=== PATIENT | female | born 1995 | race Hispanic/Latino ===

== ENCOUNTER 2017-05-10 18:48 | Emergency (ER) | payer BC, OTHER, SELFPAY ==
[2017-05-10] MEDS ORDERED: AMOX/K CLAV 875 MG TAB ONE (21:08)
[2017-05-10] MEDS ORDERED: TETANUS & DIPHTHERIA TOX,ADULT 0.5 ML VIAL ONE (21:08)
--- NOTE | 2017-05-10 21:23 | EDPHYS ---
Physician Documentation [facility] Name: Suzanne Sanchez Age: 22 yrs Sex: Female : 1995 Arrival Date: 05/10/2017 Time: 18:49 Bed 25 Private MD: ED Physician Surjit Jara HPI: 05/10 19:52 This 22 yrs old Female presents to ER via Ambulatory with complaints of Dog tw4 Bite. 19:52 The patient was bitten on the palmar aspect of right forearm, by a dog, as a result of tw4 being attacked by the animal, at home. Onset: The symptoms/episode began/occurred yesterday. Animal information: Patient/Caregiver unable to provide information related to the animal. Secondary to the bite the patient reports multiple lacerations, that are superficial, a puncture wound, that is superficial. Severity of symptoms: At their worst the symptoms were moderate, in the emergency department the symptoms are unchanged. The patient has not experienced similar symptoms in the past. 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 - Social history:: Smoking status: Patient/guardian denies using tobacco. ROS: 19:52 Constitutional: Negative for fever, chills, and weight loss, Eyes: Negative for injury, tw4 pain, redness, and discharge, Cardiovascular: Negative for chest pain, palpitations, and edema, Respiratory: Negative for shortness of breath, cough, wheezing, and pleuritic chest pain, Abdomen/GI: Negative for abdominal pain, nausea, vomiting, diarrhea, and constipation, Back: Negative for injury and pain. 19:52 MS/extremity: Positive for injury or acute deformity, puncture, Negative for abrasion, ecchymosis, erythema, laceration, rash. Exam: 19:52 Constitutional: This is a well developed, well nourished patient who is awake, alert, tw4 and in no acute distress. Head/Face: Normocephalic, atraumatic. Chest/axilla: Normal chest wall appearance and motion. Nontender with no deformity. No lesions are appreciated. Cardiovascular: Regular rate and rhythm with a normal S1 and S2. No gallops, murmurs, or rubs. Normal PMI, no JVD. No pulse deficits. Respiratory: Lungs have equal breath sounds bilaterally, clear to auscultation and percussion. No rales, rhonchi or wheezes noted. No increased work of breathing, no retractions or nasal flaring. 19:52 Musculoskeletal/extremity: Extremities: all appear grossly normal, with no appreciated pain with palpation, noted in the palmar aspect of right forearm: laceration, puncture. Vital Signs: 19:23 BP 142 / 81; Pulse 85; Resp 16; Temp 98.2; Pulse Ox 100% on R/A; Weight 104.33 kg; aj Height 5 ft. 5 in. (165.10 cm); Pain 3/10; 21:37 BP 138 / 80; Pulse 84; Resp 16; Pulse Ox 100% on R/A; kr2 19:23 Body Mass Index 38.27 (104.33 kg, 165.10 cm) aj MDM: 20:49 Patient medically screened. tw4 21:23 Differential diagnosis: tendon injury, rabies, cellulitis. Data reviewed: vital signs, tw4 nurses notes. Special discussion: I discussed with the patient/guardian in detail that at this point there is no indication for admission to the hospital. It is understood, however, that if the symptoms persist or worsen the patient needs to return immediately for re-evaluation. 05/10 19:54 Order name: Dressing - Wound; Complete Time: 21:34 tw4 Administered Medications: 20:53 Drug: Tetanus-Diphtheria Toxoid Adult 0.5 ml {[employer]: [employer]. Exp: kr2 09/10/2019. Lot #: [id number]. } Route: IM; Site: right deltoid; 21:34 Follow up: Response: No adverse reaction kr2 20:54 Drug: Augmentin 875 mg Route: PO; kr2 21:35 Follow up: Response: No adverse reaction kr2 Disposition: 05/10/17 21:22 Discharged to Home. Impression: Bitten by dog. - Condition is Stable. - Discharge Instructions: Animal Bite. - Prescriptions for Augmentin 875- 125 mg Oral Tablet - take 1 tablet by ORAL route every 12 hours for 10 days; 20 tablet. Ibuprofen 800 mg Oral Tablet - take 1 tablet by ORAL route every 8 hours As needed take with food; 30 tablet. - Medication Reconciliation Form, Thank You Letter, Antibiotic Education, Prescription Opioid Use form. - Follow up: Private Physician; When: As needed; Reason: Recheck today's complaints, Continuance of care, Re-evaluation by your physician. - Problem is new. - Symptoms have improved. Signatures: Zena Lewis RN RN aj Aissatou Marinelli RN RN kr2 Surjit Jara MD MD tw4
--- NOTE | 2017-05-10 21:23 | ER ---
Nurse's Notes [facility] Name: Suzanne Sanchez Age: 22 yrs Sex: Female : 1995 Arrival Date: 05/10/2017 Time: 18:49 Bed 25 Private MD: Diagnosis: Bitten by dog Presentation: 05/10 19:21 Presenting complaint: Patient states: Bit by friend's dog at 0200 this AM. Patient has aj puncture wounds to right posterior forearm. Swelling noted at this time. No bleeding. Transition of care: patient was not received from another setting of care. Onset of symptoms was May 10, 2017. Care prior to arrival: None. 19:21 Method Of Arrival: Ambulatory aj 19:21 Acuity: MAGUE 3 aj 20:03 Note [place] police notified of dog bite. Triage Assessment: 19:23 Bite description: bite sustained to palmar aspect of right forearm is full thickness, aj was sustained 12-24 hours ago. by a dog, animal information: Appearance: appeared well, is full thickness, vaccination(s) is unknown, was sustained 12-24 hours ago. Animal status: unknown but captured. General: Appears in no apparent distress. comfortable, Behavior is calm, cooperative, appropriate for age. Pain: Complains of pain in palmar aspect of right forearm. Neuro: Level of Consciousness is awake, alert, obeys commands, Oriented to person, place, time, situation. Respiratory: Airway is patent Respiratory effort is even, unlabored, Respiratory pattern is regular, symmetrical. Derm: Skin is intact, is healthy with good turgor, Skin is pink, warm \T\ dry. normal. 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 - Social history:: Smoking status: Patient/guardian denies using tobacco. Screenin:07 Abuse screen: Denies threats or abuse. Denies injuries from another. Nutritional kr2 screening: No deficits noted. Tuberculosis screening: No symptoms or risk factors identified. Fall Risk None identified. Assessment: 21:01 General: Appears in no apparent distress. comfortable, well groomed, well developed, kr2 well nourished, Behavior is calm, cooperative, appropriate for age. Pain: Complains of pain in palmar aspect of right forearm Pain radiates to right arm Pain currently is 4 out of 10 on a pain scale. Quality of pain is described as aching, tender, Pain began gradually, Is continuous. Neuro: Level of Consciousness is awake, alert, obeys commands, Oriented to person, place, time, situation. Cardiovascular: Capillary refill < 3 seconds in bilateral fingers Patient's skin is warm and dry. Respiratory: Airway is patent Respiratory effort is even, unlabored, Respiratory pattern is regular, symmetrical. GI: Abdomen is non-distended. : No signs and/or symptoms were reported regarding the genitourinary system. EENT: Oral mucosa is moist. Derm: Skin is healthy with good turgor, Wound noted palmar aspect of right forearm Wound is from a dog bite. 2 puncture wounds, redness and small amount of swelling noted. Musculoskeletal: Circulation, motion, and sensation intact. Range of motion: intact in all extremities. Injury Description: Bite sustained to palmar aspect of right forearm caused by a dog, is full thickness, was sustained 12-24 hours ago. 21:35 Reassessment: Patient appears in no apparent distress at this time. Patient is alert, kr2 oriented x 3, equal unlabored respirations, skin warm/dry/pink. Wound cleansed with chlorhexidine, rinsed with saline, antibiotic ointment applied, covered with non-stick dressing, wrapped with kerlix and secured with tape. Tolerated well. Vital Signs: 19:23 BP 142 / 81; Pulse 85; Resp 16; Temp 98.2; Pulse Ox 100% on R/A; Weight 104.33 kg; aj Height 5 ft. 5 in. (165.10 cm); Pain 3/10; 21:37 BP 138 / 80; Pulse 84; Resp 16; Pulse Ox 100% on R/A; kr2 19:23 Body Mass Index 38.27 (104.33 kg, 165.10 cm) aj ED Course: 18:49 Patient arrived in ED. as 19:22 Triage completed. aj 19:23 Arm band placed on right wrist. Patient placed in waiting room, Patient notified of aj wait time. 19:52 Estefani, Surjit, MD is Attending Physician. tw4 20:43 Aissatou Marinelli, RN is Primary Nurse. kr2 21:07 Patient has correct armband on for positive identification. Bed in low position. Call kr2 light in reach. Side rails up X2. Pulse ox on. NIBP on. Door closed. Warm blanket given. Head of bed elevated. 21:36 No provider procedures requiring assistance completed. Patient did not have IV access kr2 during this emergency room visit. Administered Medications: 20:53 Drug: Tetanus-Diphtheria Toxoid Adult 0.5 ml {[employer] Super[employer]: [employer]. Exp: kr2 09/10/2019. Lot #: [id number]. } Route: IM; Site: right deltoid; 21:34 Follow up: Response: No adverse reaction kr2 20:54 Drug: Augmentin 875 mg Route: PO; kr2 21:35 Follow up: Response: No adverse reaction kr2 Outcome: 21:22 Discharge ordered by . tw4 21:37 Discharged to home ambulatory, with friend. kr2 21:37 Condition: good 21:37 Discharge instructions given to patient, Instructed on discharge instructions, follow up and referral plans. medication usage, wound care, Demonstrated understanding of instructions, follow-up care, medications, wound care, Prescriptions given X 2. 21:38 Patient left the ED. kr2 Signatures: Zena Lewis, RN Yanira Thompson as Aissatou Marinelli, RN RN kr2 Surjit Jara MD MD tw
[2017-05-10 22:02] VITALS: TEMP 98.2; O2SAT 100
[2017-05-10 22:04] VITALS: BP 138/80
== END 2017-05-10 21:38 | disposition home or self-care (01) ==
LOC: ER 18:48
DX: S50.871A Other superficial bite of right forearm, initial encounter (principal); W54.0XXA Bitten by dog, initial encounter; Y93.9 Activity, unspecified; Y92.009 Unspecified place in unspecified non-institutional (private) residence as the place of occurrence of the external cause; Z23 Encounter for immunization; E11.9 Type 2 diabetes mellitus without complications; E03.9 Hypothyroidism, unspecified
CPT/HCPCS: 90714; 99283

== ENCOUNTER → 2023-04-16 | Emergency (ER) | payer BC, SELFPAY ==
[~2023-04-16] MED LIST: IBUPROFEN 400 MG TAB ONE
--- OUTSIDE RECORDS SUMMARY | 2023-04-16 09:33 | XMS REPORT | Continuity of Care Document ---
Author Name Unknown Address [address] [facility] [address] [place] [address] [facility] thconnect Address [address] [facility] 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 Role Phone MARLENY CARD Primary Care Physician Unav Lorelei Quinn MA Attending Clinician UnavailLANA Scott Attending Clinician Unavailable Lana Manzano PA-C Attending Clinician [phone] Unknown, Attending Attending Clinician Unavailab le Doctor Unassigned, [place] Attending Clinician U ruth Garsia RN, Yas Cunningham Attending Clinician UnavailJOLLY Willis Attending Clinician Unavailable Only, En Db Test Attending Clinician UnavailJolly Benitez Attending Clinician [phone] Terry Reynaga DO Attending Clinician [phone] Marleny Childers Attending Clinician + MARLENY CARD Attending Clinician Unavail Cristin Ovalle MD Attending Clinician [phone] Ultrasound, Ang-m Attending Clinician Unavailelvira Malone MD, Arthur Ahmadi Attending Clinician [phone] Penelope Bailon MD Attending Clinician [phone] ARTHUR MALONE Attending Clinician Unavailable 1, [facility] Attending Clinician UnavailShawn Adam MD Attending Clinician [phone] Provider, [facility] Attending Clinician Un available AneJulianna Wyattthia Attending Clinician [phone] ROYA DURAN Attending Clinician Unavailable Faculty, [facility] [place] Attending Clinician Tal Bishop MD, Audrey Attending Clinician + Lab, [facility] Attending Clinician Unavailable Slime CHAN, Collin Santoyo Attending Clinician [phone] Pcp, Patient Does Not Have A Attending Clinician Visit[facility]ending [facility] Unamanuel [place] Lab, [facility] Attending Clinician Unavailable 3, [facility] Attending Clinician Unavaila zoya PIERCEP, Judy Attending Clinician [phone] CRISTIN FOURNIER Admitting Clinician Unavailable Cristin Fournier MD Admitting Clinician [phone] Payers Payer Name Policy Type Policy Number Effective Date Expirati on Date Source [facility] [id number] 00:00:00 Problems Condition Name Condition Details Condition Category Status Onset Date Resolution Date Last Treatment Date Treating Clinician Comments Source Well woman exam Well woman exam Disease Active -12 00:00: 00 [facility] Routine follow-up Routine follow-up Disease Active 03-01 00:00: 00 [facility] History of tubal ligation History of tubal ligation Disease Active 02-09 00:00: 00 [facility] delivery, delivered delivery, delivered Disease Active 02-09 00:00: 00 [facility] (spontaneo us vaginal delivery) (spontaneo us vaginal delivery) Disease Active 02-09 00:00: 00 [facility] Single liveborn Single liveborn Disease Active 02-09 00:00: 00 [facility] anemia anemia Disease Active 02-09 00:00: 00 [facility] 33 weeks gestation of 33 weeks gestation of Disease Active 2019-02 2-31 00:00: 00 [facility] premature rupture of membranes (PPROM) with unknown onset of labor premature rupture of membranes (PPROM) with unknown onset of labor Disease Active 2019-02 00:00: 00 [facility] Labor and delivery, indication for care Labor and delivery, indication for care Disease Active 2019-02 00:00: 00 [facility] UTI in UTI in Disease Active 2019-02 00:00: 00 [facility] Morbid obesity with body mass index of 40.0-49.9 Morbid obesity with body mass index of 40.0-49.9 Disease Active 2019-02 00:00: 00 [facility] Obesity (BMI 30-39.9) Obesity (BMI 30-39.9) Disease Active 2019-02 00:00: 00 [facility] Vaginal bleeding during Vaginal bleeding during Disease Active 10-18 00:00: 00 [facility] Cervical Papanicola ou smear negative within last 12 months Cervical Papanicola ou smear negative within last 12 months Disease Active 10-03 00:00: 00 Overview: Formattin g of this note might be different from the original. NIL pap 08/2019 see scanned records [facility] Abnormal maternal glucose tolerance, antepartum Abnormal maternal glucose tolerance, antepartum Disease Active 10-03 00:00: 00 Overview: Failed 1hr gtt, passed 3hr gtt, [facility] Rh negative state in antepartum period Rh negative state in antepartum period Disease Active 09-19 00:00: 00 Overview: Address at 28 weeks [facility] Rubella non-immune status, antepartum Rubella non-immune status, antepartum Disease Active 09-19 00:00: 00 [facility] Susceptibl e to varicella (non-immun e), currently Susceptibl e to varicella (non-immun e), currently Disease Active 09-19 00:00: 00 Overview: Address pp [facility] Supervisio n of high-risk Supervisio n of high-risk Disease Active 09-17 00:00: 00 Overview: See chart review for labs [facility] Multiparit y Multiparit y Disease Active 8- 00:00: 00 [facility] Obesity in Obesity in Disease Active 8 00:00: 00 [facility] Hypothyroi dism in Hypothyroi dism in Disease Active 8- 00:00: 00 [facility] Asthma during Asthma during Disease Active 8- 00:00: 00 Overview: Reports has rescue inhaler [facility] Asthma during Asthma during Disease Active 8 00:00: 00 Overview: Formattin g of this note might be different from the original. Reports has rescue inhaler [facility] Velamentou s insertion of umbilical cord Velamentou s insertion of umbilical cord Disease Active 8 00:00: 00 Overview: Noted on usg report [facility] Hypothyroi dism Hypothyroi dism Disease Active 09-17 00:00: 00 [facility] Allergies, Adverse Reactions, Alerts Allergy Name Allergy Type Status Severity Reaction(s) Onset Date Inactive Date Treating Clinician Comments Source NO KNOWN ALLERGIE S Drug Class Active [facility] Social History Social Habit Start Date Stop Date Quantity Comments Source ASSERTION 2019-07-06 00:00:00 [facility] Gender identity [facility] Sexual orientation U [facility] Exposure to SARS-CoV-2 (event) 2020-12-16 00:00:00 2021-01-15 17:49:00 Not sure [facility] History of Social function 2020-03-22 00:00:00 2020-03-22 00:00:00 [facility] Alcohol intake 2019-10-02 00:00:00 2019-10-02 00:00:00 Ex-drinker (finding) [facility] Tobacco use and exposure 2019-09-18 00:00:00 2019-09-18 00:00:00 Smokeless tobacco non-user [facility] Sex Assigned At 1995 00:00:00 1995 00:00:00 [facility] Smoking Status Start Date Stop Date Source Unknown if ever smoked [facility] Never smoked tobacco [facility] Medications Ordered Medication Name Filled Medication Name Start Date Stop Date Current Medication? Ordering Clinician Indication Dosage Frequency Signature (SIG) Comments Components Source ciprofloxac in-dexameth asone 0.3-0.1 % otic drops 08-12 00:00: 00 Yes [id number] 4[drp] Place 4 Drops in right ear in the morning and 4 Drops in the evening. [facility] ciprofloxac in-dexameth asone 0.3-0.1 % otic drops 08-12 00:00: 00 Yes [id number] 4[drp] Place 4 Drops in right ear in the morning and 4 Drops in the evening. [facility] vitamin w/FA tablet 02-10 00:00: 00 Yes [id number] 1{tbl} Take 1 tablet by mouth daily. [facility] docusate calcium 240 mg capsule 02-10 00:00: 00 Yes [id number] 240mg Take 1 capsule by mouth once daily as needed for Constipati on. [facility] ferrous sulfate 325 mg (65 mg iron) tablet 02-10 00:00: 00 Yes [id number] 325mg Take 1 tablet by mouth 2 (two) times daily. [facility] ibuprofen 600 mg tablet 02-10 00:00: 00 Yes [id number] 600mg Take 1 tablet by mouth every 6 (six) hours as needed (Pain). Take with food or milk. [facility] vitamin w/FA tablet 02-10 00:00: 00 Yes [id number] 1{tbl} Take 1 tablet by mouth daily. [facility] docusate calcium 240 mg capsule 02-10 00:00: 00 Yes [id number] 240mg Take 1 capsule by mouth once daily as needed for Constipati on. [facility] ferrous sulfate 325 mg (65 mg iron) tablet 02-10 00:00: 00 Yes [id number] 325mg Take 1 tablet by mouth 2 (two) times daily. [facility] ibuprofen 600 mg tablet 02-10 00:00: 00 Yes [id number] 600mg Take 1 tablet by mouth every 6 (six) hours as needed (Pain). Take with food or milk. [facility] vitamin w/FA tablet 02-10 00:00: 00 Yes [id number] 1{tbl} Take 1 tablet by mouth daily. [facility] docusate calcium 240 mg capsule 02-10 00:00: 00 Yes [id number] 240mg Take 1 capsule by mouth once daily as needed for Constipati on. [facility] ferrous sulfate 325 mg (65 mg iron) tablet 02-10 00:00: 00 Yes [id number] 325mg Take 1 tablet by mouth 2 (two) times daily. [facility] ibuprofen 600 mg tablet 02-10 00:00: 00 Yes [id number] 600mg Take 1 tablet by mouth every 6 (six) hours as needed (Pain). Take with food or milk. [facility] vitamin w/FA tablet 02-10 00:00: 00 Yes [id number] 1{tbl} Take 1 tablet by mouth daily. [facility] docusate calcium 240 mg capsule 02-10 00:00: 00 Yes [id number] 240mg Take 1 capsule by mouth once daily as needed for Constipati on. [facility] ferrous sulfate 325 mg (65 mg iron) tablet 02-10 00:00: 00 Yes [id number] 325mg Take 1 tablet by mouth 2 (two) times daily. [facility] ibuprofen 600 mg tablet 02-10 00:00: 00 Yes [id number] 600mg Take 1 tablet by mouth every 6 (six) hours as needed (Pain). Take with food or milk. [facility] vitamin w/FA tablet 02-10 00:00: 00 Yes [id number] 1{tbl} Take 1 tablet by mouth daily. [facility] docusate calcium 240 mg capsule 02-10 00:00: 00 Yes [id number] 240mg Take 1 capsule by mouth once daily as needed for Constipati on. [facility] ferrous sulfate 325 mg (65 mg iron) tablet 02-10 00:00: 00 Yes [id number] 325mg Take 1 tablet by mouth 2 (two) times daily. [facility] ibuprofen 600 mg tablet 02-10 00:00: 00 Yes [id number] 600mg Take 1 tablet by mouth every 6 (six) hours as needed (Pain). Take with food or milk. [facility] vitamin w/FA tablet 02-10 00:00: 00 Yes [id number] 1{tbl} Take 1 tablet by mouth daily. [facility] docusate calcium 240 mg capsule 02-10 00:00: 00 Yes [id number] 240mg Take 1 capsule by mouth once daily as needed for Constipati on. [facility] ferrous sulfate 325 mg (65 mg iron) tablet 02-10 00:00: 00 Yes [id number] 325mg Take 1 tablet by mouth 2 (two) times daily. [facility] ibuprofen 600 mg tablet 02-10 00:00: 00 Yes [id number] 600mg Take 1 tablet by mouth every 6 (six) hours as needed (Pain). Take with food or milk. [facility] vitamin w/FA tablet 02-10 00:00: 00 Yes [id number] 1{tbl} Take 1 tablet by mouth daily. [facility] docusate calcium 240 mg capsule 02-10 00:00: 00 Yes [id number] 240mg Take 1 capsule by mouth once daily as needed for Constipati on. [facility] ferrous sulfate 325 mg (65 mg iron) tablet 02-10 00:00: 00 Yes [id number] 325mg Take 1 tablet by mouth 2 (two) times daily. [facility] ibuprofen 600 mg tablet 02-10 00:00: 00 Yes [id number] 600mg Take 1 tablet by mouth every 6 (six) hours as needed (Pain). Take with food or milk. [facility] vitamin w/FA tablet 02-10 00:00: 00 Yes [id number] 1{tbl} Take 1 tablet by mouth daily. [facility] docusate calcium 240 mg capsule 02-10 00:00: 00 Yes [id number] 240mg Take 1 capsule by mouth once daily as needed for Constipati on. [facility] ferrous sulfate 325 mg (65 mg iron) tablet 02-10 00:00: 00 Yes [id number] 325mg Take 1 tablet by mouth 2 (two) times daily. [facility] ibuprofen 600 mg tablet 02-10 00:00: 00 Yes [id number] 600mg Take 1 tablet by mouth every 6 (six) hours as needed (Pain). Take with food or milk. [facility] vitamin w/FA tablet 02-10 00:00: 00 Yes [id number] 1{tbl} Take 1 tablet by mouth daily. [facility] docusate calcium 240 mg capsule 02-10 00:00: 00 Yes [id number] 240mg Take 1 capsule by mouth once daily as needed for Constipati on. [facility] ferrous sulfate 325 mg (65 mg iron) tablet 02-10 00:00: 00 Yes [id number] 325mg Take 1 tablet by mouth 2 (two) times daily. [facility] ibuprofen 600 mg tablet 02-10 00:00: 00 Yes [id number] 600mg Take 1 tablet by mouth every 6 (six) hours as needed (Pain). Take with food or milk. [facility] vitamin w/FA tablet 02-10 00:00: 00 Yes [id number] 1{tbl} Take 1 tablet by mouth daily. [facility] docusate calcium 240 mg capsule 02-10 00:00: 00 Yes [id number] 240mg Take 1 capsule by mouth once daily as needed for Constipati on. [facility] ferrous sulfate 325 mg (65 mg iron) tablet 02-10 00:00: 00 Yes [id number] 325mg Take 1 tablet by mouth 2 (two) times daily. [facility] ibuprofen 600 mg tablet 02-10 00:00: 00 Yes [id number] 600mg Take 1 tablet by mouth every 6 (six) hours as needed (Pain). Take with food or milk. [facility] vitamin w/FA tablet 02-10 00:00: 00 Yes [id number] 1{tbl} Take 1 tablet by mouth daily. [facility] docusate calcium 240 mg capsule 02-10 00:00: 00 Yes [id number] 240mg Take 1 capsule by mouth once daily as needed for Constipati on. [facility] ferrous sulfate 325 mg (65 mg iron) tablet 02-10 00:00: 00 Yes [id number] 325mg Take 1 tablet by mouth 2 (two) times daily. [facility] ibuprofen 600 mg tablet 02-10 00:00: 00 Yes [id number] 600mg Take 1 tablet by mouth every 6 (six) hours as needed (Pain). Take with food or milk. [facility] HYDROcodone -acetaminop hen 5-325 mg tablet 02-10 00:00: 00 02-18 05:59 :00 No [id number] 1{tbl} Take 1 tablet by mouth every 6 (six) hours as needed for Pain (scale 7-10) for up to 7 days. Indication s: acute pain [facility] HYDROcodone -acetaminop hen 5-325 mg tablet 02-10 00:00: 00 02-18 05:59 :00 No [id number] 1{tbl} Take 1 tablet by mouth every 6 (six) hours as needed for Pain (scale 7-10) for up to 7 days. Indication s: acute pain [facility] cephALEXin 500 mg capsule 2019-02 00:00: 00 02-13 05:59 :00 No [id number] 500mg Take 1 capsule by mouth 4 (four) times daily for 7 days. [facility] cephALEXin 500 mg capsule 2019-02 00:00: 00 02-13 05:59 :00 No [id number] 500mg Take 1 capsule by mouth 4 (four) times daily for 7 days. [facility] rho(D) immune globulin (RHOGAM) syringe 300 mcg 2019-02 18:00: 00 01-08 17:06 :00 No [id number] 300ug [facility] rho(D) immune globulin (RHOGAM) syringe 300 mcg 2019-02 18:00: 00 01-08 17:06 :00 No [id number] 300ug 300 mcg, Intramuscu lar, ONCE, 1 dose, Wed01/09/20 at 1200, Routine [facility] Levothyroxi ne 150 mcg capsule 2019-02 00:00: 00 Yes [id number] .15mg Take 1 capsule by mouth daily. [facility] Levothyroxi ne 150 mcg capsule 2019-02 00:00: 00 Yes [id number] .15mg Take 1 capsule by mouth daily. [facility] Levothyroxi ne 150 mcg capsule 2019-02 00:00: 00 Yes [id number] .15mg Take 1 capsule by mouth daily. [facility] Levothyroxi ne 150 mcg capsule 2019-02 00:00: 00 Yes [id number] .15mg Take 1 capsule by mouth daily. [facility] Levothyroxi ne 150 mcg capsule 2019-02 00:00: 00 Yes [id number] .15mg Take 1 capsule by mouth daily. [facility] Levothyroxi ne 150 mcg capsule 2019-02 00:00: 00 Yes [id number] .15mg Take 1 capsule by mouth daily. [facility] Levothyroxi ne 150 mcg capsule 2019-02 00:00: 00 Yes [id number] .15mg Take 1 capsule by mouth daily. [facility] Levothyroxi ne 150 mcg capsule 2019-02 00:00: 00 Yes [id number] .15mg Take 1 capsule by mouth daily. [facility] Levothyroxi ne 150 mcg capsule 2019-02 00:00: 00 Yes [id number] .15mg Take 1 capsule by mouth daily. [facility] Levothyroxi ne 150 mcg capsule 2019-02 00:00: 00 Yes [id number] .15mg Take 1 capsule by mouth daily. [facility] Levothyroxi ne 150 mcg capsule 2019-02 00:00: 00 Yes [id number] .15mg Take 1 capsule by mouth daily. [facility] Levothyroxi ne 150 mcg capsule 2019-02 00:00: 00 Yes [id number] .15mg Take 1 capsule by mouth daily. [facility] Levothyroxi ne 150 mcg capsule 2019-02 00:00: 00 Yes [id number] .15mg Take 1 capsule by mouth daily. [facility] Levothyroxi ne 150 mcg capsule 2019-02 00:00: 00 Yes [id number] .15mg Take 1 capsule by mouth daily. [facility] Levothyroxi ne 150 mcg capsule 2019-02 00:00: 00 Yes [id number] .15mg Take 1 capsule by mouth daily. [facility] Levothyroxi ne 150 mcg capsule 2019-02 00:00: 00 Yes [id number] .15mg Take 1 capsule by mouth daily. [facility] Levothyroxi ne 150 mcg capsule 2019-02 00:00: 00 Yes [id number] .15mg Take 1 capsule by mouth daily. [facility] Levothyroxi ne 150 mcg capsule 2019-02 00:00: 00 Yes [id number] .15mg Take 1 capsule by mouth daily. [facility] Levothyroxi ne 150 mcg capsule 2019-02 00:00: 00 Yes [id number] .15mg Take 1 capsule by mouth daily. [facility] Levothyroxi ne 150 mcg capsule 2019-02 00:00: 00 Yes [id number] .15mg Take 1 capsule by mouth daily. [facility] Levothyroxi ne 150 mcg capsule 2019-02 00:00: 00 Yes [id number] .15mg Take 1 capsule by mouth daily. [facility] Levothyroxi ne 150 mcg capsule 2019-02 00:00: 00 Yes [id number] .15mg Take 1 capsule by mouth daily. [facility] Levothyroxi ne 150 mcg capsule 2019-02 00:00: 00 Yes [id number] .15mg Take 1 capsule by mouth daily. [facility] Levothyroxi ne 150 mcg capsule 2019-02 00:00: 00 Yes [id number] .15mg Take 1 capsule by mouth daily. [facility] Levothyroxi ne 150 mcg capsule 2019-02 00:00: 00 Yes [id number] .15mg Take 1 capsule by mouth daily. [facility] Levothyroxi ne 150 mcg capsule 2019-02 00:00: 00 Yes [id number] .15mg Take 1 capsule by mouth daily. [facility] Levothyroxi ne 125 mcg capsule 2019-0 10-29 00:00: 00 Yes [id number] .125mg Take 1 capsule by mouth daily. [facility] Levothyroxi ne 125 mcg capsule 2019-0 10-29 00:00: 00 Yes [id number] .125mg Take 1 capsule by mouth daily. [facility] Levothyroxi ne 125 mcg capsule 2019-0 10-29 00:00: 00 Yes [id number] .125mg Take 1 capsule by mouth daily. [facility] Levothyroxi ne 125 mcg capsule 2019-0 10-29 00:00: 00 Yes [id number] .125mg Take 1 capsule by mouth daily. [facility] Levothyroxi ne 125 mcg capsule 2019-0 10-29 00:00: 00 Yes [id number] .125mg Take 1 capsule by mouth daily. [facility] Levothyroxi ne 125 mcg capsule 2019-0 10-29 00:00: 00 Yes [id number] .125mg Take 1 capsule by mouth daily. [facility] Levothyroxi ne 125 mcg capsule 2019-0 10-29 00:00: 00 Yes [id number] .125mg Take 1 capsule by mouth daily. [facility] Levothyroxi ne 125 mcg capsule 2019-0 10-29 00:00: 00 Yes [id number] .125mg Take 1 capsule by mouth daily. [facility] Levothyroxi ne 125 mcg capsule 2019-0 10-29 00:00: 00 Yes [id number] .125mg Take 1 capsule by mouth daily. [facility] Levothyroxi ne 125 mcg capsule 2019-0 10-29 00:00: 00 Yes [id number] .125mg Take 1 capsule by mouth daily. [facility] Levothyroxi ne 125 mcg capsule 2019-0 10-29 00:00: 00 Yes [id number] .125mg Take 1 capsule by mouth daily. [facility] Levothyroxi ne 125 mcg capsule 2019-0 10-29 00:00: 00 Yes [id number] .125mg Take 1 capsule by mouth daily. [facility] Levothyroxi ne 125 mcg capsule 2019-0 10-29 00:00: 00 Yes [id number] .125mg Take 1 capsule by mouth daily. [facility] Levothyroxi ne 125 mcg capsule 2019-0 10-29 00:00: 00 Yes [id number] .125mg Take 1 capsule by mouth daily. [facility] Levothyroxi ne 125 mcg capsule 2019-0 10-29 00:00: 00 Yes [id number] .125mg Take 1 capsule by mouth daily. [facility] Levothyroxi ne 125 mcg capsule 2019-0 10-29 00:00: 00 Yes [id number] .125mg Take 1 capsule by mouth daily. [facility] Levothyroxi ne 125 mcg capsule 2019-0 10-29 00:00: 00 Yes [id number] .125mg Take 1 capsule by mouth daily. [facility] Levothyroxi ne 125 mcg capsule 2019-0 10-29 00:00: 00 Yes [id number] .125mg Take 1 capsule by mouth daily. [facility] Levothyroxi ne 125 mcg capsule 2019-0 10-29 00:00: 00 Yes [id number] .125mg Take 1 capsule by mouth daily. [facility] Levothyroxi ne 125 mcg capsule 2019-0 10-29 00:00: 00 Yes [id number] .125mg Take 1 capsule by mouth daily. [facility] Levothyroxi ne 125 mcg capsule 2019-0 10-29 00:00: 00 Yes [id number] .125mg Take 1 capsule by mouth daily. [facility] Levothyroxi ne 125 mcg capsule 2019-0 -21 00:00: 00 Yes [id number] .125mg Take 1 capsule by mouth daily. [facility] Levothyroxi ne 125 mcg capsule 2019-0 -21 00:00: 00 Yes [id number] .125mg Take 1 capsule by mouth daily. [facility] Levothyroxi ne 125 mcg capsule 2019-0 21 00:00: 00 Yes [id number] .125mg Take 1 capsule by mouth daily. [facility] Levothyroxi ne 125 mcg capsule 2019-0 -21 00:00: 00 Yes [id number] .125mg Take 1 capsule by mouth daily. [facility] Levothyroxi ne 100 mcg capsule 2019-0 9-16 00:00: 00 Yes [id number] 100ug Take 1 capsule by mouth daily. [facility] Levothyroxi ne 100 mcg capsule 2019-0 9-16 00:00: 00 10-29 00:00 :00 No [id number] 100ug Take 1 capsule by mouth daily. [facility] Levothyroxi ne 100 mcg capsule 2019-0 8-18 18:30: 11 -17 00:00 :00 No Take by mouth. [facility] PRENATABS RX tablet 2020-0 8-18 00:00: 00 Yes [id number] TAKE 1 TABLET BY MOUTH ONCE DAILY [facility] PRENATABS RX tablet 2020-0 8-18 00:00: 00 Yes [id number] TAKE 1 TABLET BY MOUTH ONCE DAILY [facility] PRENATABS RX tablet 2020-0 8-18 00:00: 00 Yes [id number] TAKE 1 TABLET BY MOUTH ONCE DAILY [facility] PRENATABS RX tablet 2020-0 8-18 00:00: 00 Yes [id number] TAKE 1 TABLET BY MOUTH ONCE DAILY [facility] PRENATABS RX tablet 2020-0 8-18 00:00: 00 Yes [id number] TAKE 1 TABLET BY MOUTH ONCE DAILY [facility] PRENATABS RX tablet 2020-0 8-18 00:00: 00 Yes [id number] TAKE 1 TABLET BY MOUTH ONCE DAILY [facility] PRENATABS RX tablet 2020-0 8-18 00:00: 00 Yes [id number] TAKE 1 TABLET BY MOUTH ONCE DAILY [facility] PRENATABS RX tablet 2020-0 8-18 00:00: 00 Yes [id number] TAKE 1 TABLET BY MOUTH ONCE DAILY [facility] PRENATABS RX tablet 2020-0 8-18 00:00: 00 Yes [id number] TAKE 1 TABLET BY MOUTH ONCE DAILY [facility] PRENATABS RX tablet 2020-0 8-18 00:00: 00 Yes [id number] TAKE 1 TABLET BY MOUTH ONCE DAILY [facility] PRENATABS RX tablet 2020-0 8-18 00:00: 00 Yes [id number] TAKE 1 TABLET BY MOUTH ONCE DAILY [facility] PRENATABS RX tablet 2020-0 8-18 00:00: 00 Yes [id number] TAKE 1 TABLET BY MOUTH ONCE DAILY [facility] PRENATABS RX tablet 2020-0 8-18 00:00: 00 Yes [id number] TAKE 1 TABLET BY MOUTH ONCE DAILY [facility] PRENATABS RX tablet 2020-0 8-18 00:00: 00 Yes [id number] TAKE 1 TABLET BY MOUTH ONCE DAILY [facility] PRENATABS RX tablet 2020-0 8-18 00:00: 00 Yes [id number] TAKE 1 TABLET BY MOUTH ONCE DAILY [facility] PRENATABS RX tablet 2020-0 8-18 00:00: 00 Yes [id number] TAKE 1 TABLET BY MOUTH ONCE DAILY [facility] PRENATABS RX tablet 2020-0 8-18 00:00: 00 Yes [id number] TAKE 1 TABLET BY MOUTH ONCE DAILY [facility] PRENATABS RX tablet 2020-0 8-18 00:00: 00 Yes [id number] TAKE 1 TABLET BY MOUTH ONCE DAILY [facility] PRENATABS RX tablet 2020-0 8-18 00:00: 00 Yes [id number] TAKE 1 TABLET BY MOUTH ONCE DAILY [facility] PRENATABS RX tablet 2020-0 8-18 00:00: 00 Yes [id number] TAKE 1 TABLET BY MOUTH ONCE DAILY [facility] PRENATABS RX tablet 2020-0 8-18 00:00: 00 Yes [id number] TAKE 1 TABLET BY MOUTH ONCE DAILY [facility] PRENATABS RX tablet 2020-0 8-18 00:00: 00 Yes [id number] TAKE 1 TABLET BY MOUTH ONCE DAILY [facility] PRENATABS RX tablet 2020-0 8-18 00:00: 00 Yes [id number] TAKE 1 TABLET BY MOUTH ONCE DAILY [facility] PRENATABS RX tablet 2020-0 8-18 00:00: 00 Yes [id number] TAKE 1 TABLET BY MOUTH ONCE DAILY [facility] PRENATABS RX tablet 2020-0 8-18 00:00: 00 Yes [id number] TAKE 1 TABLET BY MOUTH ONCE DAILY [facility] PRENATABS RX tablet 2020-0 8-18 00:00: 00 Yes [id number] TAKE 1 TABLET BY MOUTH ONCE DAILY [facility] PRENATABS RX tablet 2020-0 8-18 00:00: 00 Yes [id number] TAKE 1 TABLET BY MOUTH ONCE DAILY [facility] PRENATABS RX tablet 2020-0 8-18 00:00: 00 Yes [id number] TAKE 1 TABLET BY MOUTH ONCE DAILY [facility] PRENATABS RX tablet 2020-0 8-18 00:00: 00 Yes [id number] TAKE 1 TABLET BY MOUTH ONCE DAILY [facility] PRENATABS RX tablet 2020-0 8-18 00:00: 00 Yes [id number] TAKE 1 TABLET BY MOUTH ONCE DAILY [facility] PRENATABS RX tablet 2020-0 8-18 00:00: 00 Yes [id number] TAKE 1 TABLET BY MOUTH ONCE DAILY [facility] PRENATABS RX tablet 2020-0 8-18 00:00: 00 Yes [id number] TAKE 1 TABLET BY MOUTH ONCE DAILY [facility] PRENATABS RX tablet 2020-0 8-18 00:00: 00 Yes [id number] TAKE 1 TABLET BY MOUTH ONCE DAILY [facility] PRENATABS RX tablet 2020-0 8-18 00:00: 00 Yes [id number] TAKE 1 TABLET BY MOUTH ONCE DAILY [facility] PRENATABS RX tablet 2020-0 8-18 00:00: 00 Yes [id number] TAKE 1 TABLET BY MOUTH ONCE DAILY [facility] PRENATABS RX tablet 2020-0 8-18 00:00: 00 Yes [id number] TAKE 1 TABLET BY MOUTH ONCE DAILY [facility] PRENATABS RX tablet 2020-0 8-18 00:00: 00 Yes [id number] TAKE 1 TABLET BY MOUTH ONCE DAILY [facility] PRENATABS RX tablet 2020-0 8-18 00:00: 00 Yes [id number] TAKE 1 TABLET BY MOUTH ONCE DAILY [facility] PRENATABS RX tablet 2020-0 8-18 00:00: 00 Yes [id number] TAKE 1 TABLET BY MOUTH ONCE DAILY [facility] PRENATABS RX tablet 2020-0 8-18 00:00: 00 Yes [id number] TAKE 1 TABLET BY MOUTH ONCE DAILY [facility] PRENATABS RX tablet 2020-0 8-18 00:00: 00 Yes [id number] TAKE 1 TABLET BY MOUTH ONCE DAILY [facility] PRENATABS RX tablet 2020-0 8-18 00:00: 00 Yes [id number] TAKE 1 TABLET BY MOUTH ONCE DAILY [facility] PRENATABS RX tablet 2020-0 8-18 00:00: 00 Yes [id number] TAKE 1 TABLET BY MOUTH ONCE DAILY [facility] PRENATABS RX tablet 2020-0 8-18 00:00: 00 Yes [id number] TAKE 1 TABLET BY MOUTH ONCE DAILY [facility] PRENATABS RX tablet 2019-0 8-18 00:00: 00 02-10 00:00 :00 No [id number] TAKE 1 TABLET BY MOUTH ONCE DAILY [facility] Levothyroxi ne 100 mcg capsule 2019-0 8-18 00:00: 00 10-26 04:59 :00 No [id number] 100ug Take 1 capsule by mouth daily for 30 days. [facility] Levothyroxi ne 100 mcg capsule 2019-0 8-18 00:00: 00 10-26 04:59 :00 No [id number] 100ug Take 1 capsule by mouth daily for 30 days. [facility] Levothyroxi ne 100 mcg capsule 2019-0 8-18 00:00: 00 10-26 04:59 :00 No [id number] 100ug Take 1 capsule by mouth daily for 30 days. [facility] Levothyroxi ne 100 mcg capsule 2020-0 8-18 00:00: 00 10-26 04:59 :00 No [id number] 100ug Take 1 capsule by mouth daily for 30 days. [facility] Levothyroxi ne 100 mcg capsule 2020-0 8-18 00:00: 00 10-26 04:59 :00 No [id number] 100ug Take 1 capsule by mouth daily for 30 days. [facility] Levothyroxi ne 100 mcg capsule 2020-0 8-18 00:00: 00 10-26 04:59 :00 No [id number] 100ug Take 1 capsule by mouth daily for 30 days. [facility] Levothyroxi ne 100 mcg capsule 2020-0 8-18 00:00: 00 10-26 04:59 :00 No [id number] 100ug Take 1 capsule by mouth daily for 30 days. [facility] Levothyroxi ne 100 mcg capsule 2020-0 8-18 00:00: 00 10-26 04:59 :00 No [id number] 100ug Take 1 capsule by mouth daily for 30 days. [facility] Levothyroxi ne 100 mcg capsule 2020-0 8-18 00:00: 00 10-26 04:59 :00 No [id number] 100ug Take 1 capsule by mouth daily for 30 days. [facility] Levothyroxi ne 100 mcg capsule 2020-0 8-18 00:00: 00 10-26 04:59 :00 No [id number] 100ug Take 1 capsule by mouth daily for 30 days. [facility] Levothyroxi ne 100 mcg capsule 2020-0 8-18 00:00: 00 10-26 04:59 :00 No [id number] 100ug Take 1 capsule by mouth daily for 30 days. [facility] Levothyroxi ne 100 mcg capsule 2020-0 8-18 00:00: 00 10-26 04:59 :00 No [id number] 100ug Take 1 capsule by mouth daily for 30 days. [facility] Levothyroxi ne 100 mcg capsule 2020-0 8-18 00:00: 00 10-26 04:59 :00 No [id number] 100ug Take 1 capsule by mouth daily for 30 days. [facility] Levothyroxi ne 100 mcg capsule 2020-0 8-18 00:00: 00 10-26 04:59 :00 No [id number] 100ug Take 1 capsule by mouth daily for 30 days. [facility] Levothyroxi ne 100 mcg capsule 2020-0 8-18 00:00: 00 10-26 04:59 :00 No [id number] 100ug Take 1 capsule by mouth daily for 30 days. [facility] Levothyroxi ne 100 mcg capsule 2020-0 8-18 00:00: 00 10-26 04:59 :00 No [id number] 100ug Take 1 capsule by mouth daily for 30 days. [facility] Levothyroxi ne 100 mcg capsule 2019-0 8-18 00:00: 00 10-26 04:59 :00 No [id number] 100ug Take 1 capsule by mouth daily for 30 days. [facility] Levothyroxi ne 100 mcg capsule 2019-0 8-18 00:00: 00 10-26 04:59 :00 No [id number] 100ug Take 1 capsule by mouth daily for 30 days. [facility] Levothyroxi ne 100 mcg capsule 2020-0 8-18 00:00: 00 10-26 04:59 :00 No [id number] 100ug Take 1 capsule by mouth daily for 30 days. [facility] Levothyroxi ne 100 mcg capsule 2019-0 8-18 00:00: 10-23 00:00 :00 No [id number] 100ug Take 1 capsule by mouth daily for 30 days. [facility] rho(D) immune globulin (RHOGAM) syringe 300 mcg 2019-0 812 22:30: 00 09-19 21:30 :00 [id number] mcg 12 22:30: 00 09-19 21:30 :00 No [id number] 300ug 300 mcg, Intramuscu lar, ONCE, 1 dose, Wed09/20/19 at 1730, Routine [facility] Levothyroxi ne 100 mcg capsule 2020-0 8-10 13:58: 14 Yes Take by mouth. [facility] Levothyroxi ne 100 mcg capsule 2020-0 8-10 13:58: 14 Yes Take by mouth. [facility] Levothyroxi ne 100 mcg capsule 2020-0 8-10 13:58: 14 Yes Take by mouth. [facility] Levothyroxi ne 100 mcg capsule 2020-0 8-10 13:58: 14 Yes Take by mouth. [facility] Levothyroxi ne 100 mcg capsule 2020-0 8-10 13:58: 14 Yes Take by mouth. [facility] Levothyroxi ne 100 mcg capsule 2020-0 8-10 13:58: 14 Yes Take by mouth. [facility] Levothyroxi ne 100 mcg capsule 2020-0 8-10 13:58: 14 Yes Take by mouth. [facility] Levothyroxi ne 100 mcg capsule 2020-0 8-10 13:58: 14 Yes Take by mouth. [facility] Levothyroxi ne 100 mcg capsule 2020-0 8-10 13:58: 14 Yes Take by mouth. [facility] Levothyroxi ne 100 mcg capsule 2020-0 8-10 13:58: 14 Yes Take by mouth. [facility] Levothyroxi ne 100 mcg capsule 2020-0 8-10 13:58: 14 Yes Take by mouth. [facility] Levothyroxi ne 100 mcg capsule 2020-0 8-10 13:58: 14 Yes Take by mouth. [facility] Levothyroxi ne 100 mcg capsule 2020-0 8-10 13:58: 14 Yes Take by mouth. [facility] Levothyroxi ne 100 mcg capsule 2020-0 8-10 13:58: 14 Yes Take by mouth. [facility] multivitami n ( VITAMIN) tablet 2020-0 8-10 00:00: 00 Yes [id number] 1{tbl} Take 1 tablet by mouth daily. [facility] multivitami n ( VITAMIN) tablet 2020-0 8-10 00:00: 00 Yes [id number] 1{tbl} Take 1 tablet by mouth daily. [facility] multivitami n ( VITAMIN) tablet 2019-0 8-10 00:00: 00 Yes [id number] 1{tbl} Take 1 tablet by mouth daily. [facility] multivitami n ( VITAMIN) tablet 2019-0 8-10 00:00: 00 Yes [id number] 1{tbl} Take 1 tablet by mouth daily. [facility] multivitami n ( VITAMIN) tablet 2019-0 8-10 00:00: 00 Yes [id number] 1{tbl} Take 1 tablet by mouth daily. [facility] multivitami n ( VITAMIN) tablet 2019-0 8-10 00:00: 00 Yes [id number] 1{tbl} Take 1 tablet by mouth daily. [facility] multivitami n ( VITAMIN) tablet 2019-0 8-10 00:00: 00 Yes [id number] 1{tbl} Take 1 tablet by mouth daily. [facility] multivitami n ( VITAMIN) tablet 0 8-10 00:00: 00 Yes [id number] 1{tbl} Take 1 tablet by mouth daily. [facility] multivitami n ( VITAMIN) tablet 0 8-10 00:00: 00 Yes [id number] 1{tbl} Take 1 tablet by mouth daily. [facility] multivitami n ( VITAMIN) tablet 2019-0 8-10 00:00: 00 Yes [id number] 1{tbl} Take 1 tablet by mouth daily. [facility] multivitami n ( VITAMIN) tablet 2019-0 8-10 00:00: 00 Yes [id number] 1{tbl} Take 1 tablet by mouth daily. [facility] multivitami n ( VITAMIN) tablet 2019-0 8-10 00:00: 00 Yes [id number] 1{tbl} Take 1 tablet by mouth daily. [facility] multivitami n ( VITAMIN) tablet 2019-0 8-10 00:00: 00 Yes [id number] 1{tbl} Take 1 tablet by mouth daily. [facility] multivitami n ( VITAMIN) tablet 2019-0 8-10 00:00: 00 Yes [id number] 1{tbl} Take 1 tablet by mouth daily. [facility] multivitami n ( VITAMIN) tablet 2019-0 8-10 00:00: 00 Yes [id number] 1{tbl} Take 1 tablet by mouth daily. [facility] multivitami n ( VITAMIN) tablet 2019-0 8-10 00:00: 00 Yes [id number] 1{tbl} Take 1 tablet by mouth daily. [facility] multivitami n ( VITAMIN) tablet 2019-0 8-10 00:00: 00 09-25 00:00 :00 No [id number] 1{tbl} Take 1 tablet by mouth daily. [facility] Immunizations Ordered Immunization Name Filled Immunization Name Date Status Comments Source Influenza Virus Vaccine 2021-01-06 00:00:00 Completed [facility] Varicella (varivax)(chicken pox) 2020-02-11 00:00:00 Completed [facility] MMR 2020-02-11 00:00:00 Completed [facility] Rho (d) Immune Globulin 2020-02-11 00:00:00 Completed [facility] Varicella (varivax)(chicken pox) 2020-02-11 00:00:00 Completed [facility] MMR 2020-02-11 00:00:00 Completed [facility] Rho (d) Immune Globulin 2020-02-11 00:00:00 Completed [facility] Varicella (varivax)(chicken pox) 2020-02-11 00:00:00 Completed [facility] MMR 2020-02-11 00:00:00 Completed [facility] Rho (d) Immune Globulin 2020-02-11 00:00:00 Completed [facility] Varicella (varivax)(chicken pox) 2020-02-11 00:00:00 Completed [facility] MMR 2020-02-11 00:00:00 Completed [facility] Rho (d) Immune Globulin 2020-02-11 00:00:00 Completed [facility] Varicella (varivax)(chicken pox) 2020-02-11 00:00:00 Completed [facility] MMR 2020-02-11 00:00:00 Completed [facility] Rho (d) Immune Globulin 2020-02-11 00:00:00 Completed [facility] Varicella (varivax)(chicken pox) 2020-02-11 00:00:00 Completed [facility] MMR 2020-02-11 00:00:00 Completed [facility] Rho (d) Immune Globulin 2020-02-11 00:00:00 Completed [facility] Varicella (varivax)(chicken pox) 2020-02-11 00:00:00 Completed [facility] MMR 2020-02-11 00:00:00 Completed [facility] Rho (d) Immune Globulin 2020-02-11 00:00:00 Completed [facility] Varicella (varivax)(chicken pox) 2020-02-11 00:00:00 Completed [facility] MMR 2020-02-11 00:00:00 Completed [facility] Rho (d) Immune Globulin 2020-02-11 00:00:00 Completed [facility] Varicella (varivax)(chicken pox) 2020-02-11 00:00:00 Completed [facility] MMR 2020-02-11 00:00:00 Completed [facility] Rho (d) Immune Globulin 2020-02-11 00:00:00 Completed [facility] Varicella (varivax)(chicken pox) 2020-02-11 00:00:00 Completed [facility] MMR 2020-02-11 00:00:00 Completed [facility] Rho (d) Immune Globulin 2020-02-11 00:00:00 Completed [facility] Rho (d) Immune Globulin 2020-01-09 00:00:00 Completed [facility] TDAP 2020-01-09 00:00:00 Completed [facility] Rho (d) Immune Globulin 2020-01-09 00:00:00 Completed [facility] TDAP 2020-01-09 00:00:00 Completed [facility] Rho (d) Immune Globulin 2020-01-09 00:00:00 Completed [facility] TDAP 2020-01-09 00:00:00 Completed [facility] Rho (d) Immune Globulin 2020-01-09 00:00:00 Completed [facility] TDAP 2020-01-09 00:00:00 Completed [facility] Rho (d) Immune Globulin 2020-01-09 00:00:00 Completed [facility] TDAP 2020-01-09 00:00:00 Completed [facility] Rho (d) Immune Globulin 2020-01-09 00:00:00 Completed [facility] TDAP 2020-01-09 00:00:00 Completed [facility] Rho (d) Immune Globulin 2020-01-09 00:00:00 Completed [facility] TDAP 2020-01-09 00:00:00 Completed [facility] Rho (d) Immune Globulin 2020-01-09 00:00:00 Completed [facility] TDAP 2020-01-09 00:00:00 Completed [facility] Rho (d) Immune Globulin 2020-01-09 00:00:00 Completed [facility] TDAP 2020-01-09 00:00:00 Completed [facility] Rho (d) Immune Globulin 2020-01-09 00:00:00 Completed [facility] TDAP 2020-01-09 00:00:00 Completed [facility] Rho (d) Immune Globulin 2020-01-09 00:00:00 Completed [facility] TDAP 2020-01-09 00:00:00 Completed [facility] Rho (d) Immune Globulin 2020-01-09 00:00:00 Completed [facility] TDAP 2020-01-09 00:00:00 Completed [facility] Rho (d) Immune Globulin 2020-01-09 00:00:00 Completed [facility] TDAP 2020-01-09 00:00:00 Completed [facility] Rho (d) Immune Globulin 2020-01-09 00:00:00 Completed [facility] TDAP 2020-01-09 00:00:00 Completed [facility] Rho (d) Immune Globulin 2020-01-09 00:00:00 Completed [facility] TDAP 2020-01-09 00:00:00 Completed [facility] Rho (d) Immune Globulin 2020-01-09 00:00:00 Completed [facility] TDAP 2020-01-09 00:00:00 Completed [facility] Rho (d) Immune Globulin 2020-01-09 00:00:00 Completed [facility] TDAP 2020-01-09 00:00:00 Completed [facility] Rho (d) Immune Globulin 2020-01-09 00:00:00 Completed [facility] TDAP 2020-01-09 00:00:00 Completed [facility] Rho (d) Immune Globulin 2020-01-09 00:00:00 Completed [facility] TDAP 2020-01-09 00:00:00 Completed [facility] Rho (d) Immune Globulin 2020-01-09 00:00:00 Completed [facility] TDAP 2020-01-09 00:00:00 Completed [facility] Influenza Virus Vaccine Quad .5 mL IM 6+ MO (FLUZONE/FLULAVAL/F LUARIX) 2019-11-20 00:00:00 Completed [facility] Influenza Virus Vaccine Quad .5 mL IM 6+ MO 2019-11-20 00:00:00 Completed [facility] Influenza Virus Vaccine Quad .5 mL IM 6+ MO 2019-11-20 00:00:00 Completed [facility] Influenza Virus Vaccine Quad .5 mL IM 6+ MO 2019-11-20 00:00:00 Completed [facility] Influenza Virus Vaccine Quad .5 mL IM 6+ MO 2019-11-20 00:00:00 Completed [facility] Influenza Virus Vaccine Quad .5 mL IM 6+ MO 2019-11-20 00:00:00 Completed [facility] Influenza Virus Vaccine Quad .5 mL IM 6+ MO 2019-11-20 00:00:00 Completed [facility] Influenza Virus Vaccine Quad .5 mL IM 6+ MO 2019-11-20 00:00:00 Completed [facility] Influenza Virus Vaccine Quad .5 mL IM 6+ MO 2019-11-20 00:00:00 Completed [facility] Influenza Virus Vaccine Quad .5 mL IM 6+ MO 2019-11-20 00:00:00 Completed [facility] Influenza Virus Vaccine Quad .5 mL IM 6+ MO 2019-11-20 00:00:00 Completed [facility] Influenza Virus Vaccine Quad .5 mL IM 6+ MO 2019-11-20 00:00:00 Completed [facility] Influenza Virus Vaccine Quad .5 mL IM 6+ MO 2019-11-20 00:00:00 Completed [facility] Influenza Virus Vaccine Quad .5 mL IM 6+ MO 2019-11-20 00:00:00 Completed [facility] Influenza Virus Vaccine Quad .5 mL IM 6+ MO 2019-11-20 00:00:00 Completed [facility] Influenza Virus Vaccine Quad .5 mL IM 6+ MO 2019-11-20 00:00:00 Completed [facility] Influenza Virus Vaccine Quad .5 mL IM 6+ MO 2019-11-20 00:00:00 Completed [facility] Influenza Virus Vaccine Quad .5 mL IM 6+ MO 2019-11-20 00:00:00 Completed [facility] Influenza Virus Vaccine Quad .5 mL IM 6+ MO 2019-11-20 00:00:00 Completed [facility] Influenza Virus Vaccine Quad .5 mL IM 6+ MO 2019-11-20 00:00:00 Completed [facility] Influenza Virus Vaccine Quad .5 mL IM 6+ MO 2019-11-20 00:00:00 Completed [facility] Influenza Virus Vaccine Quad .5 mL IM 6+ MO 2019-11-20 00:00:00 Completed [facility] Influenza Virus Vaccine Quad .5 mL IM 6+ MO 2019-11-20 00:00:00 Completed [facility] Influenza Virus Vaccine Quad .5 mL IM 6+ MO 2019-11-20 00:00:00 Completed [facility] Influenza Virus Vaccine Quad .5 mL IM 6+ MO 2019-11-20 00:00:00 Completed [facility] Influenza Virus Vaccine Quad .5 mL IM 6+ MO 2019-11-20 00:00:00 Completed [facility] Influenza Virus Vaccine Quad .5 mL IM 6+ MO 2019-11-20 00:00:00 Completed [facility] Influenza Virus Vaccine Quad .5 mL IM 6+ MO 2019-11-20 00:00:00 Completed [facility] Influenza Virus Vaccine Quad .5 mL IM 6+ MO 2019-11-20 00:00:00 Completed [facility] Influenza Virus Vaccine Quad .5 mL IM 6+ MO 2019-11-20 00:00:00 Completed [facility] Influenza Virus Vaccine Quad .5 mL IM 6+ MO 2019-11-20 00:00:00 Completed [facility] Influenza Virus Vaccine Quad .5 mL IM 6+ MO 2019-11-20 00:00:00 Completed [facility] Rho (d) Immune Globulin 2019-09-20 00:00:00 Completed [facility] Rho (d) Immune Globulin 2019-09-20 00:00:00 Completed [facility] Rho (d) Immune Globulin 2019-09-20 00:00:00 Completed [facility] Rho (d) Immune Globulin 2019-09-20 00:00:00 Completed [facility] Rho (d) Immune Globulin 2019-09-20 00:00:00 Completed [facility] Rho (d) Immune Globulin 2019-09-20 00:00:00 Completed [facility] Rho (d) Immune Globulin 2019-09-20 00:00:00 Completed [facility] Rho (d) Immune Globulin 2019-09-20 00:00:00 Completed [facility] Rho (d) Immune Globulin 2019-09-20 00:00:00 Completed [facility] Rho (d) Immune Globulin 2019-09-20 00:00:00 Completed [facility] Rho (d) Immune Globulin 2019-09-20 00:00:00 Completed [facility] Rho (d) Immune Globulin 2019-09-20 00:00:00 Completed [facility] Rho (d) Immune Globulin 2019-09-20 00:00:00 Completed [facility] Rho (d) Immune Globulin 2019-09-20 00:00:00 Completed [facility] Rho (d) Immune Globulin 2019-09-20 00:00:00 Completed [facility] Rho (d) Immune Globulin 2019-09-20 00:00:00 Completed [facility] Rho (d) Immune Globulin 2019-09-20 00:00:00 Completed [facility] Rho (d) Immune Globulin 2019-09-20 00:00:00 Completed [facility] Rho (d) Immune Globulin 2019-09-20 00:00:00 Completed [facility] Rho (d) Immune Globulin 2019-09-20 00:00:00 Completed [facility] Rho (d) Immune Globulin 2019-09-20 00:00:00 Completed [facility] Rho (d) Immune Globulin 2019-09-20 00:00:00 Completed [facility] Rho (d) Immune Globulin 2019-09-20 00:00:00 Completed [facility] Rho (d) Immune Globulin 2019-09-20 00:00:00 Completed [facility] Rho (d) Immune Globulin 2019-09-20 00:00:00 Completed [facility] Rho (d) Immune Globulin 2019-09-20 00:00:00 Completed [facility] Rho (d) Immune Globulin 2019-09-20 00:00:00 Completed [facility] Rho (d) Immune Globulin 2019-09-20 00:00:00 Completed [facility] Rho (d) Immune Globulin 2019-09-20 00:00:00 Completed [facility] Rho (d) Immune Globulin 2019-09-20 00:00:00 Completed [facility] Rho (d) Immune Globulin 2019-09-20 00:00:00 Completed [facility] Rho (d) Immune Globulin 2019-09-20 00:00:00 Completed [facility] Rho (d) Immune Globulin 2019-09-20 00:00:00 Completed [facility] Rho (d) Immune Globulin 2019-09-20 00:00:00 Completed [facility] Rho (d) Immune Globulin 2019-09-20 00:00:00 Completed [facility] Rho (d) Immune Globulin 2019-09-20 00:00:00 Completed [facility] Rho (d) Immune Globulin 2019-09-20 00:00:00 Completed [facility] Rho (d) Immune Globulin 2019-09-20 00:00:00 Completed [facility] Rho (d) Immune Globulin 2019-09-20 00:00:00 Completed [facility] Rho (d) Immune Globulin 2019-09-20 00:00:00 Completed [facility] Rho (d) Immune Globulin 2019-09-20 00:00:00 Completed [facility] Rho (d) Immune Globulin 2019-09-20 00:00:00 Completed [facility] Rho (d) Immune Globulin 2019-09-20 00:00:00 Completed [facility] Rho (d) Immune Globulin 2019-09-20 00:00:00 Completed [facility] Rho (d) Immune Globulin 2019-09-20 00:00:00 Completed [facility] Rho (d) Immune Globulin 2019-09-20 00:00:00 Completed [facility] Rho (d) Immune Globulin 2019-09-20 00:00:00 Completed [facility] Rho (d) Immune Globulin 2019-09-20 00:00:00 Completed [facility] Rho (d) Immune Globulin 2019-09-20 00:00:00 Completed [facility] Rho (d) Immune Globulin 2019-09-20 00:00:00 Completed [facility] Rho (d) Immune Globulin 2019-09-20 00:00:00 Completed [facility] Rho (d) Immune Globulin 2019-09-20 00:00:00 Completed [facility] Rho (d) Immune Globulin 2019-09-20 00:00:00 Completed [facility] Rho (d) Immune Globulin 2019-09-20 00:00:00 Completed [facility] Rho (d) Immune Globulin 2019-09-20 00:00:00 Completed [facility] Rho (d) Immune Globulin 2019-09-20 00:00:00 Completed [facility] Rho (d) Immune Globulin 2019-09-20 00:00:00 Completed [facility] Rho (d) Immune Globulin 2019-09-20 00:00:00 Completed [facility] Rho (d) Immune Globulin 2019-09-20 00:00:00 Completed [facility] Rho (d) Immune Globulin Unknown Completed [facility] Vital Signs Vital Name Observation Time Observation Value Comments S ource Systolic blood pressure 2022-08-12 22:41:00 133 mm[Hg] [facility] Diastolic blood pressure 2022-08-12 22:41:00 83 mm[Hg] [facility] Heart rate 2022-08-12 22:41:00 63 /min [facility] temperature 2022-08-12 22:41:00 36.94 Louise [facility] Respiratory rate 2022-08-12 22:41:00 16 /min [facility] Body height 2022-08-12 22:41:00 165.1 cm [facility] Body weight 2022-08-12 22:41:00 121.927 kg [facility] BMI 2022-08-12 22:41:00 44.73 kg/m2 [facility] Oxygen saturation in Arterial blood by Pulse oximetry 2022-08-12 22:41:00 98 /min [facility] Systolic blood pressure 2020-03-22 19:15:00 131 mm[Hg] [facility] Diastolic blood pressure 2020-03-22 19:15:00 67 mm[Hg] [facility] Heart rate 2020-03-22 19:15:00 66 /min [facility] Body temperature 2020-03-22 19:15:00 36.28 Louise [facility] Respiratory rate 2020-03-22 19:15:00 16 /min [facility] Body height 2020-03-22 19:15:00 165.1 cm [facility] Body weight 2020-03-22 19:15:00 108.551 kg [facility] BMI 2020-03-22 19:15:00 39.82 kg/m2 [facility] Systolic blood pressure 2020-03-01 15:05:00 98 mm[Hg] [facility] Diastolic blood pressure 2020-03-01 15:05:00 64 mm[Hg] [facility] Body temperature 2020-03-01 15:05:00 36.72 Louise [facility] Respiratory rate 2020-03-01 15:05:00 16 /min [facility] Body height 2020-03-01 15:05:00 165.1 cm [facility] Body weight 2020-03-01 15:05:00 107.049 kg [facility] BMI 2020-03-01 15:05:00 39.27 kg/m2 [facility] Systolic blood pressure 2020-02-07 16:57:00 112 mm[Hg] [facility] Diastolic blood pressure 2020-02-07 16:57:00 72 mm[Hg] [facility] Heart rate 2020-02-07 16:57:00 67 /min Unive [facility] Body temperature 2020-02-07 16:57:00 36.61 Louise [facility] Respiratory rate 2020-02-07 16:57:00 16 /min [facility] Body height 2020-02-07 16:57:00 165.1 cm [facility] Body weight 2020-02-07 16:57:00 117.538 kg [facility] BMI 2020-02-07 16:57:00 43.12 kg/m2 [facility] Systolic blood pressure 2020-02-06 19:27:00 135 mm[Hg] [facility] Diastolic blood pressure 2020-02-06 19:27:00 70 mm[Hg] [facility] Heart rate 2020-02-06 19:27:00 79 /min Unive [facility] Body temperature 2020-02-06 19:27:00 36.94 Louise [facility] Respiratory rate 2020-02-06 19:27:00 18 /min [facility] Body height 2020-02-06 19:27:00 165.1 cm [facility] Body weight 2020-02-06 19:27:00 117.935 kg [facility] BMI 2020-02-06 19:27:00 43.27 kg/m2 [facility] Systolic blood pressure 2020-01-23 15:19:00 109 mm[Hg] [facility] Diastolic blood pressure 2020-01-23 15:19:00 65 mm[Hg] [facility] Heart rate 2020-01-23 15:19:00 65 /min Unive [facility] Body temperature 2020-01-23 15:19:00 36.5 Louise [facility] Respiratory rate 2020-01-23 15:19:00 16 /min [facility] Body height 2020-01-23 15:19:00 165.1 cm [facility] Body weight 2020-01-23 15:19:00 117.085 kg [facility] BMI 2020-01-23 15:19:00 42.95 kg/m2 [facility] Systolic blood pressure 2020-01-09 16:34:00 107 mm[Hg] [facility] Diastolic blood pressure 2020-01-09 16:34:00 66 mm[Hg] [facility] Heart rate 2020-01-09 16:34:00 52 /min Unive [facility] Body temperature 2020-01-09 16:34:00 36.5 Louise [facility] Respiratory rate 2020-01-09 16:34:00 16 /min [facility] Body height 2020-01-09 16:34:00 165.1 cm [facility] Body weight 2020-01-09 16:34:00 114.306 kg [facility] BMI 2020-01-09 16:34:00 41.93 kg/m2 [facility] Systolic blood pressure 2020-01-03 14:11:00 115 mm[Hg] [facility] Diastolic blood pressure 2020-01-03 14:11:00 73 mm[Hg] [facility] Heart rate 2020-01-03 14:11:00 73 /min Unive [facility] Body temperature 2020-01-03 14:11:00 35.94 Louise [facility] Respiratory rate 2020-01-03 14:11:00 16 /min [facility] Body height 2020-01-03 14:11:00 165.1 cm [facility] Body weight 2020-01-03 14:11:00 114.448 kg [facility] BMI 2020-01-03 14:11:00 41.99 kg/m2 [facility] Systolic blood pressure 2019-12-20 14:16:00 110 mm[Hg] [facility] Diastolic blood pressure 2019-12-20 14:16:00 73 mm[Hg] [facility] Heart rate 2019-12-20 14:16:00 74 /min Unive [facility] Body temperature 2019-12-20 14:16:00 36.28 Louise [facility] Respiratory rate 2019-12-20 14:16:00 16 /min [facility] Body height 2019-12-20 14:16:00 165.1 cm [facility] Body weight 2019-12-20 14:16:00 113.569 kg [facility] BMI 2019-12-20 14:16:00 41.66 kg/m2 [facility] Systolic blood pressure 2019-11-20 14:32:00 127 mm[Hg] [facility] Diastolic blood pressure 2019-11-20 14:32:00 77 mm[Hg] [facility] Heart rate 2019-11-20 14:32:00 79 /min Unive [facility] Body temperature 2019-11-20 14:32:00 36.22 Louise [facility] Respiratory rate 2019-11-20 14:32:00 16 /min [facility] Body height 2019-11-20 14:32:00 165.1 cm [facility] Body weight 2019-11-20 14:32:00 110.678 kg [facility] BMI 2019-11-20 14:32:00 40.60 kg/m2 [facility] Systolic blood pressure 2019-11-02 13:24:00 121 mm[Hg] [facility] Diastolic blood pressure 2019-11-02 13:24:00 83 mm[Hg] [facility] Heart rate 2019-11-02 13:24:00 82 /min Unive [facility] Body temperature 2019-11-02 13:24:00 36.83 Louise [facility] Respiratory rate 2019-11-02 13:24:00 18 /min [facility] Body height 2019-11-02 13:24:00 165.1 cm [facility] Body weight 2019-11-02 13:24:00 112.492 kg [facility] BMI 2019-11-02 13:24:00 41.27 kg/m2 [facility] Oxygen saturation in Arterial blood by Pulse oximetry 2019-11-02 13:24:00 98 /min [facility] Systolic blood pressure 2019-10-19 13:51:00 111 mm[Hg] [facility] Diastolic blood pressure 2019-10-19 13:51:00 61 mm[Hg] [facility] Heart rate 2019-10-19 13:51:00 69 /min Unive [facility] Body temperature 2019-10-19 13:51:00 36.61 Louise [facility] Respiratory rate 2019-10-19 13:51:00 16 /min [facility] Body height 2019-10-19 13:51:00 165.1 cm [facility] weight 2019-10-19 13:51:00 112.634 kg [facility] BMI 2019-10-19 13:51:00 41.32 kg/m2 [facility] Systolic blood pressure 2019-10-02 14:33:00 132 mm[Hg] [facility] Diastolic blood pressure 2019-10-02 14:33:00 73 mm[Hg] [facility] Heart rate 2019-10-02 14:33:00 61 /min Unive [facility] Body temperature 2019-10-02 14:33:00 36.28 Louise [facility] Respiratory rate 2019-10-02 14:33:00 16 /min [facility] Body height 2019-10-02 14:33:00 165.1 cm [facility] Body weight 2019-10-02 14:33:00 112.038 kg [facility] BMI 2019-10-02 14:33:00 41.10 kg/m2 [facility] Systolic blood pressure 2019-09-20 21:15:00 109 mm[Hg] [facility] Diastolic blood pressure 2019-09-20 21:15:00 71 mm[Hg] [facility] Heart rate 2019-09-20 21:15:00 69 /min Unive [facility] Body temperature 2019-09-20 21:15:00 36.94 Louise [facility] Respiratory rate 2019-09-20 21:15:00 16 /min [facility] Body height 2019-09-20 21:15:00 165.1 cm [facility] Body weight 2019-09-20 21:15:00 113.807 kg [facility] BMI 2019-09-20 21:15:00 41.75 kg/m2 [facility] Systolic blood pressure 2019-09-18 13:52:00 115 mm[Hg] [place] [facility] Diastolic blood pressure 2019-09-18 13:52:00 74 mm[Hg] [facility] Heart rate 2019-09-18 13:52:00 68 /min [facility] Body temperature 2019-09-18 13:52:00 36.56 Louise [facility] Respiratory rate 2019-09-18 13:52:00 16 /min [facility] Body height 2019-09-18 13:52:00 165.1 cm [facility] Body weight 2019-09-18 13:52:00 113.172 kg [facility] BMI 2019-09-18 13:52:00 41.52 kg/m2 [facility] Procedures Procedure Date / Time Performed Performing Clinician Source ASSIGNMENT OF BENEFITS 2022-08-12 22:34:10 Docyani caicedo Unassigned, [place] [facility] DME/SUPPLY JUSTIFICATION 2020-02-14 06:01:00 Loy tineo Unassigned, [place] [facility] HOSPITAL ADMISSION 2020-02-08 06:01:00 Doctor Un assigned, [place] [facility] POCT URINALYSIS 2020-02-07 16:58:00 Marleny Card [facility] NON-STRESS TEST 2020-02-06 23:42:10 Cristin Fournier [facility] URINALYSIS 2020-02-06 19:48:00 Cristin Fournier [facility] NOTICE OF PRIVACY PRACTICES 2020-02-06 19:05:31 Doctor Unassigned, [place] [facility] CONSENT/REFUSAL FOR DIAGNOSIS AND TREATMENT 2020-02-06 19:05:13 Doctor Unassigned, [place] [facility] ASSIGNMENT OF BENEFITS 2020-02-06 19:05:00 Waldemar caicedo Unassigned, [place] [facility] POCT URINALYSIS 2020-01-23 15:24:00 Marleny Card [facility] TDAP VACCINE, >11 YRS, IM 2020-01-09 17:05:16 Marleny Card [facility] POCT URINALYSIS 2020-01-09 16:35:00 Marleny Card [facility] STERILIZATION CONSENT FORM 2020-01-09 06:01:00 Doctor Unassigned, [place] [facility] POCT URINALYSIS 2020-01-03 14:14:00 Marleny Card [facility] POCT URINALYSIS 2019-12-20 14:19:00 Marleny Card [facility] SECOND AND THIRD TRIMESTER ULTRASOUND 2019-12-01 20:39:00 Marleny Card [facility] FLU VACC ([id number]), 6+ MONTHS, IM, QUAD 2019-11-20 14:40:35 Marleny Card [facility] POCT URINALYSIS 2019-11-20 14:35:00 Marleny Card [facility] POCT URINALYSIS 2019-10-19 13:52:00 Marleny Card [facility] EXTERNAL PROVIDER RECORDS 2019-10-06 05:01:00 Doctor Unassigned, [place] [facility] REFERRAL- REQUEST/RESPONSE 2019-10-03 05:01:00 Doctor Unassigned, [place] [facility] POCT URINALYSIS 2019-10-02 14:32:00 Marleny Card [facility] EXTERNAL PROVIDER RECORDS 2019-09-28 05:01:00 Doctor Unassigned, [place] [facility] FIRST TRIMESTER TRISOMY SCRN 2019-09-18 18:12:00 Judy Mejía [facility] FIRST TRIMESTER ULTRASOUND 2019-09-18 17:39:00 Marleny Card [facility] POCT URINALYSIS W/O SPECIFIC GRAVITY 2019-09-18 13:48:00 Marleny Card [facility] POCT TEST 2019-09-18 13:47:00 Steve Card [facility] ASSIGNMENT OF BENEFITS 2019-09-18 13:11:19 Docto r Unassigned, [place] [facility] Encounters Start Date/Time End Date/Time Encounter Type Admission Type Attending Clinicians Care Facility Care Department Encounter ID Source 2020-12-07 13:44:24 Outpatient P [facility] [id number] [facility] 2020-12-07 13:38:35 Outpatient P [facility] [id number] [facility] 2023-04-12 16:54:35 2023-04-12 16:54:35 Outpatient [facility] [id number] James Colin 2023-03-17 08:35:37 2023-03-17 08:35:37 Outpatient [facility] [id number] James Colin 2023-03-05 17:43:08 2023-03-05 17:43:08 Outpatient [facility] [id number] James Ahmadi Cristi 2023-03-05 17:40:00 2023-03-05 17:40:00 Outpatient R [facility] [id number] [facility] 2023-02-10 17:40:00 2023-02-10 17:40:00 Outpatient R [facility] [id number] [facility] 2022-12-10 15:03:39 2022-12-10 15:03:39 Outpatient [facility] [id number] James Ahmadi Cristi 2022-10-08 00:00:00 2022-10-08 00:00:00 Case Management Lorelei Heard 1.2.840.114 350.1.13.10 4.2.7.2.686 [id number] [facility] 2022-09-08 16:01:19 2022-09-08 16:01:19 Outpatient [facility] [id number] James Colin 2022-09-01 08:44:40 2022-09-01 08:44:40 Outpatient [facility] [id number] James Colin 2022-08-28 17:04:36 2022-08-28 17:04:36 Outpatient [facility] [id number] James Colin 2022-08-12 17:20:00 2022-08-12 18:03:47 Outpatient R LANA MANZANO [facility] [id number] [facility] 2022-08-12 17:20:00 2022-08-12 18:03:47 Urgent Care Lana Manzano Unknown, Attending [facility] 1.84.114 350.1.13.10 4.2.7.2.686 [id number] [facility] 2022-08-12 00:00:00 2022-08-12 00:00:00 Orders Only Doctor Unassigned, [place] [facility] 1.114 350.1.13.10 4.2.7.2.686 [id number] [facility] 2022-05-30 10:26:56 2022-05-30 10:26:56 Outpatient [facility] [id number] James Ahmadi [place] 2022-05-29 17:37:23 2022-05-29 17:37:23 Outpatient [facility] [id number] James F [place] 2022-03-24 16:38:12 2022-03-24 16:38:12 Outpatient [facility] [id number] James Ahmadi [place] 2021-01-16 00:00:00 2021-01-16 00:00:00 Telephone Yas Garsia [facility] 1..114 350.1.13.10 4.2.7.2.686 [id number] [facility] 2021-01-15 18:00:00 2021-01-15 18:00:00 Outpatient R ANDREI JOLLY [facility] [id number] [facility] 2021-01-15 17:42:22 2021-01-15 17:57:22 Laboratory Only Only, Ang Db Test AndreiLuzy [facility] 1.84.114 350.1.13.10 4.2.7.2.686 [id number] [facility] 2020-04-30 00:00:00 2020-04-30 00:00:00 Patient Outreach Terry Reynaga [facility] [place] 1.2.840.114 350.1.13.10 4.2.7.2.686 [id number] [facility] 2020-03-22 13:04:14 2020-03-22 13:42:48 Office Visit Marleny Card [facility] CLINIC ASSISTANT [facility] 1.2.840.114 350.1.13.10 4.2.7.2.686 [id number] [facility] 2020-03-22 13:15:00 2020-03-22 13:15:00 Outpatient R MARLENY CARD [facility] [id number] [facility] 2020-03-01 08:51:54 2020-03-01 09:34:32 Routine Visit Marleny Card [facility] CLINIC ASSISTANT [facility] 1..840.114 350.1.13.10 4.2.7.2.686 [id number] [facility] 2020-03-01 09:00:00 2020-03-01 09:00:00 Outpatient R MARLENY CARD [facility] [id number] [facility] 2020-02-21 10:30:00 2020-02-21 10:30:00 Outpatient R MARLENY CARD [facility] [id number] [facility] 2020-02-14 00:00:00 2020-02-14 00:00:00 Orders Only Doctor Unassigned, [place] [facility] 1.2.840.114 350.1.13.10 4.2.7.2.686 [id number] [facility] 2020-02-08 00:00:00 2020-02-08 00:00:00 Orders Only Doctor Unassigned, [place] [facility] 1..114 350.1.13.10 4.2.7.2.686 [id number] [facility] 2020-02-07 10:41:19 2020-02-07 11:09:36 Routine Visit Marleny Card [facility] CLINIC ASSISTANT [facility] 1.0.114 350.1.13.10 4.2.7.2.686 [id number] [facility] 2020-02-07 10:45:00 2020-02-07 10:45:00 Outpatient R MARLENY CARD [facility] [id number] [facility] 2020-02-06 13:02:00 2020-02-06 17:20:00 Hospital Encounter Jayne Fournieren Rubio [facility] 1..114 350.1.13.10 4.2.7.2.686 [id number] [facility] 2020-01-23 09:06:51 2020-01-23 09:52:35 Routine Visit Marleny Card [facility] CLINIC ASSISTANT [facility] 1.2.114 350.1.13.10 4.2.7.2.686 [id number] [facility] 2020-01-23 09:30:00 2020-01-23 09:30:00 Outpatient R MARLENY CARD [facility] [id number] [facility] 2020-01-22 08:51:59 2020-01-22 09:21:59 Grill Cook Visit Ultrasound, Arthur Sprague Sangeeta [facility] CLINIC ASSISTANT [facility] CHILD [facility] 1..114 350.1.13.10 4.2.7.2.686 [id number] [facility] 2020-01-22 09:00:00 2020-01-22 09:00:00 Outpatient P ARTHUR MALONE [facility] [id number] [facility] 2020-01-22 00:00:00 2020-01-22 00:00:00 Abstract Marleny Card [facility] CLINIC ASSISTANT [facility] 1.2840.114 350.1.13.10 4.2.7.2.686 [id number] [facility] 2020-01-10 14:00:00 2020-01-10 14:00:00 Outpatient R MARLENY CARD [facility] [id number] [facility] 2020-01-09 10:14:35 2020-01-09 11:07:51 Routine Visit CandyMarleny funes [facility] CLINIC ASSISTANT [facility] 1.2840.114 350.1.13.10 4.2.7.2.686 [id number] [facility] 2020-01-09 10:15:00 2020-01-09 10:15:00 Outpatient R MARLENY CARD [facility] [id number] [facility] 2020-01-09 00:00:00 2020-01-09 00:00:00 Orders Only Doctor Unassigned, [place] [facility] 1.840.114 350.1.13.10 4.2.7.2.686 [id number] [facility] 2020-01-03 08:00:18 2020-01-03 08:15:18 Routine Visit Marleny Card [facility] CLINIC ASSISTANT [facility] CH[facility] 1..114 350.1.13.10 4.2.7.2.686 [id number] [facility] 2020-01-03 08:00:00 2020-01-03 08:00:00 Outpatient R MARLENY CARD [facility] [id number] [facility] 2019-12-28 00:00:00 2019-12-28 00:00:00 Abstract Marleny Card Tarah [facility] CLINIC ASSISTANT [facility] CHILD [facility] 1.2.840.114 350.1.13.10 4.2.7.2.686 [id number] [facility] 2019-12-25 08:55:39 2019-12-25 09:25:39 Grill Cook Visit Ultrasound, Arthur Sprague [facility] CLINIC ASSISTANT [facility] 1.2840.114 350.1.13.10 4.2.7.2.686 [id number] [facility] 2019-12-25 09:00:00 2019-12-25 09:00:00 Outpatient P [facility] [id number] [facility] 2019-12-21 00:00:00 2019-12-21 00:00:00 Telephone Marleny Card [facility] CLINIC ASSISTANT [facility] 1.2840.114 350.1.13.10 4.2.7.2.686 [id number] [facility] 2019-12-20 07:57:55 2019-12-20 08:38:02 Routine Visit Marleny Card [facility] CLINIC ASSISTANT [facility] 1.2840.114 350.1.13.10 4.2.7.2.686 [id number] [facility] 2019-12-20 08:00:00 2019-12-20 08:00:00 Outpatient R CANDYNANCY FUNESILOLA [facility] [id number] [facility] 2019-12-07 00:00:00 2019-12-07 00:00:00 Abstract Marleny Card [facility] CLINIC ASSISTANT [facility] CHILD [facility] 1.2.840.114 350.1.13.10 4.2.7.2.686 [id number] [facility] 2019-12-01 15:05:28 2019-12-01 15:35:28 Grill Cook Visit 1, [facility] 1.2.114 350.1.13.10 4.2.7.2.686 [id number] [facility] 2019-12-01 15:30:00 2019-12-01 15:30:00 Outpatient P [facility] [id number] [facility] 2019-11-20 09:14:09 2019-11-20 09:58:02 Routine Visit Marleny Crad [facility] CLINIC ASSISTANT [facility]ILD [facility] 1.2840.114 350.1.13.10 4.2.7.2.686 [id number] [facility] 2019-11-20 09:15:00 2019-11-20 09:15:00 Outpatient R MARLENY CARD [facility] [id number] [facility] 2019-11-14 00:00:00 2019-11-14 00:00:00 Abstract Marleny Card [facility] CLINIC ASSISTANT [facility] 1.284.114 350.1.13.10 4.2.7.2.686 [id number] [facility] 2019-11-09 10:09:26 2019-11-09 11:24:26 Grill Cook Visit Ultrasound, Penelope Newby [facility] CLINIC ASSISTANT [facility] 1.2840.114 350.1.13.10 4.2.7.2.686 [id number] [facility] 2019-11-09 10:15:00 2019-11-09 10:15:00 Outpatient P [facility] [id number] [facility] 2019-11-02 08:00:48 2019-11-02 08:20:48 Urgent Care Provider, [facility] Roya Duran [facility] 1..114 350.1.13.10 4.2.7.2.686 [id number] [facility] 2019-11-02 08:00:00 2019-11-02 08:00:00 Outpatient R ROYA DURAN [facility] [id number] [facility] 2019-10-30 08:12:51 2019-10-30 08:42:51 Telemedici ne Visit Faculty, En R[facility] Audrey Marquez [facility] CLINIC ASSISTANT [facility] ..114 350.1.13.10 4.2.7.2.686 [id number] 107 [id number] [facility] 2019-10-30 08:00:00 2019-10-30 08:00:00 Outpatient R [facility] [id number] [facility] 2019-10-24 00:00:00 2019-10-24 00:00:00 Refill Doctor Unassigned, [place] [facility] CLIN[facility] ASSISTANT [facility] ..114 350.1.13.10 4.2.7.2.686 [id number] [facility] 2019-10-19 08:30:16 2019-10-19 09:27:16 Routine Visit Marleny Card [facility] CLINIC ASSISTANT [facility] .84.114 350.1.13.10 4.2.7.2.686 [id number] 107 [id number] [facility] 2019-10-19 08:30:00 2019-10-19 08:30:00 Outpatient R MARLENY CARD [facility] [id number] [facility] 2019-10-18 00:00:00 2019-10-18 00:00:00 Patient Secure Msg Doctor Unassigned, [place] [facility] CLIN[facility] ASSISTANT [facility] ..114 350.1.13.10 4.2.7.2.686 [id number] [facility] 2019-10-18 00:00:00 2019-10-18 00:00:00 Telephone Kyaw Marleny Rascon [facility] CLINIC ASSISTANT [facility] 1.2.840.114 350.1.13.10 4.2.7.2.686 [id number] [facility] 2019-10-09 07:49:00 2019-10-09 11:20:05 Grill Cook Visit Lab, Baudilio ChristinajilMarleny bradley [facility] CLINIC ASSISTANT [facility] 1.2840.114 350.1.13.10 4.2.7.2.686 [id number] 107 [id number] [facility] 2019-10-09 07:45:00 2019-10-09 07:45:00 Outpatient R MARLENY CARD [facility] [id number] [facility] 2019-10-06 00:00:00 2019-10-06 00:00:00 Orders Only Doctor Unassigned, [place] [facility] 1.0.114 350.1.13.10 4.2.7.2.686 [id number] [facility] 2019-10-04 00:00:00 2019-10-04 00:00:00 Telephone Marleny Card [facility] 1.2.840.114 350.1.13.10 4.2.7.2.686 [id number] 107 [id number] [facility] 2019-10-03 00:00:00 2019-10-03 00:00:00 Orders Only Doctor Unassigned, [place] [facility] 1.2.840.114 350.1.13.10 4.2.7.2.686 [id number] [facility] 2019-10-02 09:22:59 2019-10-02 10:00:57 Routine Visit Faculty, Ang RmchCollin Dorsey [facility] CLINIC ASSISTANT [facility] 1.2.840.114 350.1.13.10 4.2.7.2.686 [id number] 107 [id number] [facility] 2019-10-02 09:30:00 2019-10-02 09:30:00 Outpatient R [facility] [id number] [facility] 2019-09-28 00:00:00 2019-09-28 00:00:00 Orders Only Doctor Unassigned, [place] [facility] 1.2.840.114 350.1.13.10 4.2.7.2.686 [id number] [facility] 2019-09-26 00:00:00 2019-09-26 00:00:00 Telephone Marleny Card [facility] CLINIC ASSISTANT [facility] CHILD [facility] 1.2.840.114 350.1.13.10 4.2.7.2.686 [id number] 107 [id number] [facility] 2019-09-26 00:00:00 2019-09-26 00:00:00 Telephone Marleny Card [facility] CLINIC ASSISTANT [facility] 1.2.840.114 350.1.13.10 4.2.7.2.686 [id number] [facility] 2019-09-26 00:00:00 2019-09-26 00:00:00 Refill Marleny Card [facility] CLINIC ASSISTANT [facility] 1.2.840.114 350.1.13.10 4.2.7.2.686 [id number] 107 [id number] [facility] 2019-09-26 00:00:00 2019-09-26 00:00:00 Telephone Pcp, Patient Does Not Have A [facility] CLINIC ASSISTANT [facility] 1.2.840.114 350.1.13.10 4.2.7.2.686 [id number] [facility] 2019-09-25 00:00:00 2019-09-25 00:00:00 Refill Marleny Card [facility] CLINIC ASSISTANT [facility] 1.840.114 350.1.13.10 4.2.7.2.686 [id number] 107 [id number] [facility] 2019-09-20 15:54:20 2019-09-20 16:22:14 Nurse Visit Visit, [facility] Nurse Marleny Card [facility] CLINIC ASSISTANT [facility] CHILD [facility] 1..114 350.1.13.10 4.2.7.2.686 [id number] 107 [id number] [facility] 2019-09-20 16:00:00 2019-09-20 16:00:00 Outpatient R MARLENY CARD [facility] [id number] [facility] 2019-09-20 00:00:00 2019-09-20 00:00:00 Telephone Marleny Card [facility] CLINIC ASSISTANT [facility]ILD [facility] 1..114 350.1.13.10 4.2.7.2.686 [id number] [facility] 2019-09-18 12:56:28 2019-09-18 14:35:24 Grill Cook Visit Lab, [facility] Unknown, Attending Marleny Card [facility] 1..114 350.1.13.10 4.2.7.2.686 [id number] [facility] 2019-09-18 11:32:49 2019-09-18 12:53:44 Grill Cook Visit 3, [facility] SuhasrebanapoleonCollin [facility] 1.0.114 350.1.13.10 4.2.7.2.686 [id number] [facility] 2019-09-18 08:24:07 2019-09-18 10:56:53 Initial Visit Marleny Card [facility] CLINIC ASSISTANT [facility] 1..840.114 350.1.13.10 4.2.7.2.686 [id number] 107 [id number] [facility] 2019-09-18 08:30:00 2019-09-18 08:30:00 Outpatient R MALRENY CARD [facility] [id number] [facility] 2019-09-18 00:00:00 2019-09-18 00:00:00 Orders Only Doctor Unassigned, [place] [facility] 1.840.114 350.1.13.10 4.2.7.2.686 [id number] [id number] [facility] 2019-09-18 00:00:00 2019-09-18 00:00:00 [facility] 1.840.114 350.1.13.10 4.2.7.2.686 [id number] [facility] 2019-09-18 00:00:00 2019-09-18 00:00:00 Abstract Marleny Card [facility] CLINIC ASSISTANT [facility] 1..840.114 350.1.13.10 4.2.7.2.686 [id number] [facility] Results Test Description Test Time Test Comments Results Result Co mments Source FREE [id number] 05:22:54* Test Item Value Reference Range Interpretation Comme nts FREE T3 (test code = 4273) 2.8 PG/ML 2.2-4.2 FREE T4 (THYROXINE)2023-03-18 05:22:54* Test Item Value Reference Range Interpretation Comme nts FREE T4 (THYROXINE) (test code = 2823) 1.34 NG/DL 0.80-1.90 UNLESS OTHERWISE INDICATED, ALL TESTING PERFORMED AT [facility] [address] [place] [address] AUTOMATION LEAD: REMBERTO MCELROY M.D. CLIA NUMBER [id number] [place]. [id number] TSH, THIRD [id number] 05:42:02* Test Item Value Reference Range Interpretation Comme [facility] TSH, THIRD GENERATION (test code = 2821) 0.257 UIU/ML 0.400-4.100 L UNLESS OTHERWISE INDICATED, ALL TESTING PERFORMED AT [facility] [employer] [address] [place] [address] AUTOMATION LEAD: REMBERTO MCELROY M.D. CLIA NUMBER [id number] [place]. [id number] HEMOGLOBIN [id number] 02:27:39* Test Item Value Reference Range Interpretation Comme [facility] HEMOGLOBIN A1c (test code = 68384) 6.6 % 4.2-5.6 H [employer] GUIDELINES FOR HGB A1C: PREDIABETES/INCREASED RISK . . . . . . . 5.7-6.4% DIAGNOSIS OF DIABETES . . . . . . . . . >=6.5% WITH CONFIRMATION OR APPROPRIATE SYMPTOMS NOTE: ASSAY MAY BE AFFECTED BY HEMOGLOBINOPATHIES (SICKLE CELL ANEMIA, S-C DISEASE, OTHERS) OR ARTIFICIALLY LOWERED BY DECREASED RED CELL SURVIVAL (HEMOLYTIC ANEMIAS, BLOOD LOSS, ETC.). CONSIDER ALTERNATE TESTING OR LABORATORY CONSULTATION. TSH, THIRD [id number] 06:19:25* Test Item Value Reference Range Interpretation Comme [facility] TSH, THIRD GENERATION (test code = 2821) 49.500 UIU/ML 0.400-4.100 H COMPREHENSIVE METABOLIC [id number] 04:55:46* Test Item Value Reference Range Interpretation Comme [facility] GLUCOSE (test code = 2217) 140 MG/DL 70-99 H BUN (test code = 2208) 11 MG/DL 6-20 CREATININE (test code = 2214) 0.69 MG/DL 0.60-1.30 eGFR (2020 CKD-EPI) (test code = 06071) 122 ML/MIN/1.73 >60 CALC BUN/CREAT (test code = 2235) 16 RATIO 6-28 SODIUM (test code = 2231) 138 MEQ/L 133-146 POTASSIUM (test code = 2228) 4.5 MEQ/L 3.5-5.4 CHLORIDE (test code = 2215) 105 MEQ/L 95-107 CARBON DIOXIDE (test code = 2206) 23 MEQ/L 19-31 CALCIUM (test code = 2208) 8.8 MG/DL 8.5-10.5 PROTEIN, TOTAL (test code = 2228) 7.1 G/DL 6.1-8.3 ALBUMIN (test code = 1) 4.3 G/DL 3.5-5.2 CALC GLOBULIN (test code = 0) 2.8 G/DL 1.9-3.7 CALC A/G RATIO (test code = 2233) 1.5 RATIO 1.0-2.6 BILIRUBIN, TOTAL (test code = 2206) 0.3 MG/DL See_Comment [Automated me ssage] The system which generated this result transmitted reference range: <=1.2. The reference range was not used to interpret this result as normal/abnormal. ALKALINE PHOSPHATASE (test code = 2203) 74 U/L 40-112 AST (test code = 2217) 46 U/L 9-40 H ALT (test code = 2218) 80 U/L 5-40 H LIPID [id number] 04:55:46* Test Item Value Reference Range Interpretation Comme nts CHOLESTEROL (test code = 0) 173 MG/DL <200 TRIGLYCERIDES (test code = 2) 615 MG/DL <150 H HDL CHOLESTEROL (test code = 2219) 31 MG/DL >39 L CALC LDL CHOL (test code = 2236) (NOTE) MG/DL <100 UNABLE TO CALCUL ATE A VALID LDL CHOLESTEROL WHEN THE TRIGLYCERIDEVALUE IS GREATER THAN 400 MG/DL.UNABLE TO CALCULATE A VALID LDL CHOLESTEROL WHEN THE TRIGLYCERIDEVALUE IS GREATER THAN 400 MG/DL. NOTE: CALCULATED LDL IS BASED ON HOMER-CONTRERAS METHOD WHICHINCLUDES ADJUSTABLE TRIGLYCERIDE:VLDL CHOLESTEROL RATIO.THIS FACTOR VARIES BY MEASURED TRIGLYCERIDE AND NON-HDLCHOLESTEROL CONCENTRATIONS WITH INCREASED CALCULATED LDL SEENIN HIGHER TRIGLYCERIDE OR LOWER NON-HDL SPECIMENS. FOR MOREINFORMATION, SEE CLIENT ANNOUNCEMENT AT [email or web address] CalcLDL-C RISK RATIO LDL/HDL (test code = 2238) (NOTE) RATIO <3.22 UNABLE TO BEKAH CULATE HEMOGLOBIN [id number] 03:46:55* Test Item Value Reference Range Interpretation Comme nts HEMOGLOBIN A1c (test code = 23102) 7.1 % 4.2-5.6 H [employer] GUIDELINES FOR HGB A1C: PREDIABETES/INCREASED RISK . . . . . . . 5.7-6.4% DIAGNOSIS OF DIABETES . . . . . . . . . >=6.5% WITH CONFIRMATION OR APPROPRIATE SYMPTOMS NOTE: ASSAY MAY BE AFFECTED BY HEMOGLOBINOPATHIES (SICKLE CELL ANEMIA, S-C DISEASE, OTHERS) OR ARTIFICIALLY LOWERED BY DECREASED RED CELL SURVIVAL (HEMOLYTIC ANEMIAS, BLOOD LOSS, ETC.). CONSIDER ALTERNATE TESTING OR LABORATORY CONSULTATION. UNLESS OTHERWISE INDICATED, ALL TESTING PERFORMED AT [facility] [employer] [employer] [address] [place] [address] AUTOMATION LEAD: REMBERTO MCELROY M.D. CLIA NUMBER [id number] [facility] [place]. [id number] CBC W/AUTO DIFF WITH [id number] 03:10:49* Test Item Value Reference Range Interpretation Comme nts WBC (test code = 1001) 6.4 K/UL 3.5-11.0 RBC (test code = 1002) 4.56 M/UL 3.80-5.40 HEMOGLOBIN (test code = 1003) 13.4 G/DL 11.5-15.5 HEMATOCRIT (test code = 1004) 38.3 % 34.0-45.0 MCV (test code = 1005) 84.0 fL 80.0-99.0 MCH (test code = 1006) 29.4 PG 25.0-33.0 MCHC (test code = 1007) 35.0 G/DL 31.0-36.0 RDW (test code = 1038) 13.6 % 11.5-15.0 NEUTROPHILS (test code = 1008) 58.4 % LYMPHOCYTES (test code = 1010) 33.3 % MONOCYTES (test code = 1011) 5.1 % EOSINOPHILS (test code = 1012) 2.5 % BASOPHILS (test code = 1013) 0.5 % IMMATURE GRANULOCYTES (test code = 1036) 0.2 % NUCLEATED RBCS (test code = 1065) 0.0 /100 WBC'S See_Comment [Automated messa ge] The system which generated this result transmitted reference range: 0.0. The reference range was not used to interpret this result as normal/abnormal. PLATELET COUNT (test code = 1015) 215 K/UL 130-400 ABSOLUTE NEUTROPHILS (test code = 1066) 3.76 K/UL 1.50-7.50 ABSOLUTE LYMPHOCYTES (test code = 1067) 2.14 K/UL 1.00-4.00 ABSOLUTE MONOCYTES (test code = 1068) 0.33 K/UL 0.20-1.00 ABSOLUTE EOSINOPHILS (test code = 1040) 0.16 K/UL 0.00-0.50 ABSOLUTE BASOPHILS (test code = 1069) 0.03 K/UL 0.00-0.20 ABS IMMATURE GRANULOCYTES (test code = 1020) 0.01 K/UL 0.00-0.10 ABS NUCLEATED RBCS (test code = 95960) 0.00 K/UL 0.00-0.11 TSH, THIRD [id number] 02:36:04* Test Item Value Reference Range Interpretation Comme nts TSH, THIRD GENERATION (test code = 2821) 0.466 UIU/ML 0.400-4.100 [facility] has impo rtant pathology staff changes effective 04/08/2022. New pathology staff will provide uninterrupted, excellent patient care and clinical consultation. See URL: [email or web address]. UNLESS OTHERWISE INDICATED, ALL TESTING PERFORMED AT [facility] [address] [place] [address] AUTOMATION LEAD: REMBERTO MCELROY M.D. CLIA NUMBER [id number] [place]. [id number] TSH, THIRD [id number] 04:57:11* Test Item Value Reference Range Interpretation Comme nts TSH, THIRD GENERATION (test code = 2821) >100.000 UIU/ML 0.400-4.100 H [facility] has important pathology staff changes effective 04/08/2022. New pathology staff will provide uninterrupted, excellent patient care and clinical consultation. See URL: [email or web address]. UNLESS OTHERWISE INDICATED, ALL TESTING PERFORMED AT [facility] [address] [place] [address] CLIA: [id number], CAP: [id number] POCT URINALYSIS W SPECIFIC [id number] 16:58:00* Test Item Value Reference Range Interpretation Comme nts POCT U SP GRAV (test code = 3255) . 1.005-1.025 POCT PH U (test code = 3254) . 5-8 POCT U LEUK EST (test code = 3263) . Negative - N egative POCT U NIT (test code = 3262) . Negative - Negati ve POCT U PROT (test code = 3259) Trace Negative - Negat rosalee POCT U GLU (test code = 3256) Neg Negative - Negati ve POCT U KETONE (test code = 3258) . Negative - Neg ative POCT U UROBILI (test code = 3260) . 0.2-1 POCT U BILI (test code = 3261) . Negative - Negat rosalee POCT U BLD (test code = 3257) . Negative - Negati ve POCT U COLOR (test code = 3266) POCT U APPEAR (test code = 3267) [facility] [id number] 23:44:45 Reactive and reassuringToco with irritability Cristin Fournier MD ?02/06/2020 ?5:43 [facility]UnH[facility] CenterUrinalysis2020-12-29 20:58:00* Test Item Value Reference Range Interpretation Comme nts APPEARANCE (test code = 4685898885) Clear Clear COLOR (test code = 8306587212) Straw Yellow A PH (test code = 0649532822) 4.8-8.0 SP GRAVITY (test code = 2101354007) 1.003-1.030 GLU U QUAL (test code = 7592643252) Normal Normal BLOOD (test code = 0203403885) Negative Negative KETONES (test code = 6737397813) Negative Negative PROTEIN (test code = 2887-8) Negative Negative UROBILIN (test code = 7021653621) Normal Normal BILIRUBIN (test code = 4692290729) Negative Negative NITRITE (test code = 0286888181) Negative Negative LEUK VIKKI (test code = 6323491201) 75/uL Negative A RBC/HPF (test code = 0937093036) <1 See_Comment [[employer]ated [employer]] The system which generated this result transmitted reference range: 0 - 3 HPF. The reference range was not used to interpret this result as normal/abnormal. WBC/HPF (test code = 3422586181) See_Comment [Automated [employer]] The system which generated this result transmitted reference range: 0 - 5 HPF. The reference range was not used to interpret this result as normal/abnormal. BACTERIA (test code = 1056677098) Many Negative A SQ EPITH (test code = 8382255679) HPF Lab Interpretation (test code = 98801-4) Abnormal [facility] URINALYSIS W SPECIFIC [id number] 15:24:00* Test Item Value Reference Range Interpretation Comme nts POCT U SP GRAV (test code = 3255) . 1.005-1.025 POCT PH U (test code = 3254) . 5-8 POCT U LEUK EST (test code = 3263) . Negative - N egative POCT U NIT (test code = 3262) . Negative - Negati ve POCT U PROT (test code = 3259) Trace Negative - Negat rosalee POCT U GLU (test code = 3256) Neg Negative - Negati ve POCT U KETONE (test code = 3258) . Negative - Neg ative POCT U UROBILI (test code = 3260) . 0.2-1 POCT U BILI (test code = 3261) . Negative - Negat rosalee POCT U BLD (test code = 3257) . Negative - Negati ve POCT U COLOR (test code = 3266) POCT U APPEAR (test code = 3267) [facility] URINALYSIS W SPECIFIC [id number] 15:24:00* Test Item Value Reference Range Interpretation Comme nts POCT U SP GRAV (test code = 3255) . 1.005-1.025 POCT PH U (test code = 3254) . 5-8 POCT U LEUK EST (test code = 3263) . Negative - N egative POCT U NIT (test code = 3262) . Negative - Negati ve POCT U PROT (test code = 3259) Trace Negative - Negat rosalee POCT U GLU (test code = 3256) Neg Negative - Negati ve POCT U KETONE (test code = 3258) . Negative - Neg ative POCT U UROBILI (test code = 3260) . 0.2-1 POCT U BILI (test code = 3261) . Negative - Negat rosalee POCT U BLD (test code = 3257) . Negative - Negati ve POCT U COLOR (test code = 3266) POCT U APPEAR (test code = 3267) [facility] URINALYSIS W SPECIFIC [id number] 15:24:00* Test Item Value Reference Range Interpretation Comme nts POCT U SP GRAV (test code = 3255) . 1.005-1.025 POCT PH U (test code = 3254) . 5-8 POCT U LEUK EST (test code = 3263) . Negative - N egative POCT U NIT (test code = 3262) . Negative - Negati ve POCT U PROT (test code = 3259) Trace Negative - Negat rosalee POCT U GLU (test code = 3256) Neg Negative - Negati ve POCT U KETONE (test code = 3258) . Negative - Neg ative POCT U UROBILI (test code = 3260) . 0.2-1 POCT U BILI (test code = 3261) . Negative - Negat rosalee POCT U BLD (test code = 3257) . Negative - Negati ve POCT U COLOR (test code = 3266) POCT U APPEAR (test code = 3267) [facility] URINALYSIS W SPECIFIC [id number] 16:36:00* Test Item Value Reference Range Interpretation Comme nts POCT U SP GRAV (test code = 3255) . 1.005-1.025 POCT PH U (test code = 3254) . 5-8 POCT U LEUK EST (test code = 3263) . Negative - N egative POCT U NIT (test code = 3262) . Negative - Negati ve POCT U PROT (test code = 3259) Trace Negative - Negat rosalee POCT U GLU (test code = 3256) Neg Negative - Negati ve POCT U KETONE (test code = 3258) . Negative - Neg ative POCT U UROBILI (test code = 3260) . 0.2-1 POCT U BILI (test code = 3261) . Negative - Negat rosalee POCT U BLD (test code = 3257) . Negative - Negati ve POCT U COLOR (test code = 3266) POCT U APPEAR (test code = 3267) [facility] URINALYSIS W SPECIFIC [id number] 14:14:00* Test Item Value Reference Range Interpretation Comme nts POCT U SP GRAV (test code = 3255) . 1.005-1.025 POCT PH U (test code = 3254) . 5-8 POCT U LEUK EST (test code = 3263) . Negative - N egative POCT U NIT (test code = 3262) . Negative - Negati ve POCT U PROT (test code = 3259) Trace Negative - Negat rosalee POCT U GLU (test code = 3256) Neg Negative - Negati ve POCT U KETONE (test code = 3258) . Negative - Neg ative POCT U UROBILI (test code = 3260) . 0.2-1 POCT U BILI (test code = 3261) . Negative - Negat rosalee POCT U BLD (test code = 3257) . Negative - Negati ve POCT U COLOR (test code = 3266) POCT U APPEAR (test code = 3267) [facility] URINALYSIS W SPECIFIC [id number] 14:14:00* Test Item Value Reference Range Interpretation Comme nts POCT U SP GRAV (test code = 3255) . 1.005-1.025 POCT PH U (test code = 3254) . 5-8 POCT U LEUK EST (test code = 3263) . Negative - N egative POCT U NIT (test code = 3262) . Negative - Negati ve POCT U PROT (test code = 3259) Trace Negative - Negat rosalee POCT U GLU (test code = 3256) Neg Negative - Negati ve POCT U KETONE (test code = 3258) . Negative - Neg ative POCT U UROBILI (test code = 3260) . 0.2-1 POCT U BILI (test code = 3261) . Negative - Negat rosalee POCT U BLD (test code = 3257) . Negative - Negati ve POCT U COLOR (test code = 3266) POCT U APPEAR (test code = 3267) [facility] URINALYSIS W SPECIFIC [id number] 14:19:00* Test Item Value Reference Range Interpretation Comme nts POCT U SP GRAV (test code = 3255) . 1.005-1.025 POCT PH U (test code = 3254) . 5-8 POCT U LEUK EST (test code = 3263) . Negative - N egative POCT U NIT (test code = 3262) . Negative - Negati ve POCT U PROT (test code = 3259) Trace Negative - Negat rosalee POCT U GLU (test code = 3256) Neg Negative - Negati ve POCT U KETONE (test code = 3258) . Negative - Neg ative POCT U UROBILI (test code = 3260) . 0.2-1 POCT U BILI (test code = 3261) . Negative - Negat rosalee POCT U BLD (test code = 3257) . Negative - Negati ve POCT U COLOR (test code = 3266) . POCT U APPEAR (test code = 3267) [facility] URINALYSIS W SPECIFIC [id number] 14:19:00* Test Item Value Reference Range Interpretation Comme nts POCT U SP GRAV (test code = 3255) . 1.005-1.025 POCT PH U (test code = 3254) . 5-8 POCT U LEUK EST (test code = 3263) . Negative - N egative POCT U NIT (test code = 3262) . Negative - Negati ve POCT U PROT (test code = 3259) Trace Negative - Negat rosalee POCT U GLU (test code = 3256) Neg Negative - Negati ve POCT U KETONE (test code = 3258) . Negative - Neg ative POCT U UROBILI (test code = 3260) . 0.2-1 POCT U BILI (test code = 3261) . Negative - Negat rosalee POCT U BLD (test code = 3257) . Negative - Negati ve POCT U COLOR (test code = 3266) . POCT U APPEAR (test code = 3267) [facility] URINALYSIS W SPECIFIC [id number] 14:19:00* Test Item Value Reference Range Interpretation Comme nts POCT U SP GRAV (test code = 3255) . 1.005-1.025 POCT PH U (test code = 3254) . 5-8 POCT U LEUK EST (test code = 3263) . Negative - N egative POCT U NIT (test code = 3262) . Negative - Negati ve POCT U PROT (test code = 3259) Trace Negative - Negat rosalee POCT U GLU (test code = 3256) Neg Negative - Negati ve POCT U KETONE (test code = 3258) . Negative - Neg ative POCT U UROBILI (test code = 3260) . 0.2-1 POCT U BILI (test code = 3261) . Negative - Negat rosalee POCT U BLD (test code = 3257) . Negative - Negati ve POCT U COLOR (test code = 3266) . POCT U APPEAR (test code = 3267) [facility] URINALYSIS W SPECIFIC [id number] 14:35:00* Test Item Value Reference Range Interpretation Comme nts POCT U SP GRAV (test code = 3255) . 1.005-1.025 POCT PH U (test code = 3254) . 5-8 POCT U LEUK EST (test code = 3263) . Negative - N egative POCT U NIT (test code = 3262) . Negative - Negati ve POCT U PROT (test code = 3259) Trace Negative - Negat rosalee POCT U GLU (test code = 3256) Neg Negative - Negati ve POCT U KETONE (test code = 3258) . Negative - Neg ative POCT U UROBILI (test code = 3260) . 0.2-1 POCT U BILI (test code = 3261) . Negative - Negat rosalee POCT U BLD (test code = 3257) . Negative - Negati ve POCT U COLOR (test code = 3266) POCT U APPEAR (test code = 3267) [facility] URINALYSIS W SPECIFIC [id number] 13:52:00* Test Item Value Reference Range Interpretation Comme nts POCT U SP GRAV (test code = 3255) . 1.005-1.025 POCT PH U (test code = 3254) . 5-8 POCT U LEUK EST (test code = 3263) . Negative - N egative POCT U NIT (test code = 3262) . Negative - Negati ve POCT U PROT (test code = 3259) Trace Negative - Negat rosalee POCT U GLU (test code = 3256) Neg Negative - Negati ve POCT U KETONE (test code = 3258) . Negative - Neg ative POCT U UROBILI (test code = 3260) . 0.2-1 POCT U BILI (test code = 3261) . Negative - Negat rosalee POCT U BLD (test code = 3257) . Negative - Negati ve POCT U COLOR (test code = 3266) POCT U APPEAR (test code = 3267) [facility] [id number] 14:33:00* Test Item Value Reference Range Interpretation Comme nts POCT U SP GRAV (test code = 3255) . 1.005-1.025 POCT PH U (test code = 3254) 7 mg/dl 5-8 POCT U LEUK EST (test code = 3263) neg Negative - Negative POCT U NIT (test code = 3262) neg Negative - Negati ve POCT U PROT (test code = 3259) trace Negative - Negat rosalee POCT U GLU (test code = 3256) neg Negative - Negati ve POCT U KETONE (test code = 3258) neg Negative - Neg ative POCT U UROBILI (test code = 3260) . 0.2-1 POCT U BILI (test code = 3261) . Negative - Negat rosalee POCT U BLD (test code = 3257) neg Negative - Negati ve POCT U COLOR (test code = 3266) POCT U APPEAR (test code = 3267) Lab Interpretation (test cod e = 38277-5) Abnormal [facility] TRISOM[facility] [id number] 16:03:00* Test Item Value Reference Range Interpretation Comme nts CRL (test code = 5856825663) 63.95 mm GEST. AGE (test code = 4390570643) 12,4 INS. DEP (test code = 2799256815) No MULT GEST (test code = 2135357175) No NT (test code = 9963843093) 1.80 mm NTD HX (test code = 8824683842) No RACE (test code = 7214571092) CLINICAL LABORATORY SCIENCE PROFESSOR (test code = 6668845894) BHCG MoM (test code = 1522642281) CRL GEST (test code = 6395610454) 12 weeks 5 days, from CRL of 64.0 mm on 09/18/19 EQ AGE RSK (test code = 0158465244) < 15.0 less than that o f a 15.0 year old DS APR (test code = 3892180983) 1:990 DS INTERP (test code = 6174290913) See Note The risk of Down syndrome is LESS than the screening cut-off. DS RSK (test code = 3917827150) 1:40452 The risk at samp le time is equal to 1:21621 DS SCRN (test code = 4662544264) Negative TRISOMY 18 (test code = 6451613421) See Note The risk of trisomy 18 is less than the screening cut-off. ES RSK (test code = 8856761634) 1:1480 The risk of Trisomy 18 is equal to 1:1480The Trisomy 18 cut-off is 1:147 ES SCRN (test code = 0763058560) Negative NT MoM (test code = 3868634675) BHCG DOWNS (test code = 8432069598) INTERPRETATION (test code = 2965425797) N INTERPRETATIO N: SCREEN NEGATIVE Down Syndrome and Trisomy 18 JACKI-A (test code = 3952451784) 452.5 ng/mL JACKI-A MoM (test code = 7757586516) US DATE (test code = 2058815792) WEIGHT (test code = 6158488641) lbs SMOKER (test code = 8969534605) No [facility] W/O SPECIFIC [id number] 13:48:00* Test Item Value Reference Range Interpretation Comme nts POCT PH U (test code = 3254) 6 mg/dl 5-8 POCT U LEUK EST (test code = 3263) 2+ Negative - Negative POCT U NIT (test code = 3262) Neg Negative - Negati ve POCT U PROT (test code = 3259) Trace Negative - Negat rosalee POCT U GLU (test code = 3256) Neg Negative - Negati ve POCT U KETONE (test code = 3258) 3+ Negative - Neg ative POCT U BLD (test code = 3257) Large Negative - Negati ve [facility] URINALYSIS W/O SPECIFIC [id number] 13:48:00* Test Item Value Reference Range Interpretation Comme nts POCT PH U (test code = 3254) 6 mg/dl 5-8 POCT U LEUK EST (test code = 3263) 2+ Negative - Negative POCT U NIT (test code = 3262) Neg Negative - Negati ve POCT U PROT (test code = 3259) Trace Negative - Negat rosalee POCT U GLU (test code = 3256) Neg Negative - Negati ve POCT U KETONE (test code = 3258) 3+ Negative - Neg ative POCT U BLD (test code = 3257) Large Negative - Negati ve [facility] URINALYSIS W/O SPECIFIC [id number] 13:48:00* Test Item Value Reference Range Interpretation Comme nts POCT PH U (test code = 3254) 6 mg/dl 5-8 POCT U LEUK EST (test code = 3263) 2+ Negative - Negative POCT U NIT (test code = 3262) Neg Negative - Negati ve POCT U PROT (test code = 3259) Trace Negative - Negat rosalee POCT U GLU (test code = 3256) Neg Negative - Negati ve POCT U KETONE (test code = 3258) 3+ Negative - Neg ative POCT U BLD (test code = 3257) Large Negative - Negati ve [facility] [id number] 13:47:00* Test Item Value Reference Range Interpretation Comme nts POCT PREG (test code = 1605) Positive On board controls acceptable with C Line (test code = 3574) Yes POCT PREG LOT # (test code = 3575) POCT PREG TEST DATE ( test code = 3576) [facility] [id number] 13:47:00* Test Item Value Reference Range Interpretation Comme nts POCT PREG (test code = 1605) Positive On board controls acceptable with C Line (test code = 3574) Yes POCT PREG LOT # (test code = 3575) POCT PREG TEST DATE ( test code = 3576) [facility] [id number] 13:47:00* Test Item Value Reference Range Interpretation Comme nts POCT PREG (test code = 1605) Positive On board controls acceptable with C Line (test code = 3574) Yes POCT PREG LOT # (test code = 3575) POCT PREG TEST DATE ( test code = 3576) [facility]
--- NOTE | 2023-04-16 11:04 | RAD REPORT ---
EXAM DESCRIPTION: RAD - Foot Left 3 View - 04/16/2023 10:57 am CLINICAL HISTORY: PAIN COMPARISON: No comparisons FINDINGS: No acute fracture or dislocation seen. Mild soft tissue swelling about the ankle. Small ca lcaneal spurs.
--- NOTE | 2023-04-16 11:09 | ER ---
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 hb Coronavirus screen: At this time, the client does not indicate any symptoms associated with coronavirus-19. Ebola Screen: No symptoms or risks identified at this time. Initial Sepsis Screen: Does the patient meet any 2 criteria? No. Patient's initial sepsis screen is negative. Does the patient have a suspected source of infection? No. Patient's initial sepsis screen is negative. Risk Assessment: Do you want to hurt yourself or someone else? Patient reports no desire to harm self or others. Onset of symptoms was April 16, 2023. 09:40 Method Of Arrival: Ambulatory hb 09:40 Acuity: MAGUE 4 hb Triage Assessment: 09:41 General: Appears in no apparent distress. Behavior is calm, cooperative. Pain: Pain hb currently is 6 out of 10 on a pain scale. Neuro: Level of Consciousness is awake, alert, obeys commands, Oriented to person, place, time, situation. Cardiovascular: Patient's skin is warm and dry. Respiratory: Respiratory effort is even, unlabored, Respiratory pattern is regular, symmetrical. Musculoskeletal: Reports left foot pain. Historical: - Allergies: 09:41 No Known Allergies; hb - Home Meds: 09:41 levothyroxine oral [Active]; Metformin Oral [Active]; hb - PMHx: 09:41 Diabetes - NIDDM; Hypothyroidism; hb - Immunization history:: Adult Immunizations up to date. - Social history:: Smoking status: Patient denies any tobacco usage or history of. - Family history:: not pertinent. Screenin:23 [facility] ED Fall Risk Assessment (Adult) History of falling in the last 3 months, kc6 including since admission Yes- single mechanical fall (1 pt) Confusion or Disorientation No (0 pts) Intoxicated or Sedated No (0 pts) Impaired Gait No (0 pts) Mobility Assist Device Used No (0 pt) Altered Elimination No (0 pt) Score/Fall Risk Level 0 - 2 = Low Risk. Abuse screen: Denies threats or abuse. Denies injuries from another. Nutritional screening: No deficits noted. Tuberculosis screening: No symptoms or risk factors identified. Assessment: 10:23 General: Appears in no apparent distress. comfortable, well groomed, well developed, kc6 Behavior is calm, cooperative, appropriate for age. Pain: Complains of pain in left foot. Neuro: Level of Consciousness is awake, alert, obeys commands, Oriented to person, place, time, situation, Appropriate for age. Cardiovascular: Capillary refill < 3 seconds. Respiratory: Airway is patent Trachea midline Respiratory effort is even, unlabored, Respiratory pattern is regular, symmetrical. GI: No signs and/or symptoms were reported involving the gastrointestinal system. : No signs and/or symptoms were reported regarding the genitourinary system. EENT: No signs and/or symptoms were reported regarding the EENT system. Derm: No signs and/or symptoms reported regarding the dermatologic system. Skin is intact, is healthy with good turgor, Skin is pink, warm \T\ dry. Musculoskeletal: No signs and/or symptoms reported regarding the musculoskeletal system. Circulation, motion, and sensation intact. Capillary refill < 3 seconds, Range of motion: intact in all extremities. Vital Signs: 09:40 BP 149 / 86; Pulse 84; Resp 16; Temp 98(TE); Pulse Ox 97% on R/A; Weight 117.93 kg (R); hb Height 5 ft. 5 in. ; Pain 6/10; 10:51 BP 131 / 77; Pulse 67; Resp 18 S; Pulse Ox 100% on R/A; kc6 09:40 Body Mass Index 43.27 (117.93 kg, 165.1 cm) hb 09:40 Pain Scale: Adult hb ED Course: 09:28 Patient arrived in ED. ra3 09:35 Evelyn Sánchez, VIKTOR is Primary Nurse. kc6 09:38 Skyler Gramajo MD is Attending Physician. galo 09:41 Triage completed. hb 09:43 Arm band placed on right wrist. hb 09:44 Client placed on continuous cardiac and pulse oximetry monitoring. NIBP monitoring hb applied. Pulse ox on. NIBP on. 10:23 Patient has correct armband on for positive identification. Bed in low position. Call kc6 light in reach. Side rails up X 1. Adult w/ patient. 10:23 Patient maintains SpO2 saturation greater than 95% on room air. kc6 10:59 Foot Left 3 View XRAY In Process Unspecified. EDMS 11:08 Murali Drake MD is Referral Physician. galo Administered Medications: 10:22 Drug: Ibuprofen PO 800 mg PO once Route: PO; kc6 Outcome: 11:08 Discharge ordered by . galo 12:02 Patient left the ED. kc6 Signatures: Dispatcher [employer] EDNM Skyler Gramajo MD MD cha Baxter, Heather, RN RN Evelyn Garcia RN RN kc6 Yudith Crandall ra3
--- NOTE | 2023-04-16 11:09 | EDPHYS ---
Physician Documentation [facility] Name: Suzanne Sanchez Age: 28 yrs Sex: Female : 1995 Arrival Date: 04/16/2023 Time: 09:26 Bed 13 Private MD: ED Physician Skyler Gramajo HPI: 04/15 11:01 This 28 yrs old Female presents to ER via Ambulatory with complaints of Foot galo Injury. 11:01 Details of fall: The patient fell from an upright position, while standing. Onset: The galo symptoms/episode began/occurred just prior to arrival, this morning. Associated injuries: The patient sustained left foot, contusion, painful injury. The patient presents with decreased range of motion, pain, that is acute. The complaints affect the left foot. Context: The problem was sustained on a street or driveway. Modifying factors: The symptoms are alleviated by nothing. Severity of symptoms: At their worst the symptoms were moderate. Historical: - Allergies: 09:41 No Known Allergies; hb - Home Meds: 09:41 levothyroxine oral [Active]; Metformin Oral [Active]; hb - PMHx: 09:41 Diabetes - NIDDM; Hypothyroidism; hb - Immunization history:: Adult Immunizations up to date. - Social history:: Smoking status: Patient denies any tobacco usage or history of. - Family history:: not pertinent. ROS: 11:01 Constitutional: Negative for fever, chills, and weight loss, Eyes: Negative for injury, galo pain, redness, and discharge, ENT: Negative for injury, pain, and discharge, Neck: Negative for injury, pain, and swelling, Cardiovascular: Negative for chest pain, palpitations, and edema, Respiratory: Negative for shortness of breath, cough, wheezing, and pleuritic chest pain, Abdomen/GI: Negative for abdominal pain, nausea, vomiting, diarrhea, and constipation, Back: Negative for injury and pain, : Negative for injury, bleeding, discharge, and swelling, Skin: Negative for injury, rash, and discoloration, Neuro: Negative for headache, weakness, numbness, tingling, and seizure, Psych: Negative for depression, anxiety, suicide ideation, homicidal ideation, and hallucinations, Allergy/Immunology: Negative for hives, rash, and allergies, Endocrine: Negative for neck swelling, polydipsia, polyuria, polyphagia, and marked weight changes, 11:01 MS/extremity: Positive for decreased range of motion, pain, swelling, tenderness, Exam: 11:01 Constitutional: This is a well developed, well nourished patient who is awake, alert, galo and in no acute distress. Head/Face: Normocephalic, atraumatic. Eyes: Pupils equal round and reactive to light, extra-ocular motions intact. Lids and lashes normal. Conjunctiva and sclera are non-icteric and not injected. Cornea within normal limits. Periorbital areas with no swelling, redness, or edema. ENT: Nares patent. No nasal discharge, no septal abnormalities noted. Tympanic membranes are normal and external auditory canals are clear. Oropharynx with no redness, swelling, or masses, exudates, or evidence of obstruction, uvula midline. Mucous membranes moist. Neck: Trachea midline, no thyromegaly or masses palpated, and no cervical lymphadenopathy. Supple, full range of motion without nuchal rigidity, or vertebral point tenderness. No Meningismus. Chest/axilla: Normal chest wall appearance and motion. Nontender with no deformity. No lesions are appreciated. Cardiovascular: Regular rate and rhythm with a normal S1 and S2. No gallops, murmurs, or rubs. Normal PMI, no JVD. No pulse deficits. Respiratory: Lungs have equal breath sounds bilaterally, clear to auscultation and percussion. No rales, rhonchi or wheezes noted. No increased work of breathing, no retractions or nasal flaring. Abdomen/GI: Soft, non-tender, with normal bowel sounds. No distension or tympany. No guarding or rebound. No evidence of tenderness throughout. Back: No spinal tenderness. No costovertebral tenderness. Full range of motion. Skin: Warm, dry with normal turgor. Normal color with no rashes, no lesions, and no evidence of cellulitis. Neuro: Awake and alert, GCS 15, oriented to person, place, time, and situation. Cranial nerves II-XII grossly intact. Motor strength 5/5 in all extremities. Sensory grossly intact. Cerebellar exam normal. Normal gait. Psych: Awake, alert, with orientation to person, place and time. Behavior, mood, and affect are within normal limits. 11:01 Musculoskeletal/extremity: Extremities: grossly normal except: contusion, decreased ROM, pain, ROM: full active range of motion, full passive range of motion, limited active range of motion due to pain, limited passive range of motion due to pain, Circulation is intact in all extremities. Compartment Syndrome exam of affected extremity: is normal. Joints: All joints are normal except the left ankle displays Weight bearing: is unable to bear weight, DVT Exam: no swelling, negative Homans' sign noted on exam, no appreciated bluish discoloration, no erythema, no increased warmth, pain, swelling, that is mild, of the left leg, of the left foot and anterior aspect of left ankle, tenderness, Vital Signs: 09:40 BP 149 / 86; Pulse 84; Resp 16; Temp 98(TE); Pulse Ox 97% on R/A; Weight 117.93 kg (R); hb Height 5 ft. 5 in. ; Pain 6/10; 10:51 BP 131 / 77; Pulse 67; Resp 18 S; Pulse Ox 100% on R/A; kc6 09:40 Body Mass Index 43.27 (117.93 kg, 165.1 cm) hb 09:40 Pain Scale: Adult hb MDM: 09:38 Patient medically screened. galo 11:06 Differential diagnosis: contusion, fracture, multiple trauma, sprain, strain. galo Differential diagnosis: fracture, sprain, penetrating trauma, arthritis. Data reviewed: vital signs, nurses notes, radiologic studies, plain films. Consideration of Admission/Observation Escalation of care including admission/observation considered. I considered the following discharge prescriptions or medication management in the emergency department Medications were administered in the Emergency Department. See MAR. Independent interpretation of the following test(s) in the Emergency Department X-Ray: My interpretation is left foot no fractures. Test considered but Not performed: Labs: no labs , no ankle fracture. 04/15 10:06 Order name: Foot Left 3 View XRAY [facility] 04/15 10:06 Order name: Ice pack; Complete Time: 10:15 galo 04/15 11:00 Order name: Walking boot; Complete Time: 11:06 galo Administered Medications: 10:22 Drug: Ibuprofen PO 800 mg PO once Route: PO; kc6 Disposition Summary: 04/16/23 11:08 Discharge Ordered Notes: Location: Home galo Problem: new galo Symptoms: have improved galo Condition: Stable galo Diagnosis - Contusion of left foot galo - Other sprain of left foot galo Followup: galo - With: Private Physician - When: 2 - 3 days - Reason: Recheck today's complaints, Continuance of care, Re-evaluation by your physician Followup: galo - With: Murali Drake MD - When: 2 - 3 days - Reason: Recheck today's complaints, Re-evaluation by your physician Discharge Instructions: - Discharge Summary Sheet galo - Foot Contusion galo - Foot Sprain galo - Foot Pain galo - Foot Care, Adult [facility] Forms: - Medication Reconciliation Form [facility] - Thank You Letter [facility] - Antibiotic Education galo - Prescription Opioid Use galo - Patient Portal Instructions [facility] - Leadership Thank You Letter [facility] Prescriptions: - acetaminophen-codeine 300-30 mg Oral tablet - take 2 tablet ORAL route 4 times per day as needed for pain; 16 tablet; [facility] Refills: 0, Product Selection Permitted - Diclofenac Sodium 75 mg Oral tablet, delayed release (enteric coated) - take 1 tablet ORAL route 2 times per day; 20 tablet; Refills: 0, Product [facility] Selection Permitted Signatures: Dispatcher [employer] Skyler Rubio MD MD cha Baxter, Heather, RN RN Evelyn Garcia RN RN kc6
[2023-04-16 12:25] VITALS: BP 131/77; TEMP 98; O2SAT 100
== END ==
LOC: ER 09:26
DX: S93.692A Other sprain of left foot, initial encounter (principal)
CPT/HCPCS: 99284

== ENCOUNTER 2023-09-07 19:33 | Inpatient (IN) | payer SELFPAY ==
--- OUTSIDE RECORDS SUMMARY | 2023-09-07 19:39 | XMS REPORT | Continuity of Care Document ---
Author Name Unknown Address [address] [facility] [address] [place] [address] [facility] thconnect Address [address] [place] [address] Care Team Providers Care Radio Intelligence Operator Name Role Phone Alee Elena Primary Care Physician Lorelei Heard MA Attending Clinician UnavailLANA Scott Attending Clinician Unavailable Lana Manzano PA-C Attending Clinician [phone] Unknown, Attending Attending Clinician Unavailab le Doctor Unassigned, [place] Attending Clinician U ruth Garsia RN, Yas Cunningham Attending Clinician UnavailJOLLY Willis Attending Clinician Unavailable Only, En Db Test Attending Clinician UnavailJolly Benitez Attending Clinician [phone] Terry Reynaga DO Attending Clinician [phone] Akinsikirk WHMarleny WILLAMS Attending Clinician + MARLENY CARD Attending Clinician Unavail Cristin Ovalle MD Attending Clinician [phone] Ultrasound, Ang-m Attending Clinician Unavailelvira Malone MD, Arthur Ahmadi Attending Clinician [phone] Penelope Bailon MD Attending Clinician [phone] ARTHUR MALONE Attending Clinician Unavailable 1, [facility] Us Room Attending Clinician UnavailShawn Adam MD Attending Clinician [phone] Provider, [facility] Attending Clinician Un available Roya Tran Attending Clinician [phone] ROYA DURAN Attending Clinician Unavailable Faculty, [facility] Attending Clinician Tal Bishop MD, Audrey Attending Clinician + Lab, [facility] Attending Clinician Unavailable Slime CHAN, Collin Uribe Attending Clinician [phone] Pcp, Patient Does Not Have A Attending Clinician Visit, [facility] Attending Clinician Unamanuel lagunas Lab, [facility] Attending Clinician Unavailable 3, [facility] Usg Room Attending Clinician Unavaila zoya PIERCEP, Judy Attending Clinician [phone] CRISTIN FOURNIER Admitting Clinician Unavailable Cristin Fournier MD Admitting Clinician [phone] Payers Payer Name Policy Type Policy Number Effective Date Expirati on Date Source [facility] [id number] 00:00:00 Problems Condition Name Condition Details Condition Category Status Onset Date Resolution Date Last Treatment Date Treating Clinician Comments Source Well woman exam Well woman exam Disease Active -12 00:00: 00 [facility] Routine follow-up Routine follow-up Disease Active 03-01 00:00: 00 [facility] History of tubal ligation History of tubal ligation Disease Active 02-09 00:00: 00 [facility] delivery, delivered delivery, delivered Disease Active 02-09 00:00: 00 [facility] (spontaneo us vaginal delivery) (spontaneo us vaginal delivery) Disease Active 02-09 00:00: 00 [facility] Single liveborn Single liveborn Disease Active 02-09 00:00: 00 [facility] anemia anemia Disease Active 02-09 00:00: 00 [facility] 33 weeks gestation of 33 weeks gestation of Disease Active 2019-02 2-31 00:00: 00 [facility] premature rupture of membranes (PPROM) with unknown onset of labor premature rupture of membranes (PPROM) with unknown onset of labor Disease Active 2019-02 00:00: 00 [facility] Labor and delivery, indication for care Labor and delivery, indication for care Disease Active 2019-02 00:00: 00 [facility] UTI in UTI in Disease Active 2019-02 00:00: 00 [facility] Morbid obesity with body mass index of 40.0-49.9 Morbid obesity with body mass index of 40.0-49.9 Disease Active 2019-02 00:00: 00 [facility] Obesity (BMI 30-39.9) Obesity (BMI 30-39.9) Disease Active 2019-02 00:00: 00 [facility] Vaginal bleeding during Vaginal bleeding during Disease Active 10-18 00:00: 00 [facility] Cervical Papanicola ou smear negative within last 12 months Cervical Papanicola ou smear negative within last 12 months Disease Active 10-03 00:00: 00 Overview: Formattin g of this note might be different from the original. NIL pap 08/2019 see scanned records [facility] Abnormal maternal glucose tolerance, antepartum Abnormal maternal glucose tolerance, antepartum Disease Active 10-03 00:00: 00 Overview: Failed 1hr gtt, passed 3hr gtt, [facility] Rh negative state in antepartum period Rh negative state in antepartum period Disease Active 09-19 00:00: 00 Overview: Address at 28 weeks [facility] Rubella non-immune status, antepartum Rubella non-immune status, antepartum Disease Active 09-19 00:00: 00 [facility] Susceptibl e to varicella (non-immun e), currently Susceptibl e to varicella (non-immun e), currently Disease Active 09-19 00:00: 00 Overview: Address pp [facility] Supervisio n of high-risk Supervisio n of high-risk Disease Active 09-17 00:00: 00 Overview: See chart review for labs [facility] Multiparit y Multiparit y Disease Active 8- 00:00: 00 [facility] Obesity in Obesity in Disease Active 8 00:00: 00 [facility] Hypothyroi dism in Hypothyroi dism in Disease Active 8- 00:00: 00 [facility] Asthma during Asthma during Disease Active 8- 00:00: 00 Overview: Reports has rescue inhaler [facility] Asthma during Asthma during Disease Active 8 00:00: 00 Overview: Formattin g of this note might be different from the original. Reports has rescue inhaler [facility] Velamentou s insertion of umbilical cord Velamentou s insertion of umbilical cord Disease Active 8 00:00: 00 Overview: Noted on usg report [facility] Hypothyroi dism Hypothyroi dism Disease Active 09-17 00:00: 00 [facility] Allergies, Adverse Reactions, Alerts Allergy Name Allergy Type Status Severity Reaction(s) Onset Date Inactive Date Treating Clinician Comments Source NO KNOWN ALLERGIE S Drug Class Active [facility] Social History Social Habit Start Date Stop Date Quantity Comments Source ASSERTION 2019-07-06 00:00:00 [facility] Gender identity [facility] Sexual orientation U [facility] Exposure to SARS-CoV-2 (event) 2020-12-16 00:00:00 2021-01-15 17:49:00 Not sure [facility] History of Social function 2020-03-22 00:00:00 2020-03-22 00:00:00 [facility] Alcohol intake 2019-10-02 00:00:00 2019-10-02 00:00:00 Ex-drinker (finding) [facility] Tobacco use and exposure 2019-09-18 00:00:00 2019-09-18 00:00:00 Smokeless tobacco non-user [facility] Sex Assigned At 1995 00:00:00 1995 00:00:00 [facility] Smoking Status Start Date Stop Date Source Unknown if ever smoked [facility] Never smoked tobacco [facility] Medications Ordered Medication Name Filled Medication Name Start Date Stop Date Current Medication? Ordering Clinician Indication Dosage Frequency Signature (SIG) Comments Components Source Victoza 2-Avinash 0.6 mg/0.1 mL (18 mg/3 mL) subcutaneou s pen injector 6-21 00:00: 00 Yes (18 mg/3 mL) James Colin levothyroxi ne 175 mcg tablet 6-03 00:00: 00 Yes mcg James Colin Victoza 2-Avinash 0.6 mg/0.1 mL (18 mg/3 mL) subcutaneou s pen injector 6- 00:00: 00 Yes (18 mg/3 mL) James Colin levothyroxi ne 175 mcg tablet 4-16 00:00: 00 Yes mcg James Colin Macrobid 100 mg capsule 3-29 00:00: 00 Yes 1mg James Colin TAKE 1 CAPSULE BY MOUTH TWICE A DAY 329 00:00: 00 Yes James Colin Nexplanon 68 mg subdermal implant 3-11 00:00: 00 Yes 1mg James Colin TAKE 2 TABLETS BY MOUTH 4 TIMES DAILY NEEDED FOR PAIN 3-08 00:00: 00 Yes James Colin TAKE 1 TABLET BY MOUTH TWICE DAILY 3-08 00:00: 00 Yes James Colin TAKE 1 TABLET BY MOUTH DAILY. 2-20 00:00: 00 06-22 00:00 :00 No 175 James Colin metformin ER 500 mg tablet,exte nded release 24 hr 2-07 00:00: 00 Yes mg James Colin TAKE 1 TABLET BY MOUTH ONCE DAILY 1-05 00:00: 00 06-22 00:00 :00 No 500 James Colin TAKE 1 TABLET EVERY MORNING. 2022-02 1-02 00:00: 00 06-22 00:00 :00 No 200 James Colin LEVOTHYROXI N 200MCG 7-27 00:00: 00 Yes James Colin METFORMIN ER 500MG GP 09-03 00:00: 00 Yes James Colin TAKE 1 TABLET BY MOUTH ONCE DAILY 09-02 00:00: 00 06-22 00:00 :00 No 500 James Colin TAKE 1 TABLET EVERY MORNING. 09-02 00:00: 00 06-22 00:00 :00 No 200 James Colin LEVOTHYROXI N 175MCG 08-28 00:00: 00 Yes James Colin CIPRODEX 0.3-0.1% TIANA 08-12 00:00: 00 Yes James Colin ciprofloxac in-dexameth asone 0.3-0.1 % otic drops 08-12 00:00: 00 Yes [id number] 4[drp] Place 4 Drops in right ear in the morning and 4 Drops in the evening. [facility] TRETINOIN 0.1% CRE 6- 00:00: 00 Yes James Colin LEVOTHYROXI N 175MCG 5-30 00:00: 00 Yes [id number] James Colin TAKE 1 TABLET DAILY. 4-28 00:00: 00 06-22 00:00 :00 No 175 James Colin APPLY SPARINGLY TO AFFECTED AREA(S) ONCE DAILY AT BEDTIME. 4- 00:00: 00 06-22 00:00 :00 No 1 Jamse Colin LEVOTHYROXI N 175MCG 3-22 00:00: 00 06-22 00:00 :00 No James Colin TAKE 1 TABLET DAILY. 2-21 00:00: 00 06-22 00:00 :00 No 175 James Colin TAKE 1 TABLET BY MOUTH EVERY DAY IN THE MORNING 2-14 00:00: 00 06-22 00:00 :00 No 150 James Colin LEVOTHYROXI N 150MCG 2021-02 0-07 00:00: 00 06-22 00:00 :00 No [id number] James Colin TAKE 1 TABLET BY MOUTH EVERY DAY IN THE MORNING 2021-02 0-03 00:00: 00 06-22 00:00 :00 No James Colin TAKE 1 TABLET BY MOUTH EVERY DAY IN THE MORNING 9- 00:00: 00 06-22 00:00 :00 No James Colin UNITHROID 150MCG 7- 00:00: 00 06-22 00:00 :00 No [id number] James Colin UNITHROID 150MCG 6- 00:00: 00 06-22 00:00 :00 No [id number] James Colin Dose Unknown - 00:00: 00 Yes James Colin Dose Unknown 06-05 00:00: 00 Yes James Colin UNITHROID 150MCG 06-05 00:00: 00 06-22 00:00 :00 No [id number] James Colin Dose Unknown 4- 00:00: 00 Yes James Colin Dose Unknown - 00:00: 00 Yes James Colin Dose Unknown 4- 00:00: 00 Yes James Colin dexamethaso ne 6 mg tablet 2- 00:00: 00 Yes 1mg James Colin azithromyci n 250 mg tablet 2- 00:00: 00 Yes mg James Colin Dose Unknown 2- 00:00: 00 Yes James Colin Bromfed DM 2 mg-30 mg-10 mg/5 mL oral syrup 2- 00:00: 00 Yes 5mg/5 mL James Colin Dose Unknown 8- 00:00: 00 Yes James Colin Dose Unknown 4-08 00:00: 00 Yes James Colin levothyroxi ne 150 mcg tablet 4-06 00:00: 00 Yes 1mcg James Colin levothyroxi ne 150 mcg tablet 3-08 00:00: 00 Yes 1mcg James Colin vitamin w/FA tablet 1-03 00:00: 00 Yes [id number] 1{tbl} Take 1 tablet by mouth daily. [facility] vitamin w/FA tablet 02-10 00:00: 00 Yes [id number] 1{tbl} Take 1 tablet by mouth daily. [facility] docusate calcium 240 mg capsule 02-10 00:00: 00 Yes [id number] 240mg Take 1 capsule by mouth once daily as needed for Constipati on. [facility] ferrous sulfate 325 mg (65 mg iron) tablet 02-10 00:00: 00 Yes [id number] 325mg Take 1 tablet by mouth 2 (two) times daily. [facility] ibuprofen 600 mg tablet 02-10 00:00: 00 Yes [id number] 600mg Take 1 tablet by mouth every 6 (six) hours as needed (Pain). Take with food or milk. [facility] HYDROcodone -acetaminop hen 5-325 mg tablet 02-10 00:00: 00 02-18 05:59 :00 No [id number] 1{tbl} Take 1 tablet by mouth every 6 (six) hours as needed for Pain (scale 7-10) for up to 7 days. Indication s: acute pain [facility] cephALEXin 500 mg capsule 2019-02 00:00: 00 02-13 05:59 :00 No [id number] 500mg Take 1 capsule by mouth 4 (four) times daily for 7 days. [facility] rho(D) immune globulin (RHOGAM) syringe 300 mcg 2019-02 18:00: 00 01-08 17:06 :00 No [id number] 300ug [facility] Levothyroxi ne 150 mcg capsule 2019-02 00:00: 00 Yes [id number] .15mg Take 1 capsule by mouth daily. [facility] Levothyroxi ne 125 mcg capsule 10-29 00:00: 00 Yes [id number] .125mg Take 1 capsule by mouth daily. [facility] Levothyroxi ne 100 mcg capsule 10-24 00:00: 00 Yes [id number] 100ug Take 1 capsule by mouth daily. [facility] Levothyroxi ne 100 mcg capsule 09-25 18:30: 11 09-24 00:00 :00 No Take by mouth. [facility] PRENATABS RX tablet 09-25 00:00: 00 Yes [id number] TAKE 1 TABLET BY MOUTH ONCE DAILY [facility] PRENATABS RX tablet 09-25 00:00: 00 02-10 00:00 :00 No [id number] TAKE 1 TABLET BY MOUTH ONCE DAILY [facility] Levothyroxi ne 100 mcg capsule 09-25 00:00: 00 10-23 00:00 :00 No [id number] 100ug Take 1 capsule by mouth daily for 30 days. [facility] rho(D) immune globulin (RHOGAM) syringe 300 mcg 09-19 22:30: 00 09-19 21:30 :00 No [id number] 300ug [facility] Levothyroxi ne 100 mcg capsule 09-17 13:58: 14 Yes Take by mouth. [facility] multivitami n ( VITAMIN) tablet 09-17 00:00: 00 09-25 00:00 :00 No [id number] 1{tbl} Take 1 tablet by mouth daily. [facility] levothyroxi ne 100 mcg tablet 08-29 00:00: 00 Yes 1mcg James Colin Macrobid 100 mg capsule 08-29 00:00: 00 Yes 1mg James Colin amoxicillin 875 mg-celeste uribe clavulanate 125 mg tablet 05-24 00:00: 00 Yes 1mg James Colin levothyroxi ne 75 mcg tablet 05-24 00:00: 00 Yes 1mcg James Colin levothyroxi ne 75 mcg tablet [id number] 00:00: 00 Yes 1mcg James Colin levothyroxi ne 100 mcg tablet 2018-02 0-07 00:00: 00 Yes 1mcg James Colin levothyroxi ne 75 mcg tablet 2018-02 0-04 00:00: 00 Yes 1mcg James Colin Bactrim DS 800 mg-160 mg tablet 08-04 00:00: 00 Yes 1mg James Colin levothyroxi ne 75 mcg tablet 08-04 00:00: 00 Yes 1mcg James Colin metformin 500 mg tablet 03-30 00:00: 00 Yes 1mg James Colin azithromyci n 500 mg tablet 2015-02 0 00:00: 00 Yes 2mg James Colin Immunizations Ordered Immunization Name Filled Immunization Name Date Status Comments Source Influenza Virus Vaccine 2021-01-06 00:00:00 Completed [facility] Varicella (varivax)(chicken pox) 2020-02-11 00:00:00 Completed [facility] MMR 2020-02-11 00:00:00 Completed [facility] Rho (d) Immune Globulin 2020-02-11 00:00:00 Completed [facility] Varicella (varivax)(chicken pox) 2020-02-11 00:00:00 Completed [facility] MMR 2020-02-11 00:00:00 Completed [facility] Rho (d) Immune Globulin 2020-02-11 00:00:00 Completed [facility] Varicella (varivax)(chicken pox) 2020-02-11 00:00:00 Completed [facility] MMR 2020-02-11 00:00:00 Completed [facility] Rho (d) Immune Globulin 2020-02-11 00:00:00 Completed [facility] Varicella (varivax)(chicken pox) 2020-02-11 00:00:00 Completed [facility] MMR 2020-02-11 00:00:00 Completed [facility] Rho (d) Immune Globulin 2020-02-11 00:00:00 Completed [facility] Varicella (varivax)(chicken pox) 2020-02-11 00:00:00 Completed [facility] MMR 2020-02-11 00:00:00 Completed [facility] Rho (d) Immune Globulin 2020-02-11 00:00:00 Completed [facility] Varicella (varivax)(chicken pox) 2020-02-11 00:00:00 Completed [facility] MMR 2020-02-11 00:00:00 Completed [facility] Rho (d) Immune Globulin 2020-02-11 00:00:00 Completed [facility] Varicella (varivax)(chicken pox) 2020-02-11 00:00:00 Completed [facility] MMR 2020-02-11 00:00:00 Completed [facility] Rho (d) Immune Globulin 2020-02-11 00:00:00 Completed [facility] Varicella (varivax)(chicken pox) 2020-02-11 00:00:00 Completed [facility] MMR 2020-02-11 00:00:00 Completed [facility] Rho (d) Immune Globulin 2020-02-11 00:00:00 Completed [facility] Varicella (varivax)(chicken pox) 2020-02-11 00:00:00 Completed [facility] MMR 2020-02-11 00:00:00 Completed [facility] Rho (d) Immune Globulin 2020-02-11 00:00:00 Completed [facility] Varicella (varivax)(chicken pox) 2020-02-11 00:00:00 Completed [facility] MMR 2020-02-11 00:00:00 Completed [facility] Rho (d) Immune Globulin 2020-02-11 00:00:00 Completed [facility] TDAP 2020-01-09 00:00:00 Completed [facility] Rho (d) Immune Globulin 2020-01-09 00:00:00 Completed [facility] TDAP 2020-01-09 00:00:00 Completed [facility] Rho (d) Immune Globulin 2020-01-09 00:00:00 Completed [facility] TDAP 2020-01-09 00:00:00 Completed [facility] Rho (d) Immune Globulin 2020-01-09 00:00:00 Completed [facility] TDAP 2020-01-09 00:00:00 Completed [facility] Rho (d) Immune Globulin 2020-01-09 00:00:00 Completed [facility] TDAP 2020-01-09 00:00:00 Completed [facility] Rho (d) Immune Globulin 2020-01-09 00:00:00 Completed [facility] TDAP 2020-01-09 00:00:00 Completed [facility] Rho (d) Immune Globulin 2020-01-09 00:00:00 Completed [facility] TDAP 2020-01-09 00:00:00 Completed [facility] Rho (d) Immune Globulin 2020-01-09 00:00:00 Completed [facility] TDAP 2020-01-09 00:00:00 Completed [facility] Rho (d) Immune Globulin 2020-01-09 00:00:00 Completed [facility] TDAP 2020-01-09 00:00:00 Completed [facility] Rho (d) Immune Globulin 2020-01-09 00:00:00 Completed [facility] TDAP 2020-01-09 00:00:00 Completed [facility] Rho (d) Immune Globulin 2020-01-09 00:00:00 Completed [facility] TDAP 2020-01-09 00:00:00 Completed [facility] Rho (d) Immune Globulin 2020-01-09 00:00:00 Completed [facility] TDAP 2020-01-09 00:00:00 Completed [facility] Rho (d) Immune Globulin 2020-01-09 00:00:00 Completed [facility] TDAP 2020-01-09 00:00:00 Completed [facility] Rho (d) Immune Globulin 2020-01-09 00:00:00 Completed [facility] TDAP 2020-01-09 00:00:00 Completed [facility] Rho (d) Immune Globulin 2020-01-09 00:00:00 Completed [facility] TDAP 2020-01-09 00:00:00 Completed [facility] Rho (d) Immune Globulin 2020-01-09 00:00:00 Completed [facility] TDAP 2020-01-09 00:00:00 Completed [facility] Rho (d) Immune Globulin 2020-01-09 00:00:00 Completed [facility] TDAP 2020-01-09 00:00:00 Completed [facility] Rho (d) Immune Globulin 2020-01-09 00:00:00 Completed [facility] TDAP 2020-01-09 00:00:00 Completed [facility] Rho (d) Immune Globulin 2020-01-09 00:00:00 Completed [facility] TDAP 2020-01-09 00:00:00 Completed [facility] Rho (d) Immune Globulin 2020-01-09 00:00:00 Completed [facility] TDAP 2020-01-09 00:00:00 Completed [facility] Rho (d) Immune Globulin 2020-01-09 00:00:00 Completed [facility] Influenza Virus Vaccine Quad .5 mL IM 6+ MO (FLUZONE/FLULAVAL/F LUARIX) 2019-11-20 00:00:00 Completed [facility] Influenza Virus Vaccine Quad .5 mL IM 6+ MO 2019-11-20 00:00:00 Completed [facility] Influenza Virus Vaccine Quad .5 mL IM 6+ MO 2019-11-20 00:00:00 Completed [facility] Influenza Virus Vaccine Quad .5 mL IM 6+ MO 2019-11-20 00:00:00 Completed [facility] Influenza Virus Vaccine Quad .5 mL IM 6+ MO 2019-11-20 00:00:00 Completed [facility] Influenza Virus Vaccine Quad .5 mL IM 6+ MO 2019-11-20 00:00:00 Completed [facility] Influenza Virus Vaccine Quad .5 mL IM 6+ MO 2019-11-20 00:00:00 Completed [facility] Influenza Virus Vaccine Quad .5 mL IM 6+ MO 2019-11-20 00:00:00 Completed [facility] Influenza Virus Vaccine Quad .5 mL IM 6+ MO 2019-11-20 00:00:00 Completed [facility] Influenza Virus Vaccine Quad .5 mL IM 6+ MO 2019-11-20 00:00:00 Completed [facility] Influenza Virus Vaccine Quad .5 mL IM 6+ MO 2019-11-20 00:00:00 Completed [facility] Influenza Virus Vaccine Quad .5 mL IM 6+ MO 2019-11-20 00:00:00 Completed [facility] Influenza Virus Vaccine Quad .5 mL IM 6+ MO 2019-11-20 00:00:00 Completed [facility] Influenza Virus Vaccine Quad .5 mL IM 6+ MO 2019-11-20 00:00:00 Completed [facility] Influenza Virus Vaccine Quad .5 mL IM 6+ MO 2019-11-20 00:00:00 Completed [facility] Influenza Virus Vaccine Quad .5 mL IM 6+ MO 2019-11-20 00:00:00 Completed [facility] Influenza Virus Vaccine Quad .5 mL IM 6+ MO 2019-11-20 00:00:00 Completed [facility] Influenza Virus Vaccine Quad .5 mL IM 6+ MO 2019-11-20 00:00:00 Completed [facility] Influenza Virus Vaccine Quad .5 mL IM 6+ MO 2019-11-20 00:00:00 Completed [facility] Influenza Virus Vaccine Quad .5 mL IM 6+ MO 2019-11-20 00:00:00 Completed [facility] Influenza Virus Vaccine Quad .5 mL IM 6+ MO 2019-11-20 00:00:00 Completed [facility] Influenza Virus Vaccine Quad .5 mL IM 6+ MO 2019-11-20 00:00:00 Completed [facility] Influenza Virus Vaccine Quad .5 mL IM 6+ MO 2019-11-20 00:00:00 Completed [facility] Influenza Virus Vaccine Quad .5 mL IM 6+ MO 2019-11-20 00:00:00 Completed [facility] Influenza Virus Vaccine Quad .5 mL IM 6+ MO 2019-11-20 00:00:00 Completed [facility] Influenza Virus Vaccine Quad .5 mL IM 6+ MO 2019-11-20 00:00:00 Completed [facility] Influenza Virus Vaccine Quad .5 mL IM 6+ MO 2019-11-20 00:00:00 Completed [facility] Influenza Virus Vaccine Quad .5 mL IM 6+ MO 2019-11-20 00:00:00 Completed [facility] Influenza Virus Vaccine Quad .5 mL IM 6+ MO 2019-11-20 00:00:00 Completed [facility] Influenza Virus Vaccine Quad .5 mL IM 6+ MO 2019-11-20 00:00:00 Completed [facility] Influenza Virus Vaccine Quad .5 mL IM 6+ MO 2019-11-20 00:00:00 Completed [facility] Influenza Virus Vaccine Quad .5 mL IM 6+ MO 2019-11-20 00:00:00 Completed [facility] Rho (d) Immune Globulin 2019-09-20 00:00:00 Completed [facility] Rho (d) Immune Globulin 2019-09-20 00:00:00 Completed [facility] Rho (d) Immune Globulin 2019-09-20 00:00:00 Completed [facility] Rho (d) Immune Globulin 2019-09-20 00:00:00 Completed [facility] Rho (d) Immune Globulin 2019-09-20 00:00:00 Completed [facility] Rho (d) Immune Globulin 2019-09-20 00:00:00 Completed [facility] Rho (d) Immune Globulin 2019-09-20 00:00:00 Completed [facility] Rho (d) Immune Globulin 2019-09-20 00:00:00 Completed [facility] Rho (d) Immune Globulin 2019-09-20 00:00:00 Completed [facility] Rho (d) Immune Globulin 2019-09-20 00:00:00 Completed [facility] Rho (d) Immune Globulin 2019-09-20 00:00:00 Completed [facility] Rho (d) Immune Globulin 2019-09-20 00:00:00 Completed [facility] Rho (d) Immune Globulin 2019-09-20 00:00:00 Completed [facility] Rho (d) Immune Globulin 2019-09-20 00:00:00 Completed [facility] Rho (d) Immune Globulin 2019-09-20 00:00:00 Completed [facility] Rho (d) Immune Globulin 2019-09-20 00:00:00 Completed [facility] Rho (d) Immune Globulin 2019-09-20 00:00:00 Completed [facility] Rho (d) Immune Globulin 2019-09-20 00:00:00 Completed [facility] Rho (d) Immune Globulin 2019-09-20 00:00:00 Completed [facility] Rho (d) Immune Globulin 2019-09-20 00:00:00 Completed [facility] Rho (d) Immune Globulin 2019-09-20 00:00:00 Completed [facility] Rho (d) Immune Globulin 2019-09-20 00:00:00 Completed [facility] Rho (d) Immune Globulin 2019-09-20 00:00:00 Completed [facility] Rho (d) Immune Globulin 2019-09-20 00:00:00 Completed [facility] Rho (d) Immune Globulin 2019-09-20 00:00:00 Completed [facility] Rho (d) Immune Globulin 2019-09-20 00:00:00 Completed [facility] Rho (d) Immune Globulin 2019-09-20 00:00:00 Completed [facility] Rho (d) Immune Globulin 2019-09-20 00:00:00 Completed [facility] Rho (d) Immune Globulin 2019-09-20 00:00:00 Completed [facility] Rho (d) Immune Globulin 2019-09-20 00:00:00 Completed [facility] Rho (d) Immune Globulin 2019-09-20 00:00:00 Completed [facility] Rho (d) Immune Globulin 2019-09-20 00:00:00 Completed [facility] Rho (d) Immune Globulin 2019-09-20 00:00:00 Completed [facility] Rho (d) Immune Globulin 2019-09-20 00:00:00 Completed [facility] Rho (d) Immune Globulin 2019-09-20 00:00:00 Completed [facility] Rho (d) Immune Globulin 2019-09-20 00:00:00 Completed [facility] Rho (d) Immune Globulin 2019-09-20 00:00:00 Completed [facility] Rho (d) Immune Globulin 2019-09-20 00:00:00 Completed [facility] Rho (d) Immune Globulin 2019-09-20 00:00:00 Completed [facility] Rho (d) Immune Globulin 2019-09-20 00:00:00 Completed [facility] Rho (d) Immune Globulin 2019-09-20 00:00:00 Completed [facility] Rho (d) Immune Globulin 2019-09-20 00:00:00 Completed [facility] Rho (d) Immune Globulin 2019-09-20 00:00:00 Completed [facility] Rho (d) Immune Globulin 2019-09-20 00:00:00 Completed [facility] Rho (d) Immune Globulin 2019-09-20 00:00:00 Completed [facility] Rho (d) Immune Globulin 2019-09-20 00:00:00 Completed [facility] Rho (d) Immune Globulin 2019-09-20 00:00:00 Completed [facility] Rho (d) Immune Globulin 2019-09-20 00:00:00 Completed [facility] Rho (d) Immune Globulin 2019-09-20 00:00:00 Completed [facility] Rho (d) Immune Globulin 2019-09-20 00:00:00 Completed [facility] Rho (d) Immune Globulin 2019-09-20 00:00:00 Completed [facility] Rho (d) Immune Globulin 2019-09-20 00:00:00 Completed [facility] Rho (d) Immune Globulin 2019-09-20 00:00:00 Completed [facility] Rho (d) Immune Globulin 2019-09-20 00:00:00 Completed [facility] Rho (d) Immune Globulin 2019-09-20 00:00:00 Completed [facility] Rho (d) Immune Globulin 2019-09-20 00:00:00 Completed [facility] Rho (d) Immune Globulin 2019-09-20 00:00:00 Completed [facility] Rho (d) Immune Globulin 2019-09-20 00:00:00 Completed [facility] Rho (d) Immune Globulin 2019-09-20 00:00:00 Completed [facility] Rho (d) Immune Globulin Unknown Completed [facility] Vital Signs Vital Name Observation Time Observation Value Comments S ource Systolic blood pressure 2022-08-12 22:41:00 133 mm[Hg] [facility] Diastolic blood pressure 2022-08-12 22:41:00 83 mm[Hg] [facility] Heart rate 2022-08-12 22:41:00 63 /min [facility] Body temperature 2022-08-12 22:41:00 36.94 Louise [facility] Respiratory rate 2022-08-12 22:41:00 16 /min [facility] Body height 2022-08-12 22:41:00 165.1 cm [facility] Body weight 2022-08-12 22:41:00 121.927 kg [facility] BMI 2022-08-12 22:41:00 44.73 kg/m2 [facility] Oxygen saturation in Arterial blood by Pulse oximetry 2022-08-12 22:41:00 98 /min [facility] Systolic blood pressure 2020-03-22 19:15:00 131 mm[Hg] [facility] Diastolic blood pressure 2020-03-22 19:15:00 67 mm[Hg] [facility] Heart rate 2020-03-22 19:15:00 66 /min [facility] Body temperature 2020-03-22 19:15:00 36.28 Louise [facility] Respiratory rate 2020-03-22 19:15:00 16 /min [facility] Body height 2020-03-22 19:15:00 165.1 cm [facility] Body weight 2020-03-22 19:15:00 108.551 kg [facility] BMI 2020-03-22 19:15:00 39.82 kg/m2 [facility] Systolic blood pressure 2020-03-01 15:05:00 98 mm[Hg] [facility] Diastolic blood pressure 2020-03-01 15:05:00 64 mm[Hg] [facility] Body temperature 2020-03-01 15:05:00 36.72 Louise [facility] Respiratory rate 2020-03-01 15:05:00 16 /min [facility] Body height 2020-03-01 15:05:00 165.1 cm [facility] Body weight 2020-03-01 15:05:00 107.049 kg [facility] BMI 2020-03-01 15:05:00 39.27 kg/m2 [facility] Systolic blood pressure 2020-02-07 16:57:00 112 mm[Hg] [facility] Diastolic blood pressure 2020-02-07 16:57:00 72 mm[Hg] [facility] Heart rate 2020-02-07 16:57:00 67 /min [facility] Body temperature 2020-02-07 16:57:00 36.61 Louise [facility] Respiratory rate 2020-02-07 16:57:00 16 /min [facility] Body height 2020-02-07 16:57:00 165.1 cm [facility] Body weight 2020-02-07 16:57:00 117.538 kg [facility] BMI 2020-02-07 16:57:00 43.12 kg/m2 [facility] Systolic blood pressure 2020-02-06 19:27:00 135 mm[Hg] [facility] Diastolic blood pressure 2020-02-06 19:27:00 70 mm[Hg] [facility] Heart rate 2020-02-06 19:27:00 79 /min [facility] Body temperature 2020-02-06 19:27:00 36.94 Louise [facility] Respiratory rate 2020-02-06 19:27:00 18 /min [facility] Body height 2020-02-06 19:27:00 165.1 cm [facility] Body weight 2020-02-06 19:27:00 117.935 kg [facility] BMI 2020-02-06 19:27:00 43.27 kg/m2 [facility] Systolic blood pressure 2020-01-23 15:19:00 109 mm[Hg] [facility] Diastolic blood pressure 2020-01-23 15:19:00 65 mm[Hg] [facility] Heart rate 2020-01-23 15:19:00 65 /min [facility] Body temperature 2020-01-23 15:19:00 36.5 Louise [facility] Respiratory rate 2020-01-23 15:19:00 16 /min [facility] Body height 2020-01-23 15:19:00 [facility] 2020-01-23 15:19:00 117.085 kg [facility] BMI 2020-01-23 15:19:00 42.95 kg/m2 [facility] Systolic blood pressure 2020-01-09 16:34:00 107 mm[Hg] [facility] Diastolic blood pressure 2020-01-09 16:34:00 66 mm[Hg] [facility] Heart rate 2020-01-09 16:34:00 52 /min [facility] Body temperature 2020-01-09 16:34:00 36.5 Louise [facility] Respiratory rate 2020-01-09 16:34:00 16 /min [facility] Body height 2020-01-09 16:34:00 165.1 cm [facility] Body weight 2020-01-09 16:34:00 114.306 [facility] BMI 2020-01-09 16:34:00 41.93 kg/m2 [facility] Systolic blood pressure 2020-01-03 14:11:00 115 mm[Hg] [facility] Diastolic blood pressure 2020-01-03 14:11:00 73 mm[Hg] [facility] Heart rate 2020-01-03 14:11:00 73 /min [facility] Body temperature 2020-01-03 14:11:00 35.94 Louise [facility] Respiratory rate 2020-01-03 14:11:00 16 /min [facility] Body height 2020-01-03 14:11:00 165.1 cm [facility] Body weight 2020-01-03 14:11:00 114.448 kg [facility] BMI 2020-01-03 14:11:00 41.99 kg/m2 [facility] Systolic blood pressure 2019-12-20 14:16:00 110 mm[Hg] [facility] Diastolic blood pressure 2019-12-20 14:16:00 73 mm[Hg] [facility] Heart rate 2019-12-20 14:16:00 74 /min [facility] Body temperature 2019-12-20 14:16:00 36.28 Louise [facility] Respiratory rate 2019-12-20 14:16:00 16 /min [facility] Body height 2019-12-20 14:16:00 165.1 cm [facility] Body weight 2019-12-20 14:16:00 113.569 kg [facility] BMI 2019-12-20 14:16:00 41.66 kg/m2 [facility] Systolic blood pressure 2019-11-20 14:32:00 127 mm[Hg] [facility] Diastolic blood pressure 2019-11-20 14:32:00 77 mm[Hg] [facility] Heart rate 2019-11-20 14:32:00 79 /min [facility] Body temperature 2019-11-20 14:32:00 36.22 Louise [facility] Respiratory rate 2019-11-20 14:32:00 16 /min [facility] Body height 2019-11-20 14:32:00 165.1 cm [facility] Body weight 2019-11-20 14:32:00 110.678 kg [facility] BMI 2019-11-20 14:32:00 40.60 kg/m2 [facility] Systolic blood pressure 2019-11-02 13:24:00 121 mm[Hg] [facility] Diastolic blood pressure 2019-11-02 13:24:00 83 mm[Hg] [facility] Heart rate 2019-11-02 13:24:00 82 /min [facility] Body temperature 2019-11-02 13:24:00 36.83 Louise [facility] Respiratory rate 2019-11-02 13:24:00 18 /min [facility] Body height 2019-11-02 13:24:00 165.1 cm [facility] Body weight 2019-11-02 13:24:00 112.492 kg [facility] BMI 2019-11-02 13:24:00 41.27 kg/m2 [facility] Oxygen saturation in Arterial blood by Pulse oximetry 2019-11-02 13:24:00 98 /min [facility] Systolic blood pressure 2019-10-19 13:51:00 111 mm[Hg] [facility] Diastolic blood pressure 2019-10-19 13:51:00 61 mm[Hg] [facility] Heart rate 2019-10-19 13:51:00 69 /min [facility] Body temperature 2019-10-19 13:51:00 36.61 Louise [facility] Respiratory rate 2019-10-19 13:51:00 16 /min [facility] Body height 2019-10-19 13:51:00 165.1 cm [facility] Body weight 2019-10-19 13:51:00 112.634 kg [facility] BMI 2019-10-19 13:51:00 41.32 kg/m2 [facility] Systolic blood pressure 2019-10-02 14:33:00 132 mm[Hg] [facility] Diastolic blood pressure 2019-10-02 14:33:00 73 mm[Hg] [facility] Heart rate 2019-10-02 14:33:00 61 /min [facility] Body temperature 2019-10-02 14:33:00 36.28 Louise [facility] Respiratory rate 2019-10-02 14:33:00 16 /min [facility] Body height 2019-10-02 14:33:00 165.1 cm [facility] Body weight 2019-10-02 14:33:00 112.038 kg [facility] BMI 2019-10-02 14:33:00 41.10 kg/m2 [facility] Systolic blood pressure 2019-09-20 21:15:00 109 mm[Hg] [facility] Diastolic blood pressure 2019-09-20 21:15:00 71 mm[Hg] [facility] Heart rate 2019-09-20 21:15:00 69 /min [facility] Body temperature 2019-09-20 21:15:00 36.94 Louise [facility] Respiratory rate 2019-09-20 21:15:00 16 /min [facility] Body height 2019-09-20 21:15:00 165.1 cm [facility] Body weight 2019-09-20 21:15:00 113.807 kg [facility] BMI 2019-09-20 21:15:00 41.75 kg/m2 [facility] Systolic blood pressure 2019-09-18 13:52:00 115 mm[Hg] [facility] Diastolic blood pressure 2019-09-18 13:52:00 74 mm[Hg] [facility] Heart rate 2019-09-18 13:52:00 68 /min [facility] Body temperature 2019-09-18 13:52:00 36.56 Louise [facility] Respiratory rate 2019-09-18 13:52:00 16 /min [facility] Body height 2019-09-18 13:52:00 165.1 cm [facility] Body weight 2019-09-18 13:52:00 113.172 kg [facility] BMI 2019-09-18 13:52:00 41.52 kg/m2 [facility] BP Systolic 2023-07-30 14:50:00 135 mm[Hg] Step hen F Cristi BP Diastolic 2023-07-30 14:50:00 83 mm[Hg] Mannie phen F Cristi Weight Measured 2023-07-30 14:50:00 267.00 pounds James F Cristi Height Measured 2023-07-30 14:50:00 65.00 inches James F Cristi Body Temperature 2023-07-30 14:50:00 98.00 degrees James F Cristi Heart Rate 2023-07-30 14:50:00 77.00 /min Reshma en F Cristi Respiratory Rate 2023-07-30 14:50:00 18.00 /min James F Cristi BP Systolic 2023-07-12 16:36:00 135 mm[Hg] Step hen F Cristi BP Diastolic 2023-07-12 16:36:00 80 mm[Hg] Mannie phen F Cristi Weight Measured 2023-07-12 16:36:00 269.00 pounds James F Cristi Height Measured 2023-07-12 16:36:00 65.00 inches James F Cristi Body Temperature 2023-07-12 16:36:00 98.40 degrees James F Cristi Heart Rate 2023-07-12 16:36:00 60.00 /min Reshma en F Cristi Respiratory Rate 2023-07-12 16:36:00 17.00 /min James F Cristi BP Systolic 2023-07-12 16:10:00 135 mm[Hg] Step hen F Cristi BP Diastolic 2023-07-12 16:10:00 80 mm[Hg] Mannie phen F Cristi Weight Measured 2023-07-12 16:10:00 269.00 pounds James F Cristi Height Measured 2023-07-12 16:10:00 65.00 inches James F Cristi Body Temperature 2023-07-12 16:10:00 98.40 degrees James F Cristi Heart Rate 2023-07-12 16:10:00 60.00 /min Reshma en F Cristi Respiratory Rate 2023-07-12 16:10:00 17.00 /min James F Cristi BP Systolic 2023-06-23 09:56:00 130 mm[Hg] Step hen F Cristi BP Diastolic 2023-06-23 09:56:00 82 mm[Hg] Mannie phen F Cristi Weight Measured 2023-06-23 09:56:00 270.20 pounds James F Cristi Height Measured 2023-06-23 09:56:00 65.00 inches James F Cristi Body Temperature 2023-06-23 09:56:00 98.30 degrees James F Cristi Heart Rate 2023-06-23 09:56:00 51.00 /min Reshma en F Cristi Respiratory Rate 2023-06-23 09:56:00 16.00 /min James F Cristi BP Systolic 2023-06-14 15:23:00 123 mm[Hg] Step hen F Cristi BP Diastolic 2023-06-14 15:23:00 82 mm[Hg] Mannie phen F Cristi Weight Measured 2023-06-14 15:23:00 271.60 pounds James F Cristi Height Measured 2023-06-14 15:23:00 65.00 inches James F Cristi Body Temperature 2023-06-14 15:23:00 98.40 degrees James F Cristi Heart Rate 2023-06-14 15:23:00 69.00 /min Reshma en F Cristi Respiratory Rate 2023-06-14 15:23:00 19.00 /min James F Cristi BP Systolic 2023-05-07 16:07:00 120 mm[Hg] Step hen F Cristi BP Diastolic 2023-05-07 16:07:00 87 mm[Hg] Mannie phen F Cristi Weight Measured 2023-05-07 16:07:00 267.60 pounds James F Cristi Height Measured 2023-05-07 16:07:00 65.00 inches James F Cristi Body Temperature 2023-05-07 16:07:00 98.30 degrees James F Cristi Heart Rate 2023-05-07 16:07:00 72.00 /min Reshma en F Cristi Respiratory Rate 2023-05-07 16:07:00 18.00 /min James F Cristi BP Systolic 2023-04-12 16:55:00 124 mm[Hg] Step hen F Cristi BP Diastolic 2023-04-12 16:55:00 82 mm[Hg] Mannie phen F Cristi Weight Measured 2023-04-12 16:55:00 268.00 pounds James F Cristi Height Measured 2023-04-12 16:55:00 65.00 inches James F Cristi Body Temperature 2023-04-12 16:55:00 98.40 degrees James F Cristi Heart Rate 2023-04-12 16:55:00 64.00 /min Reshma en F Cristi Respiratory Rate 2023-04-12 16:55:00 18.00 /min James F Cristi BP Systolic 2023-03-17 08:43:00 110 mm[Hg] Step hen F Cristi BP Diastolic 2023-03-17 08:43:00 69 mm[Hg] Mannie phen F Cristi Weight Measured 2023-03-17 08:43:00 269.20 pounds James F Cristi Height Measured 2023-03-17 08:43:00 65.00 inches James F Cristi Body Temperature 2023-03-17 08:43:00 98.20 degrees James F Cristi Heart Rate 2023-03-17 08:43:00 71.00 /min Reshma en F Cristi Respiratory Rate 2023-03-17 08:43:00 17.00 /min James F Cristi BP Systolic 2022-12-10 15:18:00 134 mm[Hg] Step hen F Cristi BP Diastolic 2022-12-10 15:18:00 78 mm[Hg] Mannie phen F Cristi Weight Measured 2022-12-10 15:18:00 268.00 pounds James F Cristi Height Measured 2022-12-10 15:18:00 65.00 inches James F Cristi Body Temperature 2022-12-10 15:18:00 98.00 degrees James F Cristi Heart Rate 2022-12-10 15:18:00 64.00 /min Reshma en F Cristi Respiratory Rate 2022-12-10 15:18:00 16.00 /min James F Cristi BP Systolic 2022-09-08 16:05:00 124 mm[Hg] Step hen F Cristi BP Diastolic 2022-09-08 16:05:00 85 mm[Hg] Mannie phen F Cristi Weight Measured 2022-09-08 16:05:00 270.00 pounds James F Cristi Height Measured 2022-09-08 16:05:00 65.00 inches James F Cristi Body Temperature 2022-09-08 16:05:00 98.20 degrees James F Cristi Heart Rate 2022-09-08 16:05:00 72.00 /min Reshma en F Cristi Respiratory Rate 2022-09-08 16:05:00 19.00 /min James F Cristi BP Systolic 2022-09-01 08:53:00 129 mm[Hg] Step hen F Cristi BP Diastolic 2022-09-01 08:53:00 86 mm[Hg] Mannie phen F Cristi Weight Measured 2022-09-01 08:53:00 272.60 pounds James F Cristi Height Measured 2022-09-01 08:53:00 65.00 inches James F Cristi Body Temperature 2022-09-01 08:53:00 97.90 degrees James F Cristi Heart Rate 2022-09-01 08:53:00 58.00 /min Reshma en F Cristi Respiratory Rate 2022-09-01 08:53:00 James F Cristi BP Systolic 2022-08-28 17:10:00 165 mm[Hg] Step hen F Cristi BP Diastolic 2022-08-28 17:10:00 78 mm[Hg] Mannie phen F Cristi Weight Measured 2022-08-28 17:10:00 273.00 pounds James F Cristi Height Measured 2022-08-28 17:10:00 65.00 inches James F Cristi Body Temperature 2022-08-28 17:10:00 98.00 degrees James F Cristi Heart Rate 2022-08-28 17:10:00 64.00 /min Reshma en F Cristi Respiratory Rate 2022-08-28 17:10:00 James F Cristi BP Systolic 2022-05-29 17:45:00 124 mm[Hg] Step hen F Cristi BP Diastolic 2022-05-29 17:45:00 85 mm[Hg] Mannie phen F Cristi Weight Measured 2022-05-29 17:45:00 267.80 pounds Jamesrosie Colin Height Measured 2022-05-29 17:45:00 65.00 inches James F Cristi Body Temperature 2022-05-29 17:45:00 98.20 degrees James F Cristi Heart Rate 2022-05-29 17:45:00 63.00 /min Reshma en F Cristi Respiratory Rate 2022-05-29 17:45:00 16.00 /min James F Cristi BP Systolic 2022-03-24 16:41:00 133 mm[Hg] Step hen F Cristi BP Diastolic 2022-03-24 16:41:00 84 mm[Hg] Mannie phen F Cristi Weight Measured 2022-03-24 16:41:00 270.60 pounds James Colin Height Measured 2022-03-24 16:41:00 65.00 inches James Colin Body Temperature 2022-03-24 16:41:00 98.30 degrees James Ahmadi Cristi Heart Rate 2022-03-24 16:41:00 89.00 /min Reshma en F Cristi Respiratory Rate 2022-03-24 16:41:00 18.00 /min James Daiana Colin Procedures Procedure Date / Time Performed Performing Clinician Source ASSIGNMENT OF BENEFITS 2022-08-12 22:34:10 Docto r Unassigned, [place] [facility] DME/SUPPLY JUSTIFICATION 2020-02-14 06:01:00 Doc tor Unassigned, [place] [facility] HOSPITAL ADMISSION 2020-02-08 06:01:00 Doctor Un assigned, [place] [facility] POCT URINALYSIS 2020-02-07 16:58:00 Marleny Card [facility] NON-STRESS TEST 2020-02-06 23:42:10 Cristin Fournier [facility] URINALYSIS 2020-02-06 19:48:00 Cristin Fournier [facility] NOTICE OF PRIVACY PRACTICES 2020-02-06 19:05:31 Doctor Unassigned, [place] [facility] CONSENT/REFUSAL FOR DIAGNOSIS AND TREATMENT 2020-02-06 19:05:13 Doctor Unassigned, [place] [facility] ASSIGNMENT OF BENEFITS 2020-02-06 19:05:00 Docto r Unassigned, [place] [facility] POCT URINALYSIS 2020-01-23 15:24:00 Marleny Card [facility] TDAP VACCINE, >11 YRS, IM 2020-01-09 17:05:16 Marleny Card [facility] POCT URINALYSIS 2020-01-09 16:35:00 Marleny Card [facility] STERILIZATION CONSENT FORM 2020-01-09 06:01:00 Doctor Unassigned, [place] [facility] POCT URINALYSIS 2020-01-03 14:14:00 Marleny Card [facility] POCT URINALYSIS 2019-12-20 14:19:00 Marleny Card [facility] SECOND AND THIRD TRIMESTER ULTRASOUND 2019-12-01 20:39:00 Marleny Card [facility] FLU VACC ([phone]), 6+ MONTHS, IM, QUAD 2019-11-20 14:40:35 Marleny Card [facility] POCT URINALYSIS 2019-11-20 14:35:00 Marleny Card [facility] POCT URINALYSIS 2019-10-19 13:52:00 Marleny Card [facility] EXTERNAL PROVIDER RECORDS 2019-10-06 05:01:00 Doctor Unassigned, [place] [facility] REFERRAL- REQUEST/RESPONSE 2019-10-03 05:01:00 Doctor Unassigned, [place] [facility] POCT URINALYSIS 2019-10-02 14:32:00 Marleny Card [facility] EXTERNAL PROVIDER RECORDS 2019-09-28 05:01:00 Doctor Unassigned, [place] [facility] FIRST TRIMESTER TRISOMY SCRN 2019-09-18 18:12:00 Judy Mejía [facility] FIRST TRIMESTER ULTRASOUND 2019-09-18 17:39:00 Marleny Card [facility] POCT URINALYSIS W/O SPECIFIC GRAVITY 2019-09-18 13:48:00 Marleny Card [facility] POCT TEST 2019-09-18 13:47:00 Steve Card [facility] ASSIGNMENT OF BENEFITS 2019-09-18 13:11:19 Docto r Unassigned, [place] [facility] Encounters Start Date/Time End Date/Time Encounter Type Admission Type Attending [facility] Emergency Department Facility Care Department Encounter ID Source 2020-12-07 13:44:24 Outpatient P [facility] [id number] [facility] 2020-12-07 13:38:35 Outpatient P [facility] [id number] [facility] 2023-07-30 14:44:17 2023-07-30 14:44:17 Outpatient [facility] [id number] James Colin 2023-07-30 00:00:00 2023-07-30 00:00:00 Outpatient Visit SFA [id number] James Colin 2023-07-12 16:02:44 2023-07-12 16:02:44 Outpatient [facility] [id number] James Colin 2023-07-12 00:00:00 2023-07-12 00:00:00 Outpatient Visit [facility] [id number] James Colin 2023-06-23 09:43:43 2023-06-23 09:43:43 Outpatient SFA [facility] [id number] James Colin 2023-06-14 15:08:06 2023-06-14 15:08:06 Outpatient S[facility] [id number] James Colin 2023-06-14 00:00:00 2023-06-14 00:00:00 Outpatient Visit SFA [id number] James Colin 2023-05-07 15:59:37 2023-05-07 15:59:37 Outpatient SFA [facility] [id number] James Colin 2023-04-12 16:54:35 2023-04-12 16:54:35 Outpatient S[facility] [id number] James Colin 2023-03-17 08:35:37 2023-03-17 08:35:37 Outpatient [facility] [id number] James Colin 2023-03-05 17:43:08 2023-03-05 17:43:08 Outpatient [facility] [id number] James Colin 2023-03-05 17:40:00 2023-03-05 17:40:00 Outpatient R [facility] [id number] [facility] 2023-02-10 17:40:00 2023-02-10 17:40:00 Outpatient R [facility] [id number] [facility] 2022-12-10 15:03:39 2022-12-10 15:03:39 Outpatient [facility] [id number] James Colin 2022-10-08 00:00:00 2022-10-08 00:00:00 Case Management Lorelei Heard 1.2.840.114 350.1.13.10 4.2.7.2.686 [id number] [facility] 2022-09-08 16:01:19 2022-09-08 16:01:19 Outpatient S[facility] [id number] James Colin 2022-09-01 08:44:40 2022-09-01 08:44:40 Outpatient FROY [facility] [id number] James Colin 2022-08-28 17:04:36 2022-08-28 17:04:36 Outpatient [facility] [id number] James Colin 2022-08-12 17:20:00 2022-08-12 18:03:47 Outpatient R LANA MANZANO [facility] [id number] [facility] 2022-08-12 17:20:00 2022-08-12 18:03:47 Urgent Care Lana Manzano Unknown, Attending [facility] 1.0.114 350.1.13.10 4.2.7.2.686 [id number] [facility] 2022-08-12 00:00:00 2022-08-12 00:00:00 Orders Only Doctor Unassigned, [place] [facility] 1.840.114 350.1.13.10 4.2.7.2.686 [id number] [facility] 2022-05-30 10:26:56 2022-05-30 10:26:56 Outpatient [facility] [id number] James Ahmadi [place] 2022-05-29 17:37:23 2022-05-29 17:37:23 Outpatient [facility] [id number] James Ahmadi [place] 2022-03-24 16:38:12 2022-03-24 16:38:12 Outpatient [facility] [id number] James Ahmadi [place] 2021-01-16 00:00:00 2021-01-16 00:00:00 Telephone Yas Garsia [facility] 1.114 350.1.13.10 4.2.7.2.686 [id number] [facility] 2021-01-15 18:00:00 2021-01-15 18:00:00 Outpatient R ANDREI JOLLY [facility] [id number] [facility] 2021-01-15 17:42:22 2021-01-15 17:57:22 Laboratory Only Only, Ang Db Test Andrei [facility] 1.114 350.1.13.10 4.2.7.2.686 [id number] [facility] 2020-04-30 00:00:00 2020-04-30 00:00:00 Patient Outreach Terry Reynaga [facility] 1.0.114 350.1.13.10 4.2.7.2.686 [id number] [facility] 2020-03-22 13:04:14 2020-03-22 13:42:48 Office Visit Marleny Card Tarah [facility] 1.2.840.114 350.1.13.10 4.2.7.2.686 [id number] [facility] 2020-03-22 13:15:00 2020-03-22 13:15:00 Outpatient R MARLENY CARD [facility] [id number] [facility] 2020-03-01 08:51:54 2020-03-01 09:34:32 Routine Visit Marleny Card [facility] 1.2.840.114 350.1.13.10 4.2.7.2.686 [id number] [facility] 2020-03-01 09:00:00 2020-03-01 09:00:00 Outpatient R MARLENY CARD [facility] [id number] [facility] 2020-02-21 10:30:00 2020-02-21 10:30:00 Outpatient R MARLENY CARD [facility] [id number] [facility] 2020-02-14 00:00:00 2020-02-14 00:00:00 Orders Only Doctor Unassigned, [place] [facility] 1.2.840.114 350.1.13.10 4.2.7.2.686 [id number] [facility] 2020-02-08 00:00:00 2020-02-08 00:00:00 Orders Only Doctor Unassigned, [place] [facility] 1.2.840.114 350.1.13.10 4.2.7.2.686 [id number] [facility] 2020-02-07 10:41:19 2020-02-07 11:09:36 Routine Visit Marleny Card [facility]ILD [facility] 1..840.114 350.1.13.10 4.2.7.2.686 [id number] [facility] 2020-02-07 10:45:00 2020-02-07 10:45:00 Outpatient R MARLENY CARD [facility] [id number] [facility] 2020-02-06 13:02:00 2020-02-06 17:20:00 Hospital Encounter Cristin [facility] 1..840.114 350.1.13.10 4.2.7.2.686 [id number] [facility] 2020-01-23 09:06:51 2020-01-23 09:52:35 Routine Visit Marleny Card [facility] 1.840.114 350.1.13.10 4.2.7.2.686 [id number] [facility] 2020-01-23 09:30:00 2020-01-23 09:30:00 Outpatient R MARLENY CARD [facility] [id number] [facility] 2020-01-22 08:51:59 2020-01-22 09:21:59 Private Investigator Visit Ultrasound, Arthur Sprague Sangeeta [facility]ILD [facility] 1..840.114 350.1.13.10 4.2.7.2.686 [id number] [facility] 2020-01-22 09:00:00 2020-01-22 09:00:00 Outpatient ARTHUR MUÑOZ [facility] [id number] [facility] 2020-01-22 00:00:00 2020-01-22 00:00:00 Abstract Marleny Card [facility] 1.0.114 350.1.13.10 4.2.7.2.686 [id number] [facility] 2020-01-10 14:00:00 2020-01-10 14:00:00 Outpatient R MARLENY CARD [facility] [id number] [facility] 2020-01-09 10:14:35 2020-01-09 11:07:51 Routine Visit Marleny Card Tarah [facility] 1.0.114 350.1.13.10 4.2.7.2.686 [id number] [facility] 2020-01-09 10:15:00 2020-01-09 10:15:00 Outpatient R MARLENY CARD [facility] [id number] [facility] 2020-01-09 00:00:00 2020-01-09 00:00:00 Orders Only Doctor Unassigned, [place] [facility] 1..114 350.1.13.10 4.2.7.2.686 [id number] [facility] 2020-01-03 08:00:18 2020-01-03 08:15:18 Routine Visit Marleny Card [facility] 1..114 350.1.13.10 4.2.7.2.686 [id number] [facility] 2020-01-03 08:00:00 2020-01-03 08:00:00 Outpatient R MARLENY CARD [facility] [id number] [facility] 2019-12-28 00:00:00 2019-12-28 00:00:00 Abstract Marleny Card [facility] 1..114 350.1.13.10 4.2.7.2.686 [id number] [facility] 2019-12-25 08:55:39 2019-12-25 09:25:39 Private Investigator Visit Ultrasound, Arthur Sprague [facility] 1.20.114 350.1.13.10 4.2.7.2.686 [id number] [facility] 2019-12-25 09:00:00 2019-12-25 09:00:00 Outpatient P [facility] [id number] [facility] 2019-12-21 00:00:00 2019-12-21 00:00:00 Telephone Marleny Card [facility] 1.0.114 350.1.13.10 4.2.7.2.686 [id number] [facility] 2019-12-20 07:57:55 2019-12-20 08:38:02 Routine Visit Marleny Card [facility] 1..114 350.1.13.10 4.2.7.2.686 [id number] [facility] 2019-12-20 08:00:00 2019-12-20 08:00:00 Outpatient R MARLENY CARD [facility] [id number] [facility] 2019-12-07 00:00:00 2019-12-07 00:00:00 Abstract Marleny Card [facility] 1..114 350.1.13.10 4.2.7.2.686 [id number] [facility] 2019-12-01 15:05:28 2019-12-01 15:35:28 Private Investigator Visit 1, [facility] 1..114 350.1.13.10 4.2.7.2.686 [id number] [facility] 2019-12-01 15:30:00 2019-12-01 15:30:00 Outpatient P [facility] [id number] [facility] 2019-11-20 09:14:09 2019-11-20 09:58:02 Routine Visit Marleny Card [facility] 1.0.114 350.1.13.10 4.2.7.2.686 [id number] [facility] 2019-11-20 09:15:00 2019-11-20 09:15:00 Outpatient R MARLENY CARD [facility] [id number] [facility] 2019-11-14 00:00:00 2019-11-14 00:00:00 Abstract SanfordMarleny bradley [facility] 1..114 350.1.13.10 4.2.7.2.686 [id number] [facility] 2019-11-09 10:09:26 2019-11-09 11:24:26 Private Investigator Visit Ultrasound, Penelope Newby [facility] 1..114 350.1.13.10 4.2.7.2.686 [id number] [facility] 2019-11-09 10:15:00 2019-11-09 10:15:00 Outpatient P [facility] [id number] [facility] 2019-11-02 08:00:48 2019-11-02 08:20:48 Urgent Care Provider, En Urgent Care Roya Duran [facility] 1..114 350.1.13.10 4.2.7.2.686 [id number] [facility] 2019-11-02 08:00:00 2019-11-02 08:00:00 Outpatient ROYA DAVENPORT [facility] [id number] [facility] 2019-10-30 08:12:51 2019-10-30 08:42:51 Telemedici ne Visit Faculty, Audrey Ceballos [facility] 1.840.114 350.1.13.10 4.2.7.2.686 [id number] [facility] 2019-10-30 08:00:00 2019-10-30 08:00:00 Outpatient R [facility] [id number] [facility] 2019-10-24 00:00:00 2019-10-24 00:00:00 Refill Doctor Unassigned, [place] [facility] .840.114 350.1.13.10 4.2.7.2.686 [id number] [facility] 2019-10-19 08:30:16 2019-10-19 09:27:16 Routine Visit Marleny Card [facility] .840.114 350.1.13.10 4.2.7.2.686 [id number] [facility] 2019-10-19 08:30:00 2019-10-19 08:30:00 Outpatient R MARLENY CARD [facility] [id number] [facility] 2019-10-18 00:00:00 2019-10-18 00:00:00 Patient Secure Msg Doctor Unassigned, [place] [facility] ..114 350.1.13.10 4.2.7.2.686 [id number] [facility] 2019-10-18 00:00:00 2019-10-18 00:00:00 Telephone Marleny Card [facility] 1.2.840.114 350.1.13.10 4.2.7.2.686 [id number] [facility] 2019-10-09 07:49:00 2019-10-09 11:20:05 Private Investigator Visit Lab, Marleny Lanier [facility] 1.2840.114 350.1.13.10 4.2.7.2.686 [id number] [facility] 2019-10-09 07:45:00 2019-10-09 07:45:00 Outpatient R MARLENY CARD [facility] [id number] [facility] 2019-10-06 00:00:00 2019-10-06 00:00:00 Orders Only Doctor Unassigned, [place] [facility] 1.840.114 350.1.13.10 4.2.7.2.686 [id number] [facility] 2019-10-04 00:00:00 2019-10-04 00:00:00 Telephone Marleny Card [facility] 1.840.114 350.1.13.10 4.2.7.2.686 [id number] [facility] 2019-10-03 00:00:00 2019-10-03 00:00:00 Orders Only Doctor Unassigned, [place] [facility] 1.2840.114 350.1.13.10 4.2.7.2.686 [id number] [facility] 2019-10-02 09:22:59 2019-10-02 10:00:57 Routine Visit Faculty, Collin Castellon [facility] 1.2840.114 350.1.13.10 4.2.7.2.686 [id number] [facility] 2019-10-02 09:30:00 2019-10-02 09:30:00 Outpatient R [facility] [id number] [facility] 2019-09-28 00:00:00 2019-09-28 00:00:00 Orders Only Doctor Unassigned, [place] [facility] 1.2.840.114 350.1.13.10 4.2.7.2.686 [id number] [facility] 2019-09-26 00:00:00 2019-09-26 00:00:00 Telephone Marleny Card [facility] 1.2.840.114 350.1.13.10 4.2.7.2.686 [id number] [facility] 2019-09-26 00:00:00 2019-09-26 00:00:00 Telephone Marleny Card [facility] 1.2.840.114 350.1.13.10 4.2.7.2.686 [id number] 107 [id number] [facility] 2019-09-26 00:00:00 2019-09-26 00:00:00 Refill Marleny Card [facility] 1.2.840.114 350.1.13.10 4.2.7.2.686 [id number] [facility] 2019-09-26 00:00:00 2019-09-26 00:00:00 Telephone Pcp, Patient Does Not Have A [facility] 1.2.840.114 350.1.13.10 4.2.7.2.686 [id number] [facility] 2019-09-25 00:00:00 2019-09-25 00:00:00 Refill Marleny Card [facility] 1.2.840.114 350.1.13.10 4.2.7.2.686 [id number] [facility] 2019-09-20 15:54:20 2019-09-20 16:22:14 Nurse Visit Visit, [facility] Nurse Marleny Card [facility] 1.2840.114 350.1.13.10 4.2.7.2.686 [id number] [facility] 2019-09-20 16:00:00 2019-09-20 16:00:00 Outpatient R MARLENY CARD [facility] [id number] [facility] 2019-09-20 00:00:00 2019-09-20 00:00:00 Telephone Marleny Card [facility] 1.0.114 350.1.13.10 4.2.7.2.686 [id number] [facility] 2019-09-18 12:56:28 2019-09-18 14:35:24 Private Investigator Visit Lab, [facility] Unknown, Attending Marleny Card [facility] 1.0.114 350.1.13.10 4.2.7.2.686 [id number] [facility] 2019-09-18 11:32:49 2019-09-18 12:53:44 Private Investigator Visit 3, [facility] Us Room Collin Palencia [facility] 1..114 350.1.13.10 4.2.7.2.686 [id number] [facility] 2019-09-18 08:24:07 2019-09-18 10:56:53 Initial Visit Marleny Card [facility] 1.0.114 350.1.13.10 4.2.7.2.686 [id number] [facility] 2019-09-18 08:30:00 2019-09-18 08:30:00 Outpatient R MARLENY CARD [facility] [id number] [facility] 2019-09-18 00:00:00 2019-09-18 00:00:00 Orders Only Doctor Unassigned, [place] [facility] 1.840.114 350.1.13.10 4.2.7.2.686 [id number] [facility] 2019-09-18 00:00:00 2019-09-18 00:00:00 Case Management Judy Mejía [facility] 1.840.114 350.1.13.10 4.2.7.2.686 [id number] [facility] 2019-09-18 00:00:00 2019-09-18 00:00:00 Abstract Marleny Card [facility] 1..840.114 350.1.13.10 4.2.7.2.686 [id number] 107 [id number] [facility] Results Test Description Test Time Test Comments Results Result Co mments Source James ColinNOTE: [ADDED]2023-07-20 00:00:00* Test Item Value Reference Range Interpretation Comme nts NOTE: (test code = 998) (NOTE) James ColinCOMPREHENSIVE METABOLIC [id number] 00:00:00* Test Item Value Reference Range Interpretation Comme nts GLUCOSE (test code = 2217) 124 MG/DL BUN (test code = 2208) 11 MG/DL CREATININE (test code = 2214) 0.87 MG/DL eGFR (2020 CKD-EPI) (test co de = 96572) 93 ML/MIN/1.73 CALC BUN/CREAT (test code = 2235) 13 RATIO SODIUM (test code = 2231) 139 MEQ/L POTASSIUM (test code = 2228) 4.0 MEQ/L CHLORIDE (test code = 2215) 105 MEQ/L CARBON DIOXIDE (test code = 2206) 21 MEQ/L CALCIUM (test code = 2209) 9.5 MG/DL PROTEIN, TOTAL (test code = 2229) 7.5 G/DL ALBUMIN (test code = 2201) 4.6 G/DL CALC GLOBULIN (test code = 2240) 2.9 G/DL CALC A/G RATIO (test code = 2234) 1.6 RATIO BILIRUBIN, TOTAL (test code = 2207) 0.3 MG/DL ALKALINE PHOSPHATASE (test code = 2204) 57 U/L AST (test code = 2218) 19 U/L ALT (test code = 2219) 41 U/L James ColinLIPID [id number] 00:00:00* Test Item Value Reference Range Interpretation Comme nts CHOLESTEROL (test code = 2210) 183 MG/DL TRIGLYCERIDES (test code = 2232) 200 MG/DL HDL CHOLESTEROL (test code = 2220) 41 MG/DL CALC LDL CHOL (test code = 2237) 110 MG/DL RISK RATIO LDL/HDL (test cod e = 2238) 2.68 RATIO James ColinHEMOGLOBIN [id number] 00:00:00* Test Item Value Reference Range Interpretation Comme nts HEMOGLOBIN A1c (test code = 98510) 6.6 % James Gerber, [id number] 09:07:39SPECIMEN NUMBER: [id number] CULTURE, URINE SPECIMEN NUMBER: [id number] SPECIMEN COMMENT: URINE SOURCE: URINE REPORT STATUS: FINAL ISOLATE NUMBER 1: ORGANISM: 05/10/2023 >100,000 CFU/ML GRAM NEGATIVEBACILLI IDENTIFICATION: 05/11/2023 ESCHERICHIA COLI E. COLI AMOXICILLIN/CA SENSITIVE <=8/4AMPICILLIN SENSITIVE <=8CEFAZOLIN SENSITIVE <=2CEFTRIAXONE SENSITIVE <=1CIPROFLOXACIN SENSITIVE <=1LEVOFLOXACIN SENSITIVE <=2NITROFURANTOIN SENSITIVE <=32PIP/TAZOBAC SENSITIVE <=16TETRACYCLINE SENSITIVE <=4TOBRAMYCIN SENSITIVE <=4TRIMETH/SULFA SENSITIVE <=2/38 NOTE: NUMBERS DISPLAYED REPRESENT MINIMUM INHIBITORY CONCENTRATION (CYNTHIA) WHICH IS EXPRESSED IN MCG/ML. UNLESS OTHERWISE INDICATED, ALL TESTING PERFORMED AT [facility] [address] [place] [id number] PNEUMATIC SYSTEMS OPERATOR: REMBERTO MCELROY M.D. CLIA NUMBER [id number] [place]. [id number], [id number] 00:00:00* Test Item Value Reference Range Interpretation Comme nts CULTURE, URINE (test code = 76045) SPECIMEN NUMBER: [id number] James Gerber, [id number] 00:00:00* Test Item Value Reference Range Interpretation Comme nts CULTURE, URINE (test code = 89208) SPECIMEN NUMBER: [id number] James Gerber, [id number] 00:00:00* Test Item Value Reference Range Interpretation Comme nts CULTURE, URINE (test code = 38913) SPECIMEN NUMBER: [id number] James MendezH, THIRD [id number] 05:22:54* Test Item Value Reference Range Interpretation Comme nts TSH, THIRD GENERATION (test code = 2821) 3.100 UIU/ML 0.400-4.100 FREE [id number] 05:22:54* Test Item Value Reference Range Interpretation Comme nts FREE T3 (test code = 4273) 2.8 PG/ML 2.2-4.2 FREE T4 (THYROXINE)2023-03-18 05:22:54* Test Item Value Reference Range Interpretation Comme nts FREE T4 (THYROXINE) (test code = 2823) 1.34 NG/DL 0.80-1.90 UNLESS OTHERWISE INDICATED, ALL TESTING PERFORMED AT [facility]. [address] [place] [address] PNEUMATIC SYSTEMS OPERATOR: REMBERTO MCELROY M.D. CLIA NUMBER [id number] [place]. [id number] TSH, THIRD [id number] 00:00:00* Test Item Value Reference Range Interpretation Comme nts TSH, THIRD GENERATION (test code = 2821) 3.100 UIU/ML James MartinezEE [id number] 00:00:00* Test Item Value Reference Range Interpretation Comme nts FREE T3 (test code = 4273) 2.8 PG/ML James Moses T4 (THYROXINE)2023-03-18 00:00:00* Test Item Value Reference Range Interpretation Comme nts FREE T4 (THYROXINE) (test co de = 2823) 1.34 NG/DL HADLEY Elizalde [id number] 00:00:00* Test Item Value Reference Range Interpretation Comme nts TSH, THIRD GENERATION (test code = 2821) 3.100 UIU/ML James Moses [id number] 00:00:00* Test Item Value Reference Range Interpretation Comme nts FREE T3 (test code = 4273) 2.8 PG/ML James Moses T4 (THYROXINE)2023-03-18 00:00:00* Test Item Value Reference Range Interpretation Comme nts FREE T4 (THYROXINE) (test co de = 2823) 1.34 NG/DL HADLEY [id number] 00:00:00* Test Item Value Reference Range Interpretation Comme ramesh TSH, THIRD GENERATION (test code = 2821) 3.100 UIU/ML James Moses 00:00:00* Test Item Value Reference Range Interpretation Comme nts FREE T3 (test code = 4273) 2.8 PG/ML James Moses T4 (THYROXINE)2023-03-18 00:00:00* Test Item Value Reference Range Interpretation Comme nts FREE T4 (THYROXINE) (test co de = 2823) 1.34 NG/DL HADLEY Elizalde2023-11-03 05:42:02* Test Item Value Reference Range Interpretation Comme ramesh TSH, HADLEY GENERATION (test code = 2821) 0.257 UIU/ML 0.400-4.100 L UNLESS OTHERWISE INDICATED, ALL TESTING PERFORMED AT [facility] [address] [place] [address] PNEUMATIC SYSTEMS OPERATOR: REMBERTO MCELROY M.D. CLIA NUMBER [id number] [place]. [id number] HEMOGLOBIN [id number] 02:27:39* Test Item Value Reference Range Interpretation Comme nts HEMOGLOBIN A1c (test code = 56478) 6.6 % 4.2-5.6 H [employer] GUIDELINES FOR HGB A1C: [...] ETC.). CONSIDER ALTERNATE TESTING OR LABORATORY CONSULTATION. HEMOGLOBIN [id number] 00:00:00* Test Item Value Reference Range Interpretation Comme ramesh HEMOGLOBIN A1c (test code = 51833) 6.6 % HADLEY Elizalde [id number] 00:00:00* Test Item Value Reference Range Interpretation Comme ramesh TSH, THIRD GENERATION (test code = 2821) 0.257 UIU/ML James ColinHEMOGLOBIN [id number] 00:00:00* Test Item Value Reference Range Interpretation Comme ramesh HEMOGLOBIN A1c (test code = 27847) 6.6 % James Nielson THIRD [id number] 00:00:00* Test Item Value Reference Range Interpretation Comme ramesh TSH, THIRD GENERATION (test code = 2821) 0.257 UIU/ML James ColinHEMOGLOBIN [id number] 00:00:00* Test Item Value Reference Range Interpretation Comme ramesh HEMOGLOBIN A1c (test code = 33851) 6.6 % HADLEY Elizalde [id number] 00:00:00* Test Item Value Reference Range Interpretation Comme ramehs TSH, THIRD GENERATION (test code = 2821) 0.257 UIU/ML HADLEY Elizalde [id number] 06:19:25* Test Item Value Reference Range Interpretation Comme ramesh TSH, THIRD GENERATION (test code = 2821) 49.500 UIU/ML 0.400-4.100 H COMPREHENSIVE METABOLIC [id number] 04:55:46* Test Item Value Reference Range Interpretation Comme ramesh GLUCOSE (test code = 2217) 140 MG/DL 70-99 H BUN (test code = 2208) 11 MG/DL 6-20 CREATININE (test code = 2214) 0.69 MG/DL 0.60-1.30 eGFR (2020 CKD-EPI) (test code = 97512) 122 ML/MIN/1.73 >60 CALC BUN/CREAT (test code = 2235) 16 RATIO 6-28 SODIUM (test code = 2231) 138 MEQ/L 133-146 POTASSIUM (test code = 2228) 4.5 MEQ/L 3.5-5.4 CHLORIDE (test code = 2215) 105 MEQ/L 95-107 CARBON DIOXIDE (test code = 220) 23 MEQ/L 19-31 CALCIUM (test code = 2209) 8.8 MG/DL 8.5-10.5 PROTEIN, TOTAL (test code = 2228) 7.1 G/DL 6.1-8.3 ALBUMIN (test code = 2200) 4.3 G/DL 3.5-5.2 CALC GLOBULIN (test code = 2240) 2.8 G/DL 1.9-3.7 CALC A/G RATIO (test code = 223) 1.5 RATIO 1.0-2.6 BILIRUBIN, TOTAL (test code = 2206) 0.3 MG/DL See_Comment [Automated me ssage] The system which generated this result transmitted reference range: <=1.2. The reference range was not used to interpret this result as normal/abnormal. ALKALINE PHOSPHATASE (test code = 2203) 74 U/L 40-112 AST (test code = 2218) 46 U/L 9-40 H ALT (test code = 2219) 80 U/L 5-40 H LIPID [id number] 04:55:46* Test Item Value Reference Range Interpretation Comme nts CHOLESTEROL (test code = 2210) 173 MG/DL <200 TRIGLYCERIDES (test code = 2232) 615 MG/DL <150 H HDL CHOLESTEROL (test code = 0) 31 MG/DL >39 L CALC LDL CHOL (test code = 223) (NOTE) MG/DL <100 UNABLE TO CALCUL ATE [...] SPECIMENS. FOR MOREINFORMATION, SEE CLIENT ANNOUNCEMENT AT [email or web address] CalcLDL-C RISK RATIO LDL/HDL (test code = 223) (NOTE) RATIO <3.22 UNABLE TO BEKAH CULATE HEMOGLOBIN [id number] 03:46:55* Test Item Value Reference Range Interpretation Comme nts HEMOGLOBIN A1c (test code = 41854) 7.1 % 4.2-5.6 H [employer] GUIDELINES FOR HGB A1C: [...] TESTING PERFORMED AT [facility] [address] [place] [address] PNEUMATIC SYSTEMS OPERATOR: REMBERTO MCELROY M.D. CLIA NUMBER [id number] [place] [place]. [id number] CBC W/AUTO DIFF WITH [id number] 03:10:49* Test Item Value Reference Range Interpretation [...] = 1065) 0.0 /100 WBC'S See_Comment [Automated [employer]ayers[employer] ge] The system which generated this result [...] 0.00-0.10 ABS NUCLEATED RBCS (test code = 75412) 0.00 K/UL 0.00-0.11 TSH, THIRD [id number] 00:00:00* Test Item Value Reference Range Interpretation Comme nts TSH, THIRD GENERATION (test code = 2821) 49.500 UIU/ML James Daiana CristiCBC W/AUTO [id number] 00:00:00* Test Item Value Reference Range Interpretation Comme nts WBC (test code = 1001) 6.4 K/UL RBC (test code = 1002) 4.56 M/UL HEMOGLOBIN (test code = 1003) 13.4 G/DL HEMATOCRIT (test code = 1004) 38.3 % MCV (test code = 1005) 84.0 fL MCH (test code = 1006) 29.4 PG MCHC (test code = 1007) 35.0 G/DL RDW (test code = 1038) 13.6 % NEUTROPHILS (test code = 1008) 58.4 % LYMPHOCYTES (test code = 1010) 33.3 % MONOCYTES (test code = 1011) 5.1 % EOSINOPHILS (test code = 1012) 2.5 % BASOPHILS (test code = 1013) 0.5 % IMMATURE GRANULOCYTES (test code = 1036) 0.2 % NUCLEATED RBCS (test code = 1065) 0.0 /100WBC'S PLATELET COUNT (test code = 1015) 215 K/UL ABSOLUTE NEUTROPHILS (test c ode = 1066) 3.76 K/UL ABSOLUTE LYMPHOCYTES (test c ode = 1067) 2.14 K/UL ABSOLUTE MONOCYTES (test cod e = 1068) 0.33 K/UL ABSOLUTE EOSINOPHILS (test c ode = 1040) 0.16 K/UL ABSOLUTE BASOPHILS (test cod e = 1069) 0.03 K/UL ABS IMMATURE GRANULOCYTES (t est code = 1020) 0.01 K/UL ABS NUCLEATED RBCS (test cod e = 23973) 0.00 K/UL James ColinCOMPREHENSIVE METABOLIC [id number] 00:00:00* Test Item Value Reference Range Interpretation Comme nts GLUCOSE (test code = 2217) 140 MG/DL BUN (test code = 2208) 11 MG/DL CREATININE (test code = 2214) 0.69 MG/DL eGFR (2020 CKD-EPI) (test code = 62473) 122 ML/MIN/1.73 CALC BUN/CREAT (test code = 2235) 16 RATIO SODIUM (test code = 2231) 138 MEQ/L POTASSIUM (test code = 2228) 4.5 MEQ/L CHLORIDE (test code = 2215) 105 MEQ/L CARBON DIOXIDE (test code = 2206) 23 MEQ/L CALCIUM (test code = 2209) 8.8 MG/DL PROTEIN, TOTAL (test code = 2229) 7.1 G/DL ALBUMIN (test code = 2201) 4.3 G/DL CALC GLOBULIN (test code = 2240) 2.8 G/DL CALC A/G RATIO (test code = 2234) 1.5 RATIO BILIRUBIN, TOTAL (test code = 2207) 0.3 MG/DL ALKALINE PHOSPHATASE (test code = 2204) 74 U/L AST (test code = 2218) 46 U/L ALT (test code = 2219) 80 U/L James ColinLIPID [id number] 00:00:00* Test Item Value Reference Range Interpretation Comme nts CHOLESTEROL (test code = 2210) 173 MG/DL TRIGLYCERIDES (test code = 2232) 615 MG/DL HDL CHOLESTEROL (test code = 2220) 31 MG/DL CALC LDL CHOL (test code = 2237) (NOTE) MG/DL RISK RATIO LDL/HDL (test cod e = 2238) (NOTE) RATIO James ColinHEMOGLOBIN [id number] 00:00:00* Test Item Value Reference Range Interpretation Comme nts HEMOGLOBIN A1c (test code = 22302) 7.1 % James MendezH, THIRD [id number] 00:00:00* Test Item Value Reference Range Interpretation Comme nts TSH, THIRD GENERATION (test code = 2821) 49.500 UIU/ML James ColinCBC W/AUTO [id number] 00:00:00* Test Item Value Reference Range Interpretation Comme nts WBC (test code = 1001) 6.4 K/UL RBC (test code = 1002) 4.56 M/UL HEMOGLOBIN (test code = 1003) 13.4 G/DL HEMATOCRIT (test code = 1004) 38.3 % MCV (test code = 1005) 84.0 fL MCH (test code = 1006) 29.4 PG MCHC (test code = 1007) 35.0 G/DL RDW (test code = 1038) 13.6 % NEUTROPHILS (test code = 1008) 58.4 % LYMPHOCYTES (test code = 1010) 33.3 % MONOCYTES (test code = 1011) 5.1 % EOSINOPHILS (test code = 1012) 2.5 % BASOPHILS (test code = 1013) 0.5 % IMMATURE GRANULOCYTES (test code = 1036) 0.2 % NUCLEATED RBCS (test code = 1065) 0.0 /100WBC'S PLATELET COUNT (test code = 1015) 215 K/UL ABSOLUTE NEUTROPHILS (test c ode = 1066) 3.76 K/UL ABSOLUTE LYMPHOCYTES (test c ode = 1067) 2.14 K/UL ABSOLUTE MONOCYTES (test cod e = 1068) 0.33 K/UL ABSOLUTE EOSINOPHILS (test c ode = 1040) 0.16 K/UL ABSOLUTE BASOPHILS (test cod e = 1069) 0.03 K/UL ABS IMMATURE GRANULOCYTES (t est code = 1020) 0.01 K/UL ABS NUCLEATED RBCS (test cod e = 66464) 0.00 K/UL James ColinCOMPREHENSIVE METABOLIC [id number] 00:00:00* Test Item Value Reference Range Interpretation Comme nts GLUCOSE (test code = 2217) 140 MG/DL BUN (test code = 2208) 11 MG/DL CREATININE (test code = 2214) 0.69 MG/DL eGFR (2020 CKD-EPI) (test code = 57794) 122 ML/MIN/1.73 CALC BUN/CREAT (test code = 2235) 16 RATIO SODIUM (test code = 2231) 138 MEQ/L POTASSIUM (test code = 2228) 4.5 MEQ/L CHLORIDE (test code = 2215) 105 MEQ/L CARBON DIOXIDE (test code = 2206) 23 MEQ/L CALCIUM (test code = 2209) 8.8 MG/DL PROTEIN, TOTAL (test code = 2229) 7.1 G/DL ALBUMIN (test code = 2201) 4.3 G/DL CALC GLOBULIN (test code = 2240) 2.8 G/DL CALC A/G RATIO (test code = 2234) 1.5 RATIO BILIRUBIN, TOTAL (test code = 2207) 0.3 MG/DL ALKALINE PHOSPHATASE (test code = 2204) 74 U/L AST (test code = 2218) 46 U/L ALT (test code = 2219) 80 U/L James ColinLIPID [id number] 00:00:00* Test Item Value Reference Range Interpretation Comme nts CHOLESTEROL (test code = 2210) 173 MG/DL TRIGLYCERIDES (test code = 2232) 615 MG/DL HDL CHOLESTEROL (test code = 2220) 31 MG/DL CALC LDL CHOL (test code = 2237) (NOTE) MG/DL RISK RATIO LDL/HDL (test cod e = 2238) (NOTE) RATIO James ColinHEMOGLOBIN [id number] 00:00:00* Test Item Value Reference Range Interpretation Comme nts HEMOGLOBIN A1c (test code = 09112) 7.1 % James ColinTSH, THIRD [id number] 00:00:00* Test Item Value Reference Range Interpretation Comme nts TSH, THIRD GENERATION (test code = 2821) 49.500 UIU/ML James ColinCBC W/AUTO [id number] 00:00:00* Test Item Value Reference Range Interpretation Comme nts WBC (test code = 1001) 6.4 K/UL RBC (test code = 1002) 4.56 M/UL HEMOGLOBIN (test code = 1003) 13.4 G/DL HEMATOCRIT (test code = 1004) 38.3 % MCV (test code = 1005) 84.0 fL MCH (test code = 1006) 29.4 PG MCHC (test code = 1007) 35.0 G/DL RDW (test code = 1038) 13.6 % NEUTROPHILS (test code = 1008) 58.4 % LYMPHOCYTES (test code = 1010) 33.3 % MONOCYTES (test code = 1011) 5.1 % EOSINOPHILS (test code = 1012) 2.5 % BASOPHILS (test code = 1013) 0.5 % IMMATURE GRANULOCYTES (test code = 1036) 0.2 % NUCLEATED RBCS (test code = 1065) 0.0 /100WBC'S PLATELET COUNT (test code = 1015) 215 K/UL ABSOLUTE NEUTROPHILS (test c ode = 1066) 3.76 K/UL ABSOLUTE LYMPHOCYTES (test c ode = 1067) 2.14 K/UL ABSOLUTE MONOCYTES (test cod e = 1068) 0.33 K/UL ABSOLUTE EOSINOPHILS (test c ode = 1040) 0.16 K/UL ABSOLUTE BASOPHILS (test cod e = 1069) 0.03 K/UL ABS IMMATURE GRANULOCYTES (t est code = 1020) 0.01 K/UL ABS NUCLEATED RBCS (test cod e = 30887) 0.00 K/UL James ColinCOMPREHENSIVE METABOLIC [id number] 00:00:00* Test Item Value Reference Range Interpretation Comme nts GLUCOSE (test code = 2217) 140 MG/DL BUN (test code = 2208) 11 MG/DL CREATININE (test code = 2214) 0.69 MG/DL eGFR (2020 CKD-EPI) (test code = 67044) 122 ML/MIN/1.73 CALC BUN/CREAT (test code = 2235) 16 RATIO SODIUM (test code = 2231) 138 MEQ/L POTASSIUM (test code = 2228) 4.5 MEQ/L CHLORIDE (test code = 2215) 105 MEQ/L CARBON DIOXIDE (test code = 2206) 23 MEQ/L CALCIUM (test code = 2209) 8.8 MG/DL PROTEIN, TOTAL (test code = 2229) 7.1 G/DL ALBUMIN (test code = 2201) 4.3 G/DL CALC GLOBULIN (test code = 2240) 2.8 G/DL CALC A/G RATIO (test code = 2234) 1.5 RATIO BILIRUBIN, TOTAL (test code = 2207) 0.3 MG/DL ALKALINE PHOSPHATASE (test code = 2204) 74 U/L AST (test code = 2218) 46 U/L ALT (test code = 2219) 80 U/L James ColinLIPID [id number] 00:00:00* Test Item Value Reference Range Interpretation Comme nts CHOLESTEROL (test code = 2210) 173 MG/DL TRIGLYCERIDES (test code = 2232) 615 MG/DL HDL CHOLESTEROL (test code = 2220) 31 MG/DL CALC LDL CHOL (test code = 2237) (NOTE) MG/DL RISK RATIO LDL/HDL (test cod e = 2238) (NOTE) RATIO James ColinHEMOGLOBIN [id number] 00:00:00* Test Item Value Reference Range Interpretation Comme nts HEMOGLOBIN A1c (test code = 93210) 7.1 % James Nielson THIRD [id number] 02:36:04* Test Item Value Reference Range Interpretation Comme nts TSH, THIRD GENERATION (test code = 2821) 0.466 UIU/ML 0.400-4.100 [facility] has impo rtant pathology staff changes effective 04/08/2022. New pathology staff will provide uninterrupted, excellent patient care and clinical consultation. See URL: [email or web address]. UNLESS OTHERWISE INDICATED, ALL TESTING PERFORMED AT [facility] [address] [place] [address] PNEUMATIC SYSTEMS OPERATOR: REMBERTO MCELROY M.D. CLIA NUMBER [id number] [facility] [place]. [id number] TSH, THIRD [id number] 00:00:00* Test Item Value Reference Range Interpretation Comme nts TSH, THIRD GENERATION (test code = 2821) 0.466 UIU/ML James Nielson THIRD [id number] 00:00:00* Test Item Value Reference Range Interpretation Comme nts TSH, THIRD GENERATION (test code = 2821) 0.466 UIU/ML James MendezH, THIRD [id number] 00:00:00* Test Item Value Reference Range Interpretation Comme nts TSH, THIRD GENERATION (test code = 2821) 0.466 UIU/ML James Nielson THIRD [id number] 04:57:11* Test Item Value Reference Range Interpretation Comme nts TSH, THIRD GENERATION (test code = 2821) >100.000 UIU/ML 0.400-4.100 H [facility] has important pathology staff changes effective 04/08/2022. New pathology staff will provide uninterrupted, excellent patient care and clinical consultation. See URL: [email or web address]. UNLESS OTHERWISE INDICATED, ALL TESTING PERFORMED AT [facility] [address] [place] [address] CLIA: [id number], CAP: [id number] TSH, THIRD [id number] 00:00:00* Test Item Value Reference Range Interpretation Comme nts TSH, THIRD GENERATION (test code = 2821) >100.000 UIU/ML James F AndreaH, THIRD [id number] 00:00:00* Test Item Value Reference Range Interpretation Comme nts TSH, THIRD GENERATION (test code = 2821) >100.000 UIU/ML James F CristiTSH, THIRD [id number] 00:00:00* Test Item Value Reference Range Interpretation Comme nts TSH, THIRD GENERATION (test code = 2821) >100.000 UIU/ML James F [id number] 00:00:00* Test Item Value Reference Range Interpretation Comme nts TSH, THIRD GENERATION (test code = 2821) 3.800 UIU/ML James F [id number] 00:00:00* Test Item Value Reference Range Interpretation Comme nts TSH, THIRD GENERATION (test code = 2821) 3.800 UIU/ML James F [id number] 00:00:00* Test Item Value Reference Range Interpretation Comme nts TSH, THIRD GENERATION (test code = 2821) 3.800 UIU/ML James F [id number] 00:00:00* Test Item Value Reference Range Interpretation Comme nts TSH, THIRD GENERATION (test code = 2821) 2.540 UIU/ML James F AustinCOMPREHENSIVE METABOLIC [id number] 00:00:00* Test Item Value Reference Range Interpretation Comme nts GLUCOSE (test code = 2217) 98 MG/DL BUN (test code = 2208) 17 MG/DL CREATININE (test code = 2214) 0.60 MG/DL eGFR AMER. (test cod e = 27279) 147 ML/MIN/1.73 eGFR NON- AMER. (test code = 08209) 127 ML/MIN/1.73 CALC BUN/CREAT (test code = 2235) 28 RATIO SODIUM (test code = 2231) 141 MEQ/L POTASSIUM (test code = 2228) 4.4 MEQ/L CHLORIDE (test code = 2215) 105 MEQ/L CARBON DIOXIDE (test code = 2206) 27 MEQ/L CALCIUM (test code = 2209) 9.7 MG/DL PROTEIN, TOTAL (test code = 2229) 7.6 G/DL ALBUMIN (test code = 2201) 4.6 G/DL CALC GLOBULIN (test code = 2240) 3.0 G/DL CALC A/G RATIO (test code = 2234) 1.5 RATIO BILIRUBIN, TOTAL (test code = 2207) 0.3 MG/DL ALKALINE PHOSPHATASE (test code = 2204) 59 U/L AST (test code = 2218) 13 U/L ALT (test code = 2219) 18 U/L James ColinLIPID [id number] 00:00:00* Test Item Value Reference Range Interpretation Comme nts CHOLESTEROL (test code = 2210) 177 MG/DL TRIGLYCERIDES (test code = 2232) 145 MG/DL HDL CHOLESTEROL (test code = 2220) 53 MG/DL CALC LDL CHOL (test code = 2237) 99 MG/DL RISK RATIO LDL/HDL (test cod e = 2238) 1.87 RATIO James [id number] 00:00:00* Test Item Value Reference Range Interpretation Comme nts TSH, THIRD GENERATION (test code = 2821) 2.540 UIU/ML James ColinCOMPREHENSIVE METABOLIC [id number] 00:00:00* Test Item Value Reference Range Interpretation Comme nts GLUCOSE (test code = 2217) 98 MG/DL BUN (test code = 2208) 17 MG/DL CREATININE (test code = 2214) 0.60 MG/DL eGFR AMER. (test cod e = 25847) 147 ML/MIN/1.73 eGFR NON- AMER. (test code = 57986) 127 ML/MIN/1.73 CALC BUN/CREAT (test code = 2235) 28 RATIO SODIUM (test code = 2231) 141 MEQ/L POTASSIUM (test code = 2228) 4.4 MEQ/L CHLORIDE (test code = 2215) 105 MEQ/L CARBON DIOXIDE (test code = 2206) 27 MEQ/L CALCIUM (test code = 2209) 9.7 MG/DL PROTEIN, TOTAL (test code = 2229) 7.6 G/DL ALBUMIN (test code = 2201) 4.6 G/DL CALC GLOBULIN (test code = 2240) 3.0 G/DL CALC A/G RATIO (test code = 2234) 1.5 RATIO BILIRUBIN, TOTAL (test code = 2207) 0.3 MG/DL ALKALINE PHOSPHATASE (test code = 2204) 59 U/L AST (test code = 2218) 13 U/L ALT (test code = 2219) 18 U/L James ColinLIPID [id number] 00:00:00* Test Item Value Reference Range Interpretation Comme nts CHOLESTEROL (test code = 2210) 177 MG/DL TRIGLYCERIDES (test code = 2232) 145 MG/DL HDL CHOLESTEROL (test code = 2220) 53 MG/DL CALC LDL CHOL (test code = 2237) 99 MG/DL RISK RATIO LDL/HDL (test cod e = 223) 1.87 RATIO James [id number] 00:00:00* Test Item Value Reference Range Interpretation Comme nts TSH, THIRD GENERATION (test code = 2821) 2.540 UIU/ML James ColinCOMPREHENSIVE METABOLIC [id number] 00:00:00* Test Item Value Reference Range Interpretation Comme nts GLUCOSE (test code = 2217) 98 MG/DL BUN (test code = 2208) 17 MG/DL CREATININE (test code = 2214) 0.60 MG/DL eGFR AMER. (test cod e = 69800) 147 ML/MIN/1.73 eGFR NON- AMER. (test code = 81989) 127 ML/MIN/1.73 CALC BUN/CREAT (test code = 2235) 28 RATIO SODIUM (test code = 2231) 141 MEQ/L POTASSIUM (test code = 2228) 4.4 MEQ/L CHLORIDE (test code = 2215) 105 MEQ/L CARBON DIOXIDE (test code = 2206) 27 MEQ/L CALCIUM (test code = 2209) 9.7 MG/DL PROTEIN, TOTAL (test code = 2229) 7.6 G/DL ALBUMIN (test code = 2201) 4.6 G/DL CALC GLOBULIN (test code = 2240) 3.0 G/DL CALC A/G RATIO (test code = 2234) 1.5 RATIO BILIRUBIN, TOTAL (test code = 2207) 0.3 MG/DL ALKALINE PHOSPHATASE (test code = 2204) 59 U/L AST (test code = 2218) 13 U/L ALT (test code = 2219) 18 U/L James Ahmadi AustinLIPID [id number] 00:00:00* Test Item Value Reference Range Interpretation Comme nts CHOLESTEROL (test code = 2210) 177 MG/DL TRIGLYCERIDES (test code = 2232) 145 MG/DL HDL CHOLESTEROL (test code = 2220) 53 MG/DL CALC LDL CHOL (test code = 2237) 99 MG/DL RISK RATIO LDL/HDL (test cod e = 2238) 1.87 RATIO James ColinPOCT URINALYSIS W SPECIFIC [id number] 16:58:00* Test Item Value Reference Range Interpretation [...] POCT U APPEAR (test code = 3267) [facility] [id number] 23:44:45 Reactive and reassuringToco with irritability Cristin Fournier MD ?02/06/2020 ?5:43 PMUnHouston [facility] HospitalUrinalysis2020-12-29 20:58:00* Test Item Value Reference Range Interpretation Comme nts APPEARANCE (test code = 7236885722) Clear Clear COLOR (test code = 5185745779) Straw Yellow A PH (test code = 4977155859) 4.8-8.0 SP GRAVITY (test code = 9649895638) 1.003-1.030 GLU U QUAL (test code = 5968144592) Normal Normal BLOOD (test code = 0822267675) Negative Negative KETONES (test code = 4969891445) Negative Negative PROTEIN (test code = 2887-8) Negative Negative UROBILIN (test code = 0175452862) Normal Normal BILIRUBIN (test code = 6047304489) Negative Negative NITRITE (test code = 7136652375) Negative Negative LEUK VIKKI (test code = 7153016473) 75/uL Negative A RBC/HPF (test code = 9528135966) <1 See_Comment [Automated [employer] ge] The system which generated this result transmitted reference range: 0 - 3 HPF. The reference range was not used to interpret this result as normal/abnormal. WBC/HPF (test code = 7580675144) See_Comment [Automated [employer]] The system which generated this result transmitted reference range: 0 - 5 HPF. The reference range was not used to interpret this result as normal/abnormal. BACTERIA (test code = 7080158749) Many Negative A SQ EPITH (test code = 6782580221) HPF Lab Interpretation (test code = 62020-5) Abnormal [facility] URINALYSIS W SPECIFIC [id number] 15:24:00* Test Item Value Reference Range Interpretation [...] code = 3259) Trace Negative - Negat roaslee POCT U GLU (test code = 3256) [...] POCT U APPEAR (test code = 3267) [facility] URINALYSIS W SPECIFIC [id number] 15:24:00* Test Item Value Reference Range Interpretation [...] POCT U APPEAR (test code = 3267) [facility] URINALYSIS W SPECIFIC [id number] 15:24:00* Test Item Value Reference Range Interpretation [...] POCT U APPEAR (test code = 3267) [facility] URINALYSIS W SPECIFIC [id number] 16:36:00* Test Item Value Reference Range Interpretation [...] POCT U APPEAR (test code = 3267) [facility] URINALYSIS W SPECIFIC [id number] 14:14:00* Test Item Value Reference Range Interpretation [...] POCT U APPEAR (test code = 3267) [facility] URINALYSIS W SPECIFIC [id number] 14:14:00* Test Item Value Reference Range Interpretation [...] POCT U APPEAR (test code = 3267) [facility] URINALYSIS W SPECIFIC [id number] 14:19:00* Test Item Value Reference Range Interpretation [...] POCT U APPEAR (test code = 3267) [facility] URINALYSIS W SPECIFIC [id number] 14:19:00* Test Item Value Reference Range Interpretation [...] POCT U APPEAR (test code = 3267) [facility] URINALYSIS W SPECIFIC [id number] 14:19:00* Test Item Value Reference Range Interpretation [...] POCT U APPEAR (test code = 3267) [facility] URINALYSIS W SPECIFIC [id number] 14:35:00* Test Item Value Reference Range Interpretation [...] POCT U APPEAR (test code = 3267) [facility] URINALYSIS W SPECIFIC [id number] 13:52:00* Test Item Value Reference Range Interpretation [...] POCT U APPEAR (test code = 3267) [facility] URINALYSIS W SPECIFIC [id number] 14:33:00* Test Item Value Reference Range Interpretation [...] 3267) Lab Interpretation (test cod e = 96569-1) [facility] [id number] 16:03:00* Test Item Value Reference Range Interpretation Comme nts CRL (test code = 5440861183) 63.95 mm GEST. AGE (test code = 2802024791) 12,4 INS. DEP (test code = 6074368623) No MULT GEST (test code = 6571270319) No NT (test code = 4965393103) 1.80 mm NTD HX (test code = 1812373012) No RACE (test code = 3174379337) [employer]OR[employer] TE[employer]ER (test code = 5966738846) BHCG MoM (test code = 9196062036) CRL GEST (test code = 4840083360) 12 weeks 5 days, from CRL of 64.0 mm on 09/18/19 EQ AGE RSK (test code = 3709597521) < 15.0 less than that o f a 15.0 year old DS APR (test code = 4565358708) 1:990 DS INTERP (test code = 9625214135) See Note The risk of Down syndrome is LESS than the screening cut-off. DS RSK (test code = 0139677764) 1:36205 The [facility] time is equal to 1:68069 DS SCRN (test code = 4072701195) Negative TRISOMY 18 (test code = 6754703272) See Note The risk of trisomy 18 is less than the screening cut-off. ES RSK (test code = 2818209395) 1:1480 The risk of Trisomy 18 is equal to 1:1480The Trisomy 18 cut-off is 1:147 ES SCRN (test code = 6506243395) Negative NT MoM (test code = 0163996076) BHCG DOWNS (test code = 8626140045) INTERPRETATION (test code = 4210880224) N INTERPRETATIO N: SCREEN NEGATIVE Down Syndrome and Trisomy 18 JACKI-A (test code = 3720199254) 452.5 ng/mL JACKI-A MoM (test code = 9108884496) US DATE (test code = 4009405151) WEIGHT (test code = 3226431054) lbs SMOKER (test code = [id number]) No [facility] URINALYSIS W/O SPECIFIC [id number] 13:48:00* Test Item Value Reference Range Interpretation [...] = 3257) Large Negative - Negati ve [facility] URINALYSIS W/O SPECIFIC [id number] 13:48:00* Test Item Value Reference Range Interpretation [...] = 3257) Large Negative - Negati ve [facility] URINALYSIS W/O SPECIFIC [id number] 13:48:00* Test Item Value Reference Range Interpretation [...] = 3257) Large Negative - Negati ve [facility] [id number] 13:47:00* Test Item Value Reference Range Interpretation Comme nts POCT PREG (test code = 1605) Positive On board controls acceptable with C Line (test code = 3574) Yes POCT PREG LOT # (test code = 3575) POCT PREG TEST DATE ( test code = 3576) [facility] [id number] 13:47:00* Test Item Value Reference Range Interpretation Comme nts POCT PREG (test code = 1605) Positive On board controls acceptable with C Line (test code = 3574) Yes POCT PREG LOT # (test code = 3575) POCT PREG TEST DATE ( test code = 3576) [facility] [id number] 13:47:00* Test Item Value Reference Range Interpretation Comme nts POCT PREG (test code = 1605) Positive On board controls acceptable with C Line (test code = 3574) Yes POCT PREG LOT # (test code = 3575) POCT PREG TEST DATE ( test code = 3576) [facility], GESTATIONAL, DIAGNOSTIC, 100 GM [id number] 00:00:00* Test Item Value Reference Range Interpretation Comme nts GLUCOSE, FASTING (test code = 19827) TEST NOT PERFORMED MG/DL GLUCOSE, 1 HR (test code = ) 174 MG/DL GLUCOSE, 2 HR (test code = ) 168 MG/DL GLUCOSE, 3 HR (test code = ) 113 MG/DL James F AustinGLUCOSE TOLERANCE, 3 HR, GESTATIONAL, DIAGNOSTIC, 100 GM LOAD 2019-09-05 00:00:00* Test Item Value Reference Range Interpretation Comme nts GLUCOSE, FASTING (test code = ) TEST NOT PERFORMED MG/DL GLUCOSE, 1 HR (test code = ) 174 MG/DL GLUCOSE, 2 HR (test code = ) 168 MG/DL GLUCOSE, 3 HR (test code = ) 113 MG/DL James F AustinGLUCOSE TOLERANCE, 3 HR, GESTATIONAL, DIAGNOSTIC, 100 GM LOAD 2019-09-05 00:00:00* Test Item Value Reference Range Interpretation Comme nts GLUCOSE, FASTING (test code = ) TEST NOT PERFORMED MG/DL GLUCOSE, 1 HR (test code = ) 174 MG/DL GLUCOSE, 2 HR (test code = ) 168 MG/DL GLUCOSE, 3 HR (test code = ) 113 MG/DL James F AustinDRUG ABUSE PANEL 10 WITH [id number] 00:00:00* Test Item Value Reference Range Interpretation Comme nts AMPHETAMINES (test code = 3201) TEST NOT PERFORMED BARBITURATES (test code = 3202) TEST NOT PERFORMED BENZODIAZEPINES (test code = 3203) TEST NOT PERFORMED CANNABINOIDS (test code = 3204) TEST NOT PERFORMED COCAINE METABOLITE (test code = 3205) TEST NOT PERFORMED OPIATES (test code = 3209) TEST NOT PERFORMED OXYCODONE (test code = 68632) TEST NOT PERFORMED PHENCYCLIDINE (test code = 3210) TEST NOT PERFORMED METHADONE (test code = 3207) TEST NOT PERFORMED BUPRENORPHINE (test code = 96935) TEST NOT PERFORMED James F AustinDRUG ABUSE PANEL 10 WITH [id number] 00:00:00* Test Item Value Reference Range Interpretation Comme nts AMPHETAMINES (test code = 3201) TEST NOT PERFORMED BARBITURATES (test code = 3202) TEST NOT PERFORMED BENZODIAZEPINES (test code = 3203) TEST NOT PERFORMED CANNABINOIDS (test code = 3204) TEST NOT PERFORMED COCAINE METABOLITE (test code = 3205) TEST NOT PERFORMED OPIATES (test code = 3209) TEST NOT PERFORMED OXYCODONE (test code = 78719) TEST NOT PERFORMED PHENCYCLIDINE (test code = 3210) TEST NOT PERFORMED METHADONE (test code = 3207) TEST NOT PERFORMED BUPRENORPHINE (test code = 93623) TEST NOT PERFORMED Jamesrosie ColinDRUG ABUSE PANEL 10 WITH [id number] 00:00:00* Test Item Value Reference Range Interpretation Comme nts AMPHETAMINES (test code = 3201) TEST NOT PERFORMED BARBITURATES (test code = 3202) TEST NOT PERFORMED BENZODIAZEPINES (test code = 3203) TEST NOT PERFORMED CANNABINOIDS (test code = 3204) TEST NOT PERFORMED COCAINE METABOLITE (test code = 3205) TEST NOT PERFORMED OPIATES (test code = 3209) TEST NOT PERFORMED OXYCODONE (test code = 49758) TEST NOT PERFORMED PHENCYCLIDINE (test code = 3210) TEST NOT PERFORMED METHADONE (test code = 3207) TEST NOT PERFORMED BUPRENORPHINE (test code = 24640) TEST NOT PERFORMED James ColinCULTURE, [id number] 00:00:00* Test Item Value Reference Range Interpretation Comme nts CULTURE, URINE (test code = 52520) SPECIMEN NUMBER: [id number] James ColinCULTURE, [id number] 00:00:00* Test Item Value Reference Range Interpretation Comme nts CULTURE, URINE (test code = 01112) SPECIMEN NUMBER: [id number] James ColinCULTURE, [id number] 00:00:00* Test Item Value Reference Range Interpretation Comme nts CULTURE, URINE (test code = 34184) SPECIMEN NUMBER: [id number] James ColinOBSTETRIC PANEL + [id number] 00:00:00* Test Item Value Reference Range Interpretation Comme nts WBC (test code = 1001) 7.9 K/UL RBC (test code = 1002) 4.39 M/UL HEMOGLOBIN (test code = 1003) 13.1 G/DL HEMATOCRIT (test code = 1004) 38.0 % MCV (test code = 1005) 86.6 fL MCH (test code = 1006) 29.8 PG MCHC (test code = 1007) 34.5 G/DL RDW (test code = 1038) 12.8 % NEUTROPHILS (test code = 1008) 68.3 % LYMPHOCYTES (test code = 1010) 27.1 % MONOCYTES (test code = 1011) 3.2 % EOSINOPHILS (test code = 1012) 0.9 % BASOPHILS (test code = 1013) 0.5 % PLATELET COUNT (test code = 1015) 254 K/UL BLOOD TYPE AND RH (test code = 3901) A NEGATIVE ANTIBODY SCREEN (test code = 3902) NEGATIVE RUBELLA ANTIBODY SCREEN (test code = 4600) 69 IU/ML RUBELLA IgG INTERP (test code = 38135) REACTIVE HEPATITIS B SURF AG (test code = 2739) NON-REACTIVE RPR (test code = 11691) NON-REACTIVE RPR TITER (test code = 3500) NOT INDIC. TITER HIV 1/2 4TH GEN, RFLX CONF (test code = 3514) NON-REACTIVE James ColinHEPATITIS C REFLEX [id number] 00:00:00* Test Item Value Reference Range Interpretation Comme nts HEPATITIS C ANTIBODY (test c ode = 4675) NON-REACTIVE James ColinPAP TEST, THINPREP, [id number] 00:00:00* Test Item Value Reference Range Interpretation Comme nts SOURCE: (test code = 8001) Cervical/Endocervical SLIDES: (test code = 8011) 1 LMP: (test code = 8021) 05/09/2019 SPECIMEN ADEQUACY: (test code = 19706) (NOTE) INTERPRETATION: (test code = 12801) NILM/NO EPITH. ABNORMALITY;SEE BELOW POSTING SPECIALIST: (test code = 8101) ELINA Mccloud(ASCP) [facility] LOCATION: (test code = 39149) (NOTE) CPT: (test code = 8140) (NOTE) James Ahmadi AustinHEMOGLOBIN [id number] 00:00:00* Test Item Value Reference Range Interpretation Comme nts HEMOGLOBIN A1 (test code = 2575) 96.9 % HEMOGLOBIN A2 (test code = 2576) 3.1 % HEMOGLOBIN F () (test c ode = 2722) 0.0 % HEMOGLOBIN S (test code = 2724) NONE % HEMOGLOBIN C (test code = 2726) NONE % OTHER HEMOGLOBIN VARIANT (te st code = 02353) NONE DETEC % PATHOLOGIST'S INTERPRETATION (test code = 2577) (NOTE) James Ahmadi AustinHPV HIGH RISK WITH GENOTYPE, [id number] 00:00:00* Test Item Value Reference Range Interpretation Comme nts HPV HIGH RISK INTERP (test c ode = 27886) NEGATIVE HPV 16 (test code = 93692) NEGATIVE HPV 18 (test code = 99181) NEGATIVE HPV, HR, OTHER GENOTYPES (te st code = 64880) NEGATIVE James ColinVARICELLA ZOSTER [id number] 00:00:00* Test Item Value Reference Range Interpretation Comme nts VARICELLA ZOSTER IgG (test c ode = 45112) 23 INDEX James [id number] 00:00:00* Test Item Value Reference Range Interpretation Comme nts TSH, THIRD GENERATION (test code = 2821) 10.200 UIU/ML James ColinGLUCOSE, 1 HR, GESTATIONAL SCREEN, 50 GM [id number] 00:00:00 * Test Item Value Reference Range Interpretation Comme nts GLUCOSE 1 HR POST 50 GM (margaux t code = 2005) 178 MG/DL James ColinVAGINAL PATHOGENS DNA [id number] 00:00:00* Test Item Value Reference Range Interpretation Comme nts KATIANA SPECIES (test code = 76985) NEGATIVE G. VAGINALIS (test code = 76709) NEGATIVE T. VAGINALIS (test code = 32735) NEGATIVE James ColinHEMOGLOBIN [id number] 00:00:00* Test Item Value Reference Range Interpretation Comme nts HEMOGLOBIN A1c (test code = 35982) 5.5 % James ColinOBSTETRIC PANEL + [id number] 00:00:00* Test Item Value Reference Range Interpretation Comme nts WBC (test code = 1001) 7.9 K/UL RBC (test code = 1002) 4.39 M/UL HEMOGLOBIN (test code = 1003) 13.1 G/DL HEMATOCRIT (test code = 1004) 38.0 % MCV (test code = 1005) 86.6 fL MCH (test code = 1006) 29.8 PG MCHC (test code = 1007) 34.5 G/DL RDW (test code = 1038) 12.8 % NEUTROPHILS (test code = 1008) 68.3 % LYMPHOCYTES (test code = 1010) 27.1 % MONOCYTES (test code = 1011) 3.2 % EOSINOPHILS (test code = 1012) 0.9 % BASOPHILS (test code = 1013) 0.5 % PLATELET COUNT (test code = 1015) 254 K/UL BLOOD TYPE AND RH (test code = 3901) A NEGATIVE ANTIBODY SCREEN (test code = 3902) NEGATIVE RUBELLA ANTIBODY SCREEN (test code = 4600) 69 IU/ML RUBELLA IgG INTERP (test code = 29462) REACTIVE HEPATITIS B SURF AG (test code = 2739) NON-REACTIVE RPR (test code = 88974) NON-REACTIVE RPR TITER (test code = 3500) NOT INDIC. TITER HIV 1/2 4TH GEN, RFLX CONF (test code = 3514) NON-REACTIVE James ColinGC AND CHLAMYDIA AMPLIFIED, [id number] 00:00:00* Test Item Value Reference Range Interpretation Comme nts GONORRHEA, TMA (test code = 04517) NEGATIVE CHLAMYDIA, TMA (test code = 38848) NEGATIVE James ColinHEPATITIS C REFLEX [id number] 00:00:00* Test Item Value Reference Range Interpretation Comme nts HEPATITIS C ANTIBODY (test c ode = 4675) NON-REACTIVE James ColinPAP TEST, THINPREP, [id number] 00:00:00* Test Item Value Reference Range Interpretation Comme nts SOURCE: (test code = 8001) Cervical/Endocervical SLIDES: (test code = 8011) 1 LMP: (test code = 8021) 05/09/2019 SPECIMEN ADEQUACY: (test code = 75389) (NOTE) INTERPRETATION: (test code = 81010) NILM/NO EPITH. ABNORMALITY;SEE BELOW POSTING SPECIALIST: (test code = 8101) ELINA Mccloud(ASCP) [facility] LOCATION: (test code = 49865) (NOTE) CPT: (test code = 8140) (NOTE) James ColinHPV HIGH RISK WITH GENOTYPE, [id number] 00:00:00* Test Item Value Reference Range Interpretation Comme nts HPV HIGH RISK INTERP (test c ode = 66584) NEGATIVE HPV 16 (test code = 31329) NEGATIVE HPV 18 (test code = 53884) NEGATIVE HPV, HR, OTHER GENOTYPES (te st code = 85079) NEGATIVE James ColinHEMOGLOBIN [id number] 00:00:00* Test Item Value Reference Range Interpretation Comme nts HEMOGLOBIN A1 (test code = 2575) 96.9 % HEMOGLOBIN A2 (test code = 2576) 3.1 % HEMOGLOBIN F () (test c ode = 2722) 0.0 % HEMOGLOBIN S (test code = 2724) NONE % HEMOGLOBIN C (test code = 2726) NONE % OTHER HEMOGLOBIN VARIANT (te st code = 94053) NONE DETEC % PATHOLOGIST'S INTERPRETATION (test code = 2577) (NOTE) James ColinVARICELLA ZOSTER [id number] 00:00:00* Test Item Value Reference Range Interpretation Comme nts VARICELLA ZOSTER IgG (test c ode = 39449) 23 INDEX James [id number] 00:00:00* Test Item Value Reference Range Interpretation Comme nts TSH, THIRD GENERATION (test code = 2821) 10.200 UIU/ML James ColinGLUCOSE, 1 HR, GESTATIONAL SCREEN, 50 GM [id number] 00:00:00 * Test Item Value Reference Range Interpretation Comme ramesh GLUCOSE 1 HR POST 50 GM (margaux t code = 2005) 178 MG/DL James ColinVAGINAL PATHOGENS DNA [id number] 00:00:00* Test Item Value Reference Range Interpretation Comme nts KATIANA SPECIES (test code = 87343) NEGATIVE G. VAGINALIS (test code = 98272) NEGATIVE T. VAGINALIS (test code = 79117) NEGATIVE James ColinHEMOGLOBIN [id number] 00:00:00* Test Item Value Reference Range Interpretation Comme ramesh HEMOGLOBIN A1c (test code = 19923) 5.5 % James ColinOBSTETRIC PANEL + [id number] 00:00:00* Test Item Value Reference Range Interpretation Comme ramesh WBC (test code = 1001) 7.9 K/UL RBC (test code = 1002) 4.39 M/UL HEMOGLOBIN (test code = 1003) 13.1 G/DL HEMATOCRIT (test code = 1004) 38.0 % MCV (test code = 1005) 86.6 fL MCH (test code = 1006) 29.8 PG MCHC (test code = 1007) 34.5 G/DL RDW (test code = 1038) 12.8 % NEUTROPHILS (test code = 1008) 68.3 % LYMPHOCYTES (test code = 1010) 27.1 % MONOCYTES (test code = 1011) 3.2 % EOSINOPHILS (test code = 1012) 0.9 % BASOPHILS (test code = 1013) 0.5 % PLATELET COUNT (test code = 1015) 254 K/UL BLOOD TYPE AND RH (test code = 3901) A NEGATIVE ANTIBODY SCREEN (test code = 3902) NEGATIVE RUBELLA ANTIBODY SCREEN (test code = 4600) 69 IU/ML RUBELLA IgG INTERP (test code = 77184) REACTIVE HEPATITIS B SURF AG (test code = 2739) NON-REACTIVE RPR (test code = 42397) NON-REACTIVE RPR TITER (test code = 3500) NOT INDIC. TITER HIV 1/2 4TH GEN, RFLX CONF (test code = 3514) NON-REACTIVE James Ahmadi AustinGC AND CHLAMYDIA AMPLIFIED, [id number] 00:00:00* Test Item Value Reference Range Interpretation Comme nts GONORRHEA, TMA (test code = 97049) NEGATIVE CHLAMYDIA, TMA (test code = 92527) NEGATIVE James ColinPAP TEST, THINPREP, [id number] 00:00:00* Test Item Value Reference Range Interpretation Comme nts SOURCE: (test code = 8001) Cervical/Endocervical SLIDES: (test code = 8011) 1 LMP: (test code = 8021) 05/09/2019 SPECIMEN ADEQUACY: (test code = 51947) (NOTE) INTERPRETATION: (test code = 48623) NILM/NO EPITH. ABNORMALITY;SEE BELOW POSTING SPECIALIST: (test code = 8101) ELINA Mccloud(ASCP) [facility] LOCATION: (test code = 11175) (NOTE) CPT: (test code = 8140) (NOTE) James Ahmadi AustinHEPATITIS C REFLEX [id number] 00:00:00* Test Item Value Reference Range Interpretation Comme nts HEPATITIS C ANTIBODY (test c ode = 4675) NON-REACTIVE James Ahmadi AustinHPV HIGH RISK WITH GENOTYPE, [id number] 00:00:00* Test Item Value Reference Range Interpretation Comme nts HPV HIGH RISK INTERP (test c ode = 56870) NEGATIVE HPV 16 (test code = 01672) NEGATIVE HPV 18 (test code = 06686) NEGATIVE HPV, HR, OTHER GENOTYPES (te st code = 06825) NEGATIVE James Ahmadi AustinHEMOGLOBIN [id number] 00:00:00* Test Item Value Reference Range Interpretation Comme nts HEMOGLOBIN A1 (test code = 2575) 96.9 % HEMOGLOBIN A2 (test code = 2576) 3.1 % HEMOGLOBIN F () (test c ode = 2722) 0.0 % HEMOGLOBIN S (test code = 2724) NONE % HEMOGLOBIN C (test code = 2726) NONE % OTHER HEMOGLOBIN VARIANT (te st code = 63907) NONE DETEC % PATHOLOGIST'S INTERPRETATION (test code = 2577) (NOTE) James ColinVARICELLA ZOSTER [id number] 00:00:00* Test Item Value Reference Range Interpretation Comme ramesh VARICELLA ZOSTER IgG (test c ode = 86393) 23 INDEX James Ahmadi [id number] 00:00:00* Test Item Value Reference Range Interpretation Comme nts TSH, THIRD GENERATION (test code = 2821) 10.200 UIU/ML James ColinGLUCOSE, 1 HR, GESTATIONAL SCREEN, 50 GM [id number] 00:00:00 * Test Item Value Reference Range Interpretation Comme ramesh GLUCOSE 1 HR POST 50 GM (margaux t code = 2005) 178 MG/DL James ColinVAGINAL PATHOGENS DNA [id number] 00:00:00* Test Item Value Reference Range Interpretation Comme ramesh KATIANA SPECIES (test code = 66790) NEGATIVE G. VAGINALIS (test code = 95946) NEGATIVE T. VAGINALIS (test code = 51688) NEGATIVE James ColinHEMOGLOBIN [id number] 00:00:00* Test Item Value Reference Range Interpretation Comme ramesh HEMOGLOBIN A1c (test code = 30610) 5.5 % James ColinGC AND CHLAMYDIA AMPLIFIED, [id number] 00:00:00* Test Item Value Reference Range Interpretation Comme ramesh GONORRHEA, TMA (test code = 48799) NEGATIVE CHLAMYDIA, TMA (test code = 82411) NEGATIVE James Ahmadi [id number] 00:00:00* Test Item Value Reference Range Interpretation Comme nts TSH, THIRD GENERATION (test code = 2821) 4.610 UIU/ML James Ahmadi [id number] 00:00:00* Test Item Value Reference Range Interpretation Comme nts TSH, THIRD GENERATION (test code = 2821) 4.610 UIU/ML James Ahmadi [id number] 00:00:00* Test Item Value Reference Range Interpretation Comme nts TSH, THIRD GENERATION (test code = 2821) 4.610 UIU/ML James Ahmadi [id number] 00:00:00* Test Item Value Reference Range Interpretation Comme nts TSH, THIRD GENERATION (test code = 2821) 28.700 UIU/ML James Ahmadi [id number] 00:00:00* Test Item Value Reference Range Interpretation Comme nts TSH, THIRD GENERATION (test code = 2821) 28.700 UIU/ML James Ahmadi [id number] 00:00:00* Test Item Value Reference Range Interpretation Comme nts TSH, THIRD GENERATION (test code = 2821) 28.700 UIU/ML James ColinCULTURE, [id number] 00:00:00* Test Item Value Reference Range Interpretation Comme nts CULTURE, URINE (test code = 62902) SPECIMEN NUMBER: [id number] James ColinCULTURE, [id number] 00:00:00* Test Item Value Reference Range Interpretation Comme nts CULTURE, URINE (test code = 60873) SPECIMEN NUMBER: [id number] James Ahmadi AustinCULTURE, [id number] 00:00:00* Test Item Value Reference Range Interpretation Comme nts CULTURE, URINE (test code = 41942) SPECIMEN NUMBER: [id number] James Ahmadi AustinHEMOGLOBIN [id number] 00:00:00* Test Item Value Reference Range Interpretation Comme nts HEMOGLOBIN A1c (test code = 01900) 5.3 % James Ahmadi [id number] 00:00:00* Test Item Value Reference Range Interpretation Comme nts TSH, THIRD GENERATION (test code = 2821) 34.410 UIU/ML James Ahmadi AustinHEMOGLOBIN [id number] 00:00:00* Test Item Value Reference Range Interpretation Comme nts HEMOGLOBIN A1c (test code = 96556) 5.3 % James Ahmadi [id number] 00:00:00* Test Item Value Reference Range Interpretation Comme nts TSH, THIRD GENERATION (test code = 2821) 34.410 UIU/ML James Ahmadi AustinHEMOGLOBIN [id number] 00:00:00* Test Item Value Reference Range Interpretation Comme nts HEMOGLOBIN A1c (test code = 09527) 5.3 % James [id number] 00:00:00* Test Item Value Reference Range Interpretation Comme nts TSH, THIRD GENERATION (test code = 2821) 34.410 UIU/ML James ColinGC AND CHLAMYDIA, AMPLIFIED, [id number] 00:00:00* Test Item Value Reference Range Interpretation Comme nts GONORRHEA, TMA (test code = 70479) NEGATIVE CHLAMYDIA, TMA (test code = 09698) NEGATIVE James ColinGC AND CHLAMYDIA, AMPLIFIED, [id number] 00:00:00* Test Item Value Reference Range Interpretation Comme nts GONORRHEA, TMA (test code = 25573) NEGATIVE CHLAMYDIA, TMA (test code = 92114) NEGATIVE James ColinGC AND CHLAMYDIA, AMPLIFIED, [id number] 00:00:00* Test Item Value Reference Range Interpretation Comme nts GONORRHEA, TMA (test code = 82362) NEGATIVE CHLAMYDIA, TMA (test code = 86884) NEGATIVE James ColinGC AND CHLAMYDIA, AMPLIFIED, [id number] 00:00:00* Test Item Value Reference Range Interpretation Comme nts GONORRHEA, TMA (test code = 44427) NEGATIVE CHLAMYDIA, TMA (test code = 01513) POSITIVE James ColinGC AND CHLAMYDIA, AMPLIFIED, [id number] 00:00:00* Test Item Value Reference Range Interpretation Comme nts GONORRHEA, TMA (test code = 11628) NEGATIVE CHLAMYDIA, TMA (test code = 79501) POSITIVE James ColinGC AND CHLAMYDIA, AMPLIFIED, [id number] 00:00:00* Test Item Value Reference Range Interpretation Comme nts GONORRHEA, TMA (test code = 09094) NEGATIVE CHLAMYDIA, TMA (test code = 88754) POSITIVE James Colin Notes Date/Time Note Provider Source James Colin [facility]2024-06-03 00:00:00 Plan Activity Depo Provera 150 mg IM RTC 3 months for Depo Provera Safe sex Await lab results Medication side effects given 2015-09-10 Weight management Portion Control Exercise 2015-09-10 Depo Provera 150 mg IM given . RTC 3 months for Depo Provera Medication side effects given Resend GC/CT Await diagnostic results 2015-11-26 patient treated but partner wasn't, resend cx today, if positive patient advised that both she and her partner will need treatment 2016-02-11 UA/URINE CULTURE Prescribed Macrobid BID x 7 days Drink plenty of water and stay well hydrated. Practice good perineal hygiene by wiping vagina from front to back. Wash perineal area daily with mild soap and water. Monitor for fever Discussed purpose and side effects of medication Follow up in 4 days if symptoms do not improve. 2016-02-11 warm compresses for 15 minut es four times/day. RTO or call if the swelling or pain increased, or if changes in vision or generalized symptoms such as fever or swollen glands 2017-03-30 control portions , manage we ight discuss the risk involved in increasing weight and insulin resistance 2017-03-30 Labs: TSH Continue Levothyroxine 175 mcg FU in 3 months 2023-03-17 Advice to hold off on AZO un til repeat urine sample recommend mhbi-xqf-xdaauvg Tylenol/ibuprofen as needed for pain patient will stop by clinic tomorrow to provide urine UA with possible culture push fluids, limit caffeine/juices/sodas proper perineal hygiene 2018-08-04 discussed various BC options with pt -pt agreed to do Nexplanon PT shall RTC for placement 2023-06-14 Participate in physical acti vities and exercise. 30 of moderate aerobic exercise 5 times a week. Increase your activity as tolerated. 2023-06-23 Recommend healthy eating with foods from a variety of food groups, appropriate portion sizes, and few sugary snacks/drinks. Well-rounded, whole foods diet focused on fresh vegetables and fruits, lean proteins. Avoid sugary drinks. Avoid fried, greasy foods. Portion control. 2023-06-23 UPT negative sprintec prescribed. SE discussed take as instructed RTO if symptoms persist or worsen 2018-08-24 amoxicillin-pot clavulanate 875-125mg 1 tablet by mouth BID recommend nasal saline spray 2 sprays in each nostril QID, warm salt water gargles 3-4 times a day. drink at least 64 ounces of water per day. warm compress to sinuses QID. recommend soft foods, warm chamomile/green tea with lemon RTO if symptoms do not improve or worsen in 5-7 days 2019-05-25 UPT + in office advised that UPT is 99% accurate confirmation result given to pt start prenatals prescribed. take daily advised to schedule w/ OBGYN 2019-08-14 Continue PNV Miscarriage precautions given RTO for scheduled OB appt 2019-08-15 Wet mount - results pending 2019-08-15 UTD on PAP Labd done today pending RTC in 1 year for WAE 2020-04-15 UTP negative 2023-06-23 Limit fat intake to no more than 20% to 35% of your total calorie intake. For a person following a 1,800-calorie diet, this means eating no more than 40 to 70 grams of fat each day. Choose complex carbohydrates, such as whole grains, vegetables, and fruits. About 45% to 65% of your total calorie intake should come from carbohydrate. For someone following a 1,800-calorie diet, this means eating about 200 to 300 grams of carbohydrate each day. Choose low-fat protein sources, such as fish, poultry, and legumes (for example, yang beans, lentils, and split peas). About 10% to 35% of your total calorie intake should come from protein. For someone following a 1,800-calorie diet, this means eating about 45 to 160 grams of protein each day. Get enough fiber each day. Men should aim for 38 grams a day, and women should aim for 25 grams a day. Have no more than 1 alcohol drink a day for women and 2 alcohol drinks a day for men. 2023-03-17 azithromycin 250mg Add'l Sig tablet by mouth take 2 tabs day 1, then 1 tab daily the last 4 days dexamethasone 6mg 1 tablet by mouth DAILY Bromfed DM 2-30-10mg/5 mL 5 ml by mouth Q6-8h benzonatate 200mg 1 capsule by mouth Q8h 2021-02-04 Auto-Add by COVID19 Screen Import 2-01 Heart Healthy diet, exercise , weight management Increase exercise to 45 minutes per day at least 4-5 times per week. Heart healthy, low sugar, low carb diet Return for wellness exam at earliest convenience if have not been in for past year for this exam 2021-10-18 CBC, CMP, lipid 2022-08-28 A1C 2022-08-28 Labs: CMP, lipid, A1C Hold Metformin 500 XL - pt states she does not need refills RX VIctoza. as pt desires a medication for weight loss RTO for DM eye exam Therapeutic lifestyle changes RTC 3 months for follow-up 2023-03-17 Labs: Lipid Patient education Therapeutic lifestyle changes RTC 3 months for follow-up 2022-09-08 reviewed and discussed 2022-09-08 Pt decline prescription for acne Pt desires to start control. Pt agreed to have nexplanon placed 2023-04-13 Nexplanon insertion RTC 3 years for reinsertion 2023-06-23 Discussed weight loss option s. Pt desires to start Victoza Medication side effects per pharmacy and verbal prescription given Pt denies h/o MTC or pancreatitis 2023-07-12 [facility]2024-05-06 00:00:00 Plan Activity Depo Provera 150 mg IM RTC 3 months for Depo Provera Safe sex Await lab results Medication side effects given 2015-09-10 Weight management Portion Control Exercise 2015-09-10 Depo Provera 150 mg IM given . RTC 3 months for Depo Provera Medication side effects given Resend GC/CT Await diagnostic results 2015-11-26 patient treated but partner wasn't, resend cx today, if positive patient advised that both she and her partner will need treatment 2016-02-11 UA/URINE CULTURE Prescribed Macrobid BID x 7 days Drink plenty of water and stay well hydrated. Practice good perineal hygiene by wiping vagina from front to back. Wash perineal area daily with mild soap and water. Monitor for fever Discussed purpose and side effects of medication Follow up in 4 days if symptoms do not improve. 2016-02-11 warm compresses for 15 minut es four times/day. RTO or call if the swelling or pain increased, or if changes in vision or generalized symptoms such as fever or swollen glands 2017-03-30 control portions , manage we ight discuss the risk involved in increasing weight and insulin resistance 2017-03-30 TSH, T3, T4 refill pending labs will send more refills pending labs RTC 8 weeks for follow-up 2023-03-17 Advice to hold off on AZO un til repeat urine sample recommend [id number] Tylenol/ibuprofen as needed for pain patient will stop by clinic tomorrow to provide urine UA with possible culture push fluids, limit caffeine/juices/sodas proper perineal hygiene 2018-08-04 discussed various BC options with pt -pt agreed to do Nexplanon PT shall RTC for placement 2023-06-14 UPT negative sprintec prescribed. SE discussed take as instructed RTO if symptoms persist or worsen 2018-08-24 amoxicillin-pot clavulanate 875-125mg 1 tablet by mouth BID recommend nasal saline spray 2 sprays in each nostril QID, warm salt water gargles 3-4 times a day. drink at least 64 ounces of water per day. warm compress to sinuses QID. recommend soft foods, warm chamomile/green tea with lemon RTO if symptoms do not improve or worsen in 5-7 days 2019-05-25 UPT + in office advised that UPT is 99% accurate confirmation result given to pt start prenatals prescribed. take daily advised to schedule w/ OBGYN 2019-08-14 Continue PNV Miscarriage precautions given RTO for scheduled OB appt 2019-08-15 Wet mount - results pending 2019-08-15 UTD on PAP Labd done today pending RTC in 1 year for WAE 2020-04-15 UTP negative 2023-06-14 Limit fat intake to no more than 20% to 35% of your total calorie intake. For a person following a 1,800-calorie diet, this means eating no more than 40 to 70 grams of fat each day. Choose complex carbohydrates, such as whole grains, vegetables, and fruits. About 45% to 65% of your total calorie intake should come from carbohydrate. For someone following a 1,800-calorie diet, this means eating about 200 to 300 grams of carbohydrate each day. Choose low-fat protein sources, such as fish, poultry, and legumes (for example, yang beans, lentils, and split peas). About 10% to 35% of your total calorie intake should come from protein. For someone following a 1,800-calorie diet, this means eating about 45 to 160 grams of protein each day. Get enough fiber each day. Men should aim for 38 grams a day, and women should aim for 25 grams a day. Have no more than 1 alcohol drink a day for women and 2 alcohol drinks a day for men. 2023-03-17 azithromycin 250mg Add'l Sig tablet by mouth take 2 tabs day 1, then 1 tab daily the last 4 days dexamethasone 6mg 1 tablet by mouth DAILY Bromfed DM 2-30-10mg/5 mL 5 ml by mouth Q6-8h benzonatate 200mg 1 capsule by mouth Q8h 2021-02-04 Auto-Add by COVID19 Screen Import 2-01 Heart Healthy diet, exercise , weight management Increase exercise to 45 minutes per day at least 4-5 times per week. Heart healthy, low sugar, low carb diet Return for wellness exam at earliest convenience if have not been in for past year for this exam 2021-10-18 CBC, CMP, lipid 2022-08-28 A1C 2022-08-28 refill Metformin 500 XL Therapeutic lifestyle changes RTC 3 months for follow-up 2023-03-17 Patient education Therapeutic lifestyle changes RTC 3 months for follow-up 2022-09-08 reviewed and discussed 2022-09-08 Pt decline prescription for acne Pt desires to start control. Pt agreed to have nexplanon placed 2023-04-13 [facility]
[2023-09-07] MEDS ORDERED: ONDANSETRON 4 MG/2 ML VIAL ONE (20:04)
[2023-09-07] MEDS ORDERED: NA CHLORIDE 0.9% 1,000 ML ONE ×2 (20:05→20:55)
[2023-09-07 20:20] LABS: Absolute Lymphocytes (CBC) 1.1 K/uL (0.7-4.9); Absolute Monocytes 0.6 K/uL (0.1-1.3); Absolute Neutrophil 5.9 K/uL (1.8-8.0); Basophils % 0.3 % (0-1.3); Eosinophils % 0.1 % (0-4.4); Lymphocytes % 14.8 % (15.3-44.8); MCH 28.7 pg (27.0-35.0); MCHC 31.3 g/dL (32.0-36.0); MCV 91.8 fL (80-100); MPV 11.7 fL (7.6-11.3); Monocytes % 7.5 % (3.3-12.3); Neutrophils % 77.3 % (41.7-73.7); Nucleated Red Blood Cells % 0.1 % (0-0); Platelets 281 thou/uL (152-406); RBC Red Blood Cell Count 5.22 M/uL (3.86-4.86); Red Cell Distribution Width 15.2 % (12.1-15.2)
[2023-09-07 20:35] LABS: Albumin 4.1 g/dL (3.4-5.0); Albumin/Globulin Ratio 0.9 (1.1-1.8); Anion Gap 27.6 mEq/L (5.0-15.0); Globulin 4.4 g/dL (2.3-3.5); Potassium 4.6 mEq/L (3.5-5.1); Protein, Total 8.5 g/dL (6.4-8.2)
[2023-09-07] MEDS ORDERED: NA CHLORIDE 0.9% 100 ML ONE (20:55)
[2023-09-07] MEDS ORDERED: INSULIN REGULAR (HUMAN) 100 UNIT/ML ONE (20:55)
[2023-09-07 21:04] LABS: Arterial Blood Carboxyhemoglob 1.2 % (0-1.5); Blood Gas THB 15.6 g/dl (12-18); Blood O2 Saturation 97.3 % (92-98.5)
--- NOTE | 2023-09-07 21:24 | EDPHYS ---
Physician Documentation [facility] Name: Suzanne Sanchez Age: 28 yrs Sex: Female : 1995 Arrival Date: 09/07/2023 Time: 19:33 Bed 4 Private MD: ED Physician Skyler Gramajo HPI: 09/06 20:53 This 28 yrs old Female presents to ER via Ambulatory with complaints of kb Nausea/Vomiting, Dizziness. 20:53 Pt is a 28 year old female who presents for nausea and vomiting that started 4 days kb ago. States she has become dizzy since yesterday. Unable to tolerate po intake. Reports urinary frequency. DIRECTOR OF THERAPY SERVICES: 19:57 LMP 08/23/2023, unknown cm10 Historical: - Allergies: 19:57 No Known Allergies; cm10 - PMHx: 19:57 Diabetes - NIDDM; Hypothyroidism; cm10 - Immunization history:: Adult Immunizations up to date. - Infectious Disease History:: Denies. - Social history:: Smoking status: Patient denies any tobacco usage or history of. ROS: 20:54 Constitutional: As per HPI kb Exam: 20:54 Constitutional: This is a well developed, well nourished patient who is awake, alert, kb and in no acute distress. Head/Face: Normocephalic, atraumatic. ENT: Moist Mucous membranes Cardiovascular: Regular rate Respiratory: Respirations even and unlabored. No increased work of breathing. Talking in full sentences Abdomen/GI: Soft, non-tender. No distention Skin: Warm, dry with normal turgor. Normal color. MS/ Extremity: Pulses equal, no cyanosis. Neurovascular intact. Full, normal range of motion. Neuro: Awake and alert, GCS 15, oriented to person, place, time, and situation. Moves all extremities. Normal gait. Vital Signs: 19:56 BP 176 / 104; Pulse 122; Resp 18; Temp 97.5; Pulse Ox 99% on R/A; Weight 120.2 kg; cm10 Height 5 ft. 5 in. ; Pain 0/10; 21:12 BP 149 / 99; Pulse 109; Resp 24; Temp 97.5; Pulse Ox 100% ; Pain 0/10; bm8 23:57 BP 134 / 80; Pulse 105; Resp 25; Temp 97.5; Pulse Ox 98% ; Pain 0/10; bm8 19:56 Body Mass Index 44.10 (120.20 kg, 165.1 cm) cm10 19:56 Pain Scale: Adult cm10 21:12 Pain Scale: Adult bm8 23:57 Pain Scale: Adult bm8 Olya Coma Score: 21:12 Eye Response: spontaneous(4). Motor Response: obeys commands(6). Verbal Response: bm8 oriented(5). Total: 15. 23:57 Eye Response: spontaneous(4). Motor Response: obeys commands(6). Verbal Response: bm8 oriented(5). Total: 15. MDM: 19:47 Patient medically screened. kb 21:01 Data reviewed: vital signs, nurses notes. kb 21:22 Differential diagnosis: hyperglycemia, abnormal electrolytes, DKA. Consideration of kb Admission/Observation Patient was admitted/placed on observation. Escalation of care including admission/observation considered. Management of patient was discussed with the following: Hospitalist: Dr Carranza accepts pt for admission. Counseling: I had a detailed discussion with the patient and/or guardian regarding the historical points, exam findings, and any diagnostic results supporting the discharge/admit diagnosis, lab results, the need for further work-up and treatment in the hospital. 09/06 19:52 Order name: CBC with Diff; Complete Time: 20:35 cm10 09/06 19:52 Order name: CMP; Complete Time: 20:41 cm10 09/06 19:52 Order name: Lipase; Complete Time: 20:41 cm10 09/06 19:52 Order name: Test, Urine [facility] 09/06 19:52 Order name: Urinalysis w/ reflexes [facility] 09/06 20:07 Order name: Glucose, Ancillary Testing; Complete Time: 20:07 EDMS 09/06 20:51 Order name: ABG; Complete Time: 21:22 kb 09/06 22:06 Order name: BMP; Complete Time: 22:48 kd3 09/06 23:42 Order name: BMP kd3 09/06 19:52 Order name: IV Saline Lock; Complete Time: 20:04 cm10 09/06 19:52 Order name: Labs collected and sent; Complete Time: 20:04 cm10 09/06 19:56 Order name: Blood Glucose Level; Complete Time: 20:04 kb Administered Medications: 20:09 Drug: NS 0.9% IV 1000 ml IV at 1 bolus Per protocol; 1000 mL bolus Route: IV; Rate: 1 cm10 bolus; Site: right antecubital; 22:25 Follow up: Response: No adverse reaction; IV Status: Completed infusion; IV Intake: bm8 1000ml 20:09 Drug: Ondansetron IVP 4 mg IVP once; over 2 minutes Route: IVP; Site: right antecubital;cm10 21:18 Follow up: Response: No adverse reaction bm8 21:17 Drug: NS 0.9% IV 1000 ml IV at 1000 ml once Route: IV; Rate: 1000 ml; Site: right bm8 antecubital; 22:25 Follow up: Response: No adverse reaction; IV Status: Completed infusion; IV Intake: bm8 1000ml 21:17 Drug: Insulin Drip - (Insulin Regular Human IVP 100 units, NS 0.9% IV 100 ml) IV at bm8 calculated rate continuous; Standard concentration 1unit/ml; Dose for DKA is 0.1 units/kg/hr {Co-Signature: [email or web address] (Hardeep Ragsdale RN).} Route: IV; Rate: calculated rate; Site: left antecubital; 09/07 00:06 Follow up: Response: No adverse reaction; IV Status: Infusion continued upon admission bm8 Point of Care Testing: Blood Glucose: 09/06 19:57 Blood Glucose: High (>450 mg/dL); cm10 Ranges: Critical Glucose Levels:Adult <50 mg/dl or >400 mg/dl <40 mg/dl or >180 mg/dl Disposition: 09/07 21:24 Co-signature as Attending Physician, Skyler Gramajo MD I agree with the assessment and galo plan of care. Disposition Summary: 09/07/23 21:23 Hospitalization Ordered Notes: Hospitalization Status: Inpatient Admission stephanie Provider: Justice Carranza Location: Intensive Care Unit kb Condition: Stable kb Problem: new kb Symptoms: are unchanged stephanie Bed/Room Type: Standard Room Assignment: 4-(09/07/23 23:14) ty Diagnosis - Diabetes mellitus due to underlying condition with ketoacidosis kb Forms: - Medication Reconciliation Form kb - SBAR form kb - Leadership Thank You Letter kb Critical care time excluding procedures: 09/06 21:22 Critical care time: Bedside Care: 15 minutes, Consultation: 10 minutes, Family kb Intervention: 5 minutes. Total time: 30 minutes Signatures: Dispatcher [employer] EDElva Swenson, PHOTOVOLTAIC INSTALLER-C PHOTOVOLTAIC INSTALLER-Skyler Ziegler MD MD cha Martinez, Clarissa, RN RN cm10 Harshil Vick Brad RN RN bm8 Hardeep Ragsdale RN [email or web address] Corrections: (The following items were deleted from the chart) 19:52 19:52 CBC+H.LAB.BRZ ordered. EDMS EDMS 19:52 19:52 COMPREHENSIVE METABOLIC PANEL+C.LAB.BRZ ordered. EDMS EDMS 19:52 19:52 LIPASE+C.LAB.BRZ ordered. EDMS EDMS 19:52 19:52 Test, Urine+UC.LAB.BRZ ordered. EDMS EDMS 19:52 19:52 Urinalysis+U.LAB.BRZ ordered. EDMS EDMS 20:52 20:52 Arterial Blood Gas+RC.LAB.BRZ ordered. EDMS EDMS 20:55 20:53 Pt is a 28 year old female who presents for nausea and vomiting that started 4 kb days ago. States she has become dizzy since yesterday. Unable to tolerate po intake. . kb 23:14 21:23 kb ty
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
[2023-09-07 22:43] LABS: Anion Gap 23.3 mEq/L (5.0-15.0); Potassium 3.3 mEq/L (3.5-5.1)
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
[2023-09-08] MEDS ORDERED: ONDANSETRON 4 MG/2 ML VIAL IV PRN (00:04)
[2023-09-08] MEDS: NACHLORIDE 0.45% 1,000 ML IV SCH (00:04)
[2023-09-08] MEDS: D5 0.45 NS 1,000 ML IV SCH ×2 (00:04→07:50)
[2023-09-08] MEDS: NA CHLORIDE 0.9% 1,000 ML IV SCH ×4 (00:04→12:22)
[2023-09-08] MEDS: INSULIN REGULAR (HUMAN) 100 UNIT/ML IV ONE (00:04)
[2023-09-08] MEDS: INSULIN REGULAR, HUMAN 100 UNIT in NA CHLORIDE 0.9% 100 ML IV SCH (00:20)
[2023-09-08] MEDS: NA CHLORIDE 0.9% 1,000 ML IV ONE (00:29)
[2023-09-08 00:38] LABS: Anion Gap 17.6 mEq/L (5.0-15.0)
[2023-09-08 00:41] LABS: Potassium 3.6 mEq/L (3.5-5.1)
[2023-09-08 00:46] VITALS: BMI 39.7
[2023-09-08] MEDS ORDERED: D50W 25 GM/50 ML SYRINGE IV PRN (00:46)
[2023-09-08] MEDS ORDERED: GLUCAGON 1 MG/VIAL IM PRN (00:46)
[2023-09-08] MEDS ORDERED: D10W 125 ML IV PRN (01:46)
[2023-09-08 01:51] VITALS: O2SAT 100
[2023-09-08 02:36] LABS: Anion Gap 16.9 mEq/L (5.0-15.0); Potassium 3.9 mEq/L (3.5-5.1)
[2023-09-08 03:24] LABS: Specific Gravity > 1.030 (1.005-1.030); Sqamous Epithelial <5 /HPF (None Seen); Urine Bacteria <20 /HPF (<20); Urine Bilirubin NEGATIVE (Negative); Urine Blood 1+ (Negative); Urine Clarity Clear (Clear); Urine Color Light-Yellow (Yellow); Urine Culture Reflex Order NOT NEEDED; Urine Glucose 4+ (Over) (Negative); Urine Ketones 2+ (Negative); Urine Microscopic Reflex YN ORDER UMIC; Urine Mucus Slight /HPF (None Seen); Urine Nitrite NEGATIVE (Negative); Urine Protein 1+ (Negative); Urine RBC <5 /HPF (None Seen); Urine Urobilinogen Normal (Normal); Urine WBC <5 /HPF (<5)
[2023-09-08 03:26] LABS: Specific Gravity > 1.030 (1.005-1.030)
[2023-09-08] MEDS: INSULIN REGULAR (HUMAN) 100 UNIT/ML ONE (04:52)
[2023-09-08] MEDS: NA CHLORIDE 0.9% 100 ML ONE (04:54)
[2023-09-08 05:22] LABS: Absolute Basophils 0.1 K/uL (0-0.5); Absolute Eosinophils 0.1 K/uL (0-0.5); Absolute Lymphocytes (CBC) 3.4 K/uL (0.7-4.9); Absolute Monocytes 1.2 K/uL (0.1-1.3); Absolute Neutrophil 5.5 K/uL (1.8-8.0); Basophils % 0.8 % (0-1.3); Hematocrit 41.7 % (36.0-45.0); Hemoglobin 14.5 g/dL (12.0-15.0); Lymphocytes % 32.9 % (15.3-44.8); MCH 28.9 pg (27.0-35.0); MCHC 34.7 g/dL (32.0-36.0); MCV 83.1 fL (80-100); MPV 10.6 fL (7.6-11.3); Neutrophils % 53.3 % (41.7-73.7); Nucleated Red Blood Cells % 0.3 % (0-0); Platelets 281 thou/uL (152-406); RBC Red Blood Cell Count 5.02 M/uL (3.86-4.86); Red Cell Distribution Width 14.2 % (12.1-15.2)
[2023-09-08 05:42] LABS: Anion Gap 14.4 mEq/L (5.0-15.0)
[2023-09-08 05:54] LABS: Magnesium 2.3 mg/dL (1.6-2.4); Potassium 3.4 mEq/L (3.5-5.1); Thyroid Stimulating Hormone 0.387 uIU/mL (0.358-3.740)
[2023-09-08 05:55] LABS: Phosphorus 1.2 mg/dL (2.5-4.9)
[2023-09-08] MEDS: POTASSIUM PHOS IN 0.9 % NACL 15 MMOL/250 ML BAG IV ONE (06:27)
[2023-09-08] MEDS ORDERED: KCL 20 MEQ/100 mL IVPB 20 MEQ/100 ML BAG IV SCH (07:00)
[2023-09-08] MEDS: ENOXAPARIN 40 MG/0.4 ML SQ SCH (07:49)
[2023-09-08] MEDS: POTASSIUM CL SA 10 MEQ TAB PO ONE (07:55)
[2023-09-08] MEDS ORDERED: LORazepam 2 MG/ML VIAL IV ONE (08:00)
[2023-09-08] MEDS ORDERED: POTASSIUM CL SA 10 MEQ TAB PO ONE (08:00)
[2023-09-08 08:29] LABS: Anion Gap 12.4 mEq/L (5.0-15.0); Potassium 3.4 mEq/L (3.5-5.1)
--- NOTE | 2023-09-08 10:13 | P.PN ---
Subjective Date of Service: 09/08/23 Chief Complaint: nausea, vomiting Pt is resting comfortably in bed. Blood sugar is improving. AG is 14 <- 27.6. Will continue DKA protocol. She ran out of her insulin at home and started taking metformin. No other complaints. Review of Systems General: Unremarkable Eyes: Unremarkable ENT: Unremarkable Respiratory: Unremarkable Cardiovascular: Unremarkable Gastrointestinal: Unremarkable Genitourinary: Unremarkable Musculoskeletal: Unremarkable Integumentary: Unremarkable Neurological: Unremarkable Lymphatics: Unremarkable Physical Examination - Vital Signs Temperature: 97.3 F Blood Pressure: 150/98 Pulse: 94 Respirations: 18 Pulse Ox (%): 100 - Physical Exam General: Alert, In no apparent distress, Oriented x3, Obese HEENT: Atraumatic, Normocephalic, PERRLA Neck: Supple, 2+ carotid pulse no bruit, JVD not distended Respiratory: Clear to auscultation bilaterally, Normal air movement Cardiovascular: No edema, Normal pulses, Regular rate/rhythm, Normal S1 S2 Capillary refill: <2 Seconds Gastrointestinal: Normal bowel sounds, Soft and benign, Non-distended Musculoskeletal: No clubbing, No swelling, No contractures Integumentary: No rashes, No breakdown, No significant lesion Neurological: Normal gait, Normal speech, Normal strength at 5/5 x4 extr Lymphatics: No axilla or inguinal lymphadenopathy - Studies Laboratory Data (last 24 hrs) 09/07/23 09/07/23 09/07/23 22:14 20:03 20:03 WBC 7.60 Hgb 15.0 Hct 48.0 H Plt Count 281 Sodium 133 L D 122 L Potassium 3.3 L D 4.6 BUN 14 15 Creatinine 1.29 H 1.57 H Glucose 977 H* 1447 H* Total Bilirubin 1.0 AST 13 L ALT 35 Alkaline Phosphatase 108 Lipase 49 Assessment And Plan - Plan Diabetic ketoacidosis / DM : Will continue DKA protocol. AG is improving 14 <- 26. Continue accuchek, insulin drip and ADA diet when able to eat. Hypokalemia: K is 3.4. Likely du eto insulin. Will replete and monitor. Nausea / vomiting: Continue IVF and prn antiemetic. Pt is NPO. Hypothyroidism: TSH is 0.387. Will continue synthroid. DVT: Lovenox Code: Full
[2023-09-08] MEDS: INSULIN GLARGINE 100 UNIT/ML SQ SCH (12:13)
[2023-09-08] MEDS: INSULIN REGULAR (HUMAN) 100 UNIT/ML SQ SCH (15:56)
[2023-09-08] MEDS ORDERED: INSULIN GLARGINE 100 UNIT/ML SQ SCH (21:00)
[2023-09-09 05:12] LABS: Absolute Basophils 0.1 K/uL (0-0.5); Absolute Eosinophils 0.2 K/uL (0-0.5); Absolute Lymphocytes (CBC) 3.5 K/uL (0.7-4.9); Absolute Monocytes 0.5 K/uL (0.1-1.3); Absolute Neutrophil 2.9 K/uL (1.8-8.0); Basophils % 0.8 % (0-1.3); Eosinophils % 2.4 % (0-4.4); Lymphocytes % 48.4 % (15.3-44.8); MCH 29.1 pg (27.0-35.0); MCHC 34.2 g/dL (32.0-36.0); MCV 85.1 fL (80-100); MPV 11.1 fL (7.6-11.3); Monocytes % 7.3 % (3.3-12.3); Neutrophils % 41.1 % (41.7-73.7); Platelets 180 thou/uL (152-406); RBC Red Blood Cell Count 4.11 M/uL (3.86-4.86); Red Cell Distribution Width 14.6 % (12.1-15.2)
[2023-09-09 05:27] LABS: Anion Gap 15.5 mEq/L (5.0-15.0); Phosphorus 1.9 mg/dL (2.5-4.9); Potassium 3.5 mEq/L (3.5-5.1)
[2023-09-09] MEDS: POTASS/SODIUM PHOSPHATE 1 PKT POWD.PACK PO SCH (06:25)
[2023-09-09] MEDS: POTASSIUM CL SA 10 MEQ TAB PO ONE (06:26)
[2023-09-09] MEDS ORDERED: GLUCAGON 1 MG/VIAL IM PRN (07:55)
[2023-09-09] MEDS ORDERED: D50W 25 GM/50 ML SYRINGE IV PRN (07:55)
[2023-09-09] MEDS ORDERED: D10W 125 ML IV PRN (08:12)
[2023-09-09] MEDS: NA CHLORIDE 0.9% 500 ML IV ONE ×2 (08:34→08:35)
[2023-09-09] MEDS: NA CHLORIDE 0.9% 1,000 ML ONE (08:36)
[2023-09-09] MEDS: INSULIN GLARGINE 100 UNIT/ML SQ SCH (08:44)
--- NOTE | 2023-09-09 10:41 | P.PN ---
Subjective Date of Service: 09/09/23 Chief Complaint: nausea, vomiting Pt is resting comfortably in bed. Blood sugar is improving. AG is 15.5 <- 12<- 14 <- 27.6. Off DKA protocol. Will continue lantus and sliding scale insulin. She ran out of her insulin at home and started taking metformin. No other complaints. Review of Systems General: Unremarkable Eyes: Unremarkable ENT: Unremarkable Respiratory: Unremarkable Cardiovascular: Unremarkable Gastrointestinal: Unremarkable Genitourinary: Unremarkable Musculoskeletal: Unremarkable Integumentary: Unremarkable Neurological: Unremarkable Lymphatics: Unremarkable Physical Examination - Vital Signs Temperature: 97.6 F Blood Pressure: 138/85 Pulse: 86 Respirations: 16 Pulse Ox (%): 100 - Physical Exam General: Alert, In no apparent distress, Oriented x3, Obese HEENT: Atraumatic, Normocephalic, PERRLA Neck: Supple, 2+ carotid pulse no bruit, JVD not distended Respiratory: Clear to auscultation bilaterally, Normal air movement Cardiovascular: No edema, Normal pulses, Regular rate/rhythm, Normal S1 S2 Capillary refill: <2 Seconds Gastrointestinal: Normal bowel sounds, Soft and benign, Non-distended Musculoskeletal: No clubbing, No swelling, No contractures Integumentary: No rashes, No breakdown, No significant lesion Neurological: Normal gait, Normal speech, Normal strength at 5/5 x4 extr, Normal tone, Sensation intact Lymphatics: No axilla or inguinal lymphadenopathy Assessment And Plan - Plan Diabetic ketoacidosis / DM : Blood sugar is uncontrolled. Off DKA protocol. AG is improving 15.5 <- 12<- 14 <- 26. Continue lantus 20 u subq BID, lispro sliding scale, accuchek, and ADA diet when able to eat. Hypokalemia: K is 3.5<- 3.4. Likely due to insulin. Will replete and monitor. Nausea / vomiting: Continue IVF and prn antiemetic. Pt is NPO. Hypothyroidism: TSH is 0.387. Will continue synthroid. Morbid obesity: Pt was advised to lose weight. DVT: Lovenox Code: Full
[2023-09-09] MEDS: INSULIN LISPRO 100 UNIT/ML SQ SCH (11:45)
[2023-09-10 05:31] LABS: Absolute Basophils 0.1 K/uL (0-0.5); Absolute Eosinophils 0.2 K/uL (0-0.5); Absolute Lymphocytes (CBC) 3.3 K/uL (0.7-4.9); Absolute Monocytes 0.5 K/uL (0.1-1.3); Absolute Neutrophil 2.8 K/uL (1.8-8.0); Basophils % 0.9 % (0-1.3); Eosinophils % 2.9 % (0-4.4); Hematocrit 35.2 % (36.0-45.0); Hemoglobin 12.4 g/dL (12.0-15.0); Lymphocytes % 48.1 % (15.3-44.8); MCH 29.8 pg (27.0-35.0); MCHC 35.3 g/dL (32.0-36.0); MCV 84.5 fL (80-100); MPV 10.9 fL (7.6-11.3); Monocytes % 7.4 % (3.3-12.3); Neutrophils % 40.7 % (41.7-73.7); Nucleated Red Blood Cells % 0.3 % (0-0); Platelets 164 thou/uL (152-406); RBC Red Blood Cell Count 4.17 M/uL (3.86-4.86); Red Cell Distribution Width 14.7 % (12.1-15.2)
[2023-09-10 05:51] LABS: Phosphorus 2.1 mg/dL (2.5-4.9)
[2023-09-10 07:34] LABS: Albumin 2.8 g/dL (3.4-5.0); Albumin/Globulin Ratio 0.8 (1.1-1.8); Anion Gap 16.8 mEq/L (5.0-15.0); Bilirubin Total 0.4 mg/dL (0.2-1.0); Globulin 3.3 g/dL (2.3-3.5); Protein, Total 6.1 g/dL (6.4-8.2)
[2023-09-10 07:38] LABS: Potassium 3.8 mEq/L (3.5-5.1)
--- NOTE | 2023-09-10 08:03 | P.PN ---
Subjective Date of Service: 09/10/23 Chief Complaint: nausea, vomiting Subjective: Improving (remains hyperglycemic, no N/V, +po. Will increase Semglee again to 22u BID) <Candelaria Taborlen - Last Filed: 09/10/23 08:03> Date of Service: 09/10/23 <LexJhonny jacksoncolumba C - Last Filed: 09/10/23 10:48> Physical Examination - Vital Signs Temperature: 97.0 F Blood Pressure: 138/77 Pulse: 80 Respirations: 16 Pulse Ox (%): 100 <Candelaria Tabor - Last Filed: 09/10/23 08:03> Assessment And Plan - Plan Assessment and Plan - Problems (Diagnosis) (1) DKA (diabetic ketoacidosis) Current Visit: Yes Status: Acute (2) Hypothyroidism Current Visit: Yes Status: Acute (3) Nausea Current Visit: Yes Status: Acute - Plan 28-year-old female presents with nausea vomiting abdominal pain. Diagnosed with DKA. Other medical history includes hypothyroidism Diabetic ketoacidosis Diabetes -- Recently stopped Victoza because she ran out. Denies any recent infection. Her UA is pending --Will continue diabetic ketoacidosis protocol in the ICU. Continue IV fluids serial labs every 4 hours, fingerstick blood sugar every 1 hours continue insulin drip titrate per protocol anticipate transitioning to D5 half normal saline when glucose less than 250, monitor for anion gap replace potassium per protocol Nausea vomiting --As needed Zofran, IV fluids, n.p.o. Hypothyroidism --Check TSH she took her dose this evening anticipate restart tomorrow DVT: Lovenox Code: Full - Advance Directives Does patient have a Living Will: No Does patient have a Durable POA for Healthcare: No <Candelaria Taborlen - Last Filed: 09/10/23 08:03> - Plan Pt seen and examined. I agree with the note by the [employer]. Blood sugar is uncontrolled. Will continue accuchek, SSI, and lantus 25u BID and ADA diet. <Rashad Bose - Last Filed: 09/10/23 10:48>
[2023-09-10] MEDS: POTASS/SODIUM PHOSPHATE 1 PKT POWD.PACK PO SCH (08:19)
[2023-09-10] MEDS: INSULIN GLARGINE 100 UNIT/ML SQ SCH (08:19)
[2023-09-10] MEDS ORDERED: INSULIN GLARGINE 100 UNIT/ML SQ SCH (09:00)
[2023-09-11] MEDS: LEVOTHYROXINE SOD 0.075 MG TAB PO SCH (05:36)
[2023-09-11] MEDS: LEVOTHYROXINE SOD 0.1 MG TAB PO SCH (05:36)
[2023-09-11] MEDS ORDERED: LEVOTHYROXINE SOD 0.075 MG TAB PO SCH (06:00)
[2023-09-11 06:27] LABS: Albumin 2.7 g/dL (3.4-5.0); Albumin/Globulin Ratio 0.8 (1.1-1.8); Anion Gap 20.9 mEq/L (5.0-15.0); Bilirubin Total 0.6 mg/dL (0.2-1.0); Globulin 3.6 g/dL (2.3-3.5); Phosphorus 2.4 mg/dL (2.5-4.9); Protein, Total 6.3 g/dL (6.4-8.2)
[2023-09-11 06:28] LABS: Potassium 3.9 mEq/L (3.5-5.1)
[2023-09-11] MEDS: INSULIN GLARGINE 100 UNIT/ML SQ SCH (08:44)
[2023-09-11] MEDS: NA CHLORIDE 0.9% 1,000 ML IV ONE (10:26)
[2023-09-11] MEDS: POLYETHYL GLY 3350 17 GM/DOSE PO PRN (10:26)
--- NOTE | 2023-09-11 11:16 | P.PN ---
Subjective Date of Service: 09/11/23 Chief Complaint: nausea, vomiting Pt is resting comfortably in bed. Blood sugar is improving. AG is 20 <- 15.5 <- 12<- 14 <- 27.6. Off DKA protocol. Will continue lantus and sliding scale insulin. She ran out of victoza at home and started taking metformin. No other complaints. Review of Systems General: Unremarkable Eyes: Unremarkable ENT: Unremarkable Respiratory: Unremarkable Cardiovascular: Unremarkable Gastrointestinal: Unremarkable Genitourinary: Unremarkable Musculoskeletal: Unremarkable Neurological: Unremarkable Lymphatics: Unremarkable Physical Examination - Vital Signs Temperature: 97.9 F Blood Pressure: 123/74 Pulse: 86 Respirations: 14 Pulse Ox (%): 99 - Physical Exam General: Alert, In no apparent distress, Oriented x3 HEENT: Atraumatic, Normocephalic, PERRLA Neck: Supple, 2+ carotid pulse no bruit, JVD not distended Respiratory: Clear to auscultation bilaterally, Normal air movement Cardiovascular: No edema, Normal pulses Capillary refill: <2 Seconds Gastrointestinal: Normal bowel sounds, Soft and benign, Non-distended Musculoskeletal: No clubbing, No swelling, No contractures, No erythema Integumentary: No rashes, No breakdown, No significant lesion, No tenderness/swelling Neurological: Normal gait, Normal speech, Normal strength at 5/5 x4 extr, Normal tone, Sensation intact, Cranial nerves 3-12 intact Lymphatics: No axilla or inguinal lymphadenopathy Assessment And Plan - Plan Diabetic ketoacidosis / Diabetes: Pt ran outof Victoza and started taking metformin. Will continue accuchek, SSI, lantus 30u BID and ADA diet. S/p DKA protocol in the ICU. A1c is 11.5. Nausea / vomiting: Will continue IVF and prn Zofran Hypothyroidism: Continue synthroid. TSH is 0.387. Morbid obesity: Pt was advised to lose weight. DVT: Lovenox Code: Full Dispo: Pending hospital course.
[2023-09-11] MEDS ORDERED: GLUCAGON 1 MG/VIAL IM PRN (16:50)
[2023-09-11] MEDS ORDERED: D50W 25 GM/50 ML SYRINGE IV PRN (16:50)
[2023-09-11] MEDS ORDERED: D10W 125 ML IV PRN (16:54)
[2023-09-11] MEDS: INSULIN 70/30 100 UNITS/ML SQ SCH (17:26)
[2023-09-11] MEDS: INSULIN REGULAR (HUMAN) 100 UNIT/ML SQ SCH (21:32)
[2023-09-12 06:18] LABS: Anion Gap 9.6 mEq/L (5.0-15.0); Phosphorus 2.9 mg/dL (2.5-4.9); Potassium 3.6 mEq/L (3.5-5.1)
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
[2023-09-12] MEDS ORDERED: INSULIN 70/30 100 UNITS/ML SQ SCH (07:30)
[2023-09-12] MEDS: BISACODYL E.C. 5 MG TAB PO ONE (08:21)
[2023-09-12] MEDS: POTASSIUM 25 MEQ EFFERV TAB PO ONE (08:22)
[2023-09-12] MEDS: BISACODYL 10 MG RECTAL SUPP PR ONE (08:23)
[2023-09-12] MEDS: INSULIN 70/30 100 UNITS/ML SQ SCH (08:24)
[2023-09-12 12:28] VITALS: BP 130/64; TEMP 97.1
== END 2023-09-12 12:58 | disposition home or self-care (01) | DRG 638 ==
LOC: ER 19:33 → ERHOLD 22:45 → 3RD-ICU 09-08 00:08 → 2ND 09-09 12:37
PROVIDERS: ADMIT Internal Medicine; ATTEND Hospitalist
PROC: 4A133R1 Monitoring of Arterial Saturation, Peripheral, Percutaneous Approach (ICD-10-PCS; principal; 2023-09-07)
DX: E11.10 Type 2 diabetes mellitus with ketoacidosis without coma (principal); E87.1 Hypo-osmolality and hyponatremia; Z79.4 Long term (current) use of insulin; Z79.84 Long term (current) use of oral hypoglycemic drugs; E03.9 Hypothyroidism, unspecified; E87.6 Hypokalemia; E66.01 Morbid (severe) obesity due to excess calories; Z68.39 Body mass index [BMI] 39.0-39.9, adult
CPT/HCPCS: 36415; 36600; 80048; 80053; 81001; 81025; 82805; 82947; 83036; 83690; 83735; 84100; 84443; 85025; 96361; 96365; 96366; 96375; 99285; J1650; J1815; J2405; J7030; J7799

== ENCOUNTER 2023-10-04 07:28 | Emergency (ER) | payer SELFPAY ==
--- OUTSIDE RECORDS SUMMARY | 2023-10-04 07:37 | XMS REPORT | Continuity of Care Document ---
Author Name Unknown Address [address] [facility] [address] [place] [address] [facility] Address [address] [facility] [place] [address] Care Team Providers Care Pot Tender Name Role Phone Genoveva Chu Primary Care Physician [phone] OBI-Teresita ASHBYZOMA Attending Clinician Unavailab bridgette OBPIETRO MATIAS Attending Clinician Unavailab Lorelei Garrett MA Attending Clinician UnavailLANA Scott Attending Clinician Unavailable Lnaa Manzano PA-C Attending Clinician [phone] Unknown, Attending Attending Clinician Unavailab le Doctor Unassigned, [place] Attending Clinician Yas Shaikh RN Attending Clinician UnavailJOLLY Willis Attending Clinician Unavailable Only, Ang Db Test Attending Clinician UnavailJolly Benitez Attending Clinician [phone] Terry Reynaga DO Attending Clinician [phone] Akinsikirk [facility]ending [facility]ician + MARLENY CARD Attending Clinician Unavail blossom Fournier MD, Cristin Bergeron Attending Clinician [phone] Ultrasound, Ang-[facility] Attending Clinician Arthur Tobar MD Attending Clinician [phone] Penelope Bailon MD Attending Clinician [phone] ARTHUR ENG Attending Clinician Unavailable 1, [facility] Room Attending Clinician Guilherme Buckley MD, Shawn Young Attending Clinician [phone] Provider, [facility] Attending Clinician Un available Renee CHAO, Roya Attending Clinician [phone] ROYA DURAN Attending Clinician Unavailable Stanislaw, En [facility] Attending Clinician Unava ilable Aramis Bishop MD, [place] Attending Clinician + [facility] Unavailable Collin Palencia MD Attending Clinician [phone] Pcp, Patient Does Not Have A Attending Clinician Visit, [facility] Attending Clinician Unava ilable Lab, [facility] Att[facility]ician Unavailable 3, [facility] Room Attending Clinician Guilherme CHAO, Judy Attending Clinician [phone] CRISTIN FOURNIER Admitting Clinician Unavailable Cristin Fournier MD Admitting Clinician [phone] Payers Payer Name Policy Type Policy Number Effective Date Expirati on Date Source [facility] [id number] 00:00:00 Problems Condition Name Condition Details Condition Category Status Onset Date Resolution Date Last Treatment Date Treating Clinician Comments Source Well woman exam Well woman exam Disease Active -12 00:00: 00 [facility] Routine follow-up Routine follow-up Disease Active - 00:00: 00 [facility] History of tubal ligation History of tubal ligation Disease Active 02-09 00:00: 00 [facility] delivery, delivered delivery, delivered Disease Active 02-09 00:00: 00 [facility] (spontaneo us vaginal delivery) (spontaneo us vaginal delivery) Disease Active 02-09 00:00: 00 [facility] Single liveborn Single liveborn Disease Active 02-09 00:00: 00 [facility] anemia anemia Disease Active 02-09 00:00: 00 [facility] 33 weeks gestation of 33 weeks gestation of Disease Active 2020 2- 00:00: 00 [facility] premature rupture of membranes (PPROM) with unknown onset of labor premature rupture of membranes (PPROM) with unknown onset of labor Disease Active 2019-02 2 00:00: 00 [facility] Labor and delivery, indication for care Labor and delivery, indication for care Disease Active 2019-02 2 00:00: 00 [facility] UTI in UTI in Disease Active 2019-02 2 00:00: 00 [facility] Morbid obesity with body mass index of 40.0-49.9 Morbid obesity with body mass index of 40.0-49.9 Disease Active 2019-02 2 00:00: 00 [facility] Obesity (BMI 30-39.9) Obesity (BMI 30-39.9) Disease Active 2019-02 2 00:00: 00 [facility] Vaginal bleeding during Vaginal bleeding during Disease Active 9- 00:00: 00 [facility] Cervical Papanicola ou smear negative within last 12 months Cervical Papanicola ou smear negative within last 12 months Disease Active 10-03 00:00: 00 Overview: Formattin g of this note might be different from the original. NIL pap 08/2019 see scanned records [facility] Abnormal maternal glucose tolerance, antepartum Abnormal maternal glucose tolerance, antepartum Disease Active 10-03 00:00: 00 Overview: Failed 1hr gtt, passed 3hr gtt, [facility] Rh negative state in antepartum period Rh negative state in antepartum period Disease Active 09-19 00:00: 00 Overview: Address at 28 weeks [facility] Rubella non-immune status, antepartum Rubella non-immune status, antepartum Disease Active 09-19 00:00: 00 [facility] Susceptibl e to varicella (non-immun e), currently Susceptibl e to varicella (non-immun e), currently Disease Active 09-19 00:00: 00 Overview: Address pp [facility] Supervisio n of high-risk Supervisio n of high-risk Disease Active 8 00:00: 00 Overview: See chart review for labs [facility] Multiparit y Multiparit y Disease Active 8 00:00: 00 [facility] Obesity in Obesity in Disease Active 8 00:00: 00 [facility] Hypothyroi dism in Hypothyroi dism in Disease Active 8 00:00: 00 [facility] Asthma during Asthma during Disease Active 8 00:00: 00 Overview: Reports has rescue inhaler [facility] Asthma during Asthma during Disease Active 09-17 00:00: 00 Overview: Formattin g of this note might be different from the original. Reports has rescue inhaler [facility] Velamentou s insertion of umbilical cord Velamentou s insertion of umbilical cord Disease Active 09-17 00:00: 00 Overview: Noted on usg report [facility] Hypothyroi dism Hypothyroi dism Disease Active 09-17 00:00: 00 [facility] Allergies, Adverse Reactions, Alerts Allergy Name Allergy Type Status Severity Reaction(s) Onset Date Inactive Date Treating Clinician Comments Source NO KNOWN ALLERGIE S Drug Class Active [facility] Social History Social Habit Start Date Stop Date Quantity Comments Source ASSERTION 2019-07-06 00:00:00 [facility] Gender identity [facility] Sexual orientation U [facility] Exposure to SARS-CoV-2 (event) 2020-12-16 00:00:00 2021-01-15 17:49:[address] [facility] History of Social function 2020-03-22 00:00:00 2020-03-22 00:00:00 [facility] Alcohol intake 2019-10-02 00:00:00 2019-10-02 00:00:00 Ex-drinker (finding) [facility] Tobacco use and exposure 2019-09-18 00:00:00 2019-09-18 00:00:00 [address]okeless tobacco non-user [facility] Sex Assigned At 1995 00:00:00 1995 00:00:00 [facility] Smoking Status Start Date Stop Date Source Unknown if ever smoked [facility] Never smoked tobacco [facility] Medications Ordered Medication Name Filled Medication Name Start Date Stop Date Current Medication? Ordering Clinician Indication Dosage Frequency Signature (SIG) Comments Components Source metformin ER 1,000 mg 24 hr tablet,exte nded release (gastric reten.) 09-05 00:00: 00 Yes 1mg James Colin Victoza 2-Avinash 0.6 mg/0.1 mL (18 mg/3 mL) subcutaneou s pen injector 07-29 00:00: 00 Yes (18 mg/3 mL) James Colin levothyroxi ne 175 mcg tablet - 00:00: 00 Yes mcg James Colin Victoza 2-Avinash 0.6 mg/0.1 mL (18 mg/3 mL) subcutaneou s pen injector 07-11 00:00: 00 Yes (18 mg/3 mL) James Colin levothyroxi ne 175 mcg tablet 416 00:00: 00 Yes mcg James Colin Macrobid 100 mg capsule - 00:00: 00 Yes 1mg James Colin TAKE 1 CAPSULE BY MOUTH TWICE A DAY 05-06 00:00: 00 Yes James Colin Nexplanon 68 mg subdermal implant 3-11 00:00: 00 Yes 1mg James Colin TAKE 2 TABLETS BY MOUTH 4 TIMES DAILY NEEDED FOR PAIN -08 00:00: 00 Yes James Colin TAKE 1 TABLET BY MOUTH TWICE DAILY 3-08 00:00: 00 Yes James Colin TAKE 1 TABLET BY MOUTH DAILY. 2-20 00:00: 00 06-22 00:00 :00 No 175 James Colin metformin ER 500 mg tablet,exte nded release 24 hr 2-07 00:00: 00 Yes mg James Colin TAKE 1 TABLET BY MOUTH ONCE DAILY 1-05 00:00: 06-22 00:00 :00 No 500 James Colin TAKE 1 TABLET EVERY MORNING. 2022-02 1- 00:00: 00 06-22 00:00 :00 No 200 James Colin LEVOTHYROXI N 200MCG 09-03 00:00: 00 Yes James Colin METFORMIN ER [...] % otic drops 08-12 00:00: 00 Yes [id number] 4[drp] Place 4 Drops in right ear in the morning and 4 Drops in the evening. [facility] TRETINOIN 0.1% CRE 07-09 00:00: 00 Yes James Colin LEVOTHYROXI N 175MCG 530 00:00: 00 Yes [id number] James Colin TAKE 1 TABLET DAILY. 06-05 00:00: 00 06-22 00:00 :00 No 175 James Colin APPLY SPARINGLY TO AFFECTED AREA(S) ONCE DAILY AT BEDTIME. - 00:00: 00 06-22 00:00 :00 No 1 James Colin LEVOTHYROXI N 175MCG 3- 00:00: 00 06-22 00:00 :00 No James Colin TAKE 1 TABLET DAILY. 2- 00:00: 00 06-22 00:00 :00 No 175 James Colin TAKE 1 TABLET BY MOUTH EVERY DAY IN THE MORNING 2-14 00:00: 00 06-22 00:00 :00 No 150 James Colin LEVOTHYROXI N 150MCG 2021-02 0-07 00:00: 00 06-22 00:00 :00 No [id number] James Colin TAKE 1 TABLET BY MOUTH EVERY DAY IN THE MORNING 2021-02 0-03 00:00: 00 06-22 00:00 :00 No James Colin TAKE 1 TABLET BY MOUTH EVERY DAY IN THE MORNING 9-10 00:00: 00 06-22 00:00 :00 No James Colin UNITHROID 150MCG 7-21 00:00: 00 06-22 00:00 :00 No [id number] James Colin UNITHROID 150MCG 6-06 00:00: 00 06-22 00:00 :00 No [id number] James Colin Dose Unknown 4-28 00:00: 00 Yes James Colin Dose Unknown 4-28 00:00: 00 Yes James Colin UNITHROID 150MCG 4-28 00:00: 00 06-22 00:00 :00 No [id number] James Colin Dose Unknown 4-19 00:00: 00 Yes James Colin Dose Unknown 4-19 00:00: 00 Yes James Colin Dose Unknown 4-19 00:00: 00 Yes James Colin dexamethaso ne 6 mg tablet 2- 00:00: 00 Yes 1mg James Colin azithromyci n 250 mg tablet 2- 00:00: 00 Yes mg James Colin Dose Unknown 2-01 00:00: 00 Yes James Colin Bromfed DM 2 mg-30 mg-10 mg/5 mL oral syrup 2-01 00:00: 00 Yes 5mg/5 mL James Colin Dose Unknown 0 8-26 00:00: 00 Yes James Colin Dose Unknown 4-08 00:00: 00 Yes James Colin levothyroxi ne 150 mcg tablet 05-14 00:00: 00 Yes 1mcg James Colin levothyroxi ne 150 mcg tablet 08 00:00: 00 Yes 1mcg James Colin vitamin w/FA tablet 02-10 00:00: 00 Yes [id number] 1{tbl} Take 1 tablet by mouth daily. [facility] vitamin w/FA tablet 02-10 00:00: 00 Yes [id number] 1{tbl} Take 1 tablet by mouth daily. [facility] docusate calcium 240 mg capsule 02-10 00:00: 00 Yes [id number] 240mg Take 1 capsule by mouth once daily as needed for Constipati on. [facility] ferrous sulfate 325 mg (65 mg iron) tablet 02-10 00:00: 00 Yes [id number] 325mg Take 1 tablet by mouth 2 (two) times daily. [facility] ibuprofen 600 mg tablet 02-10 00:00: 00 Yes [id number] 600mg Take 1 tablet by mouth every 6 (six) hours as needed (Pain). Take with food or milk. [facility] HYDROcodone -acetaminop hen 5-325 mg tablet 02-10 00:00: 00 02-18 05:59 :00 No [id number] 1{tbl} Take 1 tablet by mouth every 6 (six) hours as needed for Pain (scale 7-10) for up to 7 days. Indication s: acute pain [facility] cephALEXin 500 mg capsule 2019-02 00:00: 00 02-13 05:59 :00 No [id number] 500mg Take 1 capsule by mouth 4 (four) times daily for 7 days. [facility] rho(D) immune globulin (RHOGAM) syringe 300 mcg 2019-02 18:00: 00 01-08 17:06 :00 No [id number] 300ug [facility] Levothyroxi ne 150 mcg capsule 2019-02 00:00: 00 Yes [id number] .15mg Take 1 capsule by mouth daily. [facility] Levothyroxi ne 125 mcg capsule 2019-0 9-21 00:00: 00 Yes [id number] .125mg Take 1 capsule by mouth daily. [facility] Levothyroxi ne 100 mcg capsule 2019-0 9-16 00:00: 00 Yes [id number] 100ug Take 1 capsule by mouth daily. [facility] Levothyroxi ne 100 mcg capsule 2019-0 8-18 18:30: 11 09-24 00:00 :00 No Take by mouth. [facility] PRENATABS RX tablet 2019-0 8-18 00:00: 00 Yes [id number] TAKE 1 TABLET BY MOUTH ONCE DAILY [facility] PRENATABS RX tablet 2019-0 8-18 00:00: 00 02-10 00:00 :00 No [id number] TAKE 1 TABLET BY MOUTH ONCE DAILY [facility] Levothyroxi ne 100 mcg capsule 2019-0 818 00:00: 00 10-23 00:00 :00 No [id number] 100ug Take 1 capsule by mouth daily for 30 days. [facility] rho(D) immune globulin (RHOGAM) syringe 300 mcg 2019-0 8-12 22:30: 00 09-19 21:30 :00 No [id number] 300ug [facility] Levothyroxi ne 100 mcg capsule 0 8-10 13:58: 14 Yes Take by mouth. [facility] multivitami n ( VITAMIN) tablet 2019-0 8-10 00:00: 00 18 00:00 :00 No [id number] 1{tbl} Take 1 tablet by mouth daily. [facility] levothyroxi ne 100 mcg tablet 0 08-29 00:00: 00 Yes 1mcg James Colin Macrobid 100 mg capsule 0 -22 00:00: 00 Yes 1mg James Colin amoxicillin 875 mg-celeste uribe clavulanate 125 mg tablet -16 00:00: 00 Yes 1mg James Colin levothyroxi ne 75 mcg tablet 0 16 00:00: 00 Yes 1mcg James Colin levothyroxi ne 75 mcg tablet 2018-02 2 00:00: 00 Yes 1mcg James Colin levothyroxi ne 100 mcg tablet 2018-02 007 00:00: 00 Yes 1mcg James Colin levothyroxi ne 75 mcg tablet 2018-02 0-04 00:00: 00 Yes 1mcg James Colin Bactrim DS 800 mg-160 mg tablet 08-04 00:00: 00 Yes 1mg James Colin levothyroxi ne 75 mcg tablet 08-04 00:00: 00 Yes 1mcg James Colin metformin 500 mg tablet 2 00:00: 00 Yes 1mg James Colin azithromyci n 500 mg tablet 2015-02 0 00:00: 00 Yes 2mg James Colin Immunizations Ordered Immunization Name Filled Immunization Name Date Status Comments Source Influenza Virus Vaccine 2021-01-06 00:00:[address] [facility] Varicella (varivax)(chicken pox) 2020-02-11 00:00:[address] [facility] MMR 2020-02-11 00:00:[address] [facility] Rho (d) Immune Globulin 2020-02-11 00:00:[address] [facility] Varicella (varivax)(chicken pox) 2020-02-11 00:00:[address] [facility] MMR 2020-02-11 00:00:[address] [facility] Rho (d) Immune Globulin 2020-02-11 00:00:[address] [facility] Varicella (varivax)(chicken pox) 2020-02-11 00:00:[address] [facility] MMR 2020-02-11 00:00:[address] [facility] Rho (d) Immune Globulin 2020-02-11 00:00:[address] [facility] Varicella (varivax)(chicken pox) 2020-02-11 00:00:[address] [facility] MMR 2020-02-11 00:00:[address] [facility] Rho (d) Immune Globulin 2020-02-11 00:00:[address] [facility] Varicella (varivax)(chicken pox) 2020-02-11 00:00:[address] [facility] MMR 2020-02-11 00:00:[address] [facility] Rho (d) Immune Globulin 2020-02-11 00:00:[address] [facility] Varicella (varivax)(chicken pox) 2020-02-11 00:00:[address] [facility] MMR 2020-02-11 00:00:[address] [facility] Rho (d) Immune Globulin 2020-02-11 00:00:[address] [facility] Varicella (varivax)(chicken pox) 2020-02-11 00:00:[address] [facility] MMR 2020-02-11 00:00:[address] [facility] Rho (d) Immune Globulin 2020-02-11 00:00:[address] [facility] Varicella (varivax)(chicken pox) 2020-02-11 00:00:[address] [facility] MMR 2020-02-11 00:00:[address] [facility] Rho (d) Immune Globulin 2020-02-11 00:00:[address] [facility] Varicella (varivax)(chicken pox) 2020-02-11 00:00:[address] [facility] MMR 2020-02-11 00:00:[address] [facility] Rho (d) Immune Globulin 2020-02-11 00:00:[address] [facility] Varicella (varivax)(chicken pox) 2020-02-11 00:00:[address] [facility] MMR 2020-02-11 00:00:[address] [facility] Rho (d) Immune Globulin 2020-02-11 00:00:[address] [facility] Rho (d) Immune Globulin 2020-01-09 00:00:[address] [facility] TDAP 2020-01-09 00:00:[address] [facility] Rho (d) Immune Globulin 2020-01-09 00:00:[address] [facility] TDAP 2020-01-09 00:00:[address] [facility] Rho (d) Immune Globulin 2020-01-09 00:00:[address] [facility] TDAP 2020-01-09 00:00:[address] [facility] Rho (d) Immune Globulin 2020-01-09 00:00:[address] [facility] TDAP 2020-01-09 00:00:[address] [facility] Rho (d) Immune Globulin 2020-01-09 00:00:[address] [facility] TDAP 2020-01-09 00:00:[address] [facility] Rho (d) Immune Globulin 2020-01-09 00:00:[address] [facility] TDAP 2020-01-09 00:00:[address] [facility] Rho (d) Immune Globulin 2020-01-09 00:00:[address] [facility] TDAP 2020-01-09 00:00:[address] [facility] Rho (d) Immune Globulin 2020-01-09 00:00:[address] [facility] TDAP 2020-01-09 00:00:[address] [facility] Rho (d) Immune Globulin 2020-01-09 00:00:[address] [facility] TDAP 2020-01-09 00:00:[address] [facility] Rho (d) Immune Globulin 2020-01-09 00:00:[address] [facility] TDAP 2020-01-09 00:00:[address] [facility] Rho (d) Immune Globulin 2020-01-09 00:00:[address] [facility] TDAP 2020-01-09 00:00:[address] [facility] Rho (d) Immune Globulin 2020-01-09 00:00:[address] [facility] TDAP 2020-01-09 00:00:[address] [facility] Rho (d) Immune Globulin 2020-01-09 00:00:[address] [facility] TDAP 2020-01-09 00:00:[address] [facility] Rho (d) Immune Globulin 2020-01-09 00:00:[address] [facility] TDAP 2020-01-09 00:00:[address] [facility] Rho (d) Immune Globulin 2020-01-09 00:00:[address] [facility] TDAP 2020-01-09 00:00:[address] [facility] Rho (d) Immune Globulin 2020-01-09 00:00:[address] [facility] TDAP 2020-01-09 00:00:[address] [facility] Rho (d) Immune Globulin 2020-01-09 00:00:[address] [facility] TDAP 2020-01-09 00:00:[address] [facility] Rho (d) Immune Globulin 2020-01-09 00:00:[address] [facility] TDAP 2020-01-09 00:00:[address] [facility] Rho (d) Immune Globulin 2020-01-09 00:00:[address] [facility] TDAP 2020-01-09 00:00:[address] [facility] Rho (d) Immune Globulin 2020-01-09 00:00:[address] [facility] TDAP 2020-01-09 00:00:[address] [facility] Influenza Virus Vaccine Quad .5 mL IM 6+ MO (FLUZONE/FLULAVAL/F LUARIX) 2019-11-20 00:00:[address] [facility] Influenza Virus Vaccine Quad .5 mL IM 6+ MO 2019-11-20 00:00:[address] [facility] Influenza Virus Vaccine Quad .5 mL IM 6+ MO 2019-11-20 00:00:[address] [facility] Influenza Virus Vaccine Quad .5 mL IM 6+ MO 2019-11-20 00:00:[address] [facility] Influenza Virus Vaccine Quad .5 mL IM 6+ MO 2019-11-20 00:00:[address] [facility] Influenza Virus Vaccine Quad .5 mL IM 6+ MO 2019-11-20 00:00:[address] [facility] Influenza Virus Vaccine Quad .5 mL IM 6+ MO 2019-11-20 00:00:[address] [facility] Influenza Virus Vaccine Quad .5 mL IM 6+ MO 2019-11-20 00:00:[address] [facility] Influenza Virus Vaccine Quad .5 mL IM 6+ MO 2019-11-20 00:00:[address] [facility] Influenza Virus Vaccine Quad .5 mL IM 6+ MO 2019-11-20 00:00:[address] [facility] Influenza Virus Vaccine Quad .5 mL IM 6+ MO 2019-11-20 00:00:[address] [facility] Influenza Virus Vaccine Quad .5 mL IM 6+ MO 2019-11-20 00:00:[address] [facility] Influenza Virus Vaccine Quad .5 mL IM 6+ MO 2019-11-20 00:00:[address] [facility] Influenza Virus Vaccine Quad .5 mL IM 6+ MO 2019-11-20 00:00:[address] [facility] Influenza Virus Vaccine Quad .5 mL IM 6+ MO 2019-11-20 00:00:[address] [facility] Influenza Virus Vaccine Quad .5 mL IM 6+ MO 2019-11-20 00:00:[address] [facility] Influenza Virus Vaccine Quad .5 mL IM 6+ MO 2019-11-20 00:00:[address] [facility] Influenza Virus Vaccine Quad .5 mL IM 6+ MO 2019-11-20 00:00:[address] [facility] Influenza Virus Vaccine Quad .5 mL IM 6+ MO 2019-11-20 00:00:[address] [facility] Influenza Virus Vaccine Quad .5 mL IM 6+ MO 2019-11-20 00:00:[address] [facility] Influenza Virus Vaccine Quad .5 mL IM 6+ MO 2019-11-20 00:00:[address] [facility] Influenza Virus Vaccine Quad .5 mL IM 6+ MO 2019-11-20 00:00:[address] [facility] Influenza Virus Vaccine Quad .5 mL IM 6+ MO 2019-11-20 00:00:[address] [facility] Influenza Virus Vaccine Quad .5 mL IM 6+ MO 2019-11-20 00:00:[address] [facility] Influenza Virus Vaccine Quad .5 mL IM 6+ MO 2019-11-20 00:00:[address] [facility] Influenza Virus Vaccine Quad .5 mL IM 6+ MO 2019-11-20 00:00:[address] [facility] Influenza Virus Vaccine Quad .5 mL IM 6+ MO 2019-11-20 00:00:[address] [facility] Influenza Virus Vaccine Quad .5 mL IM 6+ MO 2019-11-20 00:00:[address] [facility] Influenza Virus Vaccine Quad .5 mL IM 6+ MO 2019-11-20 00:00:[address] [facility] Influenza Virus Vaccine Quad .5 mL IM 6+ MO 2019-11-20 00:00:[address] [facility] Influenza Virus Vaccine Quad .5 mL IM 6+ MO 2019-11-20 00:00:[address] [facility] Influenza Virus Vaccine Quad .5 mL IM 6+ MO 2019-11-20 00:00:[address] [facility] Rho (d) Immune Globulin 2019-09-20 00:00:[address] [facility] Rho (d) Immune Globulin 2019-09-20 00:00:[address] [facility] Rho (d) Immune Globulin 2019-09-20 00:00:[address] [facility] Rho (d) Immune Globulin 2019-09-20 00:00:[address] [facility] Rho (d) Immune Globulin 2019-09-20 00:00:[address] [facility] Rho (d) Immune Globulin 2019-09-20 00:00:[address] [facility] Rho (d) Immune Globulin 2019-09-20 00:00:[address] [facility] Rho (d) Immune Globulin 2019-09-20 00:00:[address] [facility] Rho (d) Immune Globulin 2019-09-20 00:00:[address] [facility] Rho (d) Immune Globulin 2019-09-20 00:00:[address] [facility] Rho (d) Immune Globulin 2019-09-20 00:00:[address] [facility] Rho (d) Immune Globulin 2019-09-20 00:00:[address] [facility] Rho (d) Immune Globulin 2019-09-20 00:00:[address] [facility] Rho (d) Immune Globulin 2019-09-20 00:00:[address] [facility] Rho (d) Immune Globulin 2019-09-20 00:00:[address] [facility] Rho (d) Immune Globulin 2019-09-20 00:00:[address] [facility] Rho (d) Immune Globulin 2019-09-20 00:00:[address] [facility] Rho (d) Immune Globulin 2019-09-20 00:00:[address] [facility] Rho (d) Immune Globulin 2019-09-20 00:00:[address] [facility] Rho (d) Immune Globulin 2019-09-20 00:00:[address] [facility] Rho (d) Immune Globulin 2019-09-20 00:00:[address] [facility] Rho (d) Immune Globulin 2019-09-20 00:00:[address] [facility] Rho (d) Immune Globulin 2019-09-20 00:00:[address] [facility] Rho (d) Immune Globulin 2019-09-20 00:00:[address] [facility] Rho (d) Immune Globulin 2019-09-20 00:00:[address] [facility] Rho (d) Immune Globulin 2019-09-20 00:00:[address] [facility] Rho (d) Immune Globulin 2019-09-20 00:00:[address] [facility] Rho (d) Immune Globulin 2019-09-20 00:00:[address] [facility] Rho (d) Immune Globulin 2019-09-20 00:00:[address] [facility] Rho (d) Immune Globulin 2019-09-20 00:00:[address] [facility] Rho (d) Immune Globulin 2019-09-20 00:00:[address] [facility] Rho (d) Immune Globulin 2019-09-20 00:00:[address] [facility] Rho (d) Immune Globulin 2019-09-20 00:00:[address] [facility] Rho (d) Immune Globulin 2019-09-20 00:00:[address] [facility] Rho (d) Immune Globulin 2019-09-20 00:00:[address] [facility] Rho (d) Immune Globulin 2019-09-20 00:00:[address] [facility] Rho (d) Immune Globulin 2019-09-20 00:00:[address] [facility] Rho (d) Immune Globulin 2019-09-20 00:00:[address] [facility] Rho (d) Immune Globulin 2019-09-20 00:00:[address] [facility] Rho (d) Immune Globulin 2019-09-20 00:00:[address] [facility] Rho (d) Immune Globulin 2019-09-20 00:00:[address] [facility] Rho (d) Immune Globulin 2019-09-20 00:00:[address] [facility] Rho (d) Immune Globulin 2019-09-20 00:00:[address] [facility] Rho (d) Immune Globulin 2019-09-20 00:00:[address] [facility] Rho (d) Immune Globulin 2019-09-20 00:00:[address] [facility] Rho (d) Immune Globulin 2019-09-20 00:00:[address] [facility] Rho (d) Immune Globulin 2019-09-20 00:00:[address] [facility] Rho (d) Immune Globulin 2019-09-20 00:00:[address] [facility] Rho (d) Immune Globulin 2019-09-20 00:00:[address] [facility] Rho (d) Immune Globulin 2019-09-20 00:00:[address] [facility] Rho (d) Immune Globulin 2019-09-20 00:00:[address] [facility] Rho (d) Immune Globulin 2019-09-20 00:00:[address] [facility] Rho (d) Immune Globulin 2019-09-20 00:00:[address] [facility] Rho (d) Immune Globulin 2019-09-20 00:00:[address] [facility] Rho (d) Immune Globulin 2019-09-20 00:00:[address] [facility] Rho (d) Immune Globulin 2019-09-20 00:00:[address] [facility] Rho (d) Immune Globulin 2019-09-20 00:00:[address] [facility] Rho (d) Immune Globulin 2019-09-20 00:00:[address] [facility] Rho (d) Immune Globulin 2019-09-20 00:00:[address] [facility] Rho (d) Immune Globulin Unknown Completed [facility] Vital Signs Vital Name Observation Time Observation Value Comments S ource Systolic blood pressure 2022-08-12 22:41:00 133 mm[Hg] [place] [facility] Diastolic blood pressure 2022-08-12 22:41:00 83 mm[Hg] [facility] Heart rate 2022-08-12 22:41:00 63 /min [facility] Body temperature 2022-08-12 22:41:[address] [facility] Respiratory rate 2022-08-12 22:41:00 16 /min [facility] Body height 2022-08-12 22:41:00 165.1 cm [facility] Body weight 2022-08-12 22:41:00 121.927 kg [facility] BMI 2022-08-12 22:41:00 44.73 kg/m2 [facility] Oxygen saturation in Arterial blood by Pulse oximetry 2022-08-12 22:41:00 98 /min [facility] Systolic blood pressure 2020-03-22 19:15:00 131 mm[Hg] [facility] Diastolic blood pressure 2020-03-22 19:15:00 67 mm[Hg] [facility] Heart rate 2020-03-22 19:15:00 66 /min [facility] Body temperature 2020-03-22 19:15:[address] [facility] Respiratory rate 2020-03-22 19:15:00 16 /min [facility] Body height 2020-03-22 19:15:00 165.1 cm [facility] Body weight 2020-03-22 19:15:00 108.551 kg [facility] BMI 2020-03-22 19:15:00 39.82 kg/m2 [facility] Systolic blood pressure 2020-03-01 15:05:00 98 mm[Hg] [facility] Diastolic blood pressure 2020-03-01 15:05:00 64 mm[Hg] [facility] Body temperature 2020-03-01 15:05:[address] [facility] Respiratory rate 2020-03-01 15:05:00 16 /min [facility] Body height 2020-03-01 15:05:00 165.1 cm [facility] Body weight 2020-03-01 15:05:00 107.049 kg [facility] BMI 2020-03-01 15:05:00 39.27 kg/m2 [facility] Systolic blood pressure 2020-02-07 16:57:00 112 mm[Hg] [facility] Diastolic blood pressure 2020-02-07 16:57:00 72 mm[Hg] [facility] Heart rate 2020-02-07 16:57:00 67 /min Unive [facility] Body temperature 2020-02-07 16:57:[address] [facility] Respiratory rate 2020-02-07 16:57:00 16 /min [facility] Body height 2020-02-07 16:57:00 165.1 cm [facility] Body weight 2020-02-07 16:57:00 117.538 kg [facility] BMI 2020-02-07 16:57:00 43.12 kg/m2 [facility] Systolic blood pressure 2020-02-06 19:27:00 135 mm[Hg] [facility] Diastolic blood pressure 2020-02-06 19:27:00 70 mm[Hg] [facility] Heart rate 2020-02-06 19:27:00 79 /min Unive [facility] Body temperature 2020-02-06 19:27:[address] [facility] Respiratory rate 2020-02-06 19:27:00 18 /min [facility] Body height 2020-02-06 19:27:00 165.1 cm [facility] Body weight 2020-02-06 19:27:00 117.935 kg [facility] BMI 2020-02-06 19:27:00 43.27 kg/m2 [facility] Systolic blood pressure 2020-01-23 15:19:00 109 mm[Hg] [facility] Diastolic blood pressure 2020-01-23 15:19:00 65 mm[Hg] [facility] Heart rate 2020-01-23 15:19:00 65 /min Unive [facility] Body temperature 2020-01-23 15:19:[address] [facility] Respiratory rate 2020-01-23 15:19:00 16 /min [facility] Body height 2020-01-23 15:19:00 165.1 cm [facility] Body weight 2020-01-23 15:19:00 117.085 kg [facility] BMI 2020-01-23 15:19:00 42.95 kg/m2 [facility] Systolic blood pressure 2020-01-09 16:34:00 107 mm[Hg] [facility] Diastolic blood pressure 2020-01-09 16:34:00 66 mm[Hg] [facility] Heart rate 2020-01-09 16:34:00 52 /min [facility] Body temperature 2020-01-09 16:34:[address] [facility] Respiratory rate 2020-01-09 16:34:00 16 /min [facility] Body height 2020-01-09 16:34:00 165.1 cm [facility] Body weight 2020-01-09 16:34:00 114.306 kg [facility] BMI 2020-01-09 16:34:00 41.93 kg/m2 [facility] Systolic blood pressure 2020-01-03 14:11:00 115 mm[Hg] [facility] Diastolic blood pressure 2020-01-03 14:11:00 73 mm[Hg] [facility] Heart rate 2020-01-03 14:11:00 73 /min Unive [facility] Body temperature 2020-01-03 14:11:[address] [facility] Respiratory rate 2020-01-03 14:11:00 16 /min [facility] Body height 2020-01-03 14:11:00 165.1 cm [facility] Body weight 2020-01-03 14:11:00 114.448 kg [facility] BMI 2020-01-03 14:11:00 41.99 kg/m2 [facility] Systolic blood pressure 2019-12-20 14:16:00 110 mm[Hg] [facility] Diastolic blood pressure 2019-12-20 14:16:00 73 mm[Hg] [facility] Heart rate 2019-12-20 14:16:00 74 /min Unive [facility] Body temperature 2019-12-20 14:16:[address] [facility] Respiratory rate 2019-12-20 14:16:00 16 /min [facility] Body height 2019-12-20 14:16:00 165.1 cm [facility] Body weight 2019-12-20 14:16:00 113.569 kg [facility] BMI 2019-12-20 14:16:00 41.66 kg/m2 [facility] Systolic blood pressure 2019-11-20 14:32:00 127 mm[Hg] [facility] Diastolic blood pressure 2019-11-20 14:32:00 77 mm[Hg] [facility] Heart rate 2019-11-20 14:32:00 79 /min Unive [facility] Body temperature 2019-11-20 14:32:[address] [facility] Respiratory rate 2019-11-20 14:32:00 16 /min [facility] Body height 2019-11-20 14:32:00 165.1 cm [facility] Body weight 2019-11-20 14:32:00 110.678 kg [facility] BMI 2019-11-20 14:32:00 40.60 kg/m2 [facility] Systolic blood pressure 2019-11-02 13:24:00 121 mm[Hg] [facility] Diastolic blood pressure 2019-11-02 13:24:00 83 mm[Hg] [facility] Heart rate 2019-11-02 13:24:00 82 /min [facility] Body temperature 2019-11-02 13:24:[address] [facility] Respiratory rate 2019-11-02 13:24:00 18 /min [facility] Body height 2019-11-02 13:24:00 165.1 cm [facility] Body weight 2019-11-02 13:24:00 112.492 kg [facility] BMI 2019-11-02 13:24:00 41.27 kg/m2 [facility] Oxygen saturation in Arterial blood by Pulse oximetry 2019-11-02 13:24:00 98 /min [facility] Systolic blood pressure 2019-10-19 13:51:00 111 mm[Hg] [facility] Diastolic blood pressure 2019-10-19 13:51:00 61 mm[Hg] [facility] Heart rate 2019-10-19 13:51:00 69 /min [facility] Body temperature 2019-10-19 13:51:[address] [facility] Respiratory rate 2019-10-19 13:51:00 16 /min [facility] Body height 2019-10-19 13:51:00 165.1 cm [facility] Body weight 2019-10-19 13:51:00 112.634 kg [facility] BMI 2019-10-19 13:51:00 41.32 kg/m2 [facility] Systolic blood pressure 2019-10-02 14:33:00 132 mm[Hg] [facility] Diastolic blood pressure 2019-10-02 14:33:00 73 mm[Hg] [facility] Heart rate 2019-10-02 14:33:00 61 /min Unive [facility] Body temperature 2019-10-02 14:33:[address] [facility] Respiratory rate 2019-10-02 14:33:00 16 /min [facility] Body height 2019-10-02 14:33:00 165.1 cm [facility] Body weight 2019-10-02 14:33:00 112.038 kg [facility] BMI 2019-10-02 14:33:00 41.10 kg/m2 [facility] Systolic blood pressure 2019-09-20 21:15:00 109 mm[Hg] [facility] Diastolic blood pressure 2019-09-20 21:15:00 71 mm[Hg] [facility] Heart rate 2019-09-20 21:15:00 69 /min Unive [facility] Body temperature 2019-09-20 21:15:[address] [facility] Respiratory rate 2019-09-20 21:15:00 16 /min [facility] Body height 2019-09-20 21:15:00 165.1 cm [facility] Body weight 2019-09-20 21:15:00 113.807 kg [facility] BMI 2019-09-20 21:15:00 41.75 kg/m2 [facility] Systolic blood pressure 2019-09-18 13:52:00 115 mm[Hg] [place] [facility] Diastolic blood pressure 2019-09-18 13:52:00 74 mm[Hg] [facility] Heart rate 2019-09-18 13:52:00 68 /min [facility] Body temperature 2019-09-18 13:52:[address] [facility] Respiratory rate 2019-09-18 13:52:00 16 /min [facility] Body height 2019-09-18 13:52:00 165.1 cm [facility] Body weight 2019-09-18 13:52:00 113.172 kg [facility] BMI 2019-09-18 13:52:00 41.52 kg/m2 [facility] BP Systolic 2023-09-18 12:06:00 Step hen F Cristi BP Diastolic 2023-09-18 12:06:00 Mannie phen F Cristi Weight Measured 2023-09-18 12:06:00 257.60 pounds James F Cristi Height Measured 2023-09-18 12:06:00 65.00 inches James F Cristi Body Temperature 2023-09-18 12:06:00 James F Cristi Heart Rate 2023-09-18 12:06:00 Reshma en F Cristi Respiratory Rate 2023-09-18 12:06:00 James F Cristi BP Systolic 2023-07-30 14:50:00 135 mm[Hg] Step [...] Measured 2023-06-14 15:23:00 65.00 inches James F Critsi Body Temperature 2023-06-14 15:23:00 98.40 degrees James [...] Cristi Weight Measured 2022-05-29 17:45:00 267.80 pounds James F Cristi Height Measured 2022-05-29 17:45:00 65.00 inches James [...] Weight Measured 2022-03-24 16:41:00 270.60 pounds James F Cristi Height Measured 2022-03-24 16:41:00 65.00 inches James F Cristi Body Temperature 2022-03-24 16:41:00 98.30 degrees James F Cristi Heart Rate 2022-03-24 16:41:00 89.00 /min Reshma en F Cristi Respiratory Rate 2022-03-24 16:41:00 18.00 /min James F Cristi Procedures Procedure Date / Time Performed Performing Clinician Source ASSIGNMENT OF BENEFITS 2022-08-12 22:34:10 Waldemar young Unassigned, [place] [facility] DME/SUPPLY JUSTIFICATION 2020-02-14 06:01:00 Loy tineo Unassigned, [place] [facility] HOSPITAL ADMISSION 2020-02-08 06:01:00 Doctor Un assigned, [place] [facility] POCT URINALYSIS 2020-02-07 16:58:[address] [facility] NON-STRESS TEST 2020-02-06 23:42:[address] [facility] URINALYSIS 2020-02-06 19:48:00 Cristin Fournier [facility] NOTICE OF PRIVACY PRACTICES 2020-02-06 19:05:31 Doctor Unassigned, [place] [facility] CONSENT/REFUSAL FOR DIAGNOSIS AND TREATMENT 2020-02-06 19:05:13 Doctor Unassigned, [place] [facility] ASSIGNMENT OF BENEFITS 2020-02-06 19:05:00 Waldemar young Unassigned, [place] [facility] POCT URINALYSIS 2020-01-23 15:24:[address] [facility] TDAP VACCINE, >11 YRS, IM 2020-01-09 17:05:[address] [facility] POCT URINALYSIS 2020-01-09 16:35:[address] [facility] STERILIZATION CONSENT FORM 2020-01-09 06:01:00 Doctor Unassigned, [place] [facility] POCT URINALYSIS 2020-01-03 14:14:[address] [facility] POCT URINALYSIS 2019-12-20 14:19:[address] [facility] SECOND AND THIRD TRIMESTER ULTRASOUND 2019-12-01 20:39:[address] [facility] FLU VACC ([id number]), 6+ MONTHS, IM, QUAD 2019-11-20 14:40:[address] [facility] POCT URINALYSIS 2019-11-20 14:35:[address] [facility] POCT URINALYSIS 2019-10-19 13:52:[address] [facility] EXTERNAL PROVIDER RECORDS 2019-10-06 05:01:00 Doctor Unassigned, [place] [facility] REFERRAL- REQUEST/RESPONSE 2019-10-03 05:01:00 Doctor Unassigned, [place] [facility] POCT URINALYSIS 2019-10-02 14:32:[address] [facility] EXTERNAL PROVIDER RECORDS 2019-09-28 05:01:00 Doctor Unassigned, [place] [facility] FIRST TRIMESTER TRISOMY SCRN 2019-09-18 18:12:[address]ía [facility] FIRST TRIMESTER ULTRASOUND 2019-09-18 17:39:[address] [facility] POCT URINALYSIS W/O SPECIFIC GRAVITY 2019-09-18 13:48:[address] [facility] POCT TEST 2019-09-18 13:47:[address] [facility] ASSIGNMENT OF BENEFITS 2019-09-18 13:11:19 Docto r Unassigned, [place] [facility] Encounters Start Date/Time End Date/Time Encounter Type Admission Type Attending Clinicians Care Facility Care Department Encounter ID Source 2020-12-07 13:44:24 Outpatient P [facility] [id number] [facility] 2020-12-07 13:38:35 Outpatient P [facility] [id number] [facility] 2023-09-20 08:00:00 2023-09-20 08:00:00 Outpatient R OBI-SYMONE , PIETRO OBI-SYMONE , PIETRO [facility] [id number] [facility] 2023-09-18 12:25:45 2023-09-18 12:25:45 Outpatient S[facility] S[facility] [id number] James Colin 2023-09-18 00:00:00 2023-09-18 00:00:00 Outpatient Visit [facility] [id number] James Colin 2023-07-30 14:44:17 2023-07-30 14:44:17 Outpatient SFA SFA [id number] James Colin 2023-07-30 00:00:00 2023-07-30 00:00:00 Outpatient Visit [facility] [id number] James Colin 2023-07-12 16:02:44 2023-07-12 16:02:44 Outpatient SFA SFA [id number] James Colin 2023-07-12 00:00:00 2023-07-12 00:00:00 Outpatient Visit SFA [id number] James Colin 2023-06-23 09:43:43 2023-06-23 09:43:43 Outpatient SFA SFA [id number] James Colin 2023-06-14 15:08:06 2023-06-14 15:08:06 Outpatient SFA SFA [id number] James Colin 2023-06-14 00:00:00 2023-06-14 00:00:00 Outpatient Visit SFA [id number] James Colin 2023-05-07 15:59:37 2023-05-07 15:59:37 Outpatient SFA SFA [id number] James Colin 2023-04-12 16:54:35 2023-04-12 16:54:35 Outpatient SFA SFA [id number] James Colin 2023-03-17 08:35:37 2023-03-17 08:35:37 Outpatient SFA SFA [id number] James Colin 2023-03-05 17:43:08 2023-03-05 17:43:08 Outpatient SFA SFA [id number] James Colin 2023-03-05 17:40:00 2023-03-05 17:40:00 Outpatient R [facility] [id number] [facility] 2023-02-10 17:40:00 2023-02-10 17:40:00 Outpatient R [facility] [id number] [facility] 2022-12-10 15:03:39 2022-12-10 15:03:39 Outpatient [facility] [id number] James Colin 2022-10-08 00:00:00 2022-10-08 00:00:00 Case Management Lorelei Heard 1..840.114 350.1.13.10 4.2.7.2.686 [id number] [facility] 2022-09-08 16:01:19 2022-09-08 16:01:19 Outpatient [facility] [id number] James Colin 2022-09-01 08:44:40 2022-09-01 08:44:40 Outpatient [facility] [id number] James Colin 2022-08-28 17:04:36 2022-08-28 17:04:36 Outpatient [facility] [id number] James Ahmadi Cristi 2022-08-12 17:20:00 2022-08-12 18:03:47 Outpatient R LANA MANZANO [facility] [id number] [facility] 2022-08-12 17:20:00 2022-08-12 18:03:47 Urgent Care Lana Manzano Unknown, Attending [facility] 1.840.114 350.1.13.10 4.2.7.2.686 [id number] [facility] 2022-08-12 00:00:00 2022-08-12 00:00:00 Orders Only Doctor Unassigned, [place] [facility] 1..840.114 350.1.13.10 4.2.7.2.686 [id number] [facility] 2022-05-30 10:26:56 2022-05-30 10:26:56 Outpatient [facility] [id number] James Colin 2022-05-29 17:37:23 2022-05-29 17:37:23 Outpatient [facility] [id number] James Colin 2022-03-24 16:38:12 2022-03-24 16:38:12 Outpatient [facility] [id number] James Colin 2021-01-16 00:00:00 2021-01-16 00:00:00 Telephone Yas Garsia [facility] 1.84.114 350.1.13.10 4.2.7.2.686 [id number] [facility] 2021-01-15 18:00:00 2021-01-15 18:00:00 Outpatient Hector FORBES JOLLY [facility] [id number] [facility] 2021-01-15 17:42:22 2021-01-15 17:57:22 Laboratory Only Only, Ang Db Test Stuart [facility] 1.840.114 350.1.13.10 4.2.7.2.686 [id number] [facility] 2020-04-30 00:00:00 2020-04-30 00:00:00 Patient Outreach Terry Reynaga [facility] 1.84.114 350.1.13.10 4.2.7.2.686 [id number] [facility] 2020-03-22 13:04:14 2020-03-22 13:42:48 Office Visit Marleny Card [facility] BEAM PRESS OPERATOR [facility] 1.84.114 350.1.13.10 4.2.7.2.686 [id number] [facility] 2020-03-22 13:15:00 2020-03-22 13:15:00 Outpatient R MARLENY CARD [facility] [id number] [facility] 2020-03-01 08:51:54 2020-03-01 09:34:32 Routine Visit Marleny Card [facility] BEAM PRESS OPERATOR [facility] & CHILD [facility] 1.2.840.114 350.1.13.10 4.2.7.2.686 [id number] [facility] 2020-03-01 09:00:00 2020-03-01 09:00:00 Outpatient R MARLENY CARD [facility] [id number] [facility] 2020-02-21 10:30:00 2020-02-21 10:30:00 Outpatient R MARLENY CARD [facility] [id number] [facility] 2020-02-14 00:00:00 2020-02-14 00:00:00 Orders Only Doctor Unassigned, [place] [facility] 1.840.114 350.1.13.10 4.2.7.2.686 [id number] [facility] 2020-02-08 00:00:00 2020-02-08 00:00:00 Orders Only Doctor Unassigned, [place] [facility] 1..840.114 350.1.13.10 4.2.7.2.686 [id number] [facility] 2020-02-07 10:41:19 2020-02-07 11:09:36 Routine Visit Marelny Card [facility] BEAM PRESS OPERATOR [facility] & [facility]ILD [facility] 1..840.114 350.1.13.10 4.2.7.2.686 [id number] [facility] 2020-02-07 10:45:00 2020-02-07 10:45:00 Outpatient R MARLENY CARD [facility] [id number] [facility] 2020-02-06 13:02:00 2020-02-06 17:20:00 Hospital Encounter Cristin Fournier [facility] 1.2.84.114 350.1.13.10 4.2.7.2.686 [id number] [facility] 2020-01-23 09:06:51 2020-01-23 09:52:35 Routine Visit Marleny Card [facility] BEAM PRESS OPERATOR [facility]ILD [facility] 1.84.114 350.1.13.10 4.2.7.2.686 [id number] [facility] 2020-01-23 09:30:00 2020-01-23 09:30:00 Outpatient R MARLENY CARD [facility] [id number] [facility] 2020-01-22 08:51:59 2020-01-22 09:21:59 Hand Inserter Operator Visit Ultrasound, Arthur Sprague Sangeeta [facility] BEAM PRESS OPERATOR [facility]ILD [facility] 1.840.114 350.1.13.10 4.2.7.2.686 [id number] [facility] 2020-01-22 09:00:00 2020-01-22 09:00:00 Outpatient ARTHUR MUÑOZ [facility] [id number] [facility] 2020-01-22 00:00:00 2020-01-22 00:00:00 Abstract Marleny Card [facility] BEAM PRESS OPERATOR [facility] & [facility]ILD [facility] 1.840.114 350.1.13.10 4.2.7.2.686 [id number] [facility] 2020-01-10 14:00:00 2020-01-10 14:00:00 Outpatient R MARLENY CARD [facility] [id number] [facility] 2020-01-09 10:14:35 2020-01-09 11:07:51 Routine Visit Marleny Card [facility] BEAM PRESS OPERATOR [facility] .840.114 350.1.13.10 4.2.7.2.686 [id number] 107 [id number] [facility] 2020-01-09 10:15:00 2020-01-09 10:15:00 Outpatient R MARLENY CARD [facility] [id number] [facility] 2020-01-09 00:00:00 2020-01-09 00:00:00 Orders Only Doctor Unassigned, [place] [facility] 1..114 350.1.13.10 4.2.7.2.686 [id number] [facility] 2020-01-03 08:00:18 2020-01-03 08:15:18 Routine Visit Marleny Card [facility] BEAM PRESS OPERATOR [facility] 1..114 350.1.13.10 4.2.7.2.686 [id number] [facility] 2020-01-03 08:00:00 2020-01-03 08:00:00 Outpatient R MARLENY CARD [facility] [id number] [facility] 2019-12-28 00:00:00 2019-12-28 00:00:00 Abstract Marleny Card [facility] BEAM PRESS OPERATOR [facility] 1..114 350.1.13.10 4.2.7.2.686 [id number] [facility] 2019-12-25 08:55:39 2019-12-25 09:25:39 Hand Inserter Operator Visit Ultrasound, Arthur Sprague [facility] BEAM PRESS OPERATOR [facility] 1..114 350.1.13.10 4.2.7.2.686 [id number] [facility] 2019-12-25 09:00:00 2019-12-25 09:00:00 Outpatient P [facility] [id number] [facility] 2019-12-21 00:00:2019-12-21 00:00:00 Telephone Marleny Card [facility] BEAM PRESS OPERATOR [facility] 1.20.114 350.1.13.10 4.2.7.2.686 [id number] 107 [id number] [facility] 2019-12-20 07:57:55 2019-12-20 08:38:02 Routine Visit Marleny Card [facility] BEAM PRESS OPERATOR [facility] 1.20.114 350.1.13.10 4.2.7.2.686 [id number] [facility] 2019-12-20 08:00:00 2019-12-20 08:00:00 Outpatient R MARLENY CARD [facility] [id number] [facility] 2019-12-07 00:00:00 2019-12-07 00:00:00 Abstract Marleny Card [facility] BEAM PRESS OPERATOR [facility] 1..114 350.1.13.10 4.2.7.2.686 [id number] [facility] 2019-12-01 15:05:28 2019-12-01 15:35:28 Hand Inserter Operator Visit 1, [facility] Us Room [facility] 1..114 350.1.13.10 4.2.7.2.686 [id number] [facility] 2019-12-01 15:30:00 2019-12-01 15:30:00 Outpatient P [facility] [id number] [facility] 2019-11-20 09:14:09 2019-11-20 09:58:02 Routine Visit Marleny Card [facility] BEAM PRESS OPERATOR [facility] 1..114 350.1.13.10 4.2.7.2.686 [id number] [facility] 2019-11-20 09:15:00 2019-11-20 09:15:00 Outpatient R MARLENY CARD [facility] [id number] [facility] 2019-11-14 00:00:00 2019-11-14 00:00:00 Abstract Marleny Card [facility] BEAM PRESS OPERATOR [facility] & CHILD [facility] 1.840.114 350.1.13.10 4.2.7.2.686 [id number] 107 [id number] [facility] 2019-11-09 10:09:26 2019-11-09 11:24:26 Hand Inserter Operator Visit Ultrasound, Penelope Newby [facility] BEAM PRESS OPERATOR [facility]ILD [facility] 1.840.114 350.1.13.10 4.2.7.2.686 [id number] [facility] 2019-11-09 10:15:00 2019-11-09 10:15:00 Outpatient P [facility] [id number] [facility] 2019-11-02 08:00:48 2019-11-02 08:20:48 [facility] Care Provider[facility] 1.840.114 350.1.13.10 4.2.7.2.686 [id number] [facility] 2019-11-02 08:00:00 2019-11-02 08:00:00 Outpatient R ROYA DURAN [facility] [id number] [facility] 2019-10-30 08:12:51 2019-10-30 08:42:51 Telemedici ne Visit Faculty, Audrey Ceballos [facility] BEAM PRESS OPERATOR [facility] 1..840.114 350.1.13.10 4.2.7.2.686 [id number] 107 [id number] [facility] 2019-10-30 08:00:00 2019-10-30 08:00:00 Outpatient R [facility] [id number] [facility] 2019-10-24 00:00:00 2019-10-24 00:00:00 Refill Doctor Unassigned, [place] [facility] BEAM PRESS OPERATOR [facility] 1.840.114 350.1.13.10 4.2.7.2.686 [id number] 107 [id number] [facility] 2019-10-19 08:30:16 2019-10-19 09:27:16 Routine Visit Marleny Card [facility] BEAM PRESS OPERATOR [facility] 1.840.114 350.1.13.10 4.2.7.2.686 [id number] [facility] 2019-10-19 08:30:00 2019-10-19 08:30:00 Outpatient R MARLENY CARD [facility] [id number] [facility] 2019-10-18 00:00:00 2019-10-18 00:00:00 Patient Secure Msg Doctor Unassigned, [place] [facility] BEAM PRESS OPERATOR [facility] 1..114 350.1.13.10 4.2.7.2.686 [id number] [facility] 2019-10-18 00:00:00 2019-10-18 00:00:00 Telephone Marleny Card [facility] 1.84.114 350.1.13.10 4.2.7.2.686 [id number] 107 [id number] [facility] 2019-10-09 07:49:00 2019-10-09 11:20:05 Hand Inserter Operator Visit Lab, En-Rmchp Marleny Card [facility] BEAM PRESS OPERATOR [facility] 1..114 350.1.13.10 4.2.7.2.686 [id number] 107 [id number] [facility] 2019-10-09 07:45:00 2019-10-09 07:45:00 Outpatient R MARLENY CARD [facility] [id number] [facility] 2019-10-06 00:00:00 2019-10-06 00:00:00 Orders Only Doctor Unassigned, [place] [facility] 1.2840.114 350.1.13.10 4.2.7.2.686 [id number] [facility] 2019-10-04 00:00:00 2019-10-04 00:00:00 Telephone Marleny Card [facility] BEAM PRESS OPERATOR [facility] & CHILD [facility] 1.840.114 350.1.13.10 4.2.7.2.686 [id number] 107 [id number] [facility] 2019-10-03 00:00:00 2019-10-03 00:00:00 Orders Only Doctor Unassigned, [place] [facility] 1.2840.114 350.1.13.10 4.2.7.2.686 [id number] [facility] 2019-10-02 09:22:59 2019-10-02 10:00:57 Routine Visit Faculty, Collin Castellon [facility] BEAM PRESS OPERATOR [facility] & CHILD [facility] 1..114 350.1.13.10 4.2.7.2.686 [id number] 107 [id number] [facility] 2019-10-02 09:30:00 2019-10-02 09:30:00 Outpatient R [facility] [id number] [facility] 2019-09-28 00:00:00 2019-09-28 00:00:00 Orders Only Doctor Unassigned, [place] [facility] 1.2840.114 350.1.13.10 4.2.7.2.686 [id number] [facility] 2019-09-26 00:00:00 2019-09-26 00:00:00 Telephone Marleny Card [facility] BEAM PRESS OPERATOR [facility] & CHILD [facility] 1.2.840.114 350.1.13.10 4.2.7.2.686 [id number] [facility] 2019-09-26 00:00:00 2019-09-26 00:00:00 Telephone Marleny Card [facility] BEAM PRESS OPERATOR [facility] 1.2.840.114 350.1.13.10 4.2.7.2.686 [id number] 107 [id number] [facility] 2019-09-26 00:00:00 2019-09-26 00:00:00 Refill Marleny Card [facility] BEAM PRESS OPERATOR [facility] 1.2.840.114 350.1.13.10 4.2.7.2.686 [id number] 107 [id number] [facility] 2019-09-26 00:00:00 2019-09-26 00:00:00 Telephone Pcp, Patient Does Not Have A [facility] BEAM PRESS OPERATOR [facility] 1.2.840.114 350.1.13.10 4.2.7.2.686 [id number] 107 [id number] [facility] 2019-09-25 00:00:00 2019-09-25 00:00:00 Refill Marleny Card [facility] BEAM PRESS OPERATOR [facility] 1.2.840.114 350.1.13.10 4.2.7.2.686 [id number] 107 [id number] [facility] 2019-09-20 15:54:20 2019-09-20 16:22:14 Nurse Visit Visit, En-Rmchp Nurse Marleny Card [facility] BEAM PRESS OPERATOR [facility] 1.2.840.114 350.1.13.10 4.2.7.2.686 [id number] 107 [id number] [facility] 2019-09-20 16:00:00 2019-09-20 16:00:00 Outpatient R CANDYMARIN MARLENY [facility] [id number] [facility] 2019-09-20 00:00:00 2019-09-20 00:00:00 Telephone Kyaw Marleny Rascon [facility] BEAM PRESS OPERATOR [facility] & CHILD [facility] 1.0.114 350.1.13.10 4.2.7.2.686 [id number] [facility] 2019-09-18 12:56:28 2019-09-18 14:35:24 Hand Inserter Operator Visit Lab, [facility] Unknown, Attending Marleny Card [facility] 1..114 350.1.13.10 4.2.7.2.686 [id number] [facility] 2019-09-18 11:32:49 2019-09-18 12:53:44 Hand Inserter Operator Visit 3, [facility] Us Room Slime Polanco [facility] 1..114 350.1.13.10 4.2.7.2.686 [id number] [facility] 2019-09-18 08:24:07 2019-09-18 10:56:53 Initial Visit Marleny Card [facility] BEAM PRESS OPERATOR [facility]ILD [facility] 1.0.114 350.1.13.10 4.2.7.2.686 [id number] 107 [id number] [facility] 2019-09-18 08:30:00 2019-09-18 08:30:00 Outpatient R KYAW MARLENY [facility] [id number] [facility] 2019-09-18 00:00:00 2019-09-18 00:00:00 Orders Only Doctor Unassigned, [place] [facility] 1.840.114 350.1.13.10 4.2.7.2.686 [id number] [facility] 2019-09-18 00:00:00 2019-09-18 00:00:00 Case Management Judy Mejía [facility] 1..840.114 350.1.13.10 4.2.7.2.686 [id number] [facility] 2019-09-18 00:00:00 2019-09-18 00:00:00 Abstract Marleny Card [facility] BEAM PRESS OPERATOR [facility] 1..840.114 350.1.13.10 4.2.7.2.686 [id number] 107 [id number] [facility] Results Test Description Test Time Test Comments Results Result Co mments Source James Ahmadi CristiNOTE: [ADDED]2023-07-20 00:00:00* Test Item Value Reference Range Interpretation Comme nts NOTE: (test code = 998) (NOTE) James ColinTSH, THIRD GENERATION [ADDED]2023-07-20 00:00:00* Test Item Value Reference Range Interpretation Comme nts TSH, THIRD GENERATION (test code = 2821) 11.200 UIU/ML James Ahmadi CristiNOTE: [ADDED]2023-07-20 00:00:00* Test Item Value Reference Range Interpretation Comme nts NOTE: (test code = 998) (NOTE) James ColinCOMPREHENSIVE METABOLIC [id number] 00:00:00* Test Item Value Reference Range Interpretation Comme nts GLUCOSE (test code = 2217) 124 MG/DL BUN (test code = 2208) 11 MG/DL CREATININE (test code = 2214) 0.87 MG/DL eGFR (2020 CKD-EPI) (test co de = 18716) 93 ML/MIN/1.73 CALC BUN/CREAT (test code = [...] code = 2219) 41 U/L James ColinLIPID [id number] 00:00:00* Test Item Value Reference Range Interpretation Comme nts CHOLESTEROL (test code = 2210) 183 MG/DL TRIGLYCERIDES (test code = 2232) 200 MG/DL HDL CHOLESTEROL (test code = 2220) 41 MG/DL CALC LDL CHOL (test code = 2237) 110 MG/DL RISK RATIO LDL/HDL (test cod e = 2238) 2.68 RATIO James ColinHEMOGLOBIN [id number] 00:00:00* Test Item Value Reference Range Interpretation Comme nts HEMOGLOBIN A1c (test code = 60122) 6.6 % James ColinCOMPREHENSIVE METABOLIC [id number] 00:00:00* Test Item Value Reference Range Interpretation Comme nts GLUCOSE (test code = 2217) 124 MG/DL BUN (test code = 2208) 11 MG/DL CREATININE (test code = 2214) 0.87 MG/DL eGFR (2020 CKD-EPI) (test co de = 30509) 93 ML/MIN/1.73 CALC BUN/CREAT (test code = [...] code = 2219) 41 U/L James ColinLIPID [id number] 00:00:00* Test Item Value Reference Range Interpretation Comme nts CHOLESTEROL (test code = 2210) 183 MG/DL TRIGLYCERIDES (test code = 2232) 200 MG/DL HDL CHOLESTEROL (test code = 2220) 41 MG/DL CALC LDL CHOL (test code = 2237) 110 MG/DL RISK RATIO LDL/HDL (test cod e = 2238) 2.68 RATIO James ColinHEMOGLOBIN [id number] 00:00:00* Test Item Value Reference Range Interpretation Comme ramesh HEMOGLOBIN A1c (test code = 70109) 6.6 % James Gerber, [id number] 09:07:39SPECIMEN NUMBER: [id number] CULTURE, URINE SPECIMEN NUMBER: [id number] SPECIMEN COMMENT: URINE SOURCE: URINE REPORT STATUS: [...] TESTING PERFORMED AT [facility] [address] [place] [address] CLINICAL MANAGER HOME CARE: REMBERTO MCELROY M.D. CLIA NUMBER [id number] [place]. [id number], [id number] 00:00:00* Test Item Value Reference Range Interpretation Comme nts CULTURE, URINE (test code = 68871) SPECIMEN NUMBER: [id number] ACRRIE [id number] 00:00:00* Test Item Value Reference Range Interpretation Comme nts CULTURE, URINE (test code = 38116) SPECIMEN NUMBER: [id number] James Gerber, [id number] 00:00:00* Test Item Value Reference Range Interpretation Comme nts CULTURE, URINE (test code = 08071) SPECIMEN NUMBER: [id number] James Gerber [id number] 00:00:00* Test Item Value Reference Range Interpretation Comme nts CULTURE, URINE (test code = 56673) SPECIMEN NUMBER: [id number] James Nielson THIRD [id number] 05:22:54* Test Item Value Reference Range Interpretation Comme nts TSH, THIRD GENERATION (test code = 2821) 3.100 UIU/ML 0.400-4.100 FREE [id number] 05:22:54* Test Item Value Reference Range Interpretation Comme nts FREE T3 (test code = 4273) 2.8 PG/ML 2.2-4.2 FREE T4 (THYROXINE)2023-03-18 05:22:54* Test Item Value Reference Range Interpretation Comme nts FREE T4 (THYROXINE) (test code = 2823) 1.34 NG/DL 0.80-1.90 UNLESS OTHERWISE INDICATED, ALL TESTING PERFORMED AT [facility] [address] [place] [address] CLINICAL MANAGER HOME CARE: REMBERTO MCELROY M.D. CLIA NUMBER [id number] [place]. [id number] FREE T4 (THYROXINE)2023-03-18 00:00:00* Test Item Value Reference Range Interpretation Comme nts FREE T4 (THYROXINE) (test co de = 2823) 1.34 NG/DL HADLEY Elizalde [id number] 00:00:00* Test Item Value Reference Range Interpretation Comme nts TSH, THIRD GENERATION (test code = 2821) 3.100 UIU/ML James Moses [id number] 00:00:00* Test Item Value Reference Range Interpretation Comme nts FREE T3 (test code = 4273) 2.8 PG/ML James Moses T4 (THYROXINE)2023-03-18 00:00:00* Test Item Value Reference Range Interpretation Comme nts FREE T4 (THYROXINE) (test co de = 2823) 1.34 NG/DL HADLEY Elizalde [id number] 00:00:00* Test Item Value Reference Range Interpretation Comme nts TSH, THIRD GENERATION (test code = 2821) 3.100 UIU/ML James Moses 00:00:00* Test Item Value Reference Range Interpretation Comme nts FREE T3 (test code = 4273) 2.8 PG/ML James Moses T4 (THYROXINE)2023-03-18 00:00:00* Test Item Value Reference Range Interpretation Comme nts FREE T4 (THYROXINE) (test co de = 2823) 1.34 NG/DL HADLEY Elizalde [id number] 00:00:00* Test Item Value Reference Range Interpretation [...] T3 (test code = 4273) 2.8 PG/ML HADLEY Elizalde2023-11-03 05:42:02* Test Item Value Reference Range Interpretation Comme nts TSH, THIRD GENERATION (test code = 2821) 0.257 UIU/ML 0.400-4.100 L UNLESS OTHERWISE INDICATED, ALL TESTING PERFORMED AT [facility] [address] [place] [address] CLINICAL MANAGER HOME CARE: REMBERTO MCELROY M.D. CLIA NUMBER [id number] [place]. [id number] HEMOGLOBIN [id number] 02:27:39* Test Item Value Reference Range Interpretation Comme nts HEMOGLOBIN A1c (test code = 26086) 6.6 % 4.2-5.6 H [employer] GUIDELINES FOR HGB A1C: [...] CONSIDER ALTERNATE TESTING OR LABORATORY CONSULTATION. HEMOGLOBIN [id number] 00:00:00* Test Item Value Reference Range Interpretation Comme nts HEMOGLOBIN A1c (test code = 63206) 6.6 % James Nielson, THIRD [id number] 00:00:00* Test Item Value Reference Range Interpretation Comme nts TSH, THIRD GENERATION (test code = 2821) 0.257 UIU/ML James ColinHEMOGLOBIN [id number] 00:00:00* Test Item Value Reference Range Interpretation Comme nts HEMOGLOBIN A1c (test code = 14049) 6.6 % James Nielson, THIRD [id number] 00:00:00* Test Item Value Reference Range Interpretation Comme nts TSH, THIRD GENERATION (test code = 2821) 0.257 UIU/ML James ColinHEMOGLOBIN [id number] 00:00:00* Test Item Value Reference Range Interpretation Comme nts HEMOGLOBIN A1c (test code = 78558) 6.6 % James Nielson, THIRD [id number] 00:00:00* Test Item Value Reference Range Interpretation Comme nts TSH, THIRD GENERATION (test code = 2821) 0.257 UIU/ML James Ahmadi AustinHEMOGLOBIN [id number] 00:00:00* Test Item Value Reference Range Interpretation Comme nts HEMOGLOBIN A1c (test code = 91362) 6.6 % James Nielson, THIRD [id number] 00:00:00* Test Item Value Reference Range Interpretation Comme nts TSH, THIRD GENERATION (test code = 2821) 0.257 UIU/ML James Nielson THIRD [id number] 06:19:25* Test Item Value Reference Range Interpretation Comme nts TSH, THIRD GENERATION (test code = 2821) 49.500 UIU/ML 0.400-4.100 H COMPREHENSIVE METABOLIC [id number] 04:55:46* Test Item Value Reference Range Interpretation Comme nts GLUCOSE (test code = 7) 140 MG/DL 70-99 H BUN (test code = 2207) 11 MG/DL 6-20 CREATININE (test code = 2213) 0.69 MG/DL 0.60-1.30 eGFR (2020 CKD-EPI) (test code = 97999) 122 ML/MIN/1.73 >60 CALC BUN/CREAT (test code = 2234) 16 RATIO 6-28 SODIUM (test code = 2230) 138 MEQ/L 133-146 POTASSIUM (test code = 2227) 4.5 MEQ/L 3.5-5.4 CHLORIDE (test code = 2214) 105 MEQ/L 95-107 CARBON DIOXIDE (test code = 2205) 23 MEQ/L 19-31 CALCIUM (test code = [...] as normal/abnormal. ALKALINE PHOSPHATASE (test code = 4) 74 U/L 40-112 AST (test code = 2218) 46 U/L 9-40 H ALT (test code = 2219) 80 U/L 5-40 H LIPID [id number] 04:55:46* Test Item Value Reference Range Interpretation Comme nts CHOLESTEROL (test code = 2210) 173 MG/DL <200 TRIGLYCERIDES (test code = 2232) 615 MG/DL <150 H HDL CHOLESTEROL (test code = 222) 31 MG/DL >39 L CALC LDL CHOL (test code = 2237) (NOTE) MG/DL <100 UNABLE TO CALCUL ATE [...] SPECIMENS. FOR MOREINFORMATION, SEE CLIENT ANNOUNCEMENT AT [email or web address] CalcLDL-C RISK RATIO LDL/HDL (test code = 2238) (NOTE) RATIO <3.22 UNABLE TO BEKAH CULATE HEMOGLOBIN [id number] 03:46:55* Test Item Value Reference Range Interpretation Comme nts HEMOGLOBIN A1c (test code = 84671) 7.1 % 4.2-5.6 H [employer] GUIDELINES FOR HGB A1C: [...] TESTING PERFORMED AT [facility] [address] [place] [address] CLINICAL MANAGER HOME CARE: REMBERTO MCELROY M.D. CLIA NUMBER [id number] [place]. [id number] CBC W/AUTO DIFF WITH [id number] 03:10:49* Test Item Value Reference Range Interpretation [...] 0.00-0.10 ABS NUCLEATED RBCS (test code = 16746) 0.00 K/UL 0.00-0.11 COMPREHENSIVE METABOLIC [id number] 00:00:00* Test Item Value Reference Range Interpretation Comme nts GLUCOSE (test code = 2217) 140 MG/DL BUN (test code = 2208) 11 MG/DL CREATININE (test code = 2214) 0.69 MG/DL eGFR (2020 CKD-EPI) (test code = 47353) 122 ML/MIN/1.73 CALC BUN/CREAT (test code = [...] code = 2219) 80 U/L James ColinLIPID [id number] 00:00:00* Test Item Value Reference Range Interpretation Comme nts CHOLESTEROL (test code = 2210) 173 MG/DL TRIGLYCERIDES (test code = 2232) 615 MG/DL HDL CHOLESTEROL (test code = 2220) 31 MG/DL CALC LDL CHOL (test code = 2237) (NOTE) MG/DL RISK RATIO LDL/HDL (test cod e = 2238) (NOTE) RATIO James ColinHEMOGLOBIN [id number] 00:00:00* Test Item Value Reference Range Interpretation Comme ramesh HEMOGLOBIN A1c (test code = 04802) 7.1 % James ColinTSH, THIRD [id number] 00:00:00* Test Item Value Reference Range Interpretation Comme [facility] TSH, THIRD GENERATION (test code = 2821) 49.500 UIU/ML James ColinCBC W/AUTO [id number] 00:00:00* Test Item Value Reference Range Interpretation [...] ABS NUCLEATED RBCS (test cod e = 22069) 0.00 K/UL James Daiana CristiCOMPREHENSIVE METABOLIC [id number] 00:00:00* Test Item Value Reference Range Interpretation Comme nts GLUCOSE (test code = 2217) 140 MG/DL BUN (test code = 2208) 11 MG/DL CREATININE (test code = 2214) 0.69 MG/DL eGFR (2020 CKD-EPI) (test code = 92096) 122 ML/MIN/1.73 CALC BUN/CREAT (test code = [...] (test code = 2219) 80 U/L James Ahmadi AustinLIPID [id number] 00:00:00* Test Item Value Reference Range Interpretation Comme nts CHOLESTEROL (test code = 2210) 173 MG/DL TRIGLYCERIDES (test code = 2232) 615 MG/DL HDL CHOLESTEROL (test code = 2220) 31 MG/DL CALC LDL CHOL (test code = 2237) (NOTE) MG/DL RISK RATIO LDL/HDL (test cod e = 2238) (NOTE) RATIO James ColinHEMOGLOBIN [id number] 00:00:00* Test Item Value Reference Range Interpretation Comme nts HEMOGLOBIN A1c (test code = 55440) 7.1 % James ColinTSH, THIRD [id number] 00:00:00* Test Item Value Reference Range Interpretation Comme nts TSH, THIRD GENERATION (test code = 2821) 49.500 UIU/ML James ColinCBC W/AUTO [id number] 00:00:00* Test Item Value Reference Range Interpretation [...] ABS NUCLEATED RBCS (test cod e = 05938) 0.00 K/UL James ColinCOMPREHENSIVE METABOLIC [id number] 00:00:00* Test Item Value Reference Range Interpretation Comme nts GLUCOSE (test code = 2217) 140 MG/DL BUN (test code = 2208) 11 MG/DL CREATININE (test code = 2214) 0.69 MG/DL eGFR (2020 CKD-EPI) (test code = 40410) 122 ML/MIN/1.73 CALC BUN/CREAT (test code = [...] code = 2219) 80 U/L James ColinLIPID [id number] 00:00:00* Test Item Value Reference Range Interpretation Comme nts CHOLESTEROL (test code = 2210) 173 MG/DL TRIGLYCERIDES (test code = 2232) 615 MG/DL HDL CHOLESTEROL (test code = 2220) 31 MG/DL CALC LDL CHOL (test code = 2237) (NOTE) MG/DL RISK RATIO LDL/HDL (test cod e = 2238) (NOTE) RATIO James ColinHEMOGLOBIN [id number] 00:00:00* Test Item Value Reference Range Interpretation Comme nts HEMOGLOBIN A1c (test code = 91860) 7.1 % James ColinTSH, THIRD [id number] 00:00:00* Test Item Value Reference Range Interpretation Comme nts TSH, THIRD GENERATION (test code = 2821) 49.500 UIU/ML James ColinCBC W/AUTO [id number] 00:00:00* Test Item Value Reference Range Interpretation [...] ABS NUCLEATED RBCS (test cod e = 87637) 0.00 K/UL James F CristiCOMPREHENSIVE METABOLIC [id number] 00:00:00* Test Item Value Reference Range Interpretation Comme nts GLUCOSE (test code = 2217) 140 MG/DL BUN (test code = 2208) 11 MG/DL CREATININE (test code = 2214) 0.69 MG/DL eGFR (2020 CKD-EPI) (test code = 22176) 122 ML/MIN/1.73 CALC BUN/CREAT (test code = [...] code = 2219) 80 U/L James ColinLIPID [id number] 00:00:00* Test Item Value Reference Range Interpretation Comme nts CHOLESTEROL (test code = 2210) 173 MG/DL TRIGLYCERIDES (test code = 2232) 615 MG/DL HDL CHOLESTEROL (test code = 2220) 31 MG/DL CALC LDL CHOL (test code = 2237) (NOTE) MG/DL RISK RATIO LDL/HDL (test cod e = 2238) (NOTE) RATIO James ColinHEMOGLOBIN [id number] 00:00:00* Test Item Value Reference Range Interpretation Comme nts HEMOGLOBIN A1c (test code = 02680) 7.1 % James MendezH, THIRD [id number] 00:00:00* Test Item Value Reference Range Interpretation Comme nts TSH, THIRD GENERATION (test code = 2821) 49.500 UIU/ML James ColinCBC W/AUTO [id number] 00:00:00* Test Item Value Reference Range Interpretation [...] ABS NUCLEATED RBCS (test cod e = 60679) 0.00 K/UL James Nielson, THIRD [id number] 02:36:04* Test Item Value Reference Range Interpretation Comme nts TSH, THIRD GENERATION (test code = 2821) 0.466 UIU/ML 0.400-4.100 [facility] has impo rtant pathology staff changes effective 04/08/2022. New pathology staff will provide uninterrupted, excellent patient care and clinical consultation. See URL: [email or web address]. UNLESS OTHERWISE INDICATED, ALL TESTING PERFORMED AT [facility] [address] [place] [address] CLINICAL MANAGER HOME CARE: REMBERTO MCELROY M.D. CLIA NUMBER [id number] [facility] [place]. [id number] TSH, THIRD [id number] 00:00:00* Test Item Value Reference Range Interpretation Comme nts TSH, THIRD GENERATION (test code = 2821) 0.466 UIU/ML James MendezH, THIRD [id number] 00:00:00* Test Item Value Reference Range Interpretation Comme nts TSH, THIRD GENERATION (test code = 2821) 0.466 UIU/ML James MendezH, THIRD [id number] 00:00:00* Test Item Value Reference Range Interpretation Comme nts TSH, THIRD GENERATION (test code = 2821) 0.466 UIU/ML James MendezH, THIRD [id number] 00:00:00* Test Item Value Reference Range Interpretation Comme nts TSH, THIRD GENERATION (test code = 2821) 0.466 UIU/ML James Nielson THIRD [id number] 04:57:11* Test Item Value Reference Range Interpretation Comme nts TSH, THIRD GENERATION (test code = 2821) >100.000 UIU/ML 0.400-4.100 H [facility] has important pathology staff changes effective 04/08/2022. New pathology staff will provide uninterrupted, excellent patient care and clinical consultation. See URL: [email or web address]. UNLESS OTHERWISE INDICATED, ALL TESTING PERFORMED AT [facility] [address] [place] [address] CLIA: [id number], CAP: [id number] TSH, THIRD [id number] 00:00:00* Test Item Value Reference Range Interpretation Comme nts TSH, THIRD GENERATION (test code = 2821) >100.000 UIU/ML James Nielson THIRD [id number] 00:00:00* Test Item Value Reference Range Interpretation Comme nts TSH, THIRD GENERATION (test code = 2821) >100.000 UIU/ML James Nielson THIRD [id number] 00:00:00* Test Item Value Reference Range Interpretation Comme nts TSH, THIRD GENERATION (test code = 2821) >100.000 UIU/ML James Nielson THIRD [id number] 00:00:00* Test Item Value Reference Range Interpretation Comme nts TSH, THIRD GENERATION (test code = 2821) >100.000 UIU/ML James [id number] 00:00:00* Test Item Value Reference Range Interpretation Comme nts TSH, THIRD GENERATION (test code = 2821) 3.800 UIU/ML James [id number] 00:00:00* Test Item Value Reference Range Interpretation Comme nts TSH, THIRD GENERATION (test code = 2821) 3.800 UIU/ML James [id number] 00:00:00* Test Item Value Reference Range Interpretation Comme nts TSH, THIRD GENERATION (test code = 2821) 3.800 UIU/ML James [id number] 00:00:00* Test Item Value Reference Range Interpretation Comme nts TSH, THIRD GENERATION (test code = 2821) 3.800 UIU/ML James [id number] 00:00:00* Test Item Value Reference Range Interpretation Comme nts TSH, THIRD GENERATION (test code = 2821) 2.540 UIU/ML James ColinCOMPREHENSIVE METABOLIC [id number] 00:00:00* Test Item Value Reference Range Interpretation Comme nts GLUCOSE (test code = 2217) 98 MG/DL BUN (test code = 2208) 17 MG/DL CREATININE (test code = 2214) 0.60 MG/DL eGFR AMER. (test cod e = 68478) 147 ML/MIN/1.73 eGFR NON- AMER. (test code = 85102) 127 ML/MIN/1.73 CALC BUN/CREAT (test code = [...] code = 2219) 18 U/L James ColinLIPID [id number] 00:00:00* Test Item Value Reference Range Interpretation Comme nts CHOLESTEROL (test code = 2210) 177 MG/DL TRIGLYCERIDES (test code = 2232) 145 MG/DL HDL CHOLESTEROL (test code = 2220) 53 MG/DL CALC LDL CHOL (test code = 2237) 99 MG/DL RISK RATIO LDL/HDL (test cod e = 2238) 1.87 RATIO Jamse [id number] 00:00:00* Test Item Value Reference Range Interpretation Comme nts TSH, THIRD GENERATION (test code = 2821) 2.540 UIU/ML James ColinCOMPREHENSIVE METABOLIC [id number] 00:00:00* Test Item Value Reference Range Interpretation Comme nts GLUCOSE (test code = 2217) 98 MG/DL BUN (test code = 2208) 17 MG/DL CREATININE (test code = 2214) 0.60 MG/DL eGFR AMER. (test cod e = 79388) 147 ML/MIN/1.73 eGFR NON- AMER. (test code = 74558) 127 ML/MIN/1.73 CALC BUN/CREAT (test code = [...] code = 2219) 18 U/L James ColinLIPID [id number] 00:00:00* Test Item Value Reference Range Interpretation Comme nts CHOLESTEROL (test code = 2210) 177 MG/DL TRIGLYCERIDES (test code = 2232) 145 MG/DL HDL CHOLESTEROL (test code = 2220) 53 MG/DL CALC LDL CHOL (test code = 2237) 99 MG/DL RISK RATIO LDL/HDL (test cod e = 2238) 1.87 RATIO James [id number] 00:00:00* Test Item Value Reference Range Interpretation Comme nts TSH, THIRD GENERATION (test code = 2821) 2.540 UIU/ML James ColinCOMPREHENSIVE METABOLIC [id number] 00:00:00* Test Item Value Reference Range Interpretation Comme nts GLUCOSE (test code = 2217) 98 MG/DL BUN (test code = 2208) 17 MG/DL CREATININE (test code = 2214) 0.60 MG/DL eGFR AMER. (test cod e = 17756) 147 ML/MIN/1.73 eGFR NON- AMER. (test code = 15510) 127 ML/MIN/1.73 CALC BUN/CREAT (test code = 2235) 28 RATIO SODIUM (test code = 2231) 141 MEQ/L POTASSIUM (test code = 2228) 4.4 MEQ/L CHLORIDE (test code = 2215) 105 MEQ/L CARBON DIOXIDE (test code = 2206) 27 MEQ/L CALCIUM (test code = 2209) 9.7 MG/DL PROTEIN, TOTAL (test code = 222) 7.6 G/DL ALBUMIN (test code = 2201) 4.6 G/DL CALC GLOBULIN (test code = 2240) 3.0 G/DL CALC A/G RATIO (test code = 2234) 1.5 RATIO BILIRUBIN, TOTAL (test code = 2207) 0.3 MG/DL ALKALINE PHOSPHATASE (test code = 2204) 59 U/L AST (test code = 2218) 13 U/L ALT (test code = 2219) 18 U/L James Ahmadi AustinLIPID [id number] 00:00:00* Test Item Value Reference Range Interpretation Comme nts CHOLESTEROL (test code = 2210) 177 MG/DL TRIGLYCERIDES (test code = 2232) 145 MG/DL HDL CHOLESTEROL (test code = 2220) 53 MG/DL CALC LDL CHOL (test code = 2237) 99 MG/DL RISK RATIO LDL/HDL (test cod e = 2238) 1.87 RATIO James Ahmadi [id number] 00:00:00* Test Item Value Reference Range Interpretation Comme nts TSH, THIRD GENERATION (test code = 2821) 2.540 UIU/ML James ColinCOMPREHENSIVE METABOLIC [id number] 00:00:00* Test Item Value Reference Range Interpretation Comme nts GLUCOSE (test code = 2217) 98 MG/DL BUN (test code = 2208) 17 MG/DL CREATININE (test code = 2214) 0.60 MG/DL eGFR AMER. (test cod e = 19556) 147 ML/MIN/1.73 eGFR NON- AMER. (test code = 29881) 127 ML/MIN/1.73 CALC BUN/CREAT (test code = [...] (test code = 2219) 18 U/L James Daiana MaxtonLIPID [id number] 00:00:00* Test Item Value Reference Range Interpretation Comme nts CHOLESTEROL (test code = 2210) 177 MG/DL TRIGLYCERIDES (test code = 2232) 145 MG/DL HDL CHOLESTEROL (test code = 2220) 53 MG/DL CALC LDL CHOL (test code = 2237) 99 MG/DL RISK RATIO LDL/HDL (test cod e = 2238) 1.87 RATIO James Ahmadi CristiPOCT URINALYSIS W SPECIFIC [id number] 16:58:00* Test Item Value Reference Range Interpretation [...] POCT U APPEAR (test code = 3267) [facility] CenterFET[facility] NON-STRESS [id number] 23:44:45 Reactive and reassuringToco with irritability Cristin Fournier MD ?02/06/2020 ?5:43 [facility] CenterUrinalysis2020-12-29 20:58:00* Test Item Value Reference Range Interpretation Comme nts APPEARANCE (test code = 0365581130) Clear Clear COLOR (test code = 2490155816) Straw Yellow A PH (test code = 7221500528) 4.8-8.0 SP GRAVITY (test code = 5082741140) 1.003-1.030 GLU U QUAL (test code = 0666329712) Normal Normal BLOOD (test code = 9716817423) Negative Negative KETONES (test code = 8551689612) Negative Negative PROTEIN (test code = 2887-8) Negative Negative UROBILIN (test code = 6062114181) Normal Normal BILIRUBIN (test code = 1872409348) Negative Negative NITRITE (test code = 5415126167) Negative Negative LEUK VIKKI (test code = 8139994742) 75/uL Negative A RBC/HPF (test code = 1817137344) <1 See_Comment [Automated messa ge] The system which generated this result transmitted reference range: 0 - 3 HPF. The reference range was not used to interpret this result as normal/abnormal. WBC/HPF (test code = 1598001915) See_Comment [Automated messa ge] The system which generated this result transmitted reference range: 0 - 5 HPF. The reference range was not used to interpret this result as normal/abnormal. BACTERIA (test code = 8732608689) Many Negative A SQ EPITH (test code = 5707206149) HPF Lab Interpretation (test code = 86341-8) Abnormal [facility] CenterPONY URINALYSIS W SPECIFIC [id number] 15:24:00* Test Item Value Reference Range Interpretation [...] POCT U APPEAR (test code = 3267) [facility] URINALYSIS W SPECIFIC [id number] 15:24:00* Test Item Value Reference Range Interpretation [...] POCT U APPEAR (test code = 3267) [facility] URINALYSIS W SPECIFIC [id number] 15:24:00* Test Item Value Reference Range Interpretation [...] POCT U APPEAR (test code = 3267) [facility] URINALYSIS W SPECIFIC [id number] 16:36:00* Test Item Value Reference Range Interpretation [...] POCT U APPEAR (test code = 3267) [facility] URINALYSIS W SPECIFIC [id number] 14:14:00* Test Item Value Reference Range Interpretation [...] POCT U APPEAR (test code = 3267) [facility] URINALYSIS W SPECIFIC [id number] 14:14:00* Test Item Value Reference Range Interpretation [...] POCT U APPEAR (test code = 3267) [facility] URINALYSIS W SPECIFIC [id number] 14:19:00* Test Item Value Reference Range Interpretation [...] POCT U APPEAR (test code = 3267) [facility] URINALYSIS W SPECIFIC [id number] 14:19:00* Test Item Value Reference Range Interpretation [...] POCT U APPEAR (test code = 3267) [facility] URINALYSIS W SPECIFIC [id number] 14:19:00* Test Item Value Reference Range Interpretation [...] POCT U APPEAR (test code = 3267) [facility] URINALYSIS W SPECIFIC [id number] 14:35:00* Test Item Value Reference Range Interpretation [...] POCT U APPEAR (test code = 3267) [facility] URINALYSIS W SPECIFIC [id number] 13:52:00* Test Item Value Reference Range Interpretation [...] POCT U APPEAR (test code = 3267) [facility]PO[facility]CIFIC [id number] 14:33:00* Test Item Value Reference Range Interpretation [...] 3267) Lab Interpretation (test cod e = 52140-2) Abnormal [facility] CenterFIR TRIMESTER TRISOMY [id number] 16:03:00* Test Item Value Reference Range Interpretation Comme nts CRL (test code = 6320893258) 63.95 mm GEST. AGE (test code = 4783746845) 12,4 INS. DEP (test code = 9068789529) No MULT GEST (test code = 5462948174) No NT (test code = 3402594773) 1.80 mm NTD HX (test code = 6407081064) No RACE (test code = 9092439819) DIRECTOR OF ROTC (test code = 8335749441) BHCG MoM (test code = 5940584046) CRL GEST (test code = 1423151721) 12 weeks 5 days, from CRL of 64.0 mm on 09/18/19 EQ AGE RSK (test code = 2400397586) < 15.0 less than that o f a 15.0 year old DS APR (test code = 9349350058) 1:990 DS INTERP (test code = 0988198451) See Note The risk of Down syndrome is LESS than the screening cut-off. DS RSK (test code = 5102277507) 1:97002 The risk at samp le time is equal to 1:31850 DS SCRN (test code = 0758444490) Negative TRISOMY 18 (test code = 4177548578) See Note The risk of trisomy 18 is less than the screening cut-off. ES RSK (test code = 3710378751) 1:1480 The risk of Trisomy 18 is equal to 1:1480The Trisomy 18 cut-off is 1:147 ES SCRN (test code = 6509766595) Negative NT MoM (test code = 3765847221) BHCG DOWNS (test code = 5006816171) INTERPRETATION (test code = 4394406532) N INTERPRETATIO N: SCREEN NEGATIVE Down Syndrome and Trisomy 18 JACKI-A (test code = 4818364479) 452.5 ng/mL JACKI-A MoM (test code = 0013097727) US DATE (test code = 7972653113) WEIGHT (test code = 4495207999) lbs SMOKER (test code = 8255607019) No [facility]PO[facility] W/O SPECIFIC [id number] 13:48:00* Test Item Value Reference Range Interpretation [...] = 3257) Large Negative - Negati ve [facility] CenterPO[facility]AL[facility] W/O SPECIFIC [id number] 13:48:00* Test Item Value Reference Range Interpretation [...] = 3257) Large Negative - Negati ve [facility] URINALYSIS W/O SPECIFIC [id number] 13:48:00* Test Item Value Reference Range Interpretation [...] = 3257) Large Negative - Negati ve [facility] [id number] 13:47:00* Test Item Value Reference Range Interpretation Comme nts POCT PREG (test code = 1605) Positive On board controls acceptable with C Line (test code = 3574) Yes POCT PREG LOT # (test code = 3575) POCT PREG TEST DATE ( test code = 3576) [facility] [id number] 13:47:00* Test Item Value Reference Range Interpretation Comme nts POCT PREG (test code = 1605) Positive On board controls acceptable with C Line (test code = 3574) Yes POCT PREG LOT # (test code = 3575) POCT PREG TEST DATE ( test code = 3576) [facility] [id number] 13:47:00* Test Item Value Reference Range Interpretation Comme nts POCT PREG (test code = 1605) Positive On board controls acceptable with C Line (test code = 3574) Yes POCT PREG LOT # (test code = 3575) POCT PREG TEST DATE ( test code = 3576) [facility] CenterGLUCOSE TOLERANCE, 3 HR, GESTATIONAL, DIAGNOSTIC, 100 GM [id number] 00:00:00* Test Item Value Reference Range Interpretation [...] code = ) 113 MG/DL James F MaxtonDRUG ABUSE PANEL 10 WITH [id number] 00:00:00* Test Item Value Reference Range Interpretation Comme nts AMPHETAMINES (test code = 3201) TEST NOT PERFORMED BARBITURATES (test code = 3202) TEST NOT PERFORMED BENZODIAZEPINES (test code = 3203) TEST NOT PERFORMED CANNABINOIDS (test code = 3204) TEST NOT PERFORMED COCAINE METABOLITE (test code = 3205) TEST NOT PERFORMED OPIATES (test code = 3209) TEST NOT PERFORMED OXYCODONE (test code = 45851) TEST NOT PERFORMED PHENCYCLIDINE (test code = 3210) TEST NOT PERFORMED METHADONE (test code = 3207) TEST NOT PERFORMED BUPRENORPHINE (test code = 52480) TEST NOT PERFORMED James F AustinDRUG ABUSE PANEL 10 WITH [id number] 00:00:00* Test Item Value Reference Range Interpretation Comme nts AMPHETAMINES (test code = 3201) TEST NOT PERFORMED BARBITURATES (test code = 3202) TEST NOT PERFORMED BENZODIAZEPINES (test code = 3203) TEST NOT PERFORMED CANNABINOIDS (test code = 3204) TEST NOT PERFORMED COCAINE METABOLITE (test code = 3205) TEST NOT PERFORMED OPIATES (test code = 3209) TEST NOT PERFORMED OXYCODONE (test code = 96552) TEST NOT PERFORMED PHENCYCLIDINE (test code = 3210) TEST NOT PERFORMED METHADONE (test code = 3207) TEST NOT PERFORMED BUPRENORPHINE (test code = 79807) TEST NOT PERFORMED James F AustinDRUG ABUSE PANEL 10 WITH [id number] 00:00:00* Test Item Value Reference Range Interpretation Comme nts AMPHETAMINES (test code = 3201) TEST NOT PERFORMED BARBITURATES (test code = 3202) TEST NOT PERFORMED BENZODIAZEPINES (test code = 3203) TEST NOT PERFORMED CANNABINOIDS (test code = 3204) TEST NOT PERFORMED COCAINE METABOLITE (test code = 3205) TEST NOT PERFORMED OPIATES (test code = 3209) TEST NOT PERFORMED OXYCODONE (test code = 46111) TEST NOT PERFORMED PHENCYCLIDINE (test code = 3210) TEST NOT PERFORMED METHADONE (test code = 3207) TEST NOT PERFORMED BUPRENORPHINE (test code = 68461) TEST NOT PERFORMED James F AustinDRUG ABUSE PANEL 10 WITH [id number] 00:00:00* Test Item Value Reference Range Interpretation Comme nts AMPHETAMINES (test code = 3201) TEST NOT PERFORMED BARBITURATES (test code = 3202) TEST NOT PERFORMED BENZODIAZEPINES (test code = 3203) TEST NOT PERFORMED CANNABINOIDS (test code = 3204) TEST NOT PERFORMED COCAINE METABOLITE (test code = 3205) TEST NOT PERFORMED OPIATES (test code = 3209) TEST NOT PERFORMED OXYCODONE (test code = 53080) TEST NOT PERFORMED PHENCYCLIDINE (test code = 3210) TEST NOT PERFORMED METHADONE (test code = 3207) TEST NOT PERFORMED BUPRENORPHINE (test code = 53369) TEST NOT PERFORMED James F AustinCULTURE, [id number] 00:00:00* Test Item Value Reference Range Interpretation Comme nts CULTURE, URINE (test code = 56249) SPECIMEN NUMBER: [id number] James ColinCULTURE, [id number] 00:00:00* Test Item Value Reference Range Interpretation Comme nts CULTURE, URINE (test code = 02406) SPECIMEN NUMBER: [id number] James ColinCULTDIONNE, [id number] 00:00:00* Test Item Value Reference Range Interpretation Comme nts CULTURE, URINE (test code = 92781) SPECIMEN NUMBER: [id number] James SealsLTURE, [id number] 00:00:00* Test Item Value Reference Range Interpretation Comme nts CULTURE, URINE (test code = 26298) SPECIMEN NUMBER: [id number] James ColinHEMOGLOBIN [id number] 00:00:00* Test Item Value Reference Range Interpretation Comme nts HEMOGLOBIN A1 (test code = 2575) 96.9 % HEMOGLOBIN A2 (test code = 2576) 3.1 % HEMOGLOBIN F () (test c ode = 2722) 0.0 % HEMOGLOBIN S (test code = 2724) NONE % HEMOGLOBIN C (test code = 2726) NONE % OTHER HEMOGLOBIN VARIANT (te st code = 29079) NONE DETEC % PATHOLOGIST'S INTERPRETATION (test code = 2577) (NOTE) James ColinVARICELLA ZOSTER [id number] 00:00:00* Test Item Value Reference Range Interpretation Comme nts VARICELLA ZOSTER IgG (test c ode = 85410) 23 INDEX James Ahmadi [id number] 00:00:00* Test Item Value Reference Range Interpretation Comme nts TSH, THIRD GENERATION (test code = 2821) 10.200 UIU/ML James ColinGLUCOSE, 1 HR, GESTATIONAL SCREEN, 50 GM [id number] 00:00:00 * Test Item Value Reference Range Interpretation Comme nts GLUCOSE 1 HR POST 50 GM (margaux t code = 2005) 178 MG/DL James ColinVAGINAL PATHOGENS DNA [id number] 00:00:00* Test Item Value Reference Range Interpretation Comme nts KATIANA SPECIES (test code = 17043) NEGATIVE G. VAGINALIS (test code = 66361) NEGATIVE T. VAGINALIS (test code = 34381) NEGATIVE James ColinHEMOGLOBIN [id number] 00:00:00* Test Item Value Reference Range Interpretation Comme nts HEMOGLOBIN A1c (test code = 82504) 5.5 % James ColinGC AND CHLAMYDIA AMPLIFIED, [id number] 00:00:00* Test Item Value Reference Range Interpretation Comme nts GONORRHEA, TMA (test code = 69140) NEGATIVE CHLAMYDIA, TMA (test code = 43936) NEGATIVE James ColinOBSTETRIC PANEL + [id number] 00:00:00* Test Item Value Reference Range Interpretation [...] IU/ML RUBELLA IgG INTERP (test code = 59933) REACTIVE HEPATITIS B SURF AG (test code = 2739) NON-REACTIVE RPR (test code = 89332) NON-REACTIVE RPR TITER (test code = 3500) NOT INDIC. TITER HIV 1/2 4TH GEN, RFLX CONF (test code = 3514) NON-REACTIVE James ColinHEPATITIS C REFLEX [id number] 00:00:00* Test Item Value Reference Range Interpretation Comme nts HEPATITIS C ANTIBODY (test c ode = 4675) NON-REACTIVE James ColinPAP TEST, THINPREP, [id number] 00:00:00* Test Item Value Reference Range Interpretation Comme nts SOURCE: (test code = 8001) Cervical/Endocervical SLIDES: (test code = 8011) 1 LMP: (test code = 8021) 05/09/2019 SPECIMEN ADEQUACY: (test code = 51605) (NOTE) INTERPRETATION: (test code = 99273) NILM/NO EPITH. ABNORMALITY;SEE BELOW COUNTERINTELLIGENCE AGENT: (test code = 8101) ELINA Mccloud(ASCP) [facility] LOCATION: (test code = 50497) (NOTE) CPT: (test code = 8140) (NOTE) James ColinHEMOGLOBIN [id number] 00:00:00* Test Item Value Reference Range Interpretation Comme nts HEMOGLOBIN A1 (test code = 2575) 96.9 % HEMOGLOBIN A2 (test code = 2576) 3.1 % HEMOGLOBIN F () (test c ode = 2722) 0.0 % HEMOGLOBIN S (test code = 2724) NONE % HEMOGLOBIN C (test code = 2726) NONE % OTHER HEMOGLOBIN VARIANT (te st code = 21940) NONE DETEC % PATHOLOGIST'S INTERPRETATION (test code = 2577) (NOTE) James ColinHPV HIGH RISK WITH GENOTYPE, [id number] 00:00:00* Test Item Value Reference Range Interpretation Comme nts HPV HIGH RISK INTERP (test c ode = 25248) NEGATIVE HPV 16 (test code = 97494) NEGATIVE HPV 18 (test code = 50330) NEGATIVE HPV, HR, OTHER GENOTYPES (te st code = 45202) NEGATIVE James ColinVARICELLA ZOSTER [id number] 00:00:00* Test Item Value Reference Range Interpretation Comme nts VARICELLA ZOSTER IgG (test c ode = 87094) 23 INDEX James [id number] 00:00:00* Test Item Value Reference Range Interpretation Comme nts TSH, THIRD GENERATION (test code = 2821) 10.200 UIU/ML James ColinGLUCOSE, 1 HR, GESTATIONAL SCREEN, 50 GM [id number] 00:00:00 * Test Item Value Reference Range Interpretation Comme nts GLUCOSE 1 HR POST 50 GM (margaux t code = 2005) 178 MG/DL James ColinVAGINAL PATHOGENS DNA [id number] 00:00:00* Test Item Value Reference Range Interpretation Comme nts KATIANA SPECIES (test code = 76930) NEGATIVE G. VAGINALIS (test code = ) NEGATIVE T. VAGINALIS (test code = 49347) NEGATIVE James ColinHEMOGLOBIN [id number] 00:00:00* Test Item Value Reference Range Interpretation Comme nts HEMOGLOBIN A1c (test code = 13809) 5.5 % James Ahmadi AustinGC AND CHLAMYDIA AMPLIFIED, [id number] 00:00:00* Test Item Value Reference Range Interpretation Comme nts GONORRHEA, TMA (test code = 24234) NEGATIVE CHLAMYDIA, TMA (test code = 78407) NEGATIVE James Ahmadi AustinOBSTETRIC PANEL + [id number] 00:00:00* Test Item Value Reference Range Interpretation [...] IU/ML RUBELLA IgG INTERP (test code = 53371) REACTIVE HEPATITIS B SURF AG (test code = 2739) NON-REACTIVE RPR (test code = 30700) NON-REACTIVE RPR TITER (test code = 3500) NOT INDIC. TITER HIV 1/2 4TH GEN, RFLX CONF (test code = 3514) NON-REACTIVE James ColinPAP TEST, THINPREP, [id number] 00:00:00* Test Item Value Reference Range Interpretation Comme nts SOURCE: (test code = 8001) Cervical/Endocervical SLIDES: (test code = 8011) 1 LMP: (test code = 8021) 05/09/2019 SPECIMEN ADEQUACY: (test code = 05265) (NOTE) INTERPRETATION: (test code = 02207) NILM/NO EPITH. ABNORMALITY;SEE BELOW COUNTERINTELLIGENCE AGENT: (test code = 8101) ELINA Mccloud(ASCP) [facility] LOCATION: (test code = 98754) (NOTE) CPT: (test code = 8140) (NOTE) James ColinHEPATITIS C REFLEX [id number] 00:00:00* Test Item Value Reference Range Interpretation Comme nts HEPATITIS C ANTIBODY (test c ode = 4669) NON-REACTIVE James ColinHEMOGLOBIN [id number] 00:00:00* Test Item Value Reference Range Interpretation Comme nts HEMOGLOBIN A1 (test code = 2575) 96.9 % HEMOGLOBIN A2 (test code = 2576) 3.1 % HEMOGLOBIN F () (test c ode = 2722) 0.0 % HEMOGLOBIN S (test code = 2724) NONE % HEMOGLOBIN C (test code = 2726) NONE % OTHER HEMOGLOBIN VARIANT (te st code = 98701) NONE DETEC % PATHOLOGIST'S INTERPRETATION (test code = 2577) (NOTE) James ColinHPV HIGH RISK WITH GENOTYPE, [id number] 00:00:00* Test Item Value Reference Range Interpretation Comme nts HPV HIGH RISK INTERP (test c ode = 32251) NEGATIVE HPV 16 (test code = 31554) NEGATIVE HPV 18 (test code = 92899) NEGATIVE HPV, HR, OTHER GENOTYPES (te st code = 64458) NEGATIVE James ColinVARICELLA ZOSTER [id number] 00:00:00* Test Item Value Reference Range Interpretation Comme nts VARICELLA ZOSTER IgG (test c ode = 01779) 23 INDEX James [id number] 00:00:00* Test Item Value Reference Range Interpretation Comme nts TSH, THIRD GENERATION (test code = 2821) 10.200 UIU/ML James ColinGLUCOSE, 1 HR, GESTATIONAL SCREEN, 50 GM [id number] 00:00:00 * Test Item Value Reference Range Interpretation Comme nts GLUCOSE 1 HR POST 50 GM (margaux t code = 2005) 178 MG/DL James ColinVAGINAL PATHOGENS DNA [id number] 00:00:00* Test Item Value Reference Range Interpretation Comme nts KATIANA SPECIES (test code = ) NEGATIVE G. VAGINALIS (test code = ) NEGATIVE T. VAGINALIS (test code = ) NEGATIVE James ColinHEMOGLOBIN [id number] 00:00:00* Test Item Value Reference Range Interpretation Comme nts HEMOGLOBIN A1c (test code = 41144) 5.5 % James ColinOBSTETRIC PANEL + [id number] 00:00:00* Test Item Value Reference Range Interpretation [...] IU/ML RUBELLA IgG INTERP (test code = 07147) REACTIVE HEPATITIS B SURF AG (test code = 2739) NON-REACTIVE RPR (test code = 60697) NON-REACTIVE RPR TITER (test code = 3500) NOT INDIC. TITER HIV 1/2 4TH GEN, RFLX CONF (test code = 3514) NON-REACTIVE James ColinGC AND CHLAMYDIA AMPLIFIED, [id number] 00:00:00* Test Item Value Reference Range Interpretation Comme nts GONORRHEA, TMA (test code = 49373) NEGATIVE CHLAMYDIA, TMA (test code = 80296) NEGATIVE James ColinHEPATITIS C REFLEX [id number] 00:00:00* Test Item Value Reference Range Interpretation Comme nts HEPATITIS C ANTIBODY (test c ode = 4675) NON-REACTIVE James ColinPAP TEST, THINPREP, [id number] 00:00:00* Test Item Value Reference Range Interpretation Comme nts SOURCE: (test code = 8001) Cervical/Endocervical SLIDES: (test code = 8011) 1 LMP: (test code = 8021) 05/09/2019 SPECIMEN ADEQUACY: (test code = 43505) (NOTE) INTERPRETATION: (test code = 35347) NILM/NO EPITH. ABNORMALITY;SEE BELOW COUNTERINTELLIGENCE AGENT: (test code = 8101) ELINA Mccloud(ASCP) [place] LOCATION: (test code = 72859) (NOTE) CPT: (test code = 8140) (NOTE) James ColinHPV HIGH RISK WITH GENOTYPE, [id number] 00:00:00* Test Item Value Reference Range Interpretation Comme nts HPV HIGH RISK INTERP (test c ode = 89296) NEGATIVE HPV 16 (test code = 99178) NEGATIVE HPV 18 (test code = 34190) NEGATIVE HPV, HR, OTHER GENOTYPES (te st code = 25426) NEGATIVE James ColinHEMOGLOBIN [id number] 00:00:00* Test Item Value Reference Range Interpretation Comme nts HEMOGLOBIN A1 (test code = 2575) 96.9 % HEMOGLOBIN A2 (test code = 2576) 3.1 % HEMOGLOBIN F () (test c ode = 2722) 0.0 % HEMOGLOBIN S (test code = 2724) NONE % HEMOGLOBIN C (test code = 2726) NONE % OTHER HEMOGLOBIN VARIANT (te st code = 13804) NONE DETEC % PATHOLOGIST'S INTERPRETATION (test code = 2577) (NOTE) James ColinVARICELLA ZOSTER [id number] 00:00:00* Test Item Value Reference Range Interpretation Comme nts VARICELLA ZOSTER IgG (test c ode = 41702) 23 INDEX James [id number] 00:00:00* Test Item Value Reference Range Interpretation Comme nts TSH, THIRD GENERATION (test code = 2821) 10.200 UIU/ML James ColinGLUCOSE, 1 HR, GESTATIONAL SCREEN, 50 GM [id number] 00:00:00 * Test Item Value Reference Range Interpretation Comme nts GLUCOSE 1 HR POST 50 GM (margaux t code = 2005) 178 MG/DL James ColinVAGINAL PATHOGENS DNA [id number] 00:00:00* Test Item Value Reference Range Interpretation Comme nts KATIANA SPECIES (test code = 93765) NEGATIVE G. VAGINALIS (test code = ) NEGATIVE T. VAGINALIS (test code = ) NEGATIVE James ColinHEMOGLOBIN [id number] 00:00:00* Test Item Value Reference Range Interpretation Comme nts HEMOGLOBIN A1c (test code = 19794) 5.5 % James ColinOBSTETRIC PANEL + [id number] 00:00:00* Test Item Value Reference Range Interpretation [...] IU/ML RUBELLA IgG INTERP (test code = 69411) REACTIVE HEPATITIS B SURF AG (test code = 7979) NON-REACTIVE RPR (test code = 15017) NON-REACTIVE RPR TITER (test code = 3500) NOT INDIC. TITER HIV 1/2 4TH GEN, RFLX CONF (test code = 3514) NON-REACTIVE James ColinGC AND CHLAMYDIA AMPLIFIED, [id number] 00:00:00* Test Item Value Reference Range Interpretation Comme nts GONORRHEA, TMA (test code = 18610) NEGATIVE CHLAMYDIA, TMA (test code = 34094) NEGATIVE James ColinPAP TEST, THINPREP, [id number] 00:00:00* Test Item Value Reference Range Interpretation Comme nts SOURCE: (test code = 8001) Cervical/Endocervical SLIDES: (test code = 8011) 1 LMP: (test code = 8021) 05/09/2019 SPECIMEN ADEQUACY: (test code = 48427) (NOTE) INTERPRETATION: (test code = 51131) NILM/NO EPITH. ABNORMALITY;SEE BELOW COUNTERINTELLIGENCE AGENT: (test code = 8101) ELINA Mccloud(ASCP) [facility] LOCATION: (test code = 00790) (NOTE) CPT: (test code = 8140) (NOTE) James ColinHEPATITIS C REFLEX [id number] 00:00:00* Test Item Value Reference Range Interpretation Comme nts HEPATITIS C ANTIBODY (test c ode = 4675) NON-REACTIVE James ColinHPV HIGH RISK WITH GENOTYPE, [id number] 00:00:00* Test Item Value Reference Range Interpretation Comme [facility] HPV HIGH RISK INTERP (test c ode = 71377) NEGATIVE HPV 16 (test code = 99421) NEGATIVE HPV 18 (test code = 88442) NEGATIVE HPV, HR, OTHER GENOTYPES (te st code = 18771) NEGATIVE James Ahmadi [id number] 00:00:00* Test Item Value Reference Range Interpretation Comme nts TSH, THIRD GENERATION (test code = 2821) 4.610 UIU/ML James Ahmadi [id number] 00:00:00* Test Item Value Reference Range Interpretation Comme nts TSH, THIRD GENERATION (test code = 2821) 4.610 UIU/ML James Ahmadi [id number] 00:00:00* Test Item Value Reference Range Interpretation Comme nts TSH, THIRD GENERATION (test code = 2821) 4.610 UIU/ML James Ahmadi [id number] 00:00:00* Test Item Value Reference Range Interpretation Comme nts TSH, THIRD GENERATION (test code = 2821) 4.610 UIU/ML James Ahmadi [id number] 00:00:00* Test Item Value Reference Range Interpretation Comme nts TSH, THIRD GENERATION (test code = 2821) 28.700 UIU/ML James [id number] 00:00:00* Test Item Value Reference Range Interpretation Comme nts TSH, THIRD GENERATION (test code = 2821) 28.700 UIU/ML James Ahmadi [id number] 00:00:00* Test Item Value Reference Range Interpretation Comme nts TSH, THIRD GENERATION (test code = 2821) 28.700 UIU/ML James Ahmadi [id number] 00:00:00* Test Item Value Reference Range Interpretation Comme nts TSH, THIRD GENERATION (test code = 2821) 28.700 UIU/ML James ColinCULTURE, [id number] 00:00:00* Test Item Value Reference Range Interpretation Comme nts CULTURE, URINE (test code = 65128) SPECIMEN NUMBER: [id number] James ColinCULTURE, [id number] 00:00:00* Test Item Value Reference Range Interpretation Comme nts CULTURE, URINE (test code = 09747) SPECIMEN NUMBER: [id number] James ColinCULTURE, [id number] 00:00:00* Test Item Value Reference Range Interpretation Comme nts CULTURE, URINE (test code = 86009) SPECIMEN NUMBER: [id number] James ColinCULTURE, [id number] 00:00:00* Test Item Value Reference Range Interpretation Comme nts CULTURE, URINE (test code = 73609) SPECIMEN NUMBER: [id number] James Ahmadi AustinHEMOGLOBIN [id number] 00:00:00* Test Item Value Reference Range Interpretation Comme nts HEMOGLOBIN A1c (test code = 09181) 5.3 % James Ahmadi [id number] 00:00:00* Test Item Value Reference Range Interpretation Comme nts TSH, THIRD GENERATION (test code = 2821) 34.410 UIU/ML James Ahmadi AustinHEMOGLOBIN [id number] 00:00:00* Test Item Value Reference Range Interpretation Comme nts HEMOGLOBIN A1c (test code = 10084) 5.3 % James Ahmadi [id number] 00:00:00* Test Item Value Reference Range Interpretation Comme nts TSH, THIRD GENERATION (test code = 2821) 34.410 UIU/ML James F AustinHEMOGLOBIN [id number] 00:00:00* Test Item Value Reference Range Interpretation Comme nts HEMOGLOBIN A1c (test code = 04934) 5.3 % James F [id number] 00:00:00* Test Item Value Reference Range Interpretation Comme nts TSH, THIRD GENERATION (test code = 2821) 34.410 UIU/ML James F AustinHEMOGLOBIN [id number] 00:00:00* Test Item Value Reference Range Interpretation Comme nts HEMOGLOBIN A1c (test code = 44419) 5.3 % James F [id number] 00:00:00* Test Item Value Reference Range Interpretation Comme nts TSH, THIRD GENERATION (test code = 2821) 34.410 UIU/ML James F AustinGC AND CHLAMYDIA, AMPLIFIED, [id number] 00:00:00* Test Item Value Reference Range Interpretation Comme nts GONORRHEA, TMA (test code = 48567) NEGATIVE CHLAMYDIA, TMA (test code = 14072) NEGATIVE James F AustinGC AND CHLAMYDIA, AMPLIFIED, [id number] 00:00:00* Test Item Value Reference Range Interpretation Comme nts GONORRHEA, TMA (test code = 08014) NEGATIVE CHLAMYDIA, TMA (test code = 34748) NEGATIVE James F AustinGC AND CHLAMYDIA, AMPLIFIED, [id number] 00:00:00* Test Item Value Reference Range Interpretation Comme nts GONORRHEA, TMA (test code = 19103) NEGATIVE CHLAMYDIA, TMA (test code = 82089) NEGATIVE James F AustinGC AND CHLAMYDIA, AMPLIFIED, [id number] 00:00:00* Test Item Value Reference Range Interpretation Comme nts GONORRHEA, TMA (test code = 45189) NEGATIVE CHLAMYDIA, TMA (test code = 98157) NEGATIVE James F AustinGC AND CHLAMYDIA, AMPLIFIED, [id number] 00:00:00* Test Item Value Reference Range Interpretation Comme nts GONORRHEA, TMA (test code = 80244) NEGATIVE CHLAMYDIA, TMA (test code = 70991) POSITIVE James F AustinGC AND CHLAMYDIA, AMPLIFIED, [id number] 00:00:00* Test Item Value Reference Range Interpretation Comme nts GONORRHEA, TMA (test code = 64957) NEGATIVE CHLAMYDIA, TMA (test code = 65903) POSITIVE James ColinGC AND CHLAMYDIA, AMPLIFIED, [id number] 00:00:00* Test Item Value Reference Range Interpretation Comme nts GONORRHEA, TMA (test code = 23396) NEGATIVE CHLAMYDIA, TMA (test code = 39621) POSITIVE James Joshi AND CHLAMYDIA, AMPLIFIED, [id number] 00:00:00* Test Item Value Reference Range Interpretation Comme nts GONORRHEA, TMA (test code = 31568) NEGATIVE CHLAMYDIA, TMA (test code = 18653) POSITIVE James Colin Notes Date/Time Note Provider Source James Colin [facility]2024-06-21 00:00:00 James Colin [facility]2024-06-03 00:00:00 James Kwon [facility]2024-05-06 00:00:00 James Kwon [facility]
[2023-10-04] MEDS ORDERED: ONDANSETRON 4 MG/2 ML VIAL ONE (08:23)
[2023-10-04] MEDS ORDERED: KETOROLAC 30 MG/ML INJ ONE (08:24)
[2023-10-04] MEDS ORDERED: NA CHLORIDE 0.9% 1,000 ML ONE (08:24)
[2023-10-04 08:34] LABS: Specific Gravity > 1.030 (1.005-1.030); Sqamous Epithelial <5 /HPF (None Seen); Urine Bacteria None Seen /HPF (<20); Urine Bilirubin NEGATIVE (Negative); Urine Blood 1+ (Negative); Urine Clarity Turbid (Clear); Urine Color Yellow (Yellow); Urine Culture Reflex Order NOT NEEDED; Urine Glucose NEGATIVE (Negative); Urine Ketones 1+ (Negative); Urine Micro Reflex YN NO BILL MICROSCOPIC; Urine Mucus Slight /HPF (None Seen); Urine Nitrite NEGATIVE (Negative); Urine Protein TRACE (Negative); Urine Urobilinogen Normal (Normal); Urine WBC <5 /HPF (<5); Urine pH 5.5 (5.0-7.0)
[2023-10-04 08:35] LABS: Specific Gravity > 1.030 (1.005-1.030)
[2023-10-04 08:44] LABS: SARS-CoV-2 Antigen CONTROL BLUE LINE VIS/BG OK
[2023-10-04 08:45] LABS: SARS-CoV-2 Antigen Rapid Res Positive (Negative)
[2023-10-04 08:47] LABS: Albumin 3.8 g/dL (3.4-5.0); Albumin/Globulin Ratio 0.8 (1.1-1.8); Anion Gap 6.8 mEq/L (5.0-15.0); Bilirubin Total 0.9 mg/dL (0.2-1.0); Globulin 4.5 g/dL (2.3-3.5); Potassium 3.8 mEq/L (3.5-5.1); Protein, Total 8.3 g/dL (6.4-8.2)
--- NOTE | 2023-10-04 09:34 | ER ---
Nurse's Notes [facility] Name: Suzanne Sanchez Age: 28 yrs Sex: Female : 1995 Arrival Date: 10/04/2023 Time: 07:28 Bed 5 Private MD: Diagnosis: SARS-associated coronavirus as the cause of diseases classified elsewhere Presentation: 10/03 07:45 Chief complaint: Patient states: she started having upper abdominal pain last night at ap3 approx 10pm, followed by NVD at 0200 this morning. patient reports the pain is intermittent cramping, and when the cramps come the pain is 10/10 on the pain scale. Coronavirus screen: At this time, the client does not indicate any symptoms associated with coronavirus-19. Ebola Screen: No symptoms or risks identified at this time. Initial Sepsis Screen: Does the patient meet any 2 criteria? HR > 90 bpm. Does the patient have a suspected source of infection? No. Patient's initial sepsis screen is negative. Risk Assessment: Do you want to hurt yourself or someone else? Patient reports no desire to harm self or others. Onset of symptoms was October 03, 2023. 07:45 Method Of Arrival: Ambulatory ap3 07:45 Acuity: MGAUE 3 ap3 Triage Assessment: 07:47 General: Appears in no apparent distress. Behavior is calm, cooperative, appropriate ap3 for age. Pain: Complains of pain in right upper quadrant and left upper quadrant Pain currently is 2 out of 10 on a pain scale. at worst was 10 out of 10 on a pain scale. Pain began gradually, 1 day ago. Is intermittent. Neuro: Level of Consciousness is awake, alert, obeys commands, Oriented to person, place, time, situation, Appropriate for age Moves all extremities. Full function Gait is steady, Speech is normal. Cardiovascular: Patient's skin is warm and dry. Respiratory: Airway is patent Respiratory effort is even, unlabored, Respiratory pattern is regular, symmetrical. GI: Reports upper abdominal pain, diarrhea, nausea, vomiting. Historical: - Allergies: 07:47 No Known Allergies; ap3 - PMHx: 07:47 Diabetes - NIDDM; Hypothyroidism; ap3 - Immunization history:: Client reports receiving the 2nd dose of the Covid vaccine. - Infectious Disease History:: Denies. - Social history:: Smoking status: Patient denies any tobacco usage or history of. Patient uses alcohol, but reports only rare drinking. Screenin:49 [facility] ED Fall Risk Assessment (Adult) History of falling in the last 3 months, ap3 including since admission No falls in past 3 months (0 pts) Confusion or Disorientation No (0 pts) Intoxicated or Sedated No (0 pts) Impaired Gait No (0 pts) Mobility Assist Device Used No (0 pt) Altered Elimination No (0 pt) Score/Fall Risk Level 0 - 2 = Low Risk Oriented to surroundings, Maintained a safe environment, Educated pt \T\ family on fall prevention, incl call for assistance when getting out of bed, Assessed \T\ reinforced patient's understanding of fall precautions, Provided non-skid footwear, Hourly rounding (assess needs \T\ fall precautionary measures) done, Used ambulatory aids as needed (educated on \T\ assisted with), Used gait belt as appropriate. Abuse screen: Denies threats or abuse. Nutritional screening: No deficits noted. Tuberculosis screening: No symptoms or risk factors identified. Assessment: 08:44 General: Appears in no apparent distress. Behavior is calm, cooperative. Pain: dd2 Complains of pain in epigastric area and umbilical area Pain began suddenly. Neuro: No deficits noted. Cardiovascular: No deficits noted. Respiratory: No deficits noted. GI: Abdomen is non-distended, Bowel sounds present X 4 quads. Abd is soft and non tender Reports upper abdominal pain, nausea, vomiting. : No deficits noted. EENT: No deficits noted. Derm: No deficits noted. Musculoskeletal: No deficits noted. Vital Signs: 07:45 BP 140 / 71; Pulse 102; Resp 16; Temp 98.1; Pulse Ox 99% on R/A; Weight 104.33 kg; ap3 Height 5 ft. 0 in. ; Pain 2/10; 08:49 BP 129 / 79; Pulse 79; Resp 15; Pulse Ox 99% ; dd2 09:35 BP 123 / 69; Pulse 74; Resp 16; Pulse Ox 99% ; ko1 07:45 Body Mass Index 44.92 (104.33 kg, 152.4 cm) ap3 07:45 Pain Scale: Adult ap3 ED Course: 07:32 Patient arrived in ED. mg5 07:36 Gilles Gilman MD is Attending Physician. ec2 07:47 Triage completed. ap3 07:49 Arm band placed on right wrist. ap3 07:49 Patient has correct armband on for positive identification. Bed in low position. Call ap3 light in reach. Side rails up X 1. Pulse ox on. NIBP on. 08:06 JACQUELYN MCKEE, RN is Primary Nurse. dd2 08:32 No provider procedures requiring assistance completed. Initial lab(s) drawn, by nj, dd2 sent to lab. COVID swab sent to lab. Inserted saline lock: 20 gauge in right antecubital area, using aseptic technique. Blood collected. Flushed with 10 mL NS. 08:44 Provided Education on: call light. medications, labs. dd2 08:44 Door closed. Warm blanket given. dd2 09:35 IV discontinued, intact, bleeding controlled, No redness/swelling at site. Pressure ko1 dressing applied. Administered Medications: 08:32 Drug: NS 0.9% IV 1000 ml IV at 1 bolus Per protocol; 1000 mL bolus Route: IV; Rate: 1 dd2 bolus; Site: right antecubital; 08:47 Follow up: Response: No adverse reaction dd2 09:42 Follow up: Response: No adverse reaction; IV Status: Completed infusion; IV Intake: ko1 1000ml 08:32 Drug: TORadol - Ketorolac IVP 15 mg IVP once Route: IVP; Site: right antecubital; dd2 08:47 Follow up: Response: No adverse reaction dd2 08:32 Drug: Ondansetron IVP 4 mg IVP once; over 2 minutes Route: IVP; Site: right antecubital;dd2 08:47 Follow up: Response: No adverse reaction dd2 Medication: 08:44 VIS not applicable for this client. dd2 Intake: 09:42 IV: 1000ml; Total: 1000ml. ko1 Outcome: 09:33 Discharge ordered by . ec2 09:35 Discharged to home ambulatory, with family, ko1 09:35 Condition: stable 09:35 Discharge instructions given to patient, family, Instructed on discharge instructions, follow up and referral plans. medication usage, Demonstrated understanding of instructions, follow-up care, medications, Prescriptions given X 1, 09:42 Patient left the ED. ko1 Signatures: Zena Davies RN RN ap3 Bisi Bland RN RN ko1 Xenia Pavon mg5 Gilles Gilman MD MD ec2 JACQUELYN MCKEE, RN RN dd2
--- NOTE | 2023-10-04 09:34 | EDPHYS ---
Physician Documentation [facility] Name: Suzanne Sanchez Age: 28 yrs Sex: Female : 1995 Arrival Date: 10/04/2023 Time: 07:28 Bed 5 Private MD: ED Physician Gilles Gilman HPI: 10/03 08:04 This 28 yrs old Female presents to ER via Ambulatory with complaints of ec2 Nausea/Vomiting. 08:04 Patient arrives today for evaluation of nausea, vomiting, diarrhea. Patient reports ec2 that she has been experiencing symptoms since last night. Patient reports she has generalized abdominal cramping as well. Patient reports no urinary complaints, no fevers or chills, no cough or cold symptoms, no sick contacts.. Historical: - Allergies: 07:47 No Known Allergies; ap3 - PMHx: 07:47 Diabetes - NIDDM; Hypothyroidism; ap3 - Immunization history:: Client reports receiving the 2nd dose of the Covid vaccine. - Infectious Disease History:: Denies. - Social history:: Smoking status: Patient denies any tobacco usage or history of. Patient uses alcohol, but reports only rare drinking. ROS: 08:04 Constitutional: as per hpi ec2 Exam: 08:04 Constitutional: GEN: NAD Head: atraumatic Eyes: EOMI Ears: External ears are ec2 normal. CV: Tachycardia LUNGS: no respiratory distress ABD: non-distended, generalized TTP, not guarding, not rigid SKIN: no evidence of rashes MSK: no evidence of trauma Vital Signs: 07:45 BP 140 / 71; Pulse 102; Resp 16; Temp 98.1; Pulse Ox 99% on R/A; Weight 104.33 kg; ap3 Height 5 ft. 0 in. ; Pain 2/10; 08:49 BP 129 / 79; Pulse 79; Resp 15; Pulse Ox 99% ; dd2 09:35 BP 123 / 69; Pulse 74; Resp 16; Pulse Ox 99% ; ko1 07:45 Body Mass Index 44.92 (104.33 kg, 152.4 cm) ap3 07:45 Pain Scale: Adult ap3 MDM: 07:36 Patient medically screened. ec2 08:04 Data reviewed: vital signs. ED course: Patient arrives today for evaluation of ec2 abdominal pain. Will obtain lab work, urine studies, treat the patient's symptoms. Differential includes processes such as gastroenteritis, urinary tract infection, electrolyte disturbances. 09:31 ED course: CMP nonactionable, urine noninfectious, COVID is positive. Will have patient ec2 follow-up outpatient and prescribed patient antiemetic. . 10/03 08:04 Order name: CMP; Complete Time: 09:30 ec2 10/03 08:04 Order name: UAM; Complete Time: 09:30 ec2 10/03 08:04 Order name: SARS RAPID; Complete Time: 09:30 ec2 10/03 08:33 Order name: Test, Urine; Complete Time: 09:30 EDMS 10/03 08:04 Order name: IV Saline Lock; Complete Time: 08:32 ec2 10/03 08:04 Order name: Labs collected and sent; Complete Time: 08:32 ec2 Administered Medications: 08:32 Drug: NS 0.9% IV 1000 ml IV at 1 bolus Per protocol; 1000 mL bolus Route: IV; Rate: 1 dd2 bolus; Site: right antecubital; 08:47 Follow up: Response: No adverse reaction dd2 09:42 Follow up: Response: No adverse reaction; IV Status: Completed infusion; IV Intake: ko1 1000ml 08:32 Drug: TORadol - Ketorolac IVP 15 mg IVP once Route: IVP; Site: right antecubital; dd2 08:47 Follow up: Response: No adverse reaction dd2 08:32 Drug: Ondansetron IVP 4 mg IVP once; over 2 minutes Route: IVP; Site: right antecubital;dd2 08:47 Follow up: Response: No adverse reaction dd2 Disposition Summary: 10/04/23 09:33 Discharge Ordered Notes: Location: Home ec2 Condition: Stable ec2 Diagnosis - SARS-associated coronavirus as the cause of diseases classified elsewhere ec2 Followup: ec2 - With: Private Physician - When: - Reason: Re-evaluation by your physician Discharge Instructions: - Discharge Summary Sheet ec2 - Viral Illness, Adult ec2 Forms: - Medication Reconciliation Form ec2 - Antibiotic Education ec2 - Prescription Opioid Use ec2 - Patient Portal Instructions ec2 - Leadership Thank You Letter ec2 Prescriptions: - Zofran 4 mg Oral Tablet - take 1 tablet ORAL route every 12 hours As needed; 20 tablet; Refills: 0, ec2 Product Selection Permitted 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 EDMS EDMS 08:33 08:04 TEST, SERUM+SC.LAB.BRZ ordered. EDMS EDMS
[2023-10-04 09:56] VITALS: TEMP 98.1; O2SAT 99
[2023-10-04 10:07] VITALS: BP 123/69
== END 2023-10-04 09:42 | disposition home or self-care (01) ==
LOC: ER 07:28
DX: U07.1 COVID-19 (principal); E11.9 Type 2 diabetes mellitus without complications
CPT/HCPCS: 36415; 80053; 81001; 81025; 87811; 96361; 96374; 96375; 99284; J2405; J7030